=== PATIENT | female | born 1930 | race Hispanic/Latino ===

== ENCOUNTER 2017-05-28 18:24 | Inpatient (IN) | payer MEDICARE ==
[2017-05-28 18:25] VITALS: BMI 25.6
--- NOTE | 2017-05-28 19:51 | C.PDOC ---
History Of Present Illness 86 year old female is sent to the ED from her PMD's office Dr. Benavides for evaluation of generalized weakness, low hemoglobin. Patient states she went to see Dr. Benavides today for follow up on her prior blood work and was sent here for further evaluation. Patient states she takes Iron supplements on the regular basis, had a US of her lower extremities done to rule put DVT, which came back normal. Patient is also c/o SOB on exertion. Patient denies CP, nausea, vomit, diarrhea, numbness, headache, blurry vision. Chief Complaint (Nursing): Shortness Of Breath History Per: Patient History/Exam Limitations: no limitations Onset/Duration Of Symptoms: Days Current Symptoms Are (Timing): Still Present Reports Recently: Treated By A Physician Recent travel outside of the [place]: No Additional History Per: Patient Past Medical History Reviewed: Historical Data, Nursing Documentation, Vital Signs Vital Signs: Last Vital Signs Temp 98.5 F 05/29/17 00:00 Pulse 60 05/29/17 00:00 Resp 20 05/29/17 00:00 BP 210/62 H 05/29/17 00:00 Pulse Ox 95 05/29/17 00:00 - Medical History PMH: Anemia, CAD, HTN, Hypercholesterolemia Other PMH: PVD Surgical History: Coronary Stent - [facility] Procedures ANGIOPLASTY OF OTHER NON-CORONARY VESSEL(S) (09/27/13) CONTRAST AORTOGRAM (09/27/13) CONTRAST ARTERIOGRAM-LEG (09/27/13) CONTRAST RENAL ARTERIOGR (05/28/06) INSEJ [id number] PERIPHERAL NON-CORONARY VES STENT(S) (09/27/13) INSEJ OF DRUG-ELUTING STENT(S) OF OTH PERIPHERAL VESSEL(S) (09/27/13) INSERTION OF [id number] PERIPHERAL VESSEL STENT(S) (10/23/05) INSERTION OF ONE VASCULAR STENT (10/23/05) INSERTION OF TWO VASCULAR STENTS (09/27/13) PROCEDURE ON SINGLE VESSEL (10/23/05) PROCEDURE ON TWO VESSELS (09/27/13) Family History: States: No Known Family Hx - Social History Hx Alcohol Use: No Hx Substance Use: No - Immunization History Hx Tetanus Toxoid Vaccination: No Hx Influenza Vaccination: No Hx Pneumococcal Vaccination: No Review Of Systems Constitutional: Positive for: Weakness. Negative for: Fever, Chills Cardiovascular: Negative for: Chest Pain, Palpitations Respiratory: Negative for: Cough, Shortness of Breath Gastrointestinal: Positive for: Constipation. Negative for: Nausea, Vomiting, Abdominal Pain, Diarrhea Genitourinary: Negative for: Dysuria, Hematuria, Vaginal Bleeding Skin: Negative for: Rash Neurological: Positive for: Weakness, Dizziness. Negative for: Numbness, Headache Physical Exam - Physical Exam Appears: Non-toxic, No Acute Distress Skin: Warm, Dry, Pale Head: Atraumatic, Normacephalic Eye(s): bilateral: Normal Inspection, Conjunctiva Pale Nose: No Discharge, No Deformity Oral Mucosa: Moist Neck: Normal ROM, Supple Chest: Symmetrical Cardiovascular: Rhythm Regular, No Murmur Respiratory: Normal Breath Sounds, No Rales, No Rhonchi, No Wheezing Gastrointestinal/Abdominal: Soft, Tenderness (Vague epigastric ), No Guarding, No Rebound Extremity: Normal ROM, Pedal Edema (B/L midl calf), No Calf Tenderness, Capillary Refill (< 2 seconds), No Swelling Neurological/Psych: Oriented x3, Normal Speech, Normal Cognition Gait: Steady ED Course And Treatment - Laboratory Results Result Diagrams: 05/28/17 19:48 05/28/17 19:48 O2 Sat by Pulse Oximetry: 98 (On RA) Pulse Ox Interpretation: Normal Medical Decision Making Medical Decision Making: Impression: GI bleed vs mild CHF Plan: * Labs * CXR * Pepcid 20 mg IVP * UA Dr. Benavides's lab work shows * Bun 31 * Creat 1.79 * GFR 29 * Tprot 6.1 * S iron 26 low * UIBC 26 low * Sat'n 6 low * pro-BNP 1934 * AFP 8.5 high * Vanous doppler of the LE - neg for DVT * Disposition - Disposition Disposition: HOSPITALIZED Disposition Time: 05:13 Condition: FAIR - Clinical Impression Clinical Impression: GI bleed - Scribe Statement The provider has reviewed the documentation as recorded by the Scribe Horacio Alexander All medical record entries made by the Scribe were at my direction and personally dictated by me. I have reviewed the chart and agree that the record accurately reflects my personal performance of the history, physical exam, medical decision making, and the department course for this patient. I have also personally directed, reviewed, and agree with the discharge instructions and disposition.
[2017-05-28 19:56] LABS: BASO # 0.1 K/uL (0.0-0.2); BASO % 1.1 % (0.0-2.0); EOS # 0.4 K/uL (0.0-0.7); LYMPH # 1.5 K/uL (1.0-4.3); LYMPH % 18.5 % (20.0-40.0); MEAN CORPUSCULAR HEMOGLOBIN 29.2 pg (27.0-31.0); MEAN CORPUSCULAR HGB CONC 32.9 g/dL (33.0-37.0); MONO # 1.2 K/uL (0.0-0.8); MONO % 15.4 % (0.0-10.0); NEUT # 4.8 K/uL (1.8-7.0); RBC 2.53 Mil/uL (3.80-5.20); RED CELL DISTRIBUTION WIDTH 14.2 % (11.5-14.5)
[2017-05-28] MEDS ORDERED: Labetalol 25mg/5ml Syringe ONE ×2 (20:00→20:03)
[2017-05-28 20:01] LABS: HEMOGLOBIN 7.4 g/dL (11.0-16.0)
[2017-05-28] MEDS ORDERED: Labetalol 25mg/5ml Syringe IVP STA (20:03)
[2017-05-28 20:05] LABS: INR 1.1; PROTHROMBIN TIME 12.1 SECONDS (9.7-12.2)
[2017-05-28 20:09] LABS: ALB/GLOB RATIO 1.6 (1.0-2.1); ALBUMIN 3.8 g/dL (3.5-5.0); CALCIUM 9.2 mg/dl (8.6-10.4)
[2017-05-28 21:30] LABS: SQUAMOUS EPITHIAL < 1 /hpf (0-5); URINE BACTERIA OCC (<OCC); URINE BILIRUBIN NEGATIVE (NEGATIVE); URINE BLOOD NEGATIVE (NEGATIVE); URINE CLARITY Clear (Clear); URINE COLOR Colorless (YELLOW); URINE GLUCOSE (UA) NORMAL (Normal); URINE LEUKOCYTE ESTERASE TRACE Leu/uL (Negative); URINE NITRATE NEGATIVE (NEGATIVE); URINE PROTEIN 1+ mg/dL (NEGATIVE); URINE UROBILINOGEN NORMAL mg/dL (0.2-1.0)
--- NOTE | 2017-05-29 08:46 | RAD ---
PROCEDURE: CHEST RADIOGRAPH, 1 VIEW HISTORY: GI Bleeding COMPARISON: 09/23/2013 FINDINGS: LUNGS: Clear. PLEURA: No pneumothorax or pleural fluid seen. CARDIOVASCULAR: Normal. OSSEOUS STRUCTURES: No significant abnormalities. VISUALIZED UPPER ABDOMEN: Normal. OTHER FINDINGS: None. IMPRESSION: No active disease.
[2017-05-29] MEDS: Potassium Chloride 10 mEq ER Tab PO SCH (10:44)
--- NOTE | 2017-05-29 12:14 | CP.PCM.HP ---
History of Present Illness - History of Present Illness History of Present Illness: 86 year old female is sent to the ED from her PMD's office Dr. Benavides for evaluation of generalized weakness, low hemoglobin. Patient states she went to see Dr. Benavides today for follow up on her prior blood work and was sent here for further evaluation. Patient states she takes Iron supplements on the regular basis, had a US of her lower extremities done to rule put DVT, which came back normal. Patient is also c/o SOB on exertion. Patient denies CP, nausea, vomit, diarrhea, numbness, headache, blurry vision. - Medical History PMH: Anemia, CAD, HTN, Hypercholesterolemia Other PMH: PVD Surgical History: Coronary Stent Present on Admission - Present on Admission Any Indicators Present on Admission: No History of DVT/PE: No History of Uncontrolled Diabetes: No Urinary Catheter: No Decubitus Ulcer Present: No History Surgical Site Infection Following: None Review of Systems - Constitutional Constitutional: Anorexia - EENT Eyes: absent: As Per HPI, Blind Spots, Blurred Vision, Change in Vision, Decreased Night Vision, Diplopia, Discharge, Dry Eye, Exophthalmos, Floaters, Irritation, Itchy Eyes, Loss of Peripheral Vision, Pain, Photophobia, Requires Corrective Lenses, Sees Flashes, Spots in Vision, Tunnel Vision, Other Visual Disturbances, Loss of Vision, Other Ears: absent: As Per HPI, Decreased Hearing, Ear Discharge, Ear Pain, Tinnitus, Abnormal Hearing, Disequilibrium, Dizziness, Other Nose/Mouth/Throat: absent: As Per HPI, Epistaxis, Nasal Congestion, Nasal Discharge, Nasal Obstruction, Nasal Trauma, Nose Pain, Post Nasal Drip, Sinus Pain, Sinus Pressure, Bleeding Gums, Change in Voice, Dental Pain, Dry Mouth, Dysphagia, Halitosis, Hoarsness, Lip Swelling, Mouth Lesions, Mouth Pain, Odynophagia, Sore Throat, Throat Swelling, Tongue Swelling, Facial Pain, Neck Pain, Neck Mass, Other - Cardiovascular Cardiovascular: As Per HPI - Respiratory Respiratory: absent: As Per HPI, Cough, Dyspnea, Hemoptysis, Dyspnea on Exertion , Wheezing, Snoring, Stridor, Pain on Inspiration, Chest Congestion, Excessive Mucous Production, Change in Mucous Color, Pain with Coughing, Other - Gastrointestinal Gastrointestinal: As Per HPI - Reproductive: Female Reproductive:Female: absent: As Per HPI, Amenorrhea, Amenorrhea/ Control, Currently Menstual, Cycle <21 Days, Cycle >35 Days, Cycle Variable, Menses 1-7 Days, Menses >/= 8 Days, Menses Variable, Cycle > 4 Weeks Between, No Menses for 6 Months, Heavy Menses, Light Menses, Normal Menses, Spotting Between Cycles , S/P Hysterectomy, Menopausal, Post Menopausal, Premenarche, Abnormal Vaginal Bleeding, Dysmenorrhea, Dyspareunia, Genital Lesions, Genital Pruritis, Pelvic Pain, Prolapse Symptoms, Sexual Dysfunction, Vaginal Discharge, Vaginal Dryness , Vaginal Odor, Vaginal Pruritis, Other - Menstruation Menstruation: absent: As Per HPI, Amenorrhea, Amenorrhea/ Control, Currently Menstual, Cycle <21 Days, Cycle >35 Days, Cycle Variable, Menses 1-7 Days, Menses >/= 8 Days, Menses Variable, Cycle > 4 Weeks Between, No Menses for 6 Months, Heavy Menses, Light Menses, Normal Menses, Spotting Between Cycles , S/P Hysterectomy, Menopausal, Post Menopausal, Premenarche, Abnormal Vaginal Bleeding, Dysmenorrhea, Other - Musculoskeletal Musculoskeletal: absent: As Per HPI, Abnormal Gait, Arthralgias, Atrophy, Back Pain, Deformity, Joint Swelling, Limited Range of Motion, Loss of Height, Muscle Cramps, Muscle Weakness, Myalgias, Neck Pain, Numbness, Radiating Pain into Limb, Stiffness, Tingling, Other - Integumentary Integumentary: absent: As Per HPI, Acne, Alopecia, Bleeding Lesions, Change in Hair, Change in Nails, Change in Pigmentation, Changing Lesions, Dry Skin, Erythema, Furuncle, Hirsutism, Lesions, New Lesions, Non-Healing Lesions, Photosensitivity, Pruritus, Rash, Skin Pain, Skin Ulcer, Sores, Striae, Swelling , Unusual Bruising, Wounds, Jaundice, Other - Neurological Neurological: absent: As Per HPI, Abnormal Gait, Abnormal Hearing, Abnormal Movements, Abnormal Speech, Behavioral Changes, Burning Sensations, Confusion, Convulsions, Disequilibrium, Dizziness, Numbness, Focal Weakness, Frequent Falls , Headaches, Lack of Coordination, Loss of Vision, Memory Loss, Paresthesias, Radicular Pain, Restless Legs, Sensory Deficit, Syncope, Tingling, Tremor, Vertigo, Weakness, Other Visual Disturbances, Other - Psychiatric Psychiatric: absent: As Per HPI, Abnormal Sleep Pattern, Anhedonia, Anxiety, Auditory Hallucinations, Behavioral Changes, Change in Appetite, Change in Libido, Confusion, Depression, Difficulty Concentrating, Hallucinations, Homicidal Ideation, Hopelessness, Irritability, Memory Loss, Mood Swings, Panic Attacks, Paranoia, Suicidal Ideation, Visual Hallucinations, Tactile Hallucinations, Other - Endocrine Endocrine: absent: As Per HPI, Change in Body Appearance, Change in Libido, Cold Intolorance, Deepening of Voice, Excessive Sweating, Fatigue, Flushing, Heat Intolorance, Increase in Ring/Shoe/Hat Size, Palpitations, Polydipsia, Polyphagia, Polyuria, Other - Hematologic/Lymphatic Hematologic: absent: As Per HPI, Easy Bleeding, Easy Bruising, Lymphadenopathy, Other Past Patient History - Past Medical History & Family History Past Medical History?: Yes - Past Social History Smoking Status: Former Smoker - CARDIAC Hx Hypercholesterolemia: Yes Hx Hypertension: Yes - HEMATOLOGICAL/ONCOLOGICAL Hx Anemia: Yes - MUSCULOSKELETAL/RHEUMATOLOGICAL Hx Falls: No - GASTROINTESTINAL Hx Gastrointestinal Disorders: Yes Hx Gastroesophageal Reflux: Yes - GENITOURINARY/GYNECOLOGICAL Hx Genitourinary Disorders: Yes Hx Urinary Tract Infection: Yes - PSYCHIATRIC Hx Substance Use: No - SURGICAL HISTORY Hx Coronary Stent: Yes - ANESTHESIA Hx Anesthesia: Yes Meds Allergies/Adverse Reactions: Allergies Allergy/AdvReac Type Severity Reaction Status Date / Time strawberry Allergy Verified 05/28/17 18:48 Physical Exam - Constitutional Appears: Non-toxic, Chronically Ill - Head Exam Head Exam: NORMOCEPHALIC - Eye Exam Eye Exam: PERRL. absent: Scleral icterus - ENT Exam ENT Exam: Mucous Membranes Dry - Cardiovascular Exam Cardiovascular Exam: REGULAR RHYTHM, +S1, +S2 - GI/Abdominal Exam GI & Abdominal Exam: Diminished Bowel Sounds, Normal Bowel Sounds, Soft. absent : Tenderness - Rectal Exam Rectal Exam: Deferred - Exam Exam: NORMAL INSPECTION - Extremities Exam Extremities exam: Negative for: calf tenderness, pedal edema, pedal pulses present - Back Exam Back exam: absent: CVA tenderness (L), CVA tenderness (R) - Neurological Exam Neurological exam: Alert, CN II-XII Intact, Oriented x3, Reflexes Normal - Psychiatric Exam Psychiatric exam: Normal Mood - Skin Skin Exam: Dry Results - Vital Signs Recent Vital Signs: Last Vital Signs Temp 99.3 F 05/29/17 08:00 Pulse 64 05/29/17 08:00 Resp 20 05/29/17 08:00 BP 192/51 H 05/29/17 10:53 Pulse Ox 95 05/29/17 08:00 - Labs Result Diagrams: 05/28/17 19:48 05/28/17 19:48 Labs: Laboratory Results - last 24 hr 05/28/17 05/28/17 05/28/17 19:48 19:48 19:48 WBC 8.0 RBC 2.53 L Hgb 7.4 L D Hct 22.5 L MCV 89.0 D MCH 29.2 MCHC 32.9 L RDW 14.2 Plt Count 259 MPV 8.0 Neut % (Auto) 60.0 Lymph % (Auto) 18.5 L [place] % (Auto) 15.4 H Eos % (Auto) 5.0 H Baso % (Auto) 1.1 Neut # (Auto) 4.8 Lymph # (Auto) 1.5 [place] # (Auto) 1.2 H Eos # (Auto) 0.4 Baso # (Auto) 0.1 PT 12.1 INR 1.1 APTT 30 Sodium 138 Potassium 3.5 L Chloride 99 Carbon Dioxide 27 Anion Gap 15 BUN 29 H Creatinine 1.9 H Est GFR ( Amer) 30 Est GFR (Non-Af Amer) 25 Random Glucose 115 H Calcium 9.2 Total Bilirubin 0.3 AST 22 ALT 20 Alkaline Phosphatase 50 Total Protein 6.2 L Albumin 3.8 Globulin 2.4 Albumin/Globulin Ratio 1.6 Urine Color Urine Clarity Urine pH Ur Specific [place] Urine Protein Urine Glucose (UA) Urine Ketones Urine Blood Urine Nitrate Urine Bilirubin Urine Urobilinogen Ur Leukocyte Esterase Urine WBC (Auto) Urine RBC (Auto) Ur Squamous Epith Cells Ur Transition Epith Cell Urine Bacteria Blood Type Antibody Screen 05/28/17 05/28/17 05/29/17 19:48 21:18 11:08 WBC RBC Hgb Hct MCV MCH MCHC RDW Plt Count MPV Neut % (Auto) Lymph % (Auto) [place] % (Auto) Eos % (Auto) Baso % (Auto) Neut # (Auto) Lymph # (Auto) [place] # (Auto) Eos # (Auto) Baso # (Auto) PT INR APTT Sodium Potassium Chloride Carbon Dioxide Anion Gap BUN Creatinine Est GFR ( Amer) Est GFR (Non-Af Amer) Random Glucose Calcium Total Bilirubin AST ALT Alkaline Phosphatase Total Protein Albumin Globulin Albumin/Globulin Ratio Urine Color Colorless Urine Clarity Clear Urine pH 7.0 Ur Specific [place] 1.003 Urine Protein 1+ H Urine Glucose (UA) Normal Urine Ketones Negative Urine Blood Negative Urine Nitrate Negative Urine Bilirubin Negative Urine Urobilinogen Normal Ur Leukocyte Esterase Trace Urine WBC (Auto) 2 Urine RBC (Auto) < 1 Ur Squamous Epith Cells < 1 Ur Transition Epith Cell < 1 Urine Bacteria Occ H Blood Type A POSITIVE A POSITIVE Antibody Screen Negative Negative Assessment & Plan (1) Severe anemia Status: Acute - Assessment and Plan (Free Text) Assessment: severe anemia, dehydration , r/o occult maliganancy r/o GI blood loss Hx CHF HTN COPD refuses colonoscopy cont rehydration, transfuse PRBC's
--- NOTE | 2017-05-29 17:25 | CP.PCM.HP ---
History of Present Illness - History of Present Illness History of Present Illness: 86 yo woman sent to the ER by PMD when she was found to have severe anemia. The patient denies any BRBPR, melena, palpitations, QUISPE.Denies weight loss, fevers or night sweats. Was c/o feeling weak and unable to do the things she normally does at home for the past few weeks. Says she has a good appetite, has noticed awelling of her feet recently. Sya she has had GI work up in the past which was normal. She gives a history of cardiac stents and lower extremity ? venous stents as well. Past Patient History - Past Medical History & Family History Past Medical History?: Yes - Past Social History Smoking Status: Former Smoker - CARDIAC Hx Hypercholesterolemia: Yes Hx Hypertension: Yes - HEMATOLOGICAL/ONCOLOGICAL Hx Anemia: Yes - MUSCULOSKELETAL/RHEUMATOLOGICAL Hx Falls: No - GASTROINTESTINAL Hx Gastrointestinal Disorders: Yes Hx Gastroesophageal Reflux: Yes - GENITOURINARY/GYNECOLOGICAL Hx Genitourinary Disorders: Yes Hx Urinary Tract Infection: Yes - PSYCHIATRIC Hx Substance Use: No - SURGICAL HISTORY Hx Coronary Stent: Yes - ANESTHESIA Hx Anesthesia: Yes Meds Allergies/Adverse Reactions: Allergies Allergy/AdvReac Type Severity Reaction Status Date / Time strawberry Allergy Verified 05/28/17 18:48 Results - Vital Signs Recent Vital Signs: Last Vital Signs Temp 98.8 F 05/29/17 17:03 Pulse 54 L 05/29/17 17:03 Resp 20 05/29/17 17:03 BP 142/46 L 05/29/17 17:03 Pulse Ox 96 05/29/17 17:03 - Labs Result Diagrams: 05/28/17 19:48 05/28/17 19:48 Labs: Laboratory Results - last 24 hr 05/28/17 05/28/17 05/28/17 19:48 19:48 19:48 WBC 8.0 RBC 2.53 L Hgb 7.4 L D Hct 22.5 L MCV 89.0 D MCH 29.2 MCHC 32.9 L RDW 14.2 Plt Count 259 MPV 8.0 Neut % (Auto) 60.0 Lymph % (Auto) 18.5 L [place] % (Auto) 15.4 H Eos % (Auto) 5.0 H Baso % (Auto) 1.1 Neut # (Auto) 4.8 Lymph # (Auto) 1.5 [place] # (Auto) 1.2 H Eos # (Auto) 0.4 Baso # (Auto) 0.1 PT 12.1 INR 1.1 APTT 30 Sodium 138 Potassium 3.5 L Chloride 99 Carbon Dioxide 27 Anion Gap 15 BUN 29 H Creatinine 1.9 H Est GFR ( Amer) 30 Est GFR (Non-Af Amer) 25 Random Glucose 115 H Calcium 9.2 Total Bilirubin 0.3 AST 22 ALT 20 Alkaline Phosphatase 50 Total Protein 6.2 L Albumin 3.8 Globulin 2.4 Albumin/Globulin Ratio 1.6 Urine Color Urine Clarity Urine pH Ur Specific [place] Urine Protein Urine Glucose (UA) Urine Ketones Urine Blood Urine Nitrate Urine Bilirubin Urine Urobilinogen Ur Leukocyte Esterase Urine WBC (Auto) Urine RBC (Auto) Ur Squamous Epith Cells Ur Transition Epith Cell Urine Bacteria Influenza Typ A,B (EIA) Blood Type Antibody Screen 05/28/17 05/28/17 05/29/17 19:48 21:18 11:08 WBC RBC Hgb Hct MCV MCH MCHC RDW Plt Count MPV Neut % (Auto) Lymph % (Auto) [place] % (Auto) Eos % (Auto) Baso % (Auto) Neut # (Auto) Lymph # (Auto) [place] # (Auto) Eos # (Auto) Baso # (Auto) PT INR APTT Sodium Potassium Chloride Carbon Dioxide Anion Gap BUN Creatinine Est GFR ( Amer) Est GFR (Non-Af Amer) Random Glucose Calcium Total Bilirubin AST ALT Alkaline Phosphatase Total Protein Albumin Globulin Albumin/Globulin Ratio Urine Color Colorless Urine Clarity Clear Urine pH 7.0 Ur Specific [place] 1.003 Urine Protein 1+ H Urine Glucose (UA) Normal Urine Ketones Negative Urine Blood Negative Urine Nitrate Negative Urine Bilirubin Negative Urine Urobilinogen Normal Ur Leukocyte Esterase Trace Urine WBC (Auto) 2 Urine RBC (Auto) < 1 Ur Squamous Epith Cells < 1 Ur Transition Epith Cell < 1 Urine Bacteria Occ H Influenza Typ A,B (EIA) Blood Type A POSITIVE A POSITIVE Antibody Screen Negative Negative 05/29/17 12:14 WBC RBC Hgb Hct MCV MCH MCHC RDW Plt Count MPV Neut % (Auto) Lymph % (Auto) [place] % (Auto) Eos % (Auto) Baso % (Auto) Neut # (Auto) Lymph # (Auto) [place] # (Auto) Eos # (Auto) Baso # (Auto) PT INR APTT Sodium Potassium Chloride Carbon Dioxide Anion Gap BUN Creatinine Est GFR ( Amer) Est GFR (Non-Af Amer) Random Glucose Calcium Total Bilirubin AST ALT Alkaline Phosphatase Total Protein Albumin Globulin Albumin/Globulin Ratio Urine Color Urine Clarity Urine pH Ur Specific [place] Urine Protein Urine Glucose (UA) Urine Ketones Urine Blood Urine Nitrate Urine Bilirubin Urine Urobilinogen Ur Leukocyte Esterase Urine WBC (Auto) Urine RBC (Auto) Ur Squamous Epith Cells Ur Transition Epith Cell Urine Bacteria Influenza Typ A,B (EIA) Negative for flu a/b Blood Type Antibody Screen Assessment & Plan (1) Severe anemia Assessment and Plan: 86 yo woman with severe normocytic anemia, no acute bleeding reported by the patient. Agree with PRBC transfusion. Work up ordered. Discussed with patient the possibility of low grade MDS versus Iron deficiency, will call patient with results at home, if patient discharged home Status: Acute
--- NOTE | 2017-05-29 19:05 | CP.PCM.CON ---
History of Present Illness - History of Present Illness History of Present Illness: pt is seen and examined, full consult is dictated #[id number] Past Patient History - Past Medical History & Family History Past Medical History?: Yes - Past Social History Smoking Status: Former Smoker - CARDIAC Hx Hypercholesterolemia: Yes Hx Hypertension: Yes - HEMATOLOGICAL/ONCOLOGICAL Hx Anemia: Yes - MUSCULOSKELETAL/RHEUMATOLOGICAL Hx Falls: No - GASTROINTESTINAL Hx Gastrointestinal Disorders: Yes Hx Gastroesophageal Reflux: Yes - GENITOURINARY/GYNECOLOGICAL Hx Genitourinary Disorders: Yes Hx Urinary Tract Infection: Yes - PSYCHIATRIC Hx Substance Use: No - SURGICAL HISTORY Hx Coronary Stent: Yes - ANESTHESIA Hx Anesthesia: Yes Meds Allergies/Adverse Reactions: Allergies Allergy/AdvReac Type Severity Reaction Status Date / Time strawberry Allergy Verified 05/28/17 18:48 - Medications Medications: Current Medications Aspirin (Ecotrin) 81 mg PO DAILY [facility] Last Admin: 05/29/17 10:46 Dose: 81 mg Clonidine HCl (Catapres) 0.2 mg PO BID [facility] Last Admin: 05/29/17 17:32 Dose: 0.2 mg Famotidine (Pepcid) 20 mg PO DAILY [facility] Last Admin: 05/29/17 10:41 Dose: 20 mg Ferrous Sulfate (Feosol) 325 mg PO DAILY [facility] Last Admin: 05/29/17 10:46 Dose: 325 mg Furosemide (Lasix) 40 mg PO DAILY [facility] Last Admin: 05/29/17 10:53 Dose: 40 mg Hydralazine HCl (Apresoline) 50 mg PO BID [facility] Last Admin: 05/29/17 17:32 Dose: 50 mg Labetalol HCl (Trandate) 100 mg PO BID [facility] Last Admin: 05/29/17 17:32 Dose: 100 mg Losartan Potassium (Cozaar) 100 mg PO DAILY [facility] Last Admin: 05/29/17 10:46 Dose: 100 mg Pneumococcal Polyvalent Vaccine (Pneumovax 23 Vaccine) 0.5 ml IM .ONCE ONE Stop: 05/31/17 10:01 Potassium Chloride (Klor-Con 10) 10 meq PO DAILY [facility] Last Admin: 05/29/17 10:44 Dose: 10 meq Rosuvastatin Calcium (Crestor) 5 mg PO [facility] Vitamin E (Vitamin E 400 Units Cap) 400 intlu PO DAILY [facility] Last Admin: 05/29/17 10:42 Dose: 400 intlu Results - Vital Signs Recent Vital Signs: Last Vital Signs Temp 98.2 F 05/29/17 18:21 Pulse 60 05/29/17 18:21 Resp 18 05/29/17 18:21 BP 132/50 L 05/29/17 18:21 Pulse Ox 96 05/29/17 17:03 - Labs Result Diagrams: 05/28/17 19:48 05/28/17 19:48 Labs: Laboratory Results - last 24 hr 05/28/17 05/28/17 05/28/17 19:48 19:48 19:48 WBC 8.0 RBC 2.53 L Hgb 7.4 L D Hct 22.5 L MCV 89.0 D MCH 29.2 MCHC 32.9 L RDW 14.2 Plt Count 259 MPV 8.0 Neut % (Auto) 60.0 Lymph % (Auto) 18.5 L [place] % (Auto) 15.4 H Eos % (Auto) 5.0 H Baso % (Auto) 1.1 Neut # (Auto) 4.8 Lymph # (Auto) 1.5 [place] # (Auto) 1.2 H Eos # (Auto) 0.4 Baso # (Auto) 0.1 PT 12.1 INR 1.1 APTT 30 Sodium 138 Potassium 3.5 L Chloride 99 Carbon Dioxide 27 Anion Gap 15 BUN 29 H Creatinine 1.9 H Est GFR ( Amer) 30 Est GFR (Non-Af Amer) 25 Random Glucose 115 H Calcium 9.2 Total Bilirubin 0.3 AST 22 ALT 20 Alkaline Phosphatase 50 Total Protein 6.2 L Albumin 3.8 Globulin 2.4 Albumin/Globulin Ratio 1.6 Urine Color Urine Clarity Urine pH Ur Specific [place] Urine Protein Urine Glucose (UA) Urine Ketones Urine Blood Urine Nitrate Urine Bilirubin Urine Urobilinogen Ur Leukocyte Esterase Urine WBC (Auto) Urine RBC (Auto) Ur Squamous Epith Cells Ur Transition Epith Cell Urine Bacteria Influenza Typ A,B (EIA) Blood Type Antibody Screen 05/28/17 05/28/17 05/29/17 19:48 21:18 11:08 WBC RBC Hgb Hct MCV MCH MCHC RDW Plt Count MPV Neut % (Auto) Lymph % (Auto) [place] % (Auto) Eos % (Auto) Baso % (Auto) Neut # (Auto) Lymph # (Auto) [place] # (Auto) Eos # (Auto) Baso # (Auto) PT INR APTT Sodium Potassium Chloride Carbon Dioxide Anion Gap BUN Creatinine Est GFR ( Amer) Est GFR (Non-Af Amer) Random Glucose Calcium Total Bilirubin AST ALT Alkaline Phosphatase Total Protein Albumin Globulin Albumin/Globulin Ratio Urine Color Colorless Urine Clarity Clear Urine pH 7.0 Ur Specific [place] 1.003 Urine Protein 1+ H Urine Glucose (UA) Normal Urine Ketones Negative Urine Blood Negative Urine Nitrate Negative Urine Bilirubin Negative Urine Urobilinogen Normal Ur Leukocyte Esterase Trace Urine WBC (Auto) 2 Urine RBC (Auto) < 1 Ur Squamous Epith Cells < 1 Ur Transition Epith Cell < 1 Urine Bacteria Occ H Influenza Typ A,B (EIA) Blood Type A POSITIVE A POSITIVE Antibody Screen Negative Negative 05/29/17 12:14 WBC RBC Hgb Hct MCV MCH MCHC RDW Plt Count MPV Neut % (Auto) Lymph % (Auto) [place] % (Auto) Eos % (Auto) Baso % (Auto) Neut # (Auto) Lymph # (Auto) [place] # (Auto) Eos # (Auto) Baso # (Auto) PT INR APTT Sodium Potassium Chloride Carbon Dioxide Anion Gap BUN Creatinine Est GFR ( Amer) Est GFR (Non-Af Amer) Random Glucose Calcium Total Bilirubin AST ALT Alkaline Phosphatase Total Protein Albumin Globulin Albumin/Globulin Ratio Urine Color Urine Clarity Urine pH Ur Specific [place] Urine Protein Urine Glucose (UA) Urine Ketones Urine Blood Urine Nitrate Urine Bilirubin Urine Urobilinogen Ur Leukocyte Esterase Urine WBC (Auto) Urine RBC (Auto) Ur Squamous Epith Cells Ur Transition Epith Cell Urine Bacteria Influenza Typ A,B (EIA) Negative for flu a/b Blood Type Antibody Screen
[2017-05-30 00:45] VITALS: RESP 20
[2017-05-30 08:39] LABS: BASO # 0.1 K/uL (0.0-0.2); BASO % 0.8 % (0.0-2.0); EOS # 0.4 K/uL (0.0-0.7); EOS % 5.5 % (0.0-4.0); HEMOGLOBIN 8.4 g/dL (11.0-16.0); LYMPH # 1.3 K/uL (1.0-4.3); LYMPH % 18.1 % (20.0-40.0); MEAN CELL VOLUME 88.4 fL (81.0-99.0); MEAN CORPUSCULAR HEMOGLOBIN 29.7 pg (27.0-31.0); MEAN CORPUSCULAR HGB CONC 33.6 g/dL (33.0-37.0); MEAN PLATELET VOLUME 7.8 fL (7.2-11.7); MONO # 1.1 K/uL (0.0-0.8); MONO % 15.2 % (0.0-10.0); NEUT # 4.3 K/uL (1.8-7.0); NEUT % 60.4 % (50.0-75.0); RBC 2.83 Mil/uL (3.80-5.20); RED CELL DISTRIBUTION WIDTH 14.6 % (11.5-14.5); WHITE BLOOD COUNT 7.1 K/uL (4.8-10.8)
[2017-05-30 08:57] LABS: ALB/GLOB RATIO 1.6 (1.0-2.1); ALBUMIN 3.6 g/dL (3.5-5.0); CALCIUM 9.1 mg/dl (8.6-10.4)
[2017-05-30] MEDS ORDERED: Influenza Vaccine 60 mcg/0.5 mL SYR (4YR UP) IM ONE (10:00)
[2017-05-30] MEDS: Potassium Chloride 10 mEq ER Tab PO SCH (10:16)
[2017-05-30] MEDS ORDERED: Epoetin Alfa 10,000 unit/ml Dialysis SC ONE (18:03)
--- NOTE | 2017-05-30 18:04 | CP.PCM.PN ---
Subjective - Date & Time of Evaluation Date of Evaluation: 05/30/17 Time of Evaluation: 18:04 - Subjective Subjective: pt is seen and examined, follow up consult is dictated #[id number] Objective - Vital Signs/Intake and Output Vital Signs (last 24 hours): Temp Pulse Resp BP Pulse Ox 98.3 F 50 L 20 169/53 H 99 05/30/17 16:00 05/30/17 16:00 05/30/17 16:00 05/30/17 16:00 05/30/17 16:00 Intake and Output: 05/30/17 05/30/17 06:59 18:59 Intake Total 490 Balance 490 - Medications Medications: Current Medications Aspirin (Ecotrin) 81 mg PO DAILY [facility] Last Admin: 05/30/17 10:16 Dose: 81 mg Clonidine HCl (Catapres) 0.2 mg PO BID [facility] Last Admin: 05/30/17 17:31 Dose: 0.2 mg Epoetin David (Procrit) 10,000 unit SC ONCE ONE Stop: 05/30/17 18:04 Famotidine (Pepcid) 20 mg PO DAILY [facility] Last Admin: 05/30/17 10:16 Dose: 20 mg Ferrous Sulfate (Feosol) 325 mg PO DAILY [facility] Last Admin: 05/30/17 10:16 Dose: 325 mg Furosemide (Lasix) 40 mg PO DAILY [facility] Last Admin: 05/30/17 10:15 Dose: 40 mg Hydralazine HCl (Apresoline) 50 mg PO BID [facility] Last Admin: 05/30/17 17:31 Dose: 50 mg Labetalol HCl (Trandate) 100 mg PO BID [facility] Last Admin: 05/30/17 17:31 Dose: 100 mg Losartan Potassium (Cozaar) 100 mg PO DAILY [facility] Last Admin: 05/30/17 10:16 Dose: 100 mg Pneumococcal Polyvalent Vaccine (Pneumovax 23 Vaccine) 0.5 ml IM .ONCE ONE Stop: 05/31/17 10:01 Potassium Chloride (Klor-Con 10) 10 meq PO DAILY [facility] Last Admin: 05/30/17 10:16 Dose: 10 meq Rosuvastatin Calcium (Crestor) 5 mg PO HS [facility] Last Admin: 05/29/17 21:09 Dose: 5 mg Vitamin E (Vitamin E 400 Units Cap) 400 intlu PO DAILY [facility] Last Admin: 05/30/17 10:16 Dose: 400 intlu - Labs Labs: 05/30/17 08:26 05/30/17 08:26 PT 12.1 SECONDS (9.7-12.2) 05/28/17 19:48 INR 1.1 05/28/17 19:48 APTT 30 SECONDS (21-34) 05/28/17 19:48
[2017-05-30 19:40] LABS: IRON 26 ug/dL (37-170)
[2017-05-30 19:50] LABS: % IRON SATURATION 9 (20-55); TOTAL IRON BINDING CAPACITY 305 ug/dL (250-450)
[2017-05-30 20:17] LABS: FERRITIN 9.9 ng/mL
[2017-05-30 20:47] LABS: FOLATE 15.7 ng/mL
[2017-05-30] MEDS ORDERED: EPOETIN ALFA 10,000 UNIT/ML ML SC ONE (22:42)
[2017-05-30] MEDS ORDERED: Ferric Sodium Gluconat Complex 62.5 mg/5 ml Vial IVPB SCH (22:45)
[2017-05-31] MEDS ORDERED: Pneumococcal 23-Valent Vaccine IM ONE (10:00)
[2017-05-31] MEDS: Potassium Chloride 10 mEq ER Tab PO SCH (10:42)
[2017-05-31] MEDS: Ferric Sodium Gluconat Complex 62.5 mg/5 ml Vial IVPB SCH (10:42)
--- NOTE | 2017-05-31 15:13 | CP.PCM.PN ---
Subjective - Date & Time of Evaluation Date of Evaluation: 05/31/17 Time of Evaluation: 15:12 - Subjective Subjective: pt is seen and examined, follow up consult is dictated #[id number] Objective - Vital Signs/Intake and Output Vital Signs (last 24 hours): Temp Pulse Resp BP Pulse Ox 98.4 F 50 L 20 177/61 H 99 05/31/17 08:35 05/31/17 08:35 05/31/17 08:35 05/31/17 10:43 05/31/17 08:35 Intake and Output: 05/31/17 05/31/17 06:59 18:59 Intake Total 500 990 Balance 500 990 - Medications Medications: Current Medications Aspirin (Ecotrin) 81 mg PO DAILY [facility] Last Admin: 05/31/17 10:42 Dose: 81 mg Clonidine HCl (Catapres) 0.2 mg PO BID [facility] Last Admin: 05/31/17 10:42 Dose: 0.2 mg Famotidine (Pepcid) 20 mg PO DAILY [facility] Last Admin: 05/31/17 10:42 Dose: 20 mg Ferric Sodium Gluconate Complex (Ferrlecit) 125 mg IVPB DAILY [facility] Stop: 06/08/17 10:01 Last Admin: 05/31/17 10:42 Dose: 125 mg Furosemide (Lasix) 40 mg PO DAILY [facility] Last Admin: 05/31/17 10:43 Dose: 40 mg Hydralazine HCl (Apresoline) 50 mg PO BID [facility] Last Admin: 05/31/17 10:42 Dose: 50 mg Labetalol HCl (Trandate) 100 mg PO BID [facility] Last Admin: 05/31/17 10:42 Dose: 100 mg Losartan Potassium (Cozaar) 100 mg PO DAILY [facility] Last Admin: 05/31/17 10:42 Dose: 100 mg Potassium Chloride (Klor-Con 10) 10 meq PO DAILY [facility] Last Admin: 05/31/17 10:42 Dose: 10 meq Rosuvastatin Calcium (Crestor) 5 mg PO HS [facility] Last Admin: 05/30/17 22:43 Dose: 5 mg Vitamin E (Vitamin E 400 Units Cap) 400 intlu PO DAILY [facility] Last Admin: 05/31/17 10:43 Dose: 400 intlu - Labs Labs: 05/30/17 08:26 05/30/17 08:26 PT 12.1 SECONDS (9.7-12.2) 05/28/17 19:48 INR 1.1 05/28/17 19:48 APTT 30 SECONDS (21-34) 05/28/17 19:48
--- NOTE | 2017-05-31 17:15 | CP.PCM.PN ---
Subjective - Date & Time of Evaluation Date of Evaluation: 05/31/17 Time of Evaluation: 08:00 - Subjective Subjective: admitted with severe anemia requiring blood transfusion as well as exac CHF / sdiastolic / acute less sob now no chest pain weak NAD Objective - Vital Signs/Intake and Output Vital Signs (last 24 hours): Temp Pulse Resp BP Pulse Ox 98.4 F 50 L 20 177/61 H 99 05/31/17 08:35 05/31/17 08:35 05/31/17 08:35 05/31/17 10:43 05/31/17 08:35 Intake and Output: 05/31/17 05/31/17 06:59 18:59 Intake Total 500 990 Balance 500 990 - Medications Medications: Current Medications Aspirin (Ecotrin) 81 mg PO DAILY [facility] Last Admin: 05/31/17 10:42 Dose: 81 mg Clonidine HCl (Catapres) 0.2 mg PO BID [facility] Last Admin: 05/31/17 10:42 Dose: 0.2 mg Famotidine (Pepcid) 20 mg PO DAILY [facility] Last Admin: 05/31/17 10:42 Dose: 20 mg Ferric Sodium Gluconate Complex (Ferrlecit) 125 mg IVPB DAILY [facility] Stop: 06/08/17 10:01 Last Admin: 05/31/17 10:42 Dose: 125 mg Furosemide (Lasix) 40 mg PO DAILY [facility] Last Admin: 05/31/17 10:43 Dose: 40 mg Hydralazine HCl (Apresoline) 50 mg PO BID [facility] Last Admin: 05/31/17 10:42 Dose: 50 mg Labetalol HCl (Trandate) 100 mg PO BID [facility] Last Admin: 05/31/17 10:42 Dose: 100 mg Losartan Potassium (Cozaar) 100 mg PO DAILY [facility] Last Admin: 05/31/17 10:42 Dose: 100 mg Potassium Chloride (Klor-Con 10) 10 meq PO DAILY [facility] Last Admin: 05/31/17 10:42 Dose: 10 meq Rosuvastatin Calcium (Crestor) 5 mg PO HS [facility] Last Admin: 05/30/17 22:43 Dose: 5 mg Vitamin E (Vitamin E 400 Units Cap) 400 intlu PO DAILY [facility] Last Admin: 05/31/17 10:43 Dose: 400 intlu - Labs Labs: 05/30/17 08:26 05/30/17 08:26 PT 12.1 SECONDS (9.7-12.2) 05/28/17 19:48 INR 1.1 05/28/17 19:48 APTT 30 SECONDS (21-34) 05/28/17 19:48 - Constitutional Appears: Non-toxic, Chronically Ill - Head Exam Head Exam: NORMOCEPHALIC - Eye Exam Eye Exam: PERRL. absent: Scleral icterus - ENT Exam ENT Exam: Mucous Membranes Dry - Neck Exam Neck Exam: absent: Lymphadenopathy - Respiratory Exam Respiratory Exam: Decreased Breath Sounds, Clear to Ausculation Bilateral - Cardiovascular Exam Cardiovascular Exam: REGULAR RHYTHM, +S1, +S2 - GI/Abdominal Exam GI & Abdominal Exam: Distended, Soft. absent: Tenderness - Rectal Exam Rectal Exam: Deferred - Exam Exam: NORMAL INSPECTION - Extremities Exam Extremities Exam: Pedal Edema. absent: Calf Tenderness, Tenderness - Back Exam Back Exam: absent: CVA tenderness (L), CVA tenderness (R), paraspinal tenderness - Neurological Exam Neurological Exam: Alert, Awake, CN II-XII Intact, Normal Gait Neuro motor strength exam: Left Upper Extremity: 5, Right Upper Extremity: 5, Left Lower Extremity: 5, Right Lower Extremity: 5 - Psychiatric Exam Psychiatric exam: Normal Mood - Skin Skin Exam: Dry Assessment and Plan (1) Severe anemia Status: Acute (2) CHF exacerbation Status: Acute (3) CHF exacerbation Status: Acute (4) Diastolic CHF Status: Acute (5) Diastolic CHF Status: Acute (6) Diastolic CHF, acute Status: Acute (7) Diastolic CHF, acute Status: Acute (8) Diastolic CHF, acute on chronic Status: Acute (9) Diastolic CHF, acute on chronic Status: Acute - Assessment and Plan (Free Text) Assessment: severe deconditioning iron in progress refusing colonoscopy/ egd
--- NOTE | 2017-06-01 01:29 | PN ---
DATE: 05/31/2017 FOLLOWUP RENAL CONSULTATION LOCATION: The patient is located in room 368, bed B. REQUESTED BY: Ralph Ya MD REASON FOR FOLLOWUP: Chronic kidney disease, anemia. SUBJECTIVE: Mrs. Ulrich is an 86-year-old elderly female with a past medical history significant for longstanding hypertension, hyperlipidemia, coronary artery disease, peripheral vascular disease, questionable renal artery stenosis, status post coronary stent, peripheral vascular stents and also renal artery stent as per the patient with chronic kidney disease, was admitted with chief complaints of uncontrolled hypertension, low H and H, and also elevated BUN and creatinine. The patient denies any headache. The patient was complaining of occasional shortness of breath. Denies any chest pain, nausea, vomiting, diarrhea, any numbness. No blurred vision. No headache. OBJECTIVE: VITAL SIGNS: As follows, blood pressure 177/61, pulse 50, respirations 20, temperature 98.1, and saturation 99%. Height 5 feet 1 inch, weight is 134 pounds. GENERAL: Mrs. Ulrich is an 86-year-old elderly female, moderately built, moderately nourished, not in acute distress. HEENT: Pupils are normal, reactive to light and accommodation. Conjunctivae pink. Sclerae anicteric. Tongue is moist. Trachea is midline. LUNGS: Symmetric on both sides. Bilateral breath sounds present. Clear to auscultation. CVS: [place] at the fifth intercostal space, midclavicular line. S1 and S2 audible. No murmur or gallop. ABDOMEN: Normal in appearance. Soft, tympanitic. No guarding. No hepatosplenomegaly. COMMUNITY SERVICES COORDINATOR: The patient is alert, awake, oriented x3. Nonfocal neuro examination. Cranial nerves II through XII grossly intact. Sensory and motor system is within normal limits. EXTREMITIES: No cyanosis, no clubbing. The patient has 1+ edema in both lower extremities, right leg more than the left. CURRENT MEDICATIONS: Include as follows, hydralazine 50 mg p.o. b.i.d., clonidine 0.2 mg p.o. b.i.d., losartan 100 mg p.o. daily, Crestor 5 mg at bedtime, aspirin 81 mg daily, Ferrlecit 125 mg daily, Klor-Con 10 mEq p.o. daily, Lasix 40 mg p.o. daily, Pepcid 20 mg p.o. daily, labetalol 100 mg p.o. b.i.d., vitamin E 400 international units p.o. daily. LABORATORY DATA: No new labs are available for today. As of 05/30/2017, BUN and creatinine are 24 over 1.8 and GFR of 27. H and H are 8.4 over 25, iron saturation is 9%, and ferritin is 9.9 and 11. IMPRESSION: In summary, Mrs. Ulrich is an 86-year-old elderly female with a history of hypertension, coronary artery disease, hyperlipidemia, peripheral vascular disease, questionable renal artery stenosis, status post stents in the legs, status post coronary stent and also questionable renal artery stent with low H and H, low . 1. Chronic kidney disease stage IV, most likely secondary to hypertensive nephrosclerosis, cannot rule out renovascular disease. 2. Anemia secondary to chronic kidney disease and also iron-deficiency anemia, rule out gastrointestinal loss. 3. Uncontrolled hypertension. 4. Coronary artery disease, asymptomatic at this time. PLAN: Continue Ferrlecit 125 mg IV piggyback daily and also we will increase hydralazine to 50 mg p.o. q.8 hours, and repeat CBC, CMP in a.m. We will follow with you. Thank you for allowing me to participate in your patient's care. Niecy Piña MD
[2017-06-01] MEDS: Potassium Chloride 10 mEq ER Tab PO SCH (11:05)
[2017-06-01] MEDS: Ferric Sodium Gluconat Complex 62.5 mg/5 ml Vial IVPB SCH (11:53)
[2017-06-01 12:05] LABS: BASO # 0.1 K/uL (0.0-0.2); BASO % 0.8 % (0.0-2.0); EOS # 0.3 K/uL (0.0-0.7); EOS % 4.4 % (0.0-4.0); HEMOGLOBIN 8.6 g/dL (11.0-16.0); LYMPH # 0.9 K/uL (1.0-4.3); LYMPH % 12.3 % (20.0-40.0); MEAN CELL VOLUME 89.2 fL (81.0-99.0); MEAN CORPUSCULAR HEMOGLOBIN 29.8 pg (27.0-31.0); MEAN CORPUSCULAR HGB CONC 33.4 g/dL (33.0-37.0); MEAN PLATELET VOLUME 7.7 fL (7.2-11.7); MONO # 1.1 K/uL (0.0-0.8); MONO % 14.8 % (0.0-10.0); NEUT # 5.1 K/uL (1.8-7.0); NEUT % 67.7 % (50.0-75.0); NRBC % 0.1 % (0.0-2.0); RBC 2.89 Mil/uL (3.80-5.20); RED CELL DISTRIBUTION WIDTH 14.8 % (11.5-14.5); WHITE BLOOD COUNT 7.5 K/uL (4.8-10.8)
[2017-06-01 12:06] LABS: CALCIUM 8.8 mg/dl (8.6-10.4)
--- NOTE | 2017-06-01 13:37 | CP.PCM.PN ---
Subjective - Date & Time of Evaluation Date of Evaluation: 06/01/17 Time of Evaluation: 13:37 - Subjective Subjective: pt is seen and examined, follow up consult is dictated #[id number] Objective - Vital Signs/Intake and Output Vital Signs (last 24 hours): Temp Pulse Resp BP Pulse Ox 98.6 F 56 L 20 177/56 H 97 06/01/17 08:38 06/01/17 08:38 06/01/17 08:38 06/01/17 11:05 06/01/17 08:38 Intake and Output: 06/01/17 06/01/17 06:59 18:59 Intake Total 400 Balance 400 - Medications Medications: Current Medications Aspirin (Ecotrin) 81 mg PO DAILY [facility] Last Admin: 06/01/17 11:05 Dose: 81 mg Clonidine HCl (Catapres) 0.2 mg PO BID [facility] Last Admin: 06/01/17 11:05 Dose: 0.2 mg Famotidine (Pepcid) 20 mg PO DAILY [facility] Last Admin: 06/01/17 11:05 Dose: 20 mg Ferric Sodium Gluconate Complex (Ferrlecit) 125 mg IVPB DAILY [facility] Stop: 06/08/17 10:01 Last Admin: 06/01/17 11:53 Dose: 125 mg Furosemide (Lasix) 40 mg PO DAILY [facility] Last Admin: 06/01/17 11:05 Dose: 40 mg Hydralazine HCl (Apresoline) 50 mg PO Q8H [facility] Last Admin: 06/01/17 05:40 Dose: Not Given Labetalol HCl (Trandate) 100 mg PO Q12H [facility] Losartan Potassium (Cozaar) 100 mg PO DAILY [facility] Last Admin: 06/01/17 11:05 Dose: 100 mg Potassium Chloride (Klor-Con 10) 10 meq PO DAILY [facility] Last Admin: 06/01/17 11:05 Dose: 10 meq Rosuvastatin Calcium (Crestor) 5 mg PO HS [facility] Last Admin: 05/31/17 21:57 Dose: 5 mg Vitamin E (Vitamin E 400 Units Cap) 400 intlu PO DAILY [facility] Last Admin: 06/01/17 11:05 Dose: 400 intlu - Labs Labs: 06/01/17 11:39 06/01/17 11:39 PT 12.1 SECONDS (9.7-12.2) 02/15/18 19:48 INR 1.1 05/28/17 19:48 APTT 30 SECONDS (21-34) 05/28/17 19:48
--- NOTE | 2017-06-01 15:15 | CP.PCM.PN ---
Subjective - Date & Time of Evaluation Date of Evaluation: 06/01/17 Time of Evaluation: 08:00 - Subjective Subjective: seen on rounds BP meds adjusted Objective - Vital Signs/Intake and Output Vital Signs (last 24 hours): Temp Pulse Resp BP Pulse Ox 98.6 F 45 L 20 172/53 H 97 06/01/17 08:38 06/01/17 14:15 06/01/17 08:38 06/01/17 14:15 06/01/17 08:38 Intake and Output: 06/01/17 06/01/17 06:59 18:59 Intake Total 400 Balance 400 - Medications Medications: Current Medications Aspirin (Ecotrin) 81 mg PO DAILY [facility] Last Admin: 06/01/17 11:05 Dose: 81 mg Clonidine HCl (Catapres) 0.2 mg PO BID [facility] Last Admin: 06/01/17 11:05 Dose: 0.2 mg Famotidine (Pepcid) 20 mg PO DAILY [facility] Last Admin: 06/01/17 11:05 Dose: 20 mg Ferric Sodium Gluconate Complex (Ferrlecit) 125 mg IVPB DAILY [facility] Stop: 06/08/17 10:01 Last Admin: 06/01/17 11:53 Dose: 125 mg Furosemide (Lasix) 40 mg PO DAILY [facility] Last Admin: 06/01/17 11:05 Dose: 40 mg Hydralazine HCl (Apresoline) 50 mg PO Q8H [facility] Last Admin: 06/01/17 14:15 Dose: 50 mg Labetalol HCl (Trandate) 100 mg PO Q12H [facility] Losartan Potassium (Cozaar) 100 mg PO DAILY [facility] Last Admin: 06/01/17 11:05 Dose: 100 mg Minoxidil (Minoxidil) 2.5 mg PO BID [facility] Potassium Chloride (Klor-Con 10) 10 meq PO DAILY [facility] Last Admin: 06/01/17 11:05 Dose: 10 meq Rosuvastatin Calcium (Crestor) 5 mg PO HS [facility] Last Admin: 05/31/17 21:57 Dose: 5 mg Vitamin E (Vitamin E 400 Units Cap) 400 intlu PO DAILY [facility] Last Admin: 06/01/17 11:05 Dose: 400 intlu - Labs Labs: 06/01/17 11:39 06/01/17 11:39 PT 12.1 SECONDS (9.7-12.2) 05/28/17 19:48 INR 1.1 05/28/17 19:48 APTT 30 SECONDS (21-34) 05/28/17 19:48 - Constitutional Appears: Non-toxic, Chronically Ill - Head Exam Head Exam: NORMOCEPHALIC - Eye Exam Eye Exam: PERRL - ENT Exam ENT Exam: Mucous Membranes Dry - Neck Exam Neck Exam: absent: Lymphadenopathy - Respiratory Exam Respiratory Exam: Decreased Breath Sounds - Cardiovascular Exam Cardiovascular Exam: REGULAR RHYTHM - GI/Abdominal Exam GI & Abdominal Exam: Distended, Soft - Rectal Exam Rectal Exam: Deferred - Exam Exam: NORMAL INSPECTION - Extremities Exam Extremities Exam: absent: Pedal Edema - Back Exam Back Exam: absent: CVA tenderness (L), CVA tenderness (R) - Neurological Exam Neurological Exam: Alert, Awake, Oriented x3 - Psychiatric Exam Psychiatric exam: Depressed - Skin Skin Exam: Dry, Intact Assessment and Plan (1) Severe anemia Status: Acute (2) CHF exacerbation Status: Acute (3) CHF exacerbation Status: Acute (4) Diastolic CHF Status: Acute (5) Diastolic CHF Status: Acute (6) Diastolic CHF, acute Status: Acute (7) Diastolic CHF, acute Status: Acute (8) Diastolic CHF, acute on chronic Status: Acute (9) Diastolic CHF, acute on chronic Status: Acute
--- NOTE | 2017-06-01 19:17 | CP.PCM.PN ---
Subjective - Date & Time of Evaluation Date of Evaluation: 05/31/17 Time of Evaluation: 18:30 - Subjective Subjective: s/p transfusion feels better less edema Heme note well appreciated Objective - Vital Signs/Intake and Output Vital Signs (last 24 hours): Temp Pulse Resp BP Pulse Ox 98.2 F 53 L 20 163/52 H 98 06/01/17 16:00 06/01/17 16:00 06/01/17 16:00 06/01/17 16:00 06/01/17 16:00 Intake and Output: 06/01/17 06/02/17 18:59 06:59 Intake Total 580 Balance 580 - Medications Medications: Current Medications Aspirin (Ecotrin) 81 mg PO DAILY [facility] Last Admin: 06/01/17 11:05 Dose: 81 mg Clonidine HCl (Catapres) 0.2 mg PO BID [facility] Last Admin: 06/01/17 17:58 Dose: 0.2 mg Famotidine (Pepcid) 20 mg PO DAILY [facility] Last Admin: 06/01/17 11:05 Dose: 20 mg Ferric Sodium Gluconate Complex (Ferrlecit) 125 mg IVPB DAILY [facility] Stop: 06/08/17 10:01 Last Admin: 06/01/17 11:53 Dose: 125 mg Furosemide (Lasix) 40 mg PO DAILY [facility] Last Admin: 06/01/17 11:05 Dose: 40 mg Hydralazine HCl (Apresoline) 50 mg PO Q8H [facility] Last Admin: 06/01/17 14:15 Dose: 50 mg Labetalol HCl (Trandate) 100 mg PO Q12H [facility] Losartan Potassium (Cozaar) 100 mg PO DAILY [facility] Last Admin: 06/01/17 11:05 Dose: 100 mg Potassium Chloride (Klor-Con 10) 10 meq PO DAILY [facility] Last Admin: 06/01/17 11:05 Dose: 10 meq Rosuvastatin Calcium (Crestor) 5 mg PO HS [facility] Last Admin: 05/31/17 21:57 Dose: 5 mg Vitamin E (Vitamin E 400 Units Cap) 400 intlu PO DAILY [facility] Last Admin: 06/01/17 11:05 Dose: 400 intlu - Labs Labs: 06/01/17 11:39 06/01/17 11:39 PT 12.1 SECONDS (9.7-12.2) 05/28/17 19:48 INR 1.1 05/28/17 19:48 APTT 30 SECONDS (21-34) 05/28/17 19:48 - Constitutional Appears: Non-toxic - Head Exam Head Exam: NORMAL INSPECTION - Eye Exam Eye Exam: absent: Scleral icterus - ENT Exam ENT Exam: Mucous Membranes Moist - Neck Exam Neck Exam: Full ROM - Respiratory Exam Respiratory Exam: Decreased Breath Sounds - Cardiovascular Exam Cardiovascular Exam: REGULAR RHYTHM - Extremities Exam Extremities Exam: absent: Calf Tenderness Additional comments: less edema Assessment and Plan - Assessment and Plan (Free Text) Assessment: Severe anemia CHF - diastolic HTN Renal insufficiency CAD PVD
--- NOTE | 2017-06-01 19:41 | CP.PCM.PN ---
Subjective - Date & Time of Evaluation Date of Evaluation: 05/31/17 Time of Evaluation: 18:30 - Subjective Subjective: stable NAD received transfusion Objective - Vital Signs/Intake and Output Vital Signs (last 24 hours): Temp Pulse Resp BP Pulse Ox 98.2 F 53 L 20 163/52 H 98 06/01/17 16:00 06/01/17 16:00 06/01/17 16:00 06/01/17 16:00 06/01/17 16:00 Intake and Output: 06/01/17 06/02/17 18:59 06:59 Intake Total 580 Balance 580 - Medications Medications: Current Medications Aspirin (Ecotrin) 81 mg PO DAILY [facility] Last Admin: 06/01/17 11:05 Dose: 81 mg Clonidine HCl (Catapres) 0.2 mg PO BID [facility] Last Admin: 06/01/17 17:58 Dose: 0.2 mg Famotidine (Pepcid) 20 mg PO DAILY [facility] Last Admin: 06/01/17 11:05 Dose: 20 mg Ferric Sodium Gluconate Complex (Ferrlecit) 125 mg IVPB DAILY [facility] Stop: 06/08/17 10:01 Last Admin: 06/01/17 11:53 Dose: 125 mg Furosemide (Lasix) 40 mg PO DAILY [facility] Last Admin: 06/01/17 11:05 Dose: 40 mg Hydralazine HCl (Apresoline) 50 mg PO Q8H [facility] Last Admin: 06/01/17 14:15 Dose: 50 mg Labetalol HCl (Trandate) 100 mg PO Q12H [facility] Losartan Potassium (Cozaar) 100 mg PO DAILY [facility] Last Admin: 06/01/17 11:05 Dose: 100 mg Potassium Chloride (Klor-Con 10) 10 meq PO DAILY [facility] Last Admin: 06/01/17 11:05 Dose: 10 meq Rosuvastatin Calcium (Crestor) 5 mg PO HS [facility] Last Admin: 05/31/17 21:57 Dose: 5 mg Vitamin E (Vitamin E 400 Units Cap) 400 intlu PO DAILY [facility] Last Admin: 06/01/17 11:05 Dose: 400 intlu - Labs Labs: 06/01/17 11:39 06/01/17 11:39 PT 12.1 SECONDS (9.7-12.2) 05/28/17 19:48 INR 1.1 02/15/18 19:48 APTT 30 SECONDS (21-34) 05/28/17 19:48 - Constitutional Appears: No Acute Distress - Head Exam Head Exam: NORMAL INSPECTION - Eye Exam Eye Exam: absent: Scleral icterus Assessment and Plan - Assessment and Plan (Free Text) Assessment: Anemia - can't r/o early MDS CHF HTN Renal insufficieny Plan: Cont work up Transfusion prn Control BP
--- NOTE | 2017-06-01 22:36 | CP.PCM.CON ---
History of Present Illness - History of Present Illness History of Present Illness: Reason for consult: leg edema severe anemia HPI: 86 year old female is sent to the ER (well known to me from the office) for evaluation of leg edema, generalized weakness and low hemoglobin. Patient presented today in the office for follow up on her prior blood work and was sent here for further evaluation. Patient states she takes Iron supplements on the regular basis, had a US of her lower extremities done to rule put DVT, which came back normal. Patient is also c/o SOB on exertion. Patient denies CP, nausea, vomit, diarrhea, numbness, headache, blurry vision. Review of Systems - Cardiovascular Cardiovascular: Dyspnea on Exertion, Leg Edema - Respiratory Respiratory: Dyspnea on Exertion - Gastrointestinal Gastrointestinal: absent: Abdominal Pain Past Patient History - Past Medical History & Family History Past Medical History?: Yes - Past Social History Smoking Status: Former Smoker - CARDIAC Hx Hypercholesterolemia: Yes Hx Hypertension: Yes - HEMATOLOGICAL/ONCOLOGICAL Hx Anemia: Yes - MUSCULOSKELETAL/RHEUMATOLOGICAL Hx Falls: No - GASTROINTESTINAL Hx Gastrointestinal Disorders: Yes Hx Gastroesophageal Reflux: Yes - GENITOURINARY/GYNECOLOGICAL Hx Genitourinary Disorders: Yes Hx Urinary Tract Infection: Yes - PSYCHIATRIC Hx Substance Use: No - SURGICAL HISTORY Hx Coronary Stent: Yes - ANESTHESIA Hx Anesthesia: Yes Meds Allergies/Adverse Reactions: Allergies Allergy/AdvReac Type Severity Reaction Status Date / Time strawberry Allergy Verified 05/28/17 18:48 - Medications Medications: Current Medications Aspirin (Ecotrin) 81 mg PO DAILY [facility] Last Admin: 06/01/17 11:05 Dose: 81 mg Clonidine HCl (Catapres) 0.2 mg PO BID [facility] Last Admin: 06/01/17 17:58 Dose: 0.2 mg Famotidine (Pepcid) 20 mg PO DAILY [facility] Last Admin: 06/01/17 11:05 Dose: 20 mg Ferric Sodium Gluconate Complex (Ferrlecit) 125 mg IVPB DAILY [facility] Stop: 06/08/17 10:01 Last Admin: 06/01/17 11:53 Dose: 125 mg Furosemide (Lasix) 40 mg PO DAILY [facility] Last Admin: 06/01/17 11:05 Dose: 40 mg Hydralazine HCl (Apresoline) 50 mg PO Q8H [facility] Last Admin: 06/01/17 21:56 Dose: 50 mg Labetalol HCl (Trandate) 100 mg PO Q12H [facility] Last Admin: 06/01/17 21:56 Dose: 100 mg Losartan Potassium (Cozaar) 100 mg PO DAILY [facility] Last Admin: 06/01/17 11:05 Dose: 100 mg Potassium Chloride (Klor-Con 10) 10 meq PO DAILY [facility] Last Admin: 06/01/17 11:05 Dose: 10 meq Rosuvastatin Calcium (Crestor) 5 mg PO HS [facility] Last Admin: 06/01/17 21:56 Dose: 5 mg Vitamin E (Vitamin E 400 Units Cap) 400 intlu PO DAILY [facility] Last Admin: 06/01/17 11:05 Dose: 400 intlu Results - Vital Signs Recent Vital Signs: Last Vital Signs Temp 98.2 F 06/01/17 16:00 Pulse 53 L 06/01/17 16:00 Resp 20 06/01/17 16:00 BP 163/52 H 06/01/17 16:00 Pulse Ox 98 06/01/17 16:00 - Labs Result Diagrams: 06/01/17 11:39 06/01/17 11:39 Labs: Laboratory Results - last 24 hr 06/01/17 06/01/17 11:39 11:39 WBC 7.5 RBC 2.89 L Hgb 8.6 L Hct 25.8 L MCV 89.2 MCH 29.8 MCHC 33.4 RDW 14.8 H Plt Count 232 MPV 7.7 Neut % (Auto) 67.7 Lymph % (Auto) 12.3 L [place] % (Auto) 14.8 H Eos % (Auto) 4.4 H Baso % (Auto) 0.8 Neut # (Auto) 5.1 Lymph # (Auto) 0.9 L [place] # (Auto) 1.1 H Eos # (Auto) 0.3 Baso # (Auto) 0.1 Sodium 135 Potassium 3.6 Chloride 100 Carbon Dioxide 27 Anion Gap 12 BUN 28 H Creatinine 1.7 H Est GFR ( Amer) 34 Est GFR (Non-Af Amer) 28 Random Glucose 88 Calcium 8.8 Assessment & Plan - Assessment and Plan (Free Text) Assessment: CHF - acute diastolic Anemia -acute on chronic HTN CAD PVD Renal insufficiency Plan: Transfusion Lasix, hydralazine, beta rylie - Date & Time Date: 05/29/17 Time: 07:30
[2017-06-02 00:46] LABS: ALBUMIN (PEP) 3.4 g/dL (3.8-4.8); ALPHA-1-GLOBULIN (PEP) 0.4 g/dL (0.2-0.3)
[2017-06-02 07:27] LABS: CALCIUM 8.6 mg/dl (8.6-10.4)
[2017-06-02 07:28] LABS: BASO # 0.1 K/uL (0.0-0.2); BASO % 0.7 % (0.0-2.0); EOS # 0.4 K/uL (0.0-0.7); EOS % 4.8 % (0.0-4.0); HEMOGLOBIN 7.8 g/dL (11.0-16.0); LYMPH # 0.9 K/uL (1.0-4.3); LYMPH % 11.6 % (20.0-40.0); MEAN CELL VOLUME 88.8 fL (81.0-99.0); MEAN CORPUSCULAR HEMOGLOBIN 29.5 pg (27.0-31.0); MEAN CORPUSCULAR HGB CONC 33.2 g/dL (33.0-37.0); MONO # 1.3 K/uL (0.0-0.8); MONO % 16.7 % (0.0-10.0); NEUT # 5.3 K/uL (1.8-7.0); NEUT % 66.2 % (50.0-75.0); RBC 2.65 Mil/uL (3.80-5.20); RED CELL DISTRIBUTION WIDTH 14.4 % (11.5-14.5)
--- NOTE | 2017-06-02 09:53 | PN ---
FOLLOWUP RENAL CONSULTATION DATE: 06/01/2017 LOCATION: The patient is located in room 368, bed B. REQUESTED BY: Ralph Ya MD REASON FOR FOLLOWUP: Chronic kidney disease, anemia, uncontrolled hypertension. SUBJECTIVE: Mrs. Hilario is an 86-year-old elderly female with past medical history significant for hypertension, coronary artery disease, peripheral vascular disease, status post two coronary stents, peripheral stents and also renal artery stents, chronic kidney disease, CHF, who was admitted with uncontrolled hypertension, low H and H and the patient was also found to have low saturation and started on IV iron and Procrit. The patient is not in acute distress and feeling better. No chest pain. No palpitation. No fever. No cough. No abdominal pain. No nausea, vomiting, or diarrhea. PHYSICAL EXAMINATION: GENERAL: Mrs. Hilario is an 86-year-old elderly female moderately-built, moderately-nourished, and not in acute distress. VITAL SIGNS: As follows: Blood pressure this morning 177/56, pulse 45 to 56, respirations 20, temperature 98.2, and saturation 98%. Height 5 feet 1 inch and weight is 134. HEENT: Pupils are normal and reactive to light and accommodation. Conjunctivae pink. Sclerae anicteric. Tongue is moist and trachea is midline. LUNGS: Symmetric on both sides. Bilateral breath sounds present. Clear on auscultation. CARDIOVASCULAR: [place] at the fifth intercostal space, midclavicular line. S1 and S2 audible. No murmur or gallop. ABDOMEN: Normal in appearance, soft, and tympanic. No guarding. No rigidity. No hepatosplenomegaly. CENTRAL NERVOUS SYSTEM: The patient is alert, awake, and oriented x3. Nonfocal neuro examination. Cranial nerves II through XII grossly intact. Sensory and motor systems is within normal limits. EXTREMITIES: No cyanosis, no clubbing, and no edema. CURRENT MEDICATIONS: Include as follows: Hydralazine 50 mg p.o. q.8h., clonidine 0.2 mg p.o. b.i.d., losartan 100 mg p.o. daily, Crestor 5 mg p.o. at bedtime, aspirin 81 mg daily, ferric gluconate 125 mg IV daily, Klor-Con 10 mEq p.o. daily, Lasix 40 mg p.o. daily, Pepcid 20 mg p.o. daily, labetalol 100 mg p.o. q.12h., and vitamin E 400 Internation Units p.o. daily. LABORATORY DATA: Include as follows, as of 06/01/2017; WBC 7.5, hemoglobin 8.6, hematocrit 25.8, and platelets 232,000. Sodium 135, potassium 3.6, chloride 100, CO2 of 27, BUN 28, creatinine 1.7, glucose 88, and calcium is 8.8. ASSESSMENT AND PLAN: In summary, Mrs. Hilario is an 86-year-old elderly female with hypertension, peripheral vascular disease, renal artery stenosis, coronary artery disease, status post coronary stents, peripheral stents, and renal artery stents with low hemoglobin and hematocrit and low glomerular filtration rate. 1. Chronic kidney disease, stage IV, most likely secondary to hypertensive nephrosclerosis, cannot rule out renal vascular disease. 2. Uncontrolled hypertension. Hydralazine increased on the last night. Continue hydralazine 50 mg three times a day. We will titrate as needed to q.6h. Continue clonidine, continue labetalol, continue losartan, and also Lasix 40 mg daily. 3. Anemia secondary to renal failure and chronic kidney disease. Continue Ferrlecit and we will add Epogen 10,000 units subcutaneously x1 dose if blood pressure is controlled tomorrow. 4. Coronary artery disease, asymptomatic at this time. We will hold minoxidil at this time. We will follow with you. Thank you for allowing me to participate in your patient's care. Niecy Piña MD
--- NOTE | 2017-06-02 09:55 | CON ---
DATE: The patient is located in room 368, bed B. REQUESTED BY: Dr. Ralph Ya. REASON FOR FOLLOWUP AND CONSULTATION: Increased BNP and need for further evaluation. HISTORY OF PRESENT ILLNESS: Ms. Ulrich is an 86-year-old very pleasant elderly female with past medical history significant for hypertension more than 10 years, coronary artery disease status post stents and peripheral vascular disease status post stents and renal artery stenosis, stent placement long time ago who was followed by who was sent from the PMD office with low H and H and for further evaluation. The patient denies any chest pain or palpitations. Denies any fever or cough. Denies any headache. Denies any dizziness. Denies any nausea or vomiting. Denies any hematuria. Denies hematemesis or hemoptysis or melena. PAST MEDICAL HISTORY: Significant for hypertension, coronary artery disease, peripheral vascular disease, and small kidney as per the patient on one side, renal artery stenosis and stent placement long time ago. PAST SURGICAL HISTORY: Bilateral cataract surgery. ALLERGIES: NO KNOWN DRUG ALLERGIES. ALLERGY TO STRAWBERRY. SOCIAL HISTORY: The patient was an ex-smoker, quit smoking in 1987 after smoking for 40 years one pack per day from age 16 to 57. Denies any alcohol abuse. Denies any drug abuse. PERSONAL HISTORY: She is a . She has no children. She had 2 brothers and 4 sisters, all are and both parents are long time ago. She lives in a senior citizen building. CURRENT MEDICATIONS: Include as follows hydralazine 50 mg p.o. b.i.d., clonidine 0.2 mg p.o. b.i.d., losartan 100 mg p.o. daily, Crestor 5 mg p.o. at bedtime, aspirin 81 mg daily, Feosol 325 mg p.o. daily, Klor-Con 10 mEq p.o. daily, Lasix 40 mg p.o. daily, Pepcid 20 mg p.o. daily, pneumococcal vaccine x1, labetalol 100 mg p.o. b.i.d., and vitamin E 400 units p.o. daily. REVIEW OF SYSTEMS: Significant for anemia and all other review of systems are reviewed and are negative. PHYSICAL EXAMINATION: VITAL SIGNS: Blood pressure 122/50, pulse 60, respirations 18, temperature 98.2, saturations 96%. Height 5 feet 1 inch and weight is 134 pounds. GENERAL: Ms. Ulrich is an 86-year-old elderly female, moderately built, moderately nourished, not in acute distress. HEENT: Pupils normal and reactive to light and accommodation. Conjunctivae pink. Sclerae anicteric. Tongue is moist. Trachea is midline. LUNGS: Symmetric on both sides. Bilateral breath sounds present. Clear on auscultation. CVS: [place] at the fifth intercostal space, midclavicular line. S1 and S2 audible. No murmur or gallop. ABDOMEN: Normal in appearance, soft, tympanic. No guarding. No rigidity. No hepatosplenomegaly. [employer]CE: The patient is alert, awake, and oriented x3. Nonfocal neuro examination. Cranial nerves II through XII grossly intact. Sensory and motor systems within normal limits. EXTREMITIES: No cyanosis, no clubbing, no edema. LABORATORY DATA: Include as follows as of 05/28/2017, WBC 8, hemoglobin 7.4, hematocrit is 22.5, and platelets are 259. PT is 12.1 and PTT is 30. Sodium 138, potassium 3.5, chloride 99, CO2 27, BUN 29, creatinine 1.9, GFR is 25, glucose is 115, and calcium is 9.2. Total bili 0.3, AST 22, ALT 20, and alkaline phosphatase 50. Total protein is 6.2 and albumin is 3.8. Urinalysis; colorless clear, pH 7, specific gravity 1.003, protein 1+, glucose normal, ketones negative, blood negative, nitrites negative, bilirubin negative, urobilinogen normal, leukocyte esterase trace, wbc 2, rbc less than 1, epithelial cells less than 1, and bacteria occasional. Influenza A and B antibody is negative. Chest x-ray as of 05/28/2017, no active disease. ASSESSMENT: In summary, Ms. Ulrich is an 86-year-old elderly female with a history of hypertension, coronary artery disease, and peripheral vascular disease with a renal stent who was admitted with anemia. 1. Nonoliguric renal failure, most likely chronic kidney disease, secondary to hypertensive nephrosclerosis cannot rule out renal vascular disease. 2. Anemia, most likely anemia of chronic kidney disease, cannot rule out iron deficiency anemia, rule out gastrointestinal loss. 3. Hypertension. 4. Coronary artery disease status post stent, asymptomatic. PLAN: Check iron, TIBC, and ferritin levels and stool for occult blood and B12 and folic acid levels and consider Epogen if iron studies are within normal limits and follow up with Hematology/Oncology, . We will follow with you. Thank you for allowing me to participate in your patient's care. Niecy Piña MD
--- NOTE | 2017-06-02 09:59 | CON ---
DATE: 05/30/2017 FOLLOWUP RENAL CONSULTATION LOCATION: The patient is located in room 368, bed B. REQUESTED BY: Ralph Ya MD SUBJECTIVE: Mrs. Ulrich is an 86-year-old elderly female with past medical history significant for longstanding hypertension, coronary artery disease, hyperlipidemia, anemia, peripheral vascular disease status post stents, status post coronary stents and also status post renal artery stenting who was sent from the PMD office with low H and H and also found to have elevated blood pressure on admission 210/62 and low H and H. The patient is now feeling slightly better and not in acute distress. Denies any headache or dizziness. Denies any chest pain or palpitation. Denies any fever or cough. No abdominal pain. No nausea, vomiting or diarrhea. PHYSICAL EXAMINATION: GENERAL: Mrs. Ulrich is an 86-year-old elderly female moderately built, moderately nourished, not in acute distress. VITAL SIGNS: As follows: Blood pressure 169/53, pulse 50, respirations 20, temperature 98.3 and saturation 99%. Height 5 feet 1 inch and weight is 134 pounds. HEENT: Pupils are normal and reactive to light and accommodation. Conjunctivae pink. Sclerae anicteric. Tongue is moist and trachea is midline. LUNGS: Symmetric on both sides. Bilateral breath sounds present. Clear on auscultation. CVS: [place] at the fifth intercostal space, midclavicular line. S1 and S2 audible. No murmur. No gallop. ABDOMEN: Normal in appearance, soft and tympanitic. No guarding. No rigidity. No hepatosplenomegaly. HEAD BUTLER: The patient is alert, awake and oriented x3. Nonfocal neuro examination. Cranial nerves II through XII grossly intact. Sensory and motor systems is within normal limits. EXTREMITIES: No cyanosis, no clubbing, no edema. CURRENT MEDICATIONS: Include as follows: Hydralazine 50 mg p.o. b.i.d., Clonidine 0.2 mg p.o. b.i.d., Losartan 100 mg p.o. daily, Crestor 5 mg p.o. at bedtime, aspirin 81 mg p.o. daily, ferrous sulfate 325 mg p.o. daily, Klor-Con 10 mEq p.o. daily, Lasix 40 mg p.o. daily, Pepcid 20 mg p.o. daily, pneumococcal vaccine 0.5 mL once, Labetalol 100 mg p.o. b.i.d. and vitamin E 400 international units daily. LABORATORY DATA: Include as follows: As of 05/30/2017, WBC 7.1, hemoglobin 8.1, hematocrit is 25, MCV 88.4 and platelets 234. Sodium 138, potassium 3.7, chloride 100, CO2 of 29, BUN is 24, creatinine is 1.8 and GFR is 27, glucose is 119, calcium is 9.1. Ferritin level is 11 and total bili 0.5. AST 21, ALT 20, alkaline phosphatase is 44. LDH is 448, total protein 5.9, albumin is 3.8. B12 is 394, folic acid is 15.7, iron is 26, TIBC 305 and saturation is . ASSESSMENT: In summary, Mrs. Ulrich is an 86-year-old elderly female with past medical history significant for hypertension, hyperlipidemia, peripheral vascular disease, coronary artery disease, renovascular disease status post stenting, who was admitted with severe anemia and with increased BUN and creatinine and low FeS now. 1. Chronic kidney disease, stage IV most likely secondary to hypertension, nephrosclerosis and cannot rule out renovascular disease. 2. Anemia, secondary to renal failure and severe iron deficiency anemia. 3. Hypertension. 4. Peripheral vascular disease. 5. Coronary artery disease, asymptomatic. PLAN: We will give Epogen 10,000 units x1 and also we will start on IV iron, Ferrlecit 125 mg IV piggyback daily x8 doses, first dose today. We will discontinue p.o. Feosol. We will follow with you. Continue antihypertensive medications and low-sodium diet. Thank you for allowing me to participate in your patient's care. Niecy Piña MD
[2017-06-02] MEDS ORDERED: Potassium Chloride 20 mEq ER Tab PO ONE (10:30)
[2017-06-02] MEDS: Potassium Chloride 10 mEq ER Tab PO SCH (10:34)
[2017-06-02] MEDS: Ferric Sodium Gluconat Complex 62.5 mg/5 ml Vial IVPB SCH (10:35)
--- NOTE | 2017-06-02 11:05 | CP.PCM.PN ---
Subjective - Date & Time of Evaluation Date of Evaluation: 06/02/17 Time of Evaluation: 07:00 - Subjective Subjective: improving await dr carolina clearance Objective - Vital Signs/Intake and Output Vital Signs (last 24 hours): Temp Pulse Resp BP Pulse Ox 98.4 F 76 20 161/51 H 98 06/02/17 08:17 06/02/17 08:17 06/02/17 08:17 06/02/17 10:35 06/02/17 08:17 Intake and Output: 06/02/17 06/02/17 06:59 18:59 Intake Total 240 Balance 240 - Medications Medications: Current Medications Aspirin (Ecotrin) 81 mg PO DAILY [facility] Last Admin: 06/02/17 10:37 Dose: 81 mg Clonidine HCl (Catapres) 0.2 mg PO BID [facility] Last Admin: 06/02/17 10:34 Dose: 0.2 mg Famotidine (Pepcid) 20 mg PO DAILY [facility] Last Admin: 06/02/17 10:34 Dose: 20 mg Ferric Sodium Gluconate Complex (Ferrlecit) 125 mg IVPB DAILY [facility] Stop: 06/08/17 10:01 Last Admin: 06/02/17 10:35 Dose: 125 mg Furosemide (Lasix) 40 mg PO DAILY [facility] Last Admin: 06/02/17 10:35 Dose: 40 mg Hydralazine HCl (Apresoline) 50 mg PO Q8H [facility] Last Admin: 06/02/17 04:24 Dose: 50 mg Labetalol HCl (Trandate) 100 mg PO Q12H [facility] Last Admin: 06/02/17 10:37 Dose: 100 mg Losartan Potassium (Cozaar) 100 mg PO DAILY [facility] Last Admin: 06/02/17 10:34 Dose: 100 mg Potassium Chloride (Klor-Con 10) 10 meq PO DAILY [facility] Last Admin: 06/02/17 10:34 Dose: 10 meq Rosuvastatin Calcium (Crestor) 5 mg PO HS [facility] Last Admin: 06/01/17 21:56 Dose: 5 mg Vitamin E (Vitamin E 400 Units Cap) 400 intlu PO DAILY [facility] Last Admin: 06/02/17 10:41 Dose: 400 intlu - Labs Labs: 06/02/17 07:06 06/02/17 07:06 PT 12.1 SECONDS (9.7-12.2) 05/28/17 19:48 INR 1.1 05/28/17 19:48 APTT 30 SECONDS (21-34) 05/28/17 19:48 - Constitutional Appears: Non-toxic - Head Exam Head Exam: NORMOCEPHALIC - Eye Exam Eye Exam: absent: Scleral icterus - ENT Exam ENT Exam: Mucous Membranes Dry - Neck Exam Neck Exam: absent: Lymphadenopathy - Respiratory Exam Respiratory Exam: Decreased Breath Sounds - Cardiovascular Exam Cardiovascular Exam: REGULAR RHYTHM Assessment and Plan (1) Severe anemia Status: Acute (2) CHF exacerbation Status: Acute (3) CHF exacerbation Status: Acute (4) Diastolic CHF Status: Acute (5) Diastolic CHF Status: Acute (6) Diastolic CHF, acute Status: Acute (7) Diastolic CHF, acute Status: Acute (8) Diastolic CHF, acute on chronic Status: Acute (9) Diastolic CHF, acute on chronic Status: Acute
--- NOTE | 2017-06-02 12:16 | CP.PCM.PN ---
Subjective - Date & Time of Evaluation Date of Evaluation: 06/02/17 Time of Evaluation: 12:16 - Subjective Subjective: pt is seen and examined, follow up consult is dictated #[id number] Objective - Vital Signs/Intake and Output Vital Signs (last 24 hours): Temp Pulse Resp BP Pulse Ox 98.4 F 76 20 161/51 H 98 06/02/17 08:17 06/02/17 08:17 06/02/17 08:17 06/02/17 10:35 06/02/17 08:17 Intake and Output: 06/02/17 06/02/17 06:59 18:59 Intake Total 240 Balance 240 - Medications Medications: Current Medications Aspirin (Ecotrin) 81 mg PO DAILY [facility] Last Admin: 06/02/17 10:37 Dose: 81 mg Clonidine HCl (Catapres) 0.2 mg PO BID [facility] Last Admin: 06/02/17 10:34 Dose: 0.2 mg Famotidine (Pepcid) 20 mg PO DAILY [facility] Last Admin: 06/02/17 10:34 Dose: 20 mg Ferric Sodium Gluconate Complex (Ferrlecit) 125 mg IVPB DAILY [facility] Stop: 06/08/17 10:01 Last Admin: 06/02/17 10:35 Dose: 125 mg Furosemide (Lasix) 40 mg PO DAILY [facility] Last Admin: 06/02/17 10:35 Dose: 40 mg Hydralazine HCl (Apresoline) 50 mg PO Q8H [facility] Last Admin: 06/02/17 04:24 Dose: 50 mg Labetalol HCl (Trandate) 100 mg PO Q12H [facility] Last Admin: 06/02/17 10:37 Dose: 100 mg Losartan Potassium (Cozaar) 100 mg PO DAILY [facility] Last Admin: 06/02/17 10:34 Dose: 100 mg Potassium Chloride (Klor-Con 10) 10 meq PO DAILY [facility] Last Admin: 06/02/17 10:34 Dose: 10 meq Rosuvastatin Calcium (Crestor) 5 mg PO HS [facility] Last Admin: 06/01/17 21:56 Dose: 5 mg Vitamin E (Vitamin E 400 Units Cap) 400 intlu PO DAILY [facility] Last Admin: 06/02/17 10:41 Dose: 400 intlu - Labs Labs: 06/02/17 07:06 06/02/17 07:06 PT 12.1 SECONDS (9.7-12.2) 05/28/17 19:48 INR 1.1 05/28/17 19:48 APTT 30 SECONDS (21-34) 05/28/17 19:48
--- NOTE | 2017-06-02 16:13 | CP.PCM.CON ---
History of Present Illness - History of Present Illness History of Present Illness: This is an 86 year old woman admitted for anemia. Patient had a colonoscopy several years ago, but the results are not available. She has a history of anemia for several years and was instructed to take oral iron supplements. She denies having nausea, vomiting, abdominal pain, diarrhea or rectal bleeding. The bowel movements are usually dark secondary to oral iron. She has difficulty swallowing large tablets but not food. She reports having occasional heartburn. She has constipation and takes stool softeners several times a week. Patient was referred to the ER by Dr. Benavides for weakness and anemia. On admission, HGB was 7.4, MCV 89. The iron indices showed iron 26, TIBC 305, ferritin 9.9, B12 418, folate 15.7. Stool for occult blood was ordered but has not yet been done. Review of Systems - Constitutional Constitutional: Weakness. absent: Chills, Fever - Cardiovascular Cardiovascular: Dyspnea on Exertion, Leg Edema. absent: Chest Pain, Palpitations - Respiratory Respiratory: Dyspnea on Exertion. absent: Cough - Gastrointestinal Gastrointestinal: Constipation, Dysphagia, Heartburn, Melena. absent: Abdominal Pain, Diarrhea, Hematochezia, Nausea, Vomiting - Genitourinary Genitourinary: absent: Dysuria, Hematuria Past Patient History - Past Medical History & Family History Past Medical History?: Yes - Past Social History Smoking Status: Former Smoker - CARDIAC Hx Hypercholesterolemia: Yes Hx Hypertension: Yes - HEMATOLOGICAL/ONCOLOGICAL Hx Anemia: Yes - MUSCULOSKELETAL/RHEUMATOLOGICAL Hx Falls: No - GASTROINTESTINAL Hx Gastrointestinal Disorders: Yes Hx Gastroesophageal Reflux: Yes - GENITOURINARY/GYNECOLOGICAL Hx Genitourinary Disorders: Yes Hx Urinary Tract Infection: Yes - PSYCHIATRIC Hx Substance Use: No - SURGICAL HISTORY Hx Coronary Stent: Yes - ANESTHESIA Hx Anesthesia: Yes Meds Allergies/Adverse Reactions: Allergies Allergy/AdvReac Type Severity Reaction Status Date / Time strawberry Allergy Verified 05/28/17 18:48 - Medications Medications: Current Medications Aspirin (Ecotrin) 81 mg PO DAILY [facility] Last Admin: 06/02/17 10:37 Dose: 81 mg Clonidine HCl (Catapres) 0.2 mg PO BID [facility] Last Admin: 06/02/17 10:34 Dose: 0.2 mg Famotidine (Pepcid) 20 mg PO DAILY [facility] Last Admin: 06/02/17 10:34 Dose: 20 mg Ferric Sodium Gluconate Complex (Ferrlecit) 125 mg IVPB DAILY [facility] Stop: 06/08/17 10:01 Last Admin: 06/02/17 10:35 Dose: 125 mg Furosemide (Lasix) 40 mg PO DAILY [facility] Last Admin: 06/02/17 10:35 Dose: 40 mg Hydralazine HCl (Apresoline) 50 mg PO Q8H [facility] Last Admin: 06/02/17 13:29 Dose: 50 mg Labetalol HCl (Trandate) 100 mg PO Q12H [facility] Last Admin: 06/02/17 10:37 Dose: 100 mg Losartan Potassium (Cozaar) 100 mg PO DAILY [facility] Last Admin: 06/02/17 10:34 Dose: 100 mg Potassium Chloride (Klor-Con 10) 10 meq PO DAILY [facility] Last Admin: 06/02/17 10:34 Dose: 10 meq Rosuvastatin Calcium (Crestor) 5 mg PO HS [facility] Last Admin: 06/01/17 21:56 Dose: 5 mg Vitamin E (Vitamin E 400 Units Cap) 400 intlu PO DAILY [facility] Last Admin: 06/02/17 10:41 Dose: 400 intlu Physical Exam - Constitutional Appears: No Acute Distress - Head Exam Head Exam: ATRAUMATIC, NORMOCEPHALIC - Eye Exam Eye Exam: EOMI, PERRL - Neck Exam Neck exam: Negative for: Lymphadenopathy, Thyromegaly - Respiratory Exam Respiratory Exam: NORMAL BREATHING PATTERN. absent: Rales, Rhonchi, Wheezes - Cardiovascular Exam Cardiovascular Exam: REGULAR RHYTHM, +S1, +S2. absent: Gallop, Rubs, Systolic Murmur - GI/Abdominal Exam GI & Abdominal Exam: Normal Bowel Sounds, Soft. absent: Mass, Organomegaly, Tenderness - Rectal Exam Rectal Exam: Deferred - Extremities Exam Extremities exam: Positive for: pedal edema. Negative for: calf tenderness Additional comments: RLE 3+ non pitting edema Results - Vital Signs Recent Vital Signs: Last Vital Signs Temp 98.4 F 06/02/17 08:17 Pulse 79 06/02/17 13:23 Resp 20 06/02/17 13:23 BP 129/56 L 06/02/17 13:23 Pulse Ox 98 06/02/17 08:17 - Labs Result Diagrams: 06/02/17 07:06 06/02/17 07:06 Labs: Laboratory Results - last 24 hr 05/30/17 06/02/17 06/02/17 08:26 07:06 07:06 WBC 8.0 RBC 2.65 L Hgb 7.8 L Hct 23.5 L MCV 88.8 MCH 29.5 MCHC 33.2 RDW 14.4 Plt Count 221 MPV 8.0 Neut % (Auto) 66.2 Lymph % (Auto) 11.6 L Ada % (Auto) 16.7 H Eos % (Auto) 4.8 H Baso % (Auto) 0.7 Neut # (Auto) 5.3 Lymph # (Auto) 0.9 L Ada # (Auto) 1.3 H Eos # (Auto) 0.4 Baso # (Auto) 0.1 Sodium 136 Potassium 3.4 L Chloride 99 Carbon Dioxide 29 Anion Gap 11 BUN 28 H Creatinine 1.7 H Est GFR ( Amer) 34 Est GFR (Non-Af Amer) 28 Random Glucose 89 Calcium 8.6 Albumin (PEP) 3.4 L Hawap-7-Vyejsispc 0.4 H Lquzf-8-Ffrttonmz 0.8 Qymy-2-Pvojetqy 0.4 Azju-6-Fratvnjo 0.2 Gamma Globulins 0.4 L Abnorm Protein Band 1 TEST NOT PERFORMED Abnorm Protein Band 2 TEST NOT PERFORMED Abnorm Protein Band 3 TEST NOT PERFORMED JULIET & SPEP Interp See note Assessment & Plan (1) Iron deficiency anemia Assessment and Plan: Patient has iron deficiency anemia while on a non-vegetarian diet. Will check celiac serology and stool occult blood. Today, she is refusing invasive testing including colonoscopy. If she changes her mind, colonoscopy can be scheduled as an outpatient. Status: Acute
--- NOTE | 2017-06-02 19:57 | CP.PCM.PN ---
Subjective - Date & Time of Evaluation Date of Evaluation: 06/02/17 Time of Evaluation: 08:30 - Subjective Subjective: Pt feels better SOB much improved leg edema much less Objective - Vital Signs/Intake and Output Vital Signs (last 24 hours): Temp Pulse Resp BP Pulse Ox 98.4 F 52 L 20 146/55 L 98 06/02/17 16:00 06/02/17 16:00 06/02/17 16:00 06/02/17 16:00 06/02/17 16:00 Intake and Output: 06/02/17 06/03/17 18:59 06:59 Intake Total 500 Balance 500 - Medications Medications: Current Medications Aspirin (Ecotrin) 81 mg PO DAILY [facility] Last Admin: 06/02/17 10:37 Dose: 81 mg Clonidine HCl (Catapres) 0.2 mg PO BID [facility] Last Admin: 06/02/17 17:47 Dose: 0.2 mg Famotidine (Pepcid) 20 mg PO DAILY [facility] Last Admin: 06/02/17 10:34 Dose: 20 mg Ferric Sodium Gluconate Complex (Ferrlecit) 125 mg IVPB DAILY [facility] Stop: 06/08/17 10:01 Last Admin: 06/02/17 10:35 Dose: 125 mg Furosemide (Lasix) 40 mg PO DAILY [facility] Last Admin: 06/02/17 10:35 Dose: 40 mg Hydralazine HCl (Apresoline) 50 mg PO Q8H [facility] Last Admin: 06/02/17 13:29 Dose: 50 mg Labetalol HCl (Trandate) 100 mg PO Q12H [facility] Last Admin: 06/02/17 10:37 Dose: 100 mg Losartan Potassium (Cozaar) 100 mg PO DAILY [facility] Last Admin: 06/02/17 10:34 Dose: 100 mg Potassium Chloride (Klor-Con 10) 10 meq PO DAILY [facility] Last Admin: 06/02/17 10:34 Dose: 10 meq Rosuvastatin Calcium (Crestor) 5 mg PO HS [facility] Last Admin: 06/01/17 21:56 Dose: 5 mg Vitamin E (Vitamin E 400 Units Cap) 400 intlu PO DAILY [facility] Last Admin: 06/02/17 10:41 Dose: 400 intlu - Labs Labs: 06/02/17 07:06 06/02/17 07:06 PT 12.1 SECONDS (9.7-12.2) 05/28/17 19:48 INR 1.1 05/28/17 19:48 APTT 30 SECONDS (21-34) 05/28/17 19:48 - Constitutional Appears: Non-toxic - Eye Exam Eye Exam: absent: Scleral icterus - Neck Exam Neck Exam: Full ROM - Respiratory Exam Respiratory Exam: Decreased Breath Sounds, NORMAL BREATHING PATTERN. absent: Rales - Cardiovascular Exam Cardiovascular Exam: REGULAR RHYTHM - GI/Abdominal Exam GI & Abdominal Exam: Soft. absent: Tenderness - Extremities Exam Extremities Exam: Pedal Edema. absent: Calf Tenderness - Neurological Exam Neurological Exam: Alert, Oriented x3 Assessment and Plan - Assessment and Plan (Free Text) Assessment: CHF Anemia CAD HTN Renal insufficiency Plan: Ok to be dc from cardiac standpoint Monitor CBC as outpatient.
[2017-06-02] MEDS ORDERED: EPOETIN ALFA 10,000 UNIT/ML ML SC ONE (22:34)
--- NOTE | 2017-06-03 01:11 | PN ---
DATE: 06/02/2017. FOLLOWUP RENAL CONSULTATION LOCATION: Room 368, bed B. REQUESTED BY: Dr. Ralph Ya. REASON FOR FOLLOWUP: Chronic kidney disease for further evaluation. SUBJECTIVE: Mrs. Ulrich is a 86 years old elderly female with a past medical history significant for longstanding hypertension, coronary artery disease, peripheral vascular disease, renal artery stenosis, status post coronary stents, peripheral vascular stents and renal artery stents, chronic kidney disease was admitted with low H and H and uncontrolled hypertension. The patient was also found to have iron-deficiency anemia and started on IV iron and blood pressure medication is being titrated, hydralazine increased to 50 mg q. 8 hours. The patient is feeling better, not in acute distress. Denies any headache, dizziness. Denies any chest pain or palpitation. Denies any fever or cough. No abdominal pain. No nausea, vomiting, diarrhea. PHYSICAL EXAMINATION: VITAL SIGNS: As follows, blood pressure 129/56, pulse 79, respiration 20, temperature 98.4, saturation 98%. Height 5 feet 1 inch, weight is 134 pounds. GENERAL: Mrs. Ulrich is an 86 years old elderly female, moderately built, moderately nourished, not in distress. HEENT: Pupils normal, reactive to light and accommodation. Conjunctiva pink. Sclerae are anicteric. Tongue is moist. Trachea is midline. LUNGS: Symmetric on both sides. Bilateral breath sounds present. Clear on auscultation. CVS: [place] at the fifth intercostal space, midclavicular line. S1 and S2 audible. No murmur, no gallop. ABDOMEN: Normal in appearance, soft, tympanic. No guarding, no rigidity. No hepatosplenomegaly. OVERHEAD WORKER: The patient is alert, awake and oriented x3. Nonfocal neuro examination. Cranial nerves II through XII grossly intact. Sensory and motor system is within normal limits. EXTREMITIES: No cyanosis, no clubbing, no edema. CURRENT MEDICATIONS: Include as follows, hydralazine 50 mg p.o. q. 8 hours, clonidine 0.2 mg p.o., b.i.d., losartan 100 mg p.o. daily, aspirin 81 mg daily, Ferrlecit 125 mg daily, Klor-Con 10 mEq p.o. daily, Lasix 40 mg p.o. daily, Pepcid 20 mg p.o. daily, labetalol 100 mg p.o. q. 12 hours, and vitamin E 400 international units p.o. daily. LABORATORY DATA: Include as follows as of 06/02/2017; WBC 8, hemoglobin 7.8, hematocrit is 23.5 and platelets are 221. Sodium 136, potassium 3.4, chloride 99, CO2 29, BUN 28, creatinine 1.7, glucose is 89, calcium is 8.6. Serum protein electrophoresis selective protein last pattern suggest of nephrotic syndrome. ASSESSMENT: In summary, Mrs. Ulrich is an 86 years old elderly female with a history of hypertension, coronary artery disease, peripheral vascular disease, renal artery stenosis, status post coronary stents, peripheral vascular stents and renal artery stent placement with low hemoglobin and hematocrit and increased BUN, creatinine. 1. Chronic kidney disease stage IV, most likely secondary to hypertensive nephrosclerosis, cannot rule out renovascular disease. 2. Uncontrolled hypertension, cannot rule out renovascular disease. Continue her current medications, hydralazine increased to 50 mg p.o. q. 8 hours and blood pressure is much better. Continue clonidine 0.2 mg p.o. b.i.d., losartan 100 mg p.o. daily and labetalol 100 mg p.o. b.i.d. and also continue low-sodium diet and check stool for occult blood also again and we will add Epogen 10,000 units x1 dose today. Continue Ferrlecit. We will follow with you. No need for minoxidil at this time. Thank you for allowing me to participate in your patient's care. Niecy Piña MD
[2017-06-03] MEDS: Potassium Chloride 10 mEq ER Tab PO SCH (10:55)
[2017-06-03] MEDS: Ferric Sodium Gluconat Complex 62.5 mg/5 ml Vial IVPB SCH (11:00)
[2017-06-03 11:27] LABS: BASO # 0.1 K/uL (0.0-0.2); BASO % 0.8 % (0.0-2.0); EOS # 0.3 K/uL (0.0-0.7); EOS % 3.8 % (0.0-4.0); HEMOGLOBIN 8.2 g/dL (11.0-16.0); LYMPH # 0.8 K/uL (1.0-4.3); LYMPH % 11.2 % (20.0-40.0); MEAN CELL VOLUME 89.2 fL (81.0-99.0); MEAN CORPUSCULAR HGB CONC 33.6 g/dL (33.0-37.0); MEAN PLATELET VOLUME 8.3 fL (7.2-11.7); MONO # 1.1 K/uL (0.0-0.8); MONO % 15.1 % (0.0-10.0); NEUT # 5.2 K/uL (1.8-7.0); NEUT % 69.1 % (50.0-75.0); NRBC % 0.1 % (0.0-2.0); RBC 2.75 Mil/uL (3.80-5.20); RED CELL DISTRIBUTION WIDTH 14.6 % (11.5-14.5); WHITE BLOOD COUNT 7.6 K/uL (4.8-10.8)
--- NOTE | 2017-06-03 12:21 | CP.PCM.DIS ---
Provider - Provider Date of Admission: 05/28/17 21:28 Attending physician: Ralph Ya MD Primary care physician: KRISTEN Consults: UMA MELENDEZ Time Spent in preparation of Discharge (in minutes): 25 Diagnosis - Discharge Diagnosis (1) Severe anemia Status: Acute (2) CHF exacerbation Status: Acute (3) CHF exacerbation Status: Acute (4) Diastolic CHF Status: Acute (5) Diastolic CHF Status: Acute (6) Diastolic CHF, acute Status: Acute (7) Diastolic CHF, acute Status: Acute (8) Diastolic CHF, acute on chronic Status: Acute (9) Diastolic CHF, acute on chronic Status: Acute Hospital Course - Lab Results Lab Results: Most Recent Lab Values WBC 7.6 K/uL (4.8-10.8) 06/03/17 11:12 RBC 2.75 Mil/uL (3.80-5.20) L 06/03/17 11:12 Hgb 8.2 g/dL (11.0-16.0) L 06/03/17 11:12 Hct 24.5 % (34.0-47.0) L 06/03/17 11:12 MCV 89.2 fL (81.0-99.0) 06/03/17 11:12 MCH 30.0 pg (27.0-31.0) 06/03/17 11:12 MCHC 33.6 g/dL (33.0-37.0) 06/03/17 11:12 RDW 14.6 % (11.5-14.5) H 06/03/17 11:12 Plt Count 235 K/uL (130-400) 06/03/17 11:12 MPV 8.3 fL (7.2-11.7) 06/03/17 11:12 Neut % (Auto) 69.1 % (50.0-75.0) 06/03/17 11:12 Lymph % (Auto) 11.2 % (20.0-40.0) L 06/03/17 11:12 Brown % (Auto) 15.1 % (0.0-10.0) H 06/03/17 11:12 Eos % (Auto) 3.8 % (0.0-4.0) 06/03/17 11:12 Baso % (Auto) 0.8 % (0.0-2.0) 06/03/17 11:12 Neut # (Auto) 5.2 K/uL (1.8-7.0) 06/03/17 11:12 Lymph # (Auto) 0.8 K/uL (1.0-4.3) L 06/03/17 11:12 Brown # (Auto) 1.1 K/uL (0.0-0.8) H 06/03/17 11:12 Eos # (Auto) 0.3 K/uL (0.0-0.7) 06/03/17 11:12 Baso # (Auto) 0.1 K/uL (0.0-0.2) 06/03/17 11:12 Retic Count 2.0 % (0.5-1.5) H 05/30/17 08:26 PT 12.1 SECONDS (9.7-12.2) 05/28/17 19:48 INR 1.1 05/28/17 19:48 APTT 30 SECONDS (21-34) 05/28/17 19:48 Sodium 136 mmol/L (132-148) 06/02/17 07:06 Potassium 3.4 mmol/L (3.6-5.2) L 06/02/17 07:06 Chloride 99 mmol/L (98-107) 06/02/17 07:06 Carbon Dioxide 29 mmol/L (22-30) 06/02/17 07:06 Anion Gap 11 (10-20) 06/02/17 07:06 BUN 28 mg/dL (7-17) H 06/02/17 07:06 Creatinine 1.7 mg/dL (0.7-1.2) H 06/02/17 07:06 Est GFR ( Amer) 34 06/02/17 07:06 Est GFR (Non-Af Amer) 28 06/02/17 07:06 Random Glucose 89 mg/dL (65-105) 06/02/17 07:06 Calcium 8.6 mg/dl (8.6-10.4) 06/02/17 07:06 Iron 26 ug/dL (37-170) L 05/30/17 19:27 TIBC 305 ug/dL (250-450) 05/30/17 19:27 % Saturation 9 (20-55) L 05/30/17 19:27 Ferritin 9.9 ng/mL 05/30/17 19:27 Total Bilirubin 0.5 mg/dL (0.2-1.3) 05/30/17 08:26 AST 21 U/L (14-36) 05/30/17 08:26 ALT 20 U/L (9-52) 05/30/17 08:26 Alkaline Phosphatase 44 U/L (38-126) 05/30/17 08:26 Lactate Dehydrogenase 448 U/L (313-618) 05/30/17 08:26 Total Protein 5.9 g/dL (6.3-8.3) L 05/30/17 08:26 Total Protein (PEP) 5.6 g/dL (6.1-8.1) L 05/30/17 08:26 Albumin 3.6 g/dL (3.5-5.0) 05/30/17 08:26 Albumin (PEP) 3.4 g/dL (3.8-4.8) L 05/30/17 08:26 Globulin 2.3 gm/dL (2.2-3.9) 05/30/17 08:26 Albumin/Globulin Ratio 1.6 (1.0-2.1) 05/30/17 08:26 Dfvgv-7-Zrpniutrv 0.4 g/dL (0.2-0.3) H 05/30/17 08:26 Hknrq-4-Cavftertv 0.8 g/dL (0.5-0.9) 05/30/17 08:26 Tbtf-9-Eqdunijj 0.4 g/dL (0.4-0.6) 05/30/17 08:26 Rjjk-7-Thmtvjdg 0.2 g/dL (0.2-0.5) 05/30/17 08:26 Gamma Globulins 0.4 g/dL (0.8-1.7) L 05/30/17 08:26 Abnorm Protein Band 1 TEST NOT PERFORMED 05/30/17 08:26 Abnorm Protein Band 2 TEST NOT PERFORMED 05/30/17 08:26 Abnorm Protein Band 3 TEST NOT PERFORMED 05/30/17 08:26 Vitamin B12 418 pg/mL (239-931) 05/30/17 19:27 Folate 15.7 ng/mL 05/30/17 19:27 Urine Color Colorless (YELLOW) 05/28/17 21:18 Urine Clarity Clear (Clear) 05/28/17 21:18 Urine pH 7.0 (5.0-8.0) 05/28/17 21:18 Ur Specific Bison 1.003 (1.003-1.030) 05/28/17 21:18 Urine Protein 1+ mg/dL (NEGATIVE) H 05/28/17 21:18 Urine Glucose (UA) Normal mg/dL (Normal) 05/28/17 21:18 Urine Ketones Negative mg/dL (NEGATIVE) 05/28/17 21:18 Urine Blood Negative (NEGATIVE) 05/28/17 21:18 Urine Nitrate Negative (NEGATIVE) 05/28/17 21:18 Urine Bilirubin Negative (NEGATIVE) 05/28/17 21:18 Urine Urobilinogen Normal mg/dL (0.2-1.0) 05/28/17 21:18 Ur Leukocyte Esterase Trace Obed/uL (Negative) 05/28/17 21:18 Urine WBC (Auto) 2 /hpf (0-5) 05/28/17 21:18 Urine RBC (Auto) < 1 /hpf (0-3) 05/28/17 21:18 Ur Squamous Epith Cells < 1 /hpf (0-5) 05/28/17 21:18 Ur Transition Epith Cell < 1 /hpf (0-3) 05/28/17 21:18 Urine Bacteria Occ (<OCC) H 05/28/17 21:18 JULIET & SPEP Interp See note 05/30/17 08:26 Influenza Typ A,B (EIA) Negative for flu a/b (NEGATIVE) 05/29/17 12:14 Blood Type A POSITIVE 05/29/17 11:08 Antibody Screen Negative 05/29/17 11:08 - Hospital Course Hospital Course: ADMITTED WITH EXAC OF CHF- CHRONIC SYSTOLIC/ DIASTOLIC WELL SEVERE ANEMIA AND SUSPECTED GI BLEED RECEIVED LASIX BLOOD TRANSFUSIONS IRON AND IV FLUIDS FOR DEHYDRATION WITH ALLY REFUSED EGD/ COLONOSCOPY CHF NOW CONTROLLED MEDS ADJUSTED BY CARDIOLOGY Discharge Exam - Head Exam Head Exam: NORMAL INSPECTION - Eye Exam Eye Exam: PERRL - ENT Exam ENT Exam: Normal Oropharynx - Neck Exam Neck exam: Normal Inspection - Respiratory Exam Respiratory Exam: Prolonged Expiratory Phase, Rhonchi - Cardiovascular Exam Cardiovascular Exam: REGULAR RHYTHM, +S1, +S2 - GI/Abdominal Exam GI & Abdominal Exam: Diminished Bowel Sounds, Soft. absent: Tenderness - Rectal Exam Rectal Exam: Deferred - Exam Exam: NORMAL INSPECTION - Back Exam Back exam: absent: CVA tenderness (L), CVA tenderness (R) - Neurological Exam Neurological exam: Alert, CN II-XII Intact, Oriented x3, Reflexes Normal - Psychiatric Exam Psychiatric exam: Normal Mood - Skin Skin Exam: Dry Discharge Plan - Follow Up Plan Condition: FAIR Disposition: HOME/ ROUTINE
--- NOTE | 2017-06-03 15:49 | CP.PCM.PN ---
Subjective - Date & Time of Evaluation Date of Evaluation: 06/03/17 Time of Evaluation: 15:49 - Subjective Subjective: Alert, orientedx3, ambulatory, NAD. Objective - Vital Signs/Intake and Output Vital Signs (last 24 hours): Temp Pulse Resp BP Pulse Ox 97.6 F 51 L 20 200/49 H 96 06/03/17 09:01 06/03/17 14:10 06/03/17 09:01 06/03/17 14:10 06/03/17 13:15 Intake and Output: 06/03/17 06/03/17 06:59 18:59 Intake Total 760 Balance 760 - Medications Medications: Current Medications Aspirin (Ecotrin) 81 mg PO DAILY [facility] Last Admin: 06/03/17 10:55 Dose: 81 mg Clonidine HCl (Catapres) 0.2 mg PO BID [facility] Last Admin: 06/03/17 10:55 Dose: 0.2 mg Famotidine (Pepcid) 20 mg PO DAILY [facility] Last Admin: 06/03/17 10:55 Dose: 20 mg Ferric Sodium Gluconate Complex (Ferrlecit) 125 mg IVPB DAILY [facility] Stop: 06/08/17 10:01 Last Admin: 06/03/17 11:00 Dose: 125 mg Furosemide (Lasix) 40 mg PO DAILY [facility] Last Admin: 06/03/17 10:55 Dose: 40 mg Hydralazine HCl (Apresoline) 50 mg PO Q8H [facility] Last Admin: 06/03/17 14:15 Dose: 50 mg Labetalol HCl (Trandate) 100 mg PO Q12H [facility] Last Admin: 06/03/17 10:55 Dose: Not Given Losartan Potassium (Cozaar) 100 mg PO DAILY [facility] Last Admin: 06/03/17 10:55 Dose: 100 mg Potassium Chloride (Klor-Con 10) 10 meq PO DAILY [facility] Last Admin: 06/03/17 10:55 Dose: 10 meq Rosuvastatin Calcium (Crestor) 5 mg PO HS [facility] Last Admin: 06/02/17 21:30 Dose: 5 mg Vitamin E (Vitamin E 400 Units Cap) 400 intlu PO DAILY [facility] Last Admin: 06/03/17 10:55 Dose: 400 intlu - Labs Labs: 06/03/17 11:12 06/02/17 07:06 PT 12.1 SECONDS (9.7-12.2) 05/28/17 19:48 INR 1.1 05/28/17 19:48 APTT 30 SECONDS (21-34) 05/28/17 19:48 Assessment and Plan - Assessment and Plan (Free Text) Assessment: Patient is seen and examined. Awake, alert, ambulatory. Denies sob or chest pains. BP is controlled. D/W DR Ya and DR Benavides, plan to discharge home today. Advised to follow up in the office in 1 week. Advised to follow up with DR Jones for anemia.
[2017-06-03 16:14] VITALS: BP 164/55; PULSE 50; TEMP 97.9; O2SAT 97
== END 2017-06-03 17:34 | disposition home or self-care (01) | DRG 291 ==
LOC: C.ER 18:24 → C.3T 21:28
PROVIDERS: ADMIT Internal Medicine; ATTEND Internal Medicine
DX: I13.0 Hypertensive heart and chronic kidney disease with heart failure and stage 1 through stage 4 chronic kidney disease, or unspecified chronic kidney disease (principal); I50.33 Acute on chronic diastolic (congestive) heart failure; E86.0 Dehydration; N18.4 Chronic kidney disease, stage 4 (severe); I70.1 Atherosclerosis of renal artery; K92.2 Gastrointestinal hemorrhage, unspecified; D63.1 Anemia in chronic kidney disease; J44.9 Chronic obstructive pulmonary disease, unspecified; I25.10 Atherosclerotic heart disease of native coronary artery without angina pectoris; E78.5 Hyperlipidemia, unspecified; D50.9 Iron deficiency anemia, unspecified; K59.00 Constipation, unspecified; R13.10 Dysphagia, unspecified; Z87.891 Personal history of nicotine dependence; Z95.5 Presence of coronary angioplasty implant and graft

== ENCOUNTER 2017-09-30 13:34 | Inpatient (IN) | payer MEDICARE ==
[2017-09-30 13:38] VITALS: BMI 23.0
--- NOTE | 2017-09-30 14:39 | C.PDOC ---
History Of Present Illness 87yo female, sent to ER by Dr. Thibodeaux for evaluation of severe anemia. Patient states for the past couple days, she has been feeling generalized weakness. Denies any dizziness, lightheadedness, or chest pain. She does report black stool but states she is on iron supplements, denies any bright red blood. She was evaluated by Dr. Thibodeaux today who did bloodwork and patient was noted to have a hemoglobin level of 5 today. She has no other complaints. Time Seen by Provider: 09/30/17 14:15 Chief Complaint (Nursing): Abnormal Labs History Per: Patient History/Exam Limitations: no limitations Onset/Duration Of Symptoms: Days Current Symptoms Are (Timing): Still Present Additional History Per: Patient Past Medical History Reviewed: Historical Data, Nursing Documentation, Vital Signs Vital Signs: Last Vital Signs Temp 98.8 F 09/30/17 13:38 Pulse 62 09/30/17 13:38 Resp 20 09/30/17 13:38 BP 117/49 L 09/30/17 13:38 Pulse Ox 98 09/30/17 14:48 - Medical History PMH: Anemia, CAD, HTN, Hypercholesterolemia Surgical History: Coronary Stent - [facility] Procedures ANGIOPLASTY OF OTHER NON-CORONARY VESSEL(S) (09/27/13) CONTRAST AORTOGRAM (09/27/13) CONTRAST ARTERIOGRAM-LEG (09/27/13) CONTRAST RENAL ARTERIOGR (05/28/06) INSEJ [id number] PERIPHERAL NON-CORONARY VES STENT(S) (09/27/13) INSEJ OF DRUG-ELUTING STENT(S) OF OTH PERIPHERAL VESSEL(S) (09/27/13) INSERTION OF [id number] PERIPHERAL VESSEL STENT(S) (10/23/05) INSERTION OF ONE VASCULAR STENT (10/23/05) INSERTION OF TWO VASCULAR STENTS (09/27/13) PROCEDURE ON SINGLE VESSEL (10/23/05) PROCEDURE ON TWO VESSELS (09/27/13) Family History: States: No Known Family Hx - Social History Hx Alcohol Use: No Hx Substance Use: No - Immunization History Hx Tetanus Toxoid Vaccination: No Hx Influenza Vaccination: No Hx Pneumococcal Vaccination: No Review Of Systems Except As Marked, All Systems Reviewed And Found Negative. Constitutional: Positive for: Weakness. Negative for: Fever, Chills Cardiovascular: Negative for: Chest Pain Respiratory: Negative for: Shortness of Breath Gastrointestinal: Negative for: Abdominal Pain, Hematochezia Neurological: Negative for: Dizziness Physical Exam - Physical Exam Appears: Non-toxic, No Acute Distress Skin: Warm, Dry Head: Atraumatic, Normacephalic Eye(s): bilateral: PERRL, EOMI, Conjunctiva Pale Nose: Normal Oral Mucosa: Moist Neck: Normal ROM, Supple Chest: Symmetrical Cardiovascular: Rhythm Regular Respiratory: Normal Breath Sounds Gastrointestinal/Abdominal: Normal Exam, Soft, No Tenderness Back: Normal Inspection Extremity: Normal ROM, No Pedal Edema Neurological/Psych: Oriented x3 ED Course And Treatment - Laboratory Results Result Diagrams: 09/30/17 14:46 09/30/17 14:46 Lab Interpretation: Abnormal (WBC 12.3, Hgb 5.3, Hct 16.2, BUN 89, Cr 2.0) O2 Sat by Pulse Oximetry: 98 (RA) Pulse Ox Interpretation: Normal Reevaluation Time: 15:31 Reassessment Condition: Unchanged - Physician Consult Information Time Consulting Physician Contacted: 15:31 Physician Contacted: Alejandro Benavides Outcome Of Conversation: Patient to be admitted for evaluation of renal function and treatment of severe anemia. Medical Decision Making Medical Decision Making: Plan: -- Labs -- EKG Disposition - Disposition Disposition: HOSPITALIZED Disposition Time: 15:33 Condition: STABLE - POA Present On Arrival: None - Clinical Impression Clinical Impression: Severe anemia, Renal failure - Scribe Statement The provider has reviewed the documentation as recorded by the Scribe (Mindy Camacho) Provider Attestation: All medical record entries made by the Scribe were at my direction and personally dictated by me. I have reviewed the chart and agree that the record accurately reflects my personal performance of the history, physical exam, medical decision making, and the department course for this patient. I have also personally directed, reviewed, and agree with the discharge instructions and disposition.
[2017-09-30 14:50] LABS: BASO % 0.2 % (0.0-2.0); EOS % 0.1 % (0.0-4.0); LYMPH # 1.3 K/uL (1.0-4.3); LYMPH % 10.3 % (20.0-40.0); MEAN CORPUSCULAR HGB CONC 32.5 g/dL (33.0-37.0); MEAN PLATELET VOLUME 8.4 fL (7.2-11.7); MONO # 0.6 K/uL (0.0-0.8); MONO % 4.4 % (0.0-10.0); NEUT # 10.7 K/uL (1.8-7.0); NRBC % 0.1 % (0.0-2.0); RBC 1.76 Mil/uL (3.80-5.20); RED CELL DISTRIBUTION WIDTH 14.8 % (11.5-14.5)
[2017-09-30 14:53] LABS: HEMOGLOBIN 5.3 g/dL (11.0-16.0)
[2017-09-30 14:54] LABS: MEAN CELL VOLUME 92.3 fL (81.0-99.0); WHITE BLOOD COUNT 12.5 K/uL (4.8-10.8)
[2017-09-30 15:06] LABS: ALB/GLOB RATIO 1.7 (1.0-2.1); ALBUMIN 3.4 g/dL (3.5-5.0); CALCIUM 8.7 mg/dl (8.6-10.4)
[2017-09-30 20:41] LABS: IRON 100 ug/dL (37-170)
[2017-09-30 20:50] LABS: % IRON SATURATION 41 (20-55); TOTAL IRON BINDING CAPACITY 243 ug/dL (250-450)
[2017-09-30 21:47] LABS: FOLATE 11.3 ng/mL
[2017-10-01] MEDS: Potassium Chloride 10 mEq ER Tab PO SCH (10:30)
[2017-10-01 11:22] LABS: HEMOGLOBIN 7.4 g/dL (11.0-16.0); MEAN CELL VOLUME 89.1 fL (81.0-99.0); MEAN CORPUSCULAR HEMOGLOBIN 30.3 pg (27.0-31.0); MEAN PLATELET VOLUME 8.5 fL (7.2-11.7); RBC 2.45 Mil/uL (3.80-5.20); RED CELL DISTRIBUTION WIDTH 14.9 % (11.5-14.5); WHITE BLOOD COUNT 12.6 K/uL (4.8-10.8)
--- NOTE | 2017-10-01 14:08 | CP.PCM.CON ---
History of Present Illness - History of Present Illness History of Present Illness: This is an 87 year old woman with anemia. Patient is known to me from a previous admission 05/28/2017. At that time, HGB was 7.4, MCV 89. The iron indices showed iron 26, TIBC 305, ferritin 9.9, B12 418, folate 15.7. Stool for occult blood was ordered but not done. She refused colonoscopy on that admission. She has a history of anemia for several years and was instructed to take oral iron supplements. She was nauseated and vomited once after she was admtiited yesterday, but was not vomiting at home. She denies having abdominal pain, diarrhea or rectal bleeding. The bowel movements are usually dark secondary to oral iron. She has difficulty swallowing large tablets but not food. She reports having occasional heartburn. She has constipation and takes stool softeners several times a week. On this admission, the HGB was 5.3, MVC 92.3, BUN 89, CR 2.0, eGFR 24, iron 100 , TIBC 243, ferritin 135, B12 269, folate 11.3. Stool was positive for occult blood. Patient had a colonoscopy several years ago, but the results are not available. Review of Systems - Review of Systems All systems: reviewed and no additional remarkable complaints except - Constitutional Constitutional: Weakness. absent: Chills, Fever - Cardiovascular Cardiovascular: absent: Chest Pain, Dyspnea - Respiratory Respiratory: absent: Dyspnea, Dyspnea on Exertion - Gastrointestinal Gastrointestinal: Constipation, Heartburn, Nausea, Vomiting. absent: Abdominal Pain, Dysphagia, Hematochezia - Neurological Neurological: Dizziness Past Patient History - Past Medical History & Family History Past Medical History?: Yes - Past Social History Smoking Status: Former Smoker - CARDIAC Hx Cardiac Disorders: Yes Hx Hypercholesterolemia: Yes Hx Hypertension: Yes Hx Peripheral Edema: Yes - PULMONARY Hx Respiratory Disorders: No - NEUROLOGICAL Hx Neurological Disorder: No - HEENT Hx HEENT Problems: Yes Hx Cataracts: Yes - RENAL Hx Chronic Kidney Disease: Yes Other/Comment: renal stent - ENDOCRINE/METABOLIC Hx Endocrine Disorders: No - HEMATOLOGICAL/ONCOLOGICAL Hx Blood Disorders: Yes Hx Anemia: Yes Hx Blood Transfusions: Yes Hx Blood Transfusion Reaction: No Other/Comment: history of DVT in leg, unknown whether left or right; takes iron - INTEGUMENTARY Hx Dermatological Problems: No - MUSCULOSKELETAL/RHEUMATOLOGICAL Hx Musculoskeletal Disorders: No Hx Falls: No - GASTROINTESTINAL Hx Gastrointestinal Disorders: Yes Hx Constipation: Yes Hx Gastroesophageal Reflux: Yes - GENITOURINARY/GYNECOLOGICAL Hx Genitourinary Disorders: Yes Hx Urinary Tract Infection: Yes - PSYCHIATRIC Hx Psychophysiologic Disorder: No Hx Substance Use: No - SURGICAL HISTORY Hx Surgeries: Yes Hx Cataract Extraction: Yes Hx Coronary Stent: Yes Other/Comment: bilateral kidney stents - ANESTHESIA Hx Anesthesia: Yes Hx Anesthesia Reactions: No Meds Allergies/Adverse Reactions: Allergies Allergy/AdvReac Type Severity Reaction Status Date / Time strawberry Allergy Verified 05/28/17 18:48 - Medications Medications: Current Medications Clonidine HCl (Catapres) 0.2 mg PO BID [facility] Last Admin: 10/01/17 10:30 Dose: Not Given Famotidine (Pepcid) 20 mg PO DAILY [facility] Last Admin: 10/01/17 10:30 Dose: 20 mg Furosemide (Lasix) 40 mg PO DAILY [facility] Last Admin: 10/01/17 10:30 Dose: Not Given Home Med (Vit C/E/Zn/Coppr/Lutein/Zeaxan [Preservision Areds 2 Softgel]) 1 each PO DAILY [facility] Hydralazine HCl (Apresoline) 50 mg PO BID [facility] Last Admin: 10/01/17 10:30 Dose: 50 mg Labetalol HCl (Trandate) 100 mg PO BID [facility] Last Admin: 10/01/17 10:31 Dose: Not Given Losartan Potassium (Cozaar) 100 mg PO DAILY [facility] Last Admin: 10/01/17 10:30 Dose: 100 mg Potassium Chloride (Klor-Con 10) 10 meq PO DAILY [facility] Last Admin: 10/01/17 10:30 Dose: 10 meq Rosuvastatin Calcium (Crestor) 10 mg PO HS [facility] Last Admin: 09/30/17 22:09 Dose: 10 mg Vitamin E (Vitamin E 400 Units Cap) 400 intlu PO DAILY [facility] Last Admin: 10/01/17 10:30 Dose: 400 intlu Physical Exam - Head Exam Head Exam: ATRAUMATIC, NORMOCEPHALIC - Neck Exam Neck exam: Negative for: Lymphadenopathy, Thyromegaly - Respiratory Exam Respiratory Exam: NORMAL BREATHING PATTERN. absent: Rales, Rhonchi, Wheezes - Cardiovascular Exam Cardiovascular Exam: REGULAR RHYTHM, +S1, +S2. absent: Gallop, Rubs, Systolic Murmur - GI/Abdominal Exam GI & Abdominal Exam: Normal Bowel Sounds, Soft. absent: Mass, Organomegaly, Tenderness - Rectal Exam Rectal Exam: Deferred - Extremities Exam Extremities exam: Negative for: calf tenderness, pedal edema Results - Vital Signs Recent Vital Signs: Last Vital Signs Temp 98.6 F 10/01/17 08:31 Pulse 68 10/01/17 08:31 Resp 20 10/01/17 08:31 BP 167/54 H 10/01/17 10:30 Pulse Ox 97 10/01/17 08:31 - Labs Result Diagrams: 10/01/17 11:13 09/30/17 14:46 Labs: Laboratory Results - last 24 hr 09/30/17 09/30/17 09/30/17 14:46 14:46 14:46 WBC 12.5 H D RBC 1.76 L Hgb 5.3 L* D Hct 16.2 L MCV 92.3 D MCH 30.0 MCHC 32.5 L RDW 14.8 H Plt Count 177 MPV 8.4 Neut % (Auto) 85.0 H Lymph % (Auto) 10.3 L [place] % (Auto) 4.4 Eos % (Auto) 0.1 Baso % (Auto) 0.2 Neut # (Auto) 10.7 H Lymph # (Auto) 1.3 [place] # (Auto) 0.6 Eos # (Auto) 0.0 Baso # (Auto) 0.0 Sodium 145 Potassium 4.7 Chloride 110 H Carbon Dioxide 24 Anion Gap 16 BUN 89 H Creatinine 2.0 H Est GFR ( Amer) 29 Est GFR (Non-Af Amer) 24 Random Glucose 141 H Calcium 8.7 Iron TIBC % Saturation Ferritin Total Bilirubin 0.3 AST 20 ALT 31 Alkaline Phosphatase 33 L D Total Protein 5.3 L Albumin 3.4 L Globulin 1.9 L Albumin/Globulin Ratio 1.7 Vitamin B12 Folate Stool Occult Blood Blood Type A POSITIVE Antibody Screen Negative 09/30/17 09/30/17 09/30/17 15:32 20:03 20:03 WBC RBC Hgb Hct MCV MCH MCHC RDW Plt Count MPV Neut % (Auto) Lymph % (Auto) [place] % (Auto) Eos % (Auto) Baso % (Auto) Neut # (Auto) Lymph # (Auto) [place] # (Auto) Eos # (Auto) Baso # (Auto) Sodium Potassium Chloride Carbon Dioxide Anion Gap BUN Creatinine Est GFR ( Amer) Est GFR (Non-Af Amer) Random Glucose Calcium Iron 100 TIBC 243 L % Saturation 41 Ferritin 135.0 Total Bilirubin AST ALT Alkaline Phosphatase Total Protein Albumin Globulin Albumin/Globulin Ratio Vitamin B12 269 Folate 11.3 Stool Occult Blood Positive H Blood Type Antibody Screen 10/01/17 11:13 WBC 12.6 H RBC 2.45 L Hgb 7.4 L D Hct 21.8 L MCV 89.1 D MCH 30.3 MCHC 34.0 RDW 14.9 H Plt Count 149 MPV 8.5 Neut % (Auto) Lymph % (Auto) [place] % (Auto) Eos % (Auto) Baso % (Auto) Neut # (Auto) Lymph # (Auto) [place] # (Auto) Eos # (Auto) Baso # (Auto) Sodium Potassium Chloride Carbon Dioxide Anion Gap BUN Creatinine Est GFR ( Amer) Est GFR (Non-Af Amer) Random Glucose Calcium Iron TIBC % Saturation Ferritin Total Bilirubin AST ALT Alkaline Phosphatase Total Protein Albumin Globulin Albumin/Globulin Ratio Vitamin B12 Folate Stool Occult Blood Blood Type Antibody Screen Assessment & Plan (1) Iron deficiency anemia Assessment and Plan: Patient was diagnosed with iron deficiency anemia in May, but, after supplementation, the iron studies are within normal limits. The B12 is borderline. With the positive result for occult blood in the stool, she should have colonoscopy and EGD, if she agrees. This can be scheduled as an outpatient. Status: Acute
--- NOTE | 2017-10-01 15:38 | CARD ---
APPROVED REPORT EKG Measurement Heart [id number] <Conclusion> Normal sinus rhythm Nonspecific ST abnormality Abnormal ECG
[2017-10-02 05:19] LABS: MCH 30.3 pg (27.0-33.0)
--- NOTE | 2017-10-02 07:50 | CP.PCM.PN ---
Subjective - Date & Time of Evaluation Date of Evaluation: 10/02/17 Time of Evaluation: 07:47 - Subjective Subjective: Patient denies having abdominal pain, nausea, vomiting. Her appetite is poor. She has not had a bowel movement so far today. Objective - Vital Signs/Intake and Output Vital Signs (last 24 hours): Temp Pulse Resp BP Pulse Ox 98.2 F 45 L 20 159/52 H 100 10/02/17 04:54 10/02/17 04:54 10/02/17 04:54 10/02/17 04:54 10/02/17 04:54 Intake and Output: 10/02/17 10/02/17 06:59 18:59 Intake Total 300 Balance 300 - Medications Medications: Current Medications Clonidine HCl (Catapres) 0.2 mg PO BID [facility] Last Admin: 10/01/17 17:50 Dose: 0.2 mg Famotidine (Pepcid) 20 mg PO DAILY [facility] Last Admin: 10/01/17 10:30 Dose: 20 mg Furosemide (Lasix) 40 mg PO DAILY [facility] Last Admin: 10/01/17 10:30 Dose: Not Given Home Med (Vit C/E/Zn/Coppr/Lutein/Zeaxan [Preservision Areds 2 Softgel]) 1 each PO DAILY [facility] Hydralazine HCl (Apresoline) 50 mg PO BID [facility] Last Admin: 10/01/17 17:49 Dose: 50 mg Labetalol HCl (Trandate) 100 mg PO BID [facility] Last Admin: 10/01/17 17:50 Dose: 100 mg Losartan Potassium (Cozaar) 100 mg PO DAILY [facility] Last Admin: 10/01/17 10:30 Dose: 100 mg Potassium Chloride (Klor-Con 10) 10 meq PO DAILY [facility] Last Admin: 10/01/17 10:30 Dose: 10 meq Rosuvastatin Calcium (Crestor) 10 mg PO HS [facility] Last Admin: 10/01/17 21:43 Dose: 10 mg Vitamin E (Vitamin E 400 Units Cap) 400 intlu PO DAILY [facility] Last Admin: 10/01/17 10:30 Dose: 400 intlu - Labs Labs: 10/01/17 11:13 09/30/17 14:46 - Constitutional Appears: No Acute Distress - Head Exam Head Exam: ATRAUMATIC, NORMOCEPHALIC - Eye Exam Eye Exam: EOMI, PERRL - Neck Exam Neck Exam: absent: Lymphadenopathy, Thyromegaly - Respiratory Exam Respiratory Exam: NORMAL BREATHING PATTERN. absent: Rales, Rhonchi, Wheezes - Cardiovascular Exam Cardiovascular Exam: REGULAR RHYTHM, +S1, +S2. absent: Gallop, Rubs, Murmur - GI/Abdominal Exam GI & Abdominal Exam: Soft, Normal Bowel Sounds. absent: Tenderness, Mass, Organomegaly - Rectal Exam Rectal Exam: Deferred - Extremities Exam Extremities Exam: absent: Calf Tenderness, Pedal Edema Assessment and Plan (1) Iron deficiency anemia Assessment & Plan: Blood work from today is still pending. In view of the positive result for occult blood in the stool and the history of anemia, patient should have EGD and colonoscopy, which can be done Thursday, if patient remains hospitalized, or as an outpatient. If patient is discharged, please have her follow up in the office. Status: Acute
[2017-10-02 08:16] LABS: MEAN CELL VOLUME 90.7 fL (81.0-99.0); MEAN CORPUSCULAR HEMOGLOBIN 31.2 pg (27.0-31.0); MEAN CORPUSCULAR HGB CONC 34.4 g/dL (33.0-37.0); MEAN PLATELET VOLUME 8.2 fL (7.2-11.7); RBC 2.25 Mil/uL (3.80-5.20); RED CELL DISTRIBUTION WIDTH 15.3 % (11.5-14.5)
--- NOTE | 2017-10-02 08:28 | CP.PCM.HP ---
History of Present Illness - History of Present Illness History of Present Illness: CC generalized weakness severe anemia HPI 87yo female, sent to ER by Dr. Thibodeaux for evaluation of severe anemia. Patient states for the past couple days, she has been feeling generalized weakness. Denies any dizziness, lightheadedness, or chest pain. She does report black stool but states she is on iron supplements, denies any bright red blood. She was evaluated by Dr. Thibodeaux today who did bloodwork and patient was noted to have a hemoglobin level of 5 today. She has no other complaints. Present on Admission - Present on Admission Any Indicators Present on Admission: No Review of Systems - Constitutional Constitutional: Fatigue, Weakness - EENT Eyes: absent: As Per HPI, Blind Spots, Blurred Vision, Change in Vision, Decreased Night Vision, Diplopia, Discharge, Dry Eye, Exophthalmos, Floaters, Irritation, Itchy Eyes, Loss of Peripheral Vision, Pain, Photophobia, Requires Corrective Lenses, Sees Flashes, Spots in Vision, Tunnel Vision, Other Visual Disturbances, Loss of Vision, Other Ears: absent: As Per HPI, Decreased Hearing, Ear Discharge, Ear Pain, Tinnitus, Abnormal Hearing, Disequilibrium, Dizziness, Other Nose/Mouth/Throat: absent: As Per HPI, Epistaxis, Nasal Congestion, Nasal Discharge, Nasal Obstruction, Nasal Trauma, Nose Pain, Post Nasal Drip, Sinus Pain, Sinus Pressure, Bleeding Gums, Change in Voice, Dental Pain, Dry Mouth, Dysphagia, Halitosis, Hoarsness, Lip Swelling, Mouth Lesions, Mouth Pain, Odynophagia, Sore Throat, Throat Swelling, Tongue Swelling, Facial Pain, Neck Pain, Neck Mass, Other - Respiratory Respiratory: Dyspnea on Exertion - Gastrointestinal Gastrointestinal: absent: Abdominal Pain, Change in Bowel Habits, Constipation, Cramping, Diarrhea - Musculoskeletal Musculoskeletal: absent: Abnormal Gait Past Patient History - Past Medical History & Family History Past Medical History?: Yes - Past Social History Smoking Status: Former Smoker - CARDIAC Hx Cardiac Disorders: Yes Hx Hypercholesterolemia: Yes Hx Hypertension: Yes Hx Peripheral Edema: Yes - PULMONARY Hx Respiratory Disorders: No - NEUROLOGICAL Hx Neurological Disorder: No - HEENT Hx HEENT Problems: Yes Hx Cataracts: Yes - RENAL Hx Chronic Kidney Disease: Yes Other/Comment: renal stent - ENDOCRINE/METABOLIC Hx Endocrine Disorders: No - HEMATOLOGICAL/ONCOLOGICAL Hx Blood Disorders: Yes Hx Anemia: Yes Hx Blood Transfusions: Yes Hx Blood Transfusion Reaction: No Other/Comment: history of DVT in leg, unknown whether left or right; takes iron - INTEGUMENTARY Hx Dermatological Problems: No - MUSCULOSKELETAL/RHEUMATOLOGICAL Hx Musculoskeletal Disorders: No Hx Falls: No - GASTROINTESTINAL Hx Gastrointestinal Disorders: Yes Hx Constipation: Yes Hx Gastroesophageal Reflux: Yes - GENITOURINARY/GYNECOLOGICAL Hx Genitourinary Disorders: Yes Hx Urinary Tract Infection: Yes - PSYCHIATRIC Hx Psychophysiologic Disorder: No Hx Substance Use: No - SURGICAL HISTORY Hx Surgeries: Yes Hx Cataract Extraction: Yes Hx Coronary Stent: Yes Other/Comment: bilateral kidney stents - ANESTHESIA Hx Anesthesia: Yes Hx Anesthesia Reactions: No Meds Allergies/Adverse Reactions: Allergies Allergy/AdvReac Type Severity Reaction Status Date / Time strawberry Allergy Verified 05/28/17 18:48 Physical Exam - Constitutional Appears: No Acute Distress - Head Exam Head Exam: NORMAL INSPECTION - Eye Exam Eye Exam: absent: Scleral icterus - ENT Exam ENT Exam: Mucous Membranes Dry - Neck Exam Neck exam: Positive for: Full Rom. Negative for: Lymphadenopathy - Respiratory Exam Respiratory Exam: absent: Decreased Breath Sounds - GI/Abdominal Exam GI & Abdominal Exam: Soft. absent: Tenderness - Extremities Exam Extremities exam: Positive for: joint swelling, pedal edema. Negative for: calf tenderness Results - Vital Signs Recent Vital Signs: Last Vital Signs Temp 98.2 F 10/02/17 04:54 Pulse 45 L 10/02/17 04:54 Resp 20 10/02/17 04:54 BP 159/52 H 10/02/17 04:54 Pulse Ox 100 10/02/17 04:54 - Labs Result Diagrams: 10/03/17 07:56 10/03/17 07:56 Labs: Laboratory Results - last 24 hr 09/30/17 10/01/17 10/02/17 20:03 11:13 08:04 WBC 12.6 H 8.0 RBC 2.45 L 2.25 L Hgb 7.4 L D 7.0 L Hct 21.8 L 20.4 L MCV 89.1 D 90.7 MCH 30.3 31.2 H MCHC 34.0 34.4 RDW 14.9 H 15.3 H Plt Count 149 151 MPV 8.5 8.2 Hemoglobinopathy Red Blood Count 1.51 L Hemoglobinopathy Hct 14.2 L Hemoglobinopathy Hgb 4.6 L Hemoglobinopathy MCV 94.0 Hemoglobinopathy MCH 30.3 Hemoglobinopathy RDW 16.4 H Assessment & Plan - Assessment and Plan (Free Text) Assessment: Severe anemia GI bleed(+guaiac) DVT by Venous ultrasound (done a few days ago outside) HTN CAD CKD Stage 3 Plan: DC anticoagulation Repeat Venous doppler ultrasound of the LE Heme consult w/ Dr Thibodeaux GI consult w/ Dr Baker Renal consult with Dr Franklin - Date & Time Date: 10/01/17 Time: 08:00
--- NOTE | 2017-10-02 08:42 | CP.PCM.PN ---
Subjective - Date & Time of Evaluation Date of Evaluation: 10/02/17 Time of Evaluation: 08:40 - Subjective Subjective: s/p multiple transfusion Labs pending pt was bradycardic all night while sleeping between 35-40bpm hemodynamically stable On Labetalol Pt denied dizziness this morning HR 48bpm Objective - Vital Signs/Intake and Output Vital Signs (last 24 hours): Temp Pulse Resp BP Pulse Ox 98.2 F 45 L 20 159/52 H 100 10/02/17 04:54 10/02/17 04:54 10/02/17 04:54 10/02/17 04:54 10/02/17 04:54 Intake and Output: 10/02/17 10/02/17 06:59 18:59 Intake Total 300 Balance 300 - Medications Medications: Current Medications Clonidine HCl (Catapres) 0.2 mg PO BID [facility] Last Admin: 10/01/17 17:50 Dose: 0.2 mg Clonidine HCl (Catapres) 0.3 mg PO BID [facility] Famotidine (Pepcid) 20 mg PO DAILY [facility] Last Admin: 10/01/17 10:30 Dose: 20 mg Furosemide (Lasix) 40 mg PO DAILY [facility] Last Admin: 10/01/17 10:30 Dose: Not Given Home Med (Vit C/E/Zn/Coppr/Lutein/Zeaxan [Preservision Areds 2 Softgel]) 1 each PO DAILY [facility] Hydralazine HCl (Apresoline) 50 mg PO Q8 [facility] Losartan Potassium (Cozaar) 100 mg PO DAILY [facility] Last Admin: 10/01/17 10:30 Dose: 100 mg Potassium Chloride (Klor-Con 10) 10 meq PO DAILY [facility] Last Admin: 10/01/17 10:30 Dose: 10 meq Rosuvastatin Calcium (Crestor) 10 mg PO HS [facility] Last Admin: 10/01/17 21:43 Dose: 10 mg Vitamin E (Vitamin E 400 Units Cap) 400 intlu PO DAILY [facility] Last Admin: 10/01/17 10:30 Dose: 400 intlu - Labs Labs: 10/02/17 08:04 09/30/17 14:46 - Constitutional Appears: Non-toxic - Head Exam Head Exam: NORMAL INSPECTION - Eye Exam Eye Exam: absent: Scleral icterus - ENT Exam ENT Exam: Mucous Membranes Moist - Neck Exam Neck Exam: Full ROM. absent: Lymphadenopathy - Respiratory Exam Respiratory Exam: Decreased Breath Sounds - Cardiovascular Exam Cardiovascular Exam: Bradycardia, REGULAR RHYTHM - GI/Abdominal Exam GI & Abdominal Exam: Soft. absent: Tenderness - Extremities Exam Extremities Exam: absent: Pedal Edema - Neurological Exam Neurological Exam: Normal Gait Assessment and Plan - Assessment and Plan (Free Text) Assessment: Anemia GI Bleed CKD stage 3 HTN Plan: DC Labetalol Increase Catapres 0.3mg po BID Increase Hydralazine 50mg po TID Needs Upper and lower endoscopy Renal consult Heme follow up
[2017-10-02] MEDS: Potassium Chloride 10 mEq ER Tab PO SCH (09:15)
[2017-10-02 13:27] LABS: URINE BILIRUBIN NEGATIVE (NEGATIVE); URINE BLOOD NEGATIVE (NEGATIVE); URINE CLARITY Clear (Clear); URINE COLOR Straw (YELLOW); URINE GLUCOSE (UA) NORMAL (Normal); URINE LEUKOCYTE ESTERASE NEG Leu/uL (Negative); URINE PROTEIN NEGATIVE (NEGATIVE); URINE UROBILINOGEN NORMAL mg/dL (0.2-1.0)
[2017-10-02 13:44] LABS: CREATININE, RANDOM URINE 50.7 mg/dL
--- NOTE | 2017-10-02 16:18 | VASCLAB ---
PROCEDURE: Lower Extremity Venous Duplex Exam. HISTORY: Lower extremity swelling PRIORS: None. TECHNIQUE: Bilateral common femoral, femoral, popliteal and posterior tibial, peroneal and great saphenous veins were evaluated. Flow was assessed with color Doppler, compressibility, assessment of phasic flow and augmentation response. Report prepared by DELMIS Damon FINDINGS: RIGHT: 1. Common Femoral Vein: 1.1. Compressibility - Fully compressible: Thrombus - None : Flow - Phasic: Augmentation -Normal: Reflux - None. 2. Femoral Vein: 2.1. Compressibility - Fully compressible: Thrombus - None : Flow - Phasic: Augmentation -Normal: Reflux - None. 3. Popliteal Vein: 3.1. Compressibility - Fully compressible: Thrombus - None : Flow - Phasic: Augmentation -Normal: Reflux - None. 4. Posterior Tibial Vein: 4.1. Compressibility - Fully compressible: Thrombus - None: Flow - Phasic: Augmentation -Normal: Reflux - None. 5. Peroneal Vein: 5.1. Compressibility - Fully compressible: Thrombus - None: Flow - Phasic: Augmentation -Normal: Reflux - None. 6. Great Saphenous Vein: 6.1. Compressibility - Fully compressible: Thrombus - None: Flow - Phasic: Augmentation - Normal: Reflux - None. LEFT: 1. Common Femoral Vein: 1.1. Compressibility - Fully compressible: Thrombus - None: Flow - Phasic: Augmentation -Normal: Reflux - None. 2. Femoral Vein: 2.1. Compressibility - Fully compressible: Thrombus - None: Flow - Phasic: Augmentation -Normal: Reflux - None. 3. Popliteal Vein: 3.1. Compressibility - Fully compressible: Thrombus - None : Flow - Phasic: Augmentation -Normal: Reflux - None. 4. Posterior Tibial Vein: 4.1. Compressibility - Fully compressible: Thrombus - None: Flow - Phasic: Augmentation -Normal: Reflux - None. 5. Peroneal Vein: 5.1. Compressibility - Fully compressible: Thrombus - None: Flow - Phasic: Augmentation -Normal: Reflux - None. 6. Great Saphenous Vein: 6.1. Compressibility - Fully compressible: Thrombus - None: Flow - Phasic: Augmentation - Normal: Reflux - None. OTHER FINDINGS: Right: None significant. Left: None significant. IMPRESSION: Right: No evidence of deep or superficial vein thrombosis of the right lower extremity. Normal valve function noted of the right side. Left: No evidence of deep or superficial vein thrombosis of the left lower extremity. Normal valve function noted of the left side.
--- NOTE | 2017-10-02 17:13 | CP.PCM.CON ---
History of Present Illness - History of Present Illness History of Present Illness: 87 yo woman known to me from previous admission, with iron deficiency anemia, with fairly stable Hgb, maintained on monthly Procrit and more recently iron infusion. REcently started c/o fatigue, labs showing an acute decrease in Hgb. She has been having dark stool, which she thinks is secondary to Iron pills. 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 Past Patient History - Past Medical History & Family History Past Medical History?: Yes - Past Social History Smoking Status: Former Smoker - CARDIAC Hx Cardiac Disorders: Yes Hx Hypercholesterolemia: Yes Hx Hypertension: Yes Hx Peripheral Edema: Yes - PULMONARY Hx Respiratory Disorders: No - NEUROLOGICAL Hx Neurological Disorder: No - HEENT Hx HEENT Problems: Yes Hx Cataracts: Yes - RENAL Hx Chronic Kidney Disease: Yes Other/Comment: renal stent - ENDOCRINE/METABOLIC Hx Endocrine Disorders: No - HEMATOLOGICAL/ONCOLOGICAL Hx Blood Disorders: Yes Hx Anemia: Yes Hx Blood Transfusions: Yes Hx Blood Transfusion Reaction: No Other/Comment: history of DVT in leg, unknown whether left or right; takes iron - INTEGUMENTARY Hx Dermatological Problems: No - MUSCULOSKELETAL/RHEUMATOLOGICAL Hx Musculoskeletal Disorders: No Hx Falls: No - GASTROINTESTINAL Hx Gastrointestinal Disorders: Yes Hx Constipation: Yes Hx Gastroesophageal Reflux: Yes - GENITOURINARY/GYNECOLOGICAL Hx Genitourinary Disorders: Yes Hx Urinary Tract Infection: Yes - PSYCHIATRIC Hx Psychophysiologic Disorder: No Hx Substance Use: No - SURGICAL HISTORY Hx Surgeries: Yes Hx Cataract Extraction: Yes Hx Coronary Stent: Yes Other/Comment: bilateral kidney stents - ANESTHESIA Hx Anesthesia: Yes Hx Anesthesia Reactions: No Meds Allergies/Adverse Reactions: Allergies Allergy/AdvReac Type Severity Reaction Status Date / Time strawberry Allergy Verified 05/28/17 18:48 - Medications Medications: Current Medications Clonidine HCl (Catapres) 0.3 mg PO BID [facility] Last Admin: 10/02/17 09:16 Dose: 0.3 mg Famotidine (Pepcid) 20 mg PO DAILY [facility] Last Admin: 10/02/17 09:15 Dose: 20 mg Furosemide (Lasix) 40 mg PO DAILY [facility] Last Admin: 10/02/17 09:16 Dose: 40 mg Home Med (Vit C/E/Zn/Coppr/Lutein/Zeaxan [Preservision Areds 2 Softgel]) 1 each PO DAILY [facility] Hydralazine HCl (Apresoline) 50 mg PO Q8 [facility] Last Admin: 10/02/17 14:39 Dose: 50 mg Losartan Potassium (Cozaar) 100 mg PO DAILY [facility] Last Admin: 10/02/17 09:15 Dose: 100 mg Potassium Chloride (Klor-Con 10) 10 meq PO DAILY [facility] Last Admin: 10/02/17 09:15 Dose: 10 meq Rosuvastatin Calcium (Crestor) 10 mg PO HS [facility] Last Admin: 10/01/17 21:43 Dose: 10 mg Vitamin E (Vitamin E 400 Units Cap) 400 intlu PO DAILY [facility] Last Admin: 10/02/17 09:15 Dose: 400 intlu Results - Vital Signs Recent Vital Signs: Last Vital Signs Temp 98.1 F 10/02/17 16:00 Pulse 42 L 10/02/17 16:00 Resp 18 10/02/17 16:00 BP 168/45 H 10/02/17 16:00 Pulse Ox 99 10/02/17 16:00 - Labs Result Diagrams: 10/02/17 08:04 09/30/17 14:46 Labs: Laboratory Results - last 24 hr 09/30/17 09/30/17 10/02/17 14:46 20:03 08:04 WBC 8.0 RBC 2.25 L Hgb 7.0 L Hct 20.4 L MCV 90.7 MCH 31.2 H MCHC 34.4 RDW 15.3 H Plt Count 151 MPV 8.2 Hemoglobinopathy Red Blood Count 1.51 L Hemoglobinopathy Hct 14.2 L Hemoglobinopathy Hgb 4.6 L Hemoglobinopathy MCV 94.0 Hemoglobinopathy MCH 30.3 Hemoglobinopathy RDW 16.4 H Urine Color Urine Clarity Urine pH Ur Specific [place] Urine Protein Urine Glucose (UA) Urine Ketones Urine Blood Urine Nitrate Urine Bilirubin Urine Urobilinogen Ur Leukocyte Esterase Urine WBC (Auto) Urine RBC (Auto) Ur Random Creatinine Ur Random Sodium Blood Type A POSITIVE Antibody Screen Negative 10/02/17 10/02/17 13:14 13:18 WBC RBC Hgb Hct MCV MCH MCHC RDW Plt Count MPV Hemoglobinopathy Red Blood Count Hemoglobinopathy Hct Hemoglobinopathy Hgb Hemoglobinopathy MCV Hemoglobinopathy MCH Hemoglobinopathy RDW Urine Color Straw Urine Clarity Clear Urine pH 5.0 Ur Specific [place] 1.009 Urine Protein Negative Urine Glucose (UA) Normal Urine Ketones Negative Urine Blood Negative Urine Nitrate Negative Urine Bilirubin Negative Urine Urobilinogen Normal Ur Leukocyte Esterase Neg Urine WBC (Auto) 2 Urine RBC (Auto) < 1 Ur Random Creatinine 50.7 Ur Random Sodium 46 Blood Type Antibody Screen Assessment & Plan (1) Severe anemia Assessment and Plan: 87 yo woman, with history of iron deficiency anemia, s/p iron replacement, acute decrease in Hgb, dark stool, but the patient was on iron pills. Agree with GI evaluation. Will check Dopplers, determine need for AC versus IVC filter Status: Acute
--- NOTE | 2017-10-02 19:10 | CP.PCM.CON ---
History of Present Illness - History of Present Illness History of Present Illness: pt is seen and examined, full consult is dictated #[id number] Past Patient History - Past Medical History & Family History Past Medical History?: Yes - Past Social History Smoking Status: Former Smoker - CARDIAC Hx Cardiac Disorders: Yes Hx Hypercholesterolemia: Yes Hx Hypertension: Yes Hx Peripheral Edema: Yes - PULMONARY Hx Respiratory Disorders: No - NEUROLOGICAL Hx Neurological Disorder: No - HEENT Hx HEENT Problems: Yes Hx Cataracts: Yes - RENAL Hx Chronic Kidney Disease: Yes Other/Comment: renal stent - ENDOCRINE/METABOLIC Hx Endocrine Disorders: No - HEMATOLOGICAL/ONCOLOGICAL Hx Blood Disorders: Yes Hx Anemia: Yes Hx Blood Transfusions: Yes Hx Blood Transfusion Reaction: No Other/Comment: history of DVT in leg, unknown whether left or right; takes iron - INTEGUMENTARY Hx Dermatological Problems: No - MUSCULOSKELETAL/RHEUMATOLOGICAL Hx Musculoskeletal Disorders: No Hx Falls: No - GASTROINTESTINAL Hx Gastrointestinal Disorders: Yes Hx Constipation: Yes Hx Gastroesophageal Reflux: Yes - GENITOURINARY/GYNECOLOGICAL Hx Genitourinary Disorders: Yes Hx Urinary Tract Infection: Yes - PSYCHIATRIC Hx Psychophysiologic Disorder: No Hx Substance Use: No - SURGICAL HISTORY Hx Surgeries: Yes Hx Cataract Extraction: Yes Hx Coronary Stent: Yes Other/Comment: bilateral kidney stents - ANESTHESIA Hx Anesthesia: Yes Hx Anesthesia Reactions: No Meds Allergies/Adverse Reactions: Allergies Allergy/AdvReac Type Severity Reaction Status Date / Time strawberry Allergy Verified 05/28/17 18:48 - Medications Medications: Current Medications Clonidine HCl (Catapres) 0.3 mg PO BID [facility] Last Admin: 10/02/17 17:07 Dose: 0.3 mg Famotidine (Pepcid) 20 mg PO DAILY [facility] Last Admin: 10/02/17 09:15 Dose: 20 mg Furosemide (Lasix) 40 mg PO DAILY [facility] Last Admin: 10/02/17 09:16 Dose: 40 mg Home Med (Vit C/E/Zn/Coppr/Lutein/Zeaxan [Preservision Areds 2 Softgel]) 1 each PO DAILY [facility] Hydralazine HCl (Apresoline) 50 mg PO Q8 [facility] Last Admin: 10/02/17 14:39 Dose: 50 mg Losartan Potassium (Cozaar) 100 mg PO DAILY [facility] Last Admin: 10/02/17 09:15 Dose: 100 mg Potassium Chloride (Klor-Con 10) 10 meq PO DAILY [facility] Last Admin: 10/02/17 09:15 Dose: 10 meq Rosuvastatin Calcium (Crestor) 10 mg PO HS [facility] Last Admin: 10/01/17 21:43 Dose: 10 mg Vitamin E (Vitamin E 400 Units Cap) 400 intlu PO DAILY [facility] Last Admin: 10/02/17 09:15 Dose: 400 intlu Results - Vital Signs Recent Vital Signs: Last Vital Signs Temp 97.4 F L 10/02/17 18:27 Pulse 37 L 10/02/17 18:27 Resp 18 10/02/17 18:27 BP 129/42 L 10/02/17 18:27 Pulse Ox 99 10/02/17 16:00 - Labs Result Diagrams: 10/02/17 08:04 09/30/17 14:46 Labs: Laboratory Results - last 24 hr 09/30/17 09/30/17 10/02/17 14:46 20:03 08:04 WBC 8.0 RBC 2.25 L Hgb 7.0 L Hct 20.4 L MCV 90.7 MCH 31.2 H MCHC 34.4 RDW 15.3 H Plt Count 151 MPV 8.2 Hemoglobinopathy Red Blood Count 1.51 L Hemoglobinopathy Hct 14.2 L Hemoglobinopathy Hgb 4.6 L Hemoglobinopathy MCV 94.0 Hemoglobinopathy MCH 30.3 Hemoglobinopathy RDW 16.4 H Urine Color Urine Clarity Urine pH Ur Specific [place] Urine Protein Urine Glucose (UA) Urine Ketones Urine Blood Urine Nitrate Urine Bilirubin Urine Urobilinogen Ur Leukocyte Esterase Urine WBC (Auto) Urine RBC (Auto) Ur Random Creatinine Ur Random Sodium Blood Type A POSITIVE Antibody Screen Negative 10/02/17 10/02/17 13:14 13:18 WBC RBC Hgb Hct MCV MCH MCHC RDW Plt Count MPV Hemoglobinopathy Red Blood Count Hemoglobinopathy Hct Hemoglobinopathy Hgb Hemoglobinopathy MCV Hemoglobinopathy MCH Hemoglobinopathy RDW Urine Color Straw Urine Clarity Clear Urine pH 5.0 Ur Specific [place] 1.009 Urine Protein Negative Urine Glucose (UA) Normal Urine Ketones Negative Urine Blood Negative Urine Nitrate Negative Urine Bilirubin Negative Urine Urobilinogen Normal Ur Leukocyte Esterase Neg Urine WBC (Auto) 2 Urine RBC (Auto) < 1 Ur Random Creatinine 50.7 Ur Random Sodium 46 Blood Type Antibody Screen
--- NOTE | 2017-10-02 23:26 | CP.PCM.CON ---
History of Present Illness - History of Present Illness History of Present Illness: EP consult Re: bradycardia Ms. Ulrich was admitted with generalized weakness fatigue and severe anemia related to eliquis use Post admission was noted to have bradycardia and labetolol was discontinued; bradycardia has seemingly persisted; episodes of severe hypertension >200mmHg were documented EP evaluation for the need for a pacemaker implant No history of dizziness, syncope diaphoresis Past medical history: Systemic hypertension Hyperlipidemia Coronary artery disease No history of smoking alcohol or drug abuse Exam: Afebrile Pulse 50 regular Normal venous pressures Clear lungs Normal heart sounds Abdomen soft Ext: no edema DP +=+ EKG: sinus bradycardia Tele: sinus bradycardia Echo: Pending Labs: reviewed Past Patient History - Past Medical History & Family History Past Medical History?: Yes - Past Social History Smoking Status: Former Smoker - CARDIAC Hx Cardiac Disorders: Yes Hx Hypercholesterolemia: Yes Hx Hypertension: Yes Hx Peripheral Edema: Yes - PULMONARY Hx Respiratory Disorders: No - NEUROLOGICAL Hx Neurological Disorder: No - HEENT Hx HEENT Problems: Yes Hx Cataracts: Yes - RENAL Hx Chronic Kidney Disease: Yes Other/Comment: renal stent - ENDOCRINE/METABOLIC Hx Endocrine Disorders: No - HEMATOLOGICAL/ONCOLOGICAL Hx Blood Disorders: Yes Hx Anemia: Yes Hx Blood Transfusions: Yes Hx Blood Transfusion Reaction: No Other/Comment: history of DVT in leg, unknown whether left or right; takes iron - INTEGUMENTARY Hx Dermatological Problems: No - MUSCULOSKELETAL/RHEUMATOLOGICAL Hx Musculoskeletal Disorders: No Hx Falls: No - GASTROINTESTINAL Hx Gastrointestinal Disorders: Yes Hx Constipation: Yes Hx Gastroesophageal Reflux: Yes - GENITOURINARY/GYNECOLOGICAL Hx Genitourinary Disorders: Yes Hx Urinary Tract Infection: Yes - PSYCHIATRIC Hx Psychophysiologic Disorder: No Hx Substance Use: No - SURGICAL HISTORY Hx Surgeries: Yes Hx Cataract Extraction: Yes Hx Coronary Stent: Yes Other/Comment: bilateral kidney stents - ANESTHESIA Hx Anesthesia: Yes Hx Anesthesia Reactions: No Meds Allergies/Adverse Reactions: Allergies Allergy/AdvReac Type Severity Reaction Status Date / Time strawberry Allergy Verified 05/28/17 18:48 - Medications Medications: Current Medications Clonidine HCl (Catapres) 0.3 mg PO BID [facility] Last Admin: 10/02/17 17:07 Dose: 0.3 mg Famotidine (Pepcid) 20 mg PO DAILY [facility] Last Admin: 10/02/17 09:15 Dose: 20 mg Furosemide (Lasix) 40 mg PO DAILY [facility] Last Admin: 10/02/17 09:16 Dose: 40 mg Home Med (Vit C/E/Zn/Coppr/Lutein/Zeaxan [Preservision Areds 2 Softgel]) 1 each PO DAILY [facility] Hydralazine HCl (Apresoline) 50 mg PO Q8 [facility] Last Admin: 10/02/17 14:39 Dose: 50 mg Losartan Potassium (Cozaar) 100 mg PO DAILY [facility] Last Admin: 10/02/17 09:15 Dose: 100 mg Potassium Chloride (Klor-Con 10) 10 meq PO DAILY [facility] Last Admin: 10/02/17 09:15 Dose: 10 meq Rosuvastatin Calcium (Crestor) 10 mg PO HS [facility] Last Admin: 10/02/17 21:50 Dose: 10 mg Vitamin E (Vitamin E 400 Units Cap) 400 intlu PO DAILY [facility] Last Admin: 10/02/17 09:15 Dose: 400 intlu Results - Vital Signs Recent Vital Signs: Last Vital Signs Temp 97.4 F L 10/02/17 18:27 Pulse 39 L 10/02/17 21:54 Resp 20 10/02/17 21:54 BP 144/50 L 10/02/17 21:54 Pulse Ox 99 10/02/17 21:54 - Labs Result Diagrams: 10/03/17 07:56 10/03/17 07:56 Labs: Laboratory Results - last 24 hr 09/30/17 09/30/17 10/02/17 14:46 20:03 08:04 WBC 8.0 RBC 2.25 L Hgb 7.0 L Hct 20.4 L MCV 90.7 MCH 31.2 H MCHC 34.4 RDW 15.3 H Plt Count 151 MPV 8.2 Hemoglobinopathy Red Blood Count 1.51 L Hemoglobinopathy Hct 14.2 L Hemoglobinopathy Hgb 4.6 L Hemoglobinopathy MCV 94.0 Hemoglobinopathy MCH 30.3 Hemoglobinopathy RDW 16.4 H Urine Color Urine Clarity Urine pH Ur Specific [place] Urine Protein Urine Glucose (UA) Urine Ketones Urine Blood Urine Nitrate Urine Bilirubin Urine Urobilinogen Ur Leukocyte Esterase Urine WBC (Auto) Urine RBC (Auto) Ur Random Creatinine Ur Random Sodium Blood Type A POSITIVE Antibody Screen Negative 10/02/17 10/02/17 13:14 13:18 WBC RBC Hgb Hct MCV MCH MCHC RDW Plt Count MPV Hemoglobinopathy Red Blood Count Hemoglobinopathy Hct Hemoglobinopathy Hgb Hemoglobinopathy MCV Hemoglobinopathy MCH Hemoglobinopathy RDW Urine Color Straw Urine Clarity Clear Urine pH 5.0 Ur Specific [place] 1.009 Urine Protein Negative Urine Glucose (UA) Normal Urine Ketones Negative Urine Blood Negative Urine Nitrate Negative Urine Bilirubin Negative Urine Urobilinogen Normal Ur Leukocyte Esterase Neg Urine WBC (Auto) 2 Urine RBC (Auto) < 1 Ur Random Creatinine 50.7 Ur Random Sodium 46 Blood Type Antibody Screen Assessment & Plan - Assessment and Plan (Free Text) Assessment: Ms. Ulrich presented with generalized weakness and fatigue and anemia and bradycardia Her symptoms are likely related to anemia per se and tangentially to the bradycardia Bradycardia reflects degenerative sick sinus syndrome age related with or without ischemic heart disease In absence of definitive correlative symptoms the need for a pacemaker is contingent on the need for continued AV lakeisha stressors (beta blockers clonidine ) due to brittle hypertension/coronary disease or cardiomyopathy Plan: Echocardiogram Taper catapress to off Add amlodipine Monitor systemic pressures DW patient and family regarding advance directives versus device implant if necessitated by difficult to control systemic hypertension
--- NOTE | 2017-10-03 03:03 | CON ---
DATE: 10/02/2017 LOCATION: The patient is located in room 652, bed B. REQUESTING PHYSICIAN: Dr. Alejandro Benavides. REASON FOR FOLLOWUP: Acute renal failure, chronic kidney disease for further evaluation, severe anemia. HISTORY OF PRESENT ILLNESS: Mrs. Ulrich is an 87-year-old very pleasant elderly female with a past medical history significant for longstanding hypertension, CHF, coronary artery disease, anemia, chronic kidney disease, CAD, status post stent and bilateral lower extremity stent and also renal artery stent placement, who was admitted about 4 months ago for severe anemia, status post transfusion. Subsequently, the patient is being followed by filament cutter, Dr. Thibodeaux. The patient went to the filament cutter's office with the chief complaints of feeling weak and tired and found to have severe anemia, and the patient was referred to the emergency room for further management and transfusion. The patient was given 3 units of packed RBC so far as per the patient. The patient is feeling much better today, and no chest pain, no palpitation, no fever, no cough, no abdominal pain, no nausea, vomiting, or diarrhea. The patient does complain of a black stool that she was not sure whether she was bleeding or whether because of iron tablets, which she was taking as per the patient. Denies any urinary symptoms. Denies any swelling of the legs. PAST MEDICAL HISTORY: Significant for longstanding hypertension and coronary artery disease, hyperlipidemia, CKD, anemia, coronary artery disease. PAST SURGICAL HISTORY: Status post stent placements in both lower extremities and also in heart and also the renal artery stent placement. ALLERGIES: NO KNOWN DRUG ALLERGIES. ALLERGIC TO STRAWBERRIES. SOCIAL HISTORY: The patient was an ex-smoker, quit about 30 years ago. The patient smoked for 40 years from age 16 to age 57. She used to smoke one pack per day and quit about 30 years ago. The patient was denying alcohol or drug abuse. PERSONAL HISTORY: She is a and no children. FAMILY HISTORY: Not significant. REVIEW OF SYSTEMS: Significant for feeling weak and tired and also significant for anemia. All other review of systems reviewed and are negative. PHYSICAL EXAMINATION: VITAL SIGNS: Blood pressure 144/50, pulse about 54, respirations 18, temperature 97.4, saturation 99%, height 5 feet 2 inches and weight is 126 pounds, and heart rate is as low as 42 sometimes. GENERAL: Mrs. Ulrich is an 87-year-old elderly, very pleasant female, moderately built, moderately nourished, not in distress. HEENT: Pupils are normal and reactive to light and accommodation. Conjunctivae pink. Sclerae anicteric. Tongue is moist. Trachea is midline. LUNGS: Symmetric on both sides. Bilateral breath sounds present. Clear to auscultation. CVS: [place] at the fifth intercostal space, midclavicular line. S1, S2 audible. No murmur or gallop. ABDOMEN: Normal in appearance, soft, tympanic. No guarding. No rigidity. No hepatosplenomegaly. WAITER/WAITRESS CAPTAIN: The patient is alert, awake, oriented x3. Nonfocal neuro examination. Cranial nerves II through XII grossly intact. Sensory and motor system is within normal limits. EXTREMITIES: No cyanosis, no clubbing, no edema. CURRENT MEDICATIONS: Include as follows: Hydralazine 50 mg p.o. q.8 hours, clonidine 0.3 mg p.o. b.i.d., losartan 100 mg p.o. daily, Crestor 10 mg at bedtime, and Klor-Con 10 mEq p.o. daily, Lasix 40 mg p.o. daily, Pepcid 20 mg daily, vitamin E 400 units p.o. daily. LABORATORY DATA: Include as follows: On admission as of 09/30/2017, WBC 12.5, hemoglobin 5.3, hematocrit 16.2, platelets 177. Sodium 145, potassium 4.7, chloride 110, CO2 of 24, BUN 89, creatinine 2, glucose 141, calcium 8.7. Total bili 0.3, AST 20, ALT 31, alkaline phosphatase 33, total protein 5.3, albumin is 3.4, B12 is 269, folic acid 11.3. Iron is 100, TIBC 243, Fe is 41, ferritin 135. Stool for occult blood is positive, and as of 10/02/2017, urine color is yellow and clear, pH is 5, specific gravity 1.009. Protein negative, glucose negative, ketones negative, blood negative, nitrites negative, bilirubin negative, urobilinogen negative, leukocyte esterase negative. Wbc 2 and rbc less than 1, and urine creatinine is 50.7, urine sodium is 46. Hemoglobin electrophoresis is pending. As of 10/02/2017, WBC 8, hemoglobin 7, hematocrit is 20.4, platelets 151. Duplex scan of the lower extremities, as of 09/30/2017, no evidence of deep or superficial thrombosis of the left lower extremity. ASSESSMENT: In summary, Mrs. Ulrich is an 87-year-old elderly female with hypertension, hyperlipidemia, coronary artery disease, congestive heart failure, bradycardia, chronic kidney disease, status post stent in both lower extremities, in the heart, and also renal stent placement with increased BUN and creatinine, low hemoglobin and hematocrit. 1. Acute renal failure on chronic kidney disease with a baseline creatinine about 1.6 to 1.7. Increased azotemia is most likely secondary to slow gastrointestinal bleed. 2. Anemia secondary to gastrointestinal bleed and renal failure, and cannot rule out iron-deficiency anemia. 3. Hypertension. 4. Coronary artery disease. 5. Bradycardia. PLAN: I will consider to decrease the dose of clonidine and consider to add Procardia or calcium channel rylie. Continue followup with filament cutter, continue transfusion, and continue AYAAN as per the filament cutter. We will follow with you. Thank you for allowing me to participate in your patient's care. Niecy Piña MD
[2017-10-03 08:05] LABS: MEAN CELL VOLUME 91.3 fL (81.0-99.0); MEAN CORPUSCULAR HEMOGLOBIN 31.3 pg (27.0-31.0); MEAN CORPUSCULAR HGB CONC 34.3 g/dL (33.0-37.0); MEAN PLATELET VOLUME 8.3 fL (7.2-11.7); RBC 2.9 Mil/uL (3.80-5.20); RED CELL DISTRIBUTION WIDTH 14.6 % (11.5-14.5); WHITE BLOOD COUNT 7.7 K/uL (4.8-10.8)
[2017-10-03 08:16] LABS: HEMOGLOBIN 9.1 g/dL (11.0-16.0)
[2017-10-03 08:24] LABS: CALCIUM 8.5 mg/dl (8.6-10.4)
[2017-10-03] MEDS: Potassium Chloride 10 mEq ER Tab PO SCH (09:34)
--- NOTE | 2017-10-03 11:26 | CP.PCM.PN ---
Subjective - Date & Time of Evaluation Date of Evaluation: 10/03/17 Time of Evaluation: 11:23 - Subjective Subjective: COVERING FOR DR MELENDEZ No pain or bleeding She is currently refusing to take prep for colonoscopy and is waiting for pacemaker to be done as well. Objective - Vital Signs/Intake and Output Vital Signs (last 24 hours): Temp Pulse Resp BP Pulse Ox 98.3 F 51 L 18 155/51 H 99 10/03/17 07:10 10/03/17 08:47 10/03/17 07:10 10/03/17 09:34 10/03/17 07:10 Intake and Output: 10/03/17 10/03/17 06:59 18:59 Intake Total 400 Output Total 600 Balance -200 - Medications Medications: Current Medications Clonidine HCl (Catapres) 0.3 mg PO BID [facility] Last Admin: 10/03/17 09:35 Dose: 0.3 mg Famotidine (Pepcid) 20 mg PO DAILY [facility] Last Admin: 10/03/17 09:34 Dose: 20 mg Furosemide (Lasix) 40 mg PO DAILY [facility] Last Admin: 10/03/17 09:34 Dose: 40 mg Home Med (Vit C/E/Zn/Coppr/Lutein/Zeaxan [Preservision Areds 2 Softgel]) 1 each PO DAILY [facility] Hydralazine HCl (Apresoline) 50 mg PO Q8 [facility] Last Admin: 10/03/17 05:08 Dose: 50 mg Losartan Potassium (Cozaar) 100 mg PO DAILY [facility] Last Admin: 10/03/17 09:35 Dose: 100 mg Potassium Chloride (Klor-Con 10) 10 meq PO DAILY [facility] Last Admin: 10/03/17 09:34 Dose: 10 meq Rosuvastatin Calcium (Crestor) 10 mg PO HS [facility] Last Admin: 10/02/17 21:50 Dose: 10 mg Vitamin E (Vitamin E 400 Units Cap) 400 intlu PO DAILY [facility] Last Admin: 10/03/17 09:35 Dose: 400 intlu - Labs Labs: 10/03/17 07:56 10/03/17 07:56 - Constitutional Appears: No Acute Distress - Head Exam Head Exam: ATRAUMATIC, NORMOCEPHALIC - Eye Exam Eye Exam: EOMI, PERRL - Respiratory Exam Respiratory Exam: NORMAL BREATHING PATTERN - Cardiovascular Exam Cardiovascular Exam: REGULAR RHYTHM, +S1 - GI/Abdominal Exam GI & Abdominal Exam: Soft, Normal Bowel Sounds. absent: Distended, Tenderness, Mass - Extremities Exam Extremities Exam: Normal Inspection Assessment and Plan (1) Occult blood positive stool Assessment & Plan: Source for blood loss not defined. Needs EGD and colonoscopy following cardiac intervention if she is agreeable. On PPI Status: Acute (2) Severe anemia Assessment & Plan: as above Status: Acute
[2017-10-03 12:00] LABS: HEMOGLOBIN A 97.2 Percent (>96.0); HEMOGLOBIN A2 1.8 Percent (1.8-3.5)
--- NOTE | 2017-10-03 14:28 | CP.PCM.PN ---
Subjective - Date & Time of Evaluation Date of Evaluation: 10/03/17 Time of Evaluation: 14:28 - Subjective Subjective: pt is seen and examined, follow up consult is dictated #[id number] Objective - Vital Signs/Intake and Output Vital Signs (last 24 hours): Temp Pulse Resp BP Pulse Ox 98.3 F 51 L 18 155/51 H 99 10/03/17 07:10 10/03/17 08:47 10/03/17 07:10 10/03/17 09:34 10/03/17 07:10 Intake and Output: 10/03/17 10/03/17 06:59 18:59 Intake Total 400 Output Total 600 Balance -200 - Medications Medications: Current Medications Clonidine HCl (Catapres) 0.3 mg PO BID [facility] Last Admin: 10/03/17 09:35 Dose: 0.3 mg Famotidine (Pepcid) 20 mg PO DAILY [facility] Last Admin: 10/03/17 09:34 Dose: 20 mg Furosemide (Lasix) 40 mg PO DAILY [facility] Last Admin: 10/03/17 09:34 Dose: 40 mg Home Med (Vit C/E/Zn/Coppr/Lutein/Zeaxan [Preservision Areds 2 Softgel]) 1 each PO DAILY [facility] Hydralazine HCl (Apresoline) 50 mg PO Q8 [facility] Last Admin: 10/03/17 13:18 Dose: 50 mg Losartan Potassium (Cozaar) 100 mg PO DAILY [facility] Last Admin: 10/03/17 09:35 Dose: 100 mg Potassium Chloride (Klor-Con 10) 10 meq PO DAILY [facility] Last Admin: 10/03/17 09:34 Dose: 10 meq Rosuvastatin Calcium (Crestor) 10 mg PO HS [facility] Last Admin: 10/02/17 21:50 Dose: 10 mg Vitamin E (Vitamin E 400 Units Cap) 400 intlu PO DAILY [facility] Last Admin: 10/03/17 09:35 Dose: 400 intlu - Labs Labs: 10/03/17 07:56 10/03/17 07:56
--- NOTE | 2017-10-03 18:46 | CP.PCM.PN ---
Subjective - Date & Time of Evaluation Date of Evaluation: 10/03/17 Time of Evaluation: 10:15 - Subjective Subjective: remains bradycardic rate 40-45 albeit BP is stable No dizziness or syncope Repeat Venous doppler study - no thrombus in femoral vein Objective - Vital Signs/Intake and Output Vital Signs (last 24 hours): Temp Pulse Resp BP Pulse Ox 98.6 F 50 L 18 149/48 L 97 10/03/17 15:20 10/03/17 15:20 10/03/17 15:20 10/03/17 15:20 10/03/17 15:20 Intake and Output: 10/03/17 10/03/17 06:59 18:59 Intake Total 400 Output Total 600 Balance -200 - Medications Medications: Current Medications Clonidine HCl (Catapres) 0.3 mg PO BID [facility] Last Admin: 10/03/17 09:35 Dose: 0.3 mg Famotidine (Pepcid) 20 mg PO DAILY [facility] Last Admin: 10/03/17 09:34 Dose: 20 mg Furosemide (Lasix) 40 mg PO DAILY [facility] Last Admin: 10/03/17 09:34 Dose: 40 mg Home Med (Vit C/E/Zn/Coppr/Lutein/Zeaxan [Preservision Areds 2 Softgel]) 1 each PO DAILY [facility] Hydralazine HCl (Apresoline) 50 mg PO Q8 [facility] Last Admin: 10/03/17 13:18 Dose: 50 mg Losartan Potassium (Cozaar) 100 mg PO DAILY [facility] Last Admin: 10/03/17 09:35 Dose: 100 mg Potassium Chloride (Klor-Con 10) 10 meq PO DAILY [facility] Last Admin: 10/03/17 09:34 Dose: 10 meq Rosuvastatin Calcium (Crestor) 10 mg PO HS [facility] Last Admin: 10/02/17 21:50 Dose: 10 mg Vitamin E (Vitamin E 400 Units Cap) 400 intlu PO DAILY [facility] Last Admin: 10/03/17 09:35 Dose: 400 intlu - Labs Labs: 10/03/17 07:56 10/03/17 07:56 - Constitutional Appears: Non-toxic - Head Exam Head Exam: NORMAL INSPECTION - Eye Exam Eye Exam: absent: Scleral icterus - ENT Exam ENT Exam: Mucous Membranes Moist - Neck Exam Neck Exam: Full ROM - Respiratory Exam Respiratory Exam: Decreased Breath Sounds - Cardiovascular Exam Cardiovascular Exam: Bradycardia, REGULAR RHYTHM. absent: Murmur - GI/Abdominal Exam GI & Abdominal Exam: Soft, Normal Bowel Sounds. absent: Tenderness, Organomegaly - Extremities Exam Extremities Exam: absent: Calf Tenderness, Pedal Edema - Neurological Exam Neurological Exam: Alert, Oriented x3 Assessment and Plan - Assessment and Plan (Free Text) Assessment: Anemia Persistent bradycardia HTN GI bleed Plan: PPM is contemplated Upper and lower endoscopy is contemplated Control BP
--- NOTE | 2017-10-03 19:57 | PN ---
DATE: 10/03/2017 FOLLOWUP RENAL CONSULTATION LOCATION: Room 652, Bed B REQUESTED BY: Alejandro Benavides MD. REASON FOR FOLLOWUP: Acute renal failure, chronic kidney disease and severe anemia. HISTORY OF PRESENT ILLNESS: Mrs. Ulrich is an 87-year-old very pleasant elderly female with a past medical history significant for longstanding history hypertension, coronary artery disease, hyperlipidemia, anemia, CKD who was admitted a few months ago for severe anemia, CHF, and status post transfusion. The patient was followed by Dr. Thibodeaux for the anemia. The patient is on Procrit and also IV iron therapy. The patient was admitted with a chief complaint of severe weakness and lightheadedness and found to have severe anemia by Dr. Thibodeaux, and the patient was referred to the emergency room and anemia was confirmed with hemoglobin of 5.3, admitted for management. The patient received 3 units of packed RBC on admission. The patient is now feeling slightly better, not in acute distress. Denies any chest pain, palpitation. Denies any fever, cough. No abdominal pain. No nausea, vomiting, diarrhea. PHYSICAL EXAMINATION: VITAL SIGNS: This morning as follows: Blood pressure 155/51, pulse 51, respiration 18, temperature 98.3. Height 5 feet 2 inches, weight is`126 pounds. GENERAL: Mrs. Ulrich is an 87-year-old elderly female, moderately built, moderately nourished, not in distress. HEENT: Pupils normally reactive to light and accommodation. Conjunctivae pink. Sclerae anicteric. Tongue is moist. Trachea is midline. LUNGS: Symmetric on both sides, bilateral breath sounds present. Clear to auscultation. CVS: [place] on the fifth intercostal space, midclavicular line. S1 and S2 audible. No murmur. No gallop. ABDOMEN: Normal in appearance, soft, and tympanic. No guarding. No rigidity. No hepatosplenomegaly. [employer]: The patient is alert, awake, oriented x3. Nonfocal neuro examination. Sensory and motor system within normal limits. EXTREMITIES: No cyanosis, no clubbing, no edema. CURRENT MEDICATIONS: Include as follows: Hydralazine 50 mg p.o. every 8 hours, clonidine 0.3 mg p.o. b.i.d., losartan 100 mg p.o. daily, Crestor 10 mg p.o. at bedtime, Klor-Con 10 mEq p.o. daily, Lasix 40 mg p.o. daily, Pepcid 20 mg daily, vitamin E 400 units p.o. daily. LABORATORY DATA: Include as follows, as of 10/03/2017; WBC 7.2, hemoglobin 9.1, hematocrit is 26.5, platelet 178. Sodium 142, potassium 3.8, chloride 107, CO2 is 28, BUN 47, creatinine 1.4, glucose 96, calcium 8.5. Urinalysis as of 10/02/2017 is negative. The urine creatinine is 50.7, urine sodium is , urine chloride is 58. Stool for occult blood was positive on 10/02/2017. ASSESSMENT AND PLAN: In summary, Mrs. Ulrich is an 87-year-old elderly very pleasant female with hypertension, hyperlipidemia, coronary artery disease, status post stent in both legs and also renal artery stent placement due to chronic kidney disease and stool for occult blood is positive and also low hemoglobin and hematocrit and status post transfusion. 1. Acute renal failure on chronic kidney disease stage 3, most likely secondary to the intravascular volume secondary to gastrointestinal bleed and severe anemia. 2. Anemia secondary to low gastrointestinal bleed. 3. Hypertension. 4. Coronary artery disease, now hemoglobin and hematocrit are stable. Continue to monitor hemoglobin and hematocrit and also renal, improved, almost back to her baseline. Continue to follow up with GI for possibly EGD and colonoscopy. Also, follow up with Dr. Madison for possible evaluation for the pacemaker placement. We will follow with you. Thank you for allowing me to participate in your patient's care. Niecy Pñia MD
--- NOTE | 2017-10-04 08:51 | RAD ---
HISTORY: COMPARISON: 05/28/2017. TECHNIQUE: Chest PA and lateral FINDINGS: LINES AND TUBES: None. LUNG AND PLEURA: The lungs are well inflated and clear. No pleural effusion or pneumothorax. HEART AND MEDIASTINUM: The heart is not enlarged. Atherosclerotic aortic arch calcifications are present. The hilar and mediastinal contours are within normal limits. SKELETAL STRUCTURES: The bony structures are within normal limits for the patient's age. VISUALIZED UPPER ABDOMEN: Normal. OTHER FINDINGS: None. IMPRESSION: No active pulmonary disease.
--- NOTE | 2017-10-04 10:49 | CP.PCM.PN ---
Subjective - Date & Time of Evaluation Date of Evaluation: 10/04/17 Time of Evaluation: 10:46 - Subjective Subjective: COVERING DR MELENDEZ No pain or bleeding. Still awaiting decision on PPM from Cardio. No GI work up imminent. Patient refusing prep as well. Objective - Vital Signs/Intake and Output Vital Signs (last 24 hours): Temp Pulse Resp BP Pulse Ox 98.5 F 68 18 168/56 H 98 10/04/17 07:15 10/04/17 09:45 10/04/17 07:15 10/04/17 09:45 10/04/17 07:15 Intake and Output: 10/04/17 10/04/17 06:59 18:59 Intake Total 360 Output Total 800 Balance -440 - Medications Medications: Current Medications Clonidine HCl (Catapres) 0.2 mg PO BID [facility] Stop: 10/05/17 10:01 Clonidine HCl (Catapres) 0.1 mg PO BID [facility] Stop: 10/06/17 10:01 Famotidine (Pepcid) 20 mg PO DAILY [facility] Last Admin: 10/03/17 09:34 Dose: 20 mg Furosemide (Lasix) 40 mg PO DAILY [facility] Last Admin: 10/03/17 09:34 Dose: 40 mg Home Med (Vit C/E/Zn/Coppr/Lutein/Zeaxan [Preservision Areds 2 Softgel]) 1 each PO DAILY [facility] Hydralazine HCl (Apresoline) 50 mg PO Q8 [facility] Last Admin: 10/04/17 05:39 Dose: 50 mg Losartan Potassium (Cozaar) 100 mg PO DAILY [facility] Last Admin: 10/03/17 09:35 Dose: 100 mg Potassium Chloride (Klor-Con 10) 10 meq PO DAILY [facility] Last Admin: 10/03/17 09:34 Dose: 10 meq Rosuvastatin Calcium (Crestor) 10 mg PO HS [facility] Last Admin: 10/03/17 21:50 Dose: 10 mg Vitamin E (Vitamin E 400 Units Cap) 400 intlu PO DAILY [facility] Last Admin: 10/03/17 09:35 Dose: 400 intlu - Labs Labs: 10/03/17 07:56 10/03/17 07:56 - Constitutional Appears: No Acute Distress - Head Exam Head Exam: ATRAUMATIC, NORMOCEPHALIC - Respiratory Exam Respiratory Exam: NORMAL BREATHING PATTERN - Cardiovascular Exam Cardiovascular Exam: Bradycardia, REGULAR RHYTHM - GI/Abdominal Exam GI & Abdominal Exam: Soft, Normal Bowel Sounds. absent: Tenderness Assessment and Plan (1) Occult blood positive stool Assessment & Plan: For EGD/Colonoscopy when cleared by Cardio/post-PPM and patient agreeable. Observe for overt bleeding for now H/H stable Status: Acute (2) Severe anemia Assessment & Plan: as above Status: Acute (3) Bradycardia Assessment & Plan: ?PPM per Dr Benavides. Awaiting cardiac clearance. Status: Acute
[2017-10-04] MEDS ORDERED: Dextrose 5%/0.45% NS 500 ML IV SCH (11:00)
[2017-10-04] MEDS: Potassium Chloride 10 mEq ER Tab PO SCH (11:11)
[2017-10-04 12:06] LABS: INR 1.1; PROTHROMBIN TIME 11.6 SECONDS (9.7-12.2)
[2017-10-04] MEDS ORDERED: Bacitracin 50,000 UNIT in Sodium Chloride 0.9% Irrig 1,000 ML IR SCH (12:15)
[2017-10-04] MEDS ORDERED: Thrombin Topical 5,000 Int Units Spray Kit ONE (12:17)
[2017-10-04] MEDS ORDERED: Lidocaine Hydrochloride 20 ML INJ ONE (12:17)
[2017-10-04] MEDS ORDERED: HEPARIN-NS 5,000 UNITS/500 ML 0 UNIT/0 ML BAG IV ONE (12:25)
--- NOTE | 2017-10-04 14:50 | CP.PCM.PN ---
Subjective - Date & Time of Evaluation Date of Evaluation: 10/04/17 Time of Evaluation: 14:49 - Subjective Subjective: Discussed rescinding DNI orders with pt during periop period and pt understands and agrees. Objective - Vital Signs/Intake and Output Vital Signs (last 24 hours): Temp Pulse Resp BP Pulse Ox 98.5 F 68 18 162/71 H 98 10/04/17 07:15 10/04/17 09:45 10/04/17 07:15 10/04/17 11:10 10/04/17 07:15 Intake and Output: 10/04/17 10/04/17 06:59 18:59 Intake Total 360 20 Output Total 800 Balance -440 20 - Medications Medications: Current Medications Clonidine HCl (Catapres) 0.2 mg PO BID [facility] Stop: 10/05/17 10:01 Last Admin: 10/04/17 11:11 Dose: 0.2 mg Clonidine HCl (Catapres) 0.1 mg PO BID [facility] Stop: 10/06/17 10:01 Famotidine (Pepcid) 20 mg PO DAILY [facility] Last Admin: 10/04/17 11:10 Dose: 20 mg Furosemide (Lasix) 40 mg PO DAILY [facility] Last Admin: 10/04/17 11:10 Dose: 40 mg Home Med (Vit C/E/Zn/Coppr/Lutein/Zeaxan [Preservision Areds 2 Softgel]) 1 each PO DAILY [facility] Hydralazine HCl (Apresoline) 50 mg PO Q8 [facility] Last Admin: 10/04/17 14:11 Dose: 50 mg Dextrose/Sodium Chloride (Dextrose 5%/0.45% Ns 1000 Ml) 500 mls @ 100 mls/hr IV .Q5H [facility] Stop: 10/04/17 15:59 Last Admin: 10/04/17 11:09 Dose: 100 mls/hr Losartan Potassium (Cozaar) 100 mg PO DAILY [facility] Last Admin: 10/04/17 11:11 Dose: 100 mg Potassium Chloride (Klor-Con 10) 10 meq PO DAILY [facility] Last Admin: 10/04/17 11:11 Dose: Not Given Rosuvastatin Calcium (Crestor) 10 mg PO HS [facility] Last Admin: 10/03/17 21:50 Dose: 10 mg Vitamin E (Vitamin E 400 Units Cap) 400 intlu PO DAILY [facility] Last Admin: 10/04/17 11:12 Dose: Not Given - Labs Labs: 10/03/17 07:56 10/03/17 07:56 PT 11.6 SECONDS (9.7-12.2) 10/04/17 11:47 INR 1.1 10/04/17 11:47 APTT 31 SECONDS (21-34) 10/04/17 11:47
[2017-10-04] MEDS ORDERED: Midazolam 2 MG/2 ML VIAL ONE (15:08)
[2017-10-04] MEDS ORDERED: ceFAZolin IV 1 gm in Dextrose 1 GM/50 ML BAG IVPB ONE (15:08)
--- NOTE | 2017-10-04 15:58 | CP.PCM.PN ---
Subjective - Date & Time of Evaluation Date of Evaluation: 10/04/17 Time of Evaluation: 11:45 - Subjective Subjective: Offered no complaints Exam Afebrile Normal venous pressures Clear lungs No S3/rub No edema Tele: sinus bradycardia upto 30-40 beats per minute Objective - Vital Signs/Intake and Output Vital Signs (last 24 hours): Temp Pulse Resp BP Pulse Ox 98.5 F 68 18 162/71 H 98 10/04/17 07:15 10/04/17 09:45 10/04/17 07:15 10/04/17 11:10 10/04/17 07:15 Intake and Output: 10/04/17 10/04/17 06:59 18:59 Intake Total 360 70 Output Total 800 Balance -440 70 - Medications Medications: Current Medications Clonidine HCl (Catapres) 0.2 mg PO BID [facility] Stop: 10/05/17 10:01 Last Admin: 10/04/17 11:11 Dose: 0.2 mg Clonidine HCl (Catapres) 0.1 mg PO BID [facility] Stop: 10/06/17 10:01 Famotidine (Pepcid) 20 mg PO DAILY [facility] Last Admin: 10/04/17 11:10 Dose: 20 mg Furosemide (Lasix) 40 mg PO DAILY [facility] Last Admin: 10/04/17 11:10 Dose: 40 mg Home Med (Vit C/E/Zn/Coppr/Lutein/Zeaxan [Preservision Areds 2 Softgel]) 1 each PO DAILY [facility] Hydralazine HCl (Apresoline) 50 mg PO Q8 [facility] Last Admin: 10/04/17 14:11 Dose: 50 mg Dextrose/Sodium Chloride (Dextrose 5%/0.45% Ns 1000 Ml) 500 mls @ 100 mls/hr IV .Q5H [facility] Stop: 10/04/17 15:59 Last Admin: 10/04/17 11:09 Dose: 100 mls/hr Losartan Potassium (Cozaar) 100 mg PO DAILY [facility] Last Admin: 10/04/17 11:11 Dose: 100 mg Potassium Chloride (Klor-Con 10) 10 meq PO DAILY [facility] Last Admin: 10/04/17 11:11 Dose: Not Given Rosuvastatin Calcium (Crestor) 10 mg PO HS [facility] Last Admin: 10/03/17 21:50 Dose: 10 mg Vitamin E (Vitamin E 400 Units Cap) 400 intlu PO DAILY [facility] Last Admin: 10/04/17 11:12 Dose: Not Given - Labs Labs: 10/03/17 07:56 10/03/17 07:56 PT 11.6 SECONDS (9.7-12.2) 10/04/17 11:47 INR 1.1 10/04/17 11:47 APTT 31 SECONDS (21-34) 10/04/17 11:47 Assessment and Plan - Assessment and Plan (Free Text) Assessment: Case was reviewed with Dr. Benavides; he strongly feels her antihypertensive regimen warrants beta blockers and catapress due to prior difficulty in controlling pressures and severe edema from dihydropyridine calcium channel blockers Reiterated with patient procedure risks and options and procedures; she verbalized understanding and agrees to proceed with surgery Plan: NPO Possible pacemaker today
--- NOTE | 2017-10-04 16:02 | PCM.OP ---
Operative Report - Operative Report Date of Surgery/Procedure: 10/04/17 Time of Surgery/Procedure: 15:59 Surgeon: joseline MONSIVAIS Anesthesia/Sedation: MAC Pre-Operative Diagnosis: Sick sinus syndrome Post-Operative Diagnosis: Sick sinus syndrome Indication for Surgery: Sick sinus syndrome with severe sinus bradycardia and a continued need for beta blockers and clonidine for antihypertensive control Operative Findings: Sick sinus syndrome Procedure/Operation Description: The patient was brought to the OR after informed consent; oxygen saturation rhythm blood pressure were continuously monitored; Defibrillator pads were placed.Iv antibiotics were administred. The left pectoral region was cleansed and prepped in the usual fashion; next the left subclavian vein was accessed twice under fluorsocopy and two six greek sheaths were placed. Next a 3 cm incision was made 3 cm inferior to the left clavicle over the pectoral muscle; next a pocket was created and hemostasis was ensured. A 52 cm pacing lead was then introduced and situated on the right ventricular apex and screwed in; pace sense parameters were acceptable and stable; the sheath was peeled. A 45 cm pacing lead was then introduced and situated on the right atrial appendage and screwed in; pace sense parameters were acceptable and stable; the sheath was peeled. Next the leads were sutured to the pectoral muscle; the pocket was cleansed and flushed with antibiotics. The new pacemaker generator was then introduced in the field connected to the pacing leads and placed in the pocket; pace sense parameters were unchanged and acceptable; next the pocket was closed in layers. The pocket was closed in layers with 2 O vicryl and skin danyel; telfa and dresing was applied; a sling was placed and the patient sent back to his room in a stable condition with orders for antibiotics x 3 doses. and a chest X-ray and a sling Estimated Blood Loss: 5 cc Complications: None Discharge & Condition: Stable. Chest X-ray. Ancef 1 gm IV x 3 doses every 8 hours
--- NOTE | 2017-10-04 16:55 | RAD ---
HISTORY: S/P INSERTION PACEMAKER LEFT CHEST COMPARISON: Plain radiograph performed earlier the same day. FINDINGS: LUNGS: The lungs are well inflated and clear. PLEURA: Small left effusion, no pneumothorax apparent. CARDIOVASCULAR: There is mild cardiomegaly. There is interval placement of a left-sided dual lead transvenous permanent pacing device with leads terminating in the right atrium and right ventricle. OSSEOUS STRUCTURES: No significant abnormalities. VISUALIZED UPPER ABDOMEN: Normal. OTHER FINDINGS: None. IMPRESSION: Interval placement of dual lead left-sided permanent pacing device with leads terminating in the right atrium and right ventricle. Small left pleural effusion.
--- NOTE | 2017-10-04 18:45 | CP.PCM.PN ---
Subjective - Date & Time of Evaluation Date of Evaluation: 10/04/17 Time of Evaluation: 09:45 - Subjective Subjective: remains bradycardic HR 50-60 BP 202-210 off beta-blockers and Catapres Pt need high dose of beta rylie(Labetalol and Catapres) which both cause negative chronotropic effect Case discussed with Dr Carpenter Objective - Vital Signs/Intake and Output Vital Signs (last 24 hours): Temp Pulse Resp BP Pulse Ox 98.4 F 71 20 171/54 H 98 10/04/17 17:38 10/04/17 18:00 10/04/17 17:38 10/04/17 17:15 10/04/17 17:38 Intake and Output: 10/04/17 10/04/17 06:59 18:59 Intake Total 360 420 Output Total 800 350 Balance -440 70 - Medications Medications: Current Medications Clonidine HCl (Catapres) 0.2 mg PO BID [facility] Stop: 10/05/17 10:01 Last Admin: 10/04/17 11:11 Dose: 0.2 mg Clonidine HCl (Catapres) 0.1 mg PO BID [facility] Stop: 10/06/17 10:01 Famotidine (Pepcid) 20 mg PO DAILY [facility] Last Admin: 10/04/17 11:10 Dose: 20 mg Furosemide (Lasix) 40 mg PO DAILY [facility] Last Admin: 10/04/17 11:10 Dose: 40 mg Home Med (Vit C/E/Zn/Coppr/Lutein/Zeaxan [Preservision Areds 2 Softgel]) 1 each PO DAILY [facility] Hydralazine HCl (Apresoline) 50 mg PO Q8 [facility] Last Admin: 10/04/17 14:11 Dose: 50 mg Losartan Potassium (Cozaar) 100 mg PO DAILY [facility] Last Admin: 10/04/17 11:11 Dose: 100 mg Potassium Chloride (Klor-Con 10) 10 meq PO DAILY [facility] Last Admin: 10/04/17 11:11 Dose: Not Given Rosuvastatin Calcium (Crestor) 10 mg PO HS [facility] Last Admin: 10/03/17 21:50 Dose: 10 mg Vitamin E (Vitamin E 400 Units Cap) 400 intlu PO DAILY [facility] Last Admin: 10/04/17 11:12 Dose: Not Given - Labs Labs: 10/03/17 07:56 10/03/17 07:56 PT 11.6 SECONDS (9.7-12.2) 10/04/17 11:47 INR 1.1 10/04/17 11:47 APTT 31 SECONDS (21-34) 10/04/17 11:47 - Constitutional Appears: Non-toxic - Head Exam Head Exam: NORMAL INSPECTION - Eye Exam Eye Exam: absent: Scleral icterus - ENT Exam ENT Exam: Mucous Membranes Moist - Neck Exam Neck Exam: Full ROM, Lymphadenopathy - Respiratory Exam Respiratory Exam: Decreased Breath Sounds, NORMAL BREATHING PATTERN - Cardiovascular Exam Cardiovascular Exam: REGULAR RHYTHM - GI/Abdominal Exam GI & Abdominal Exam: Soft. absent: Tenderness - Extremities Exam Extremities Exam: Full ROM. absent: Pedal Edema - Neurological Exam Neurological Exam: Alert. absent: Oriented x3 Assessment and Plan - Assessment and Plan (Free Text) Assessment: Severe anemia Sick sinus syndrome For PPM implant-case discussed with Dr Carpenter Severe hypertension CKD stage 2 GI bleeding Plan: Ok for upper and lower endoscopy in the morning post PPM implant barring complication Transfusion as needed.
[2017-10-05] MEDS: Potassium Chloride 10 mEq ER Tab PO SCH (09:48)
--- NOTE | 2017-10-05 10:44 | RAD ---
PROCEDURE: Intraoperative Fluoroscopy. HISTORY: THIRD DEGREE HEARTBLOCK FINDINGS: Fluoroscopic assistance was provided for pacemaker insertion. Please refer to the operative report from NARCISO Gandhi, , MD [facility].
[2017-10-05 12:16] LABS: METHYLMALONIC ACID,SERUM 547 nmol/L (87-318)
--- NOTE | 2017-10-05 12:55 | CP.PCM.PN ---
Subjective - Date & Time of Evaluation Date of Evaluation: 10/05/17 Time of Evaluation: 12:54 - Subjective Subjective: pt is seen and examined, follow up consult is dictated #[id number] check labs in am Objective - Vital Signs/Intake and Output Vital Signs (last 24 hours): Temp Pulse Resp BP Pulse Ox 98.1 F 69 18 149/64 95 10/05/17 07:00 10/05/17 09:47 10/05/17 07:00 10/05/17 09:48 10/05/17 07:00 - Medications Medications: Current Medications Clonidine HCl (Catapres) 0.1 mg PO BID [facility] Stop: 10/06/17 10:01 Last Admin: 10/05/17 09:48 Dose: 0.1 mg Famotidine (Pepcid) 20 mg PO DAILY [facility] Last Admin: 10/05/17 09:48 Dose: 20 mg Furosemide (Lasix) 40 mg PO DAILY [facility] Last Admin: 10/05/17 09:48 Dose: 40 mg Home Med (Vit C/E/Zn/Coppr/Lutein/Zeaxan [Preservision Areds 2 Softgel]) 1 each PO DAILY [facility] Hydralazine HCl (Apresoline) 50 mg PO Q8 [facility] Last Admin: 10/05/17 05:17 Dose: 50 mg Losartan Potassium (Cozaar) 100 mg PO DAILY [facility] Last Admin: 10/05/17 09:48 Dose: 100 mg Potassium Chloride (Klor-Con 10) 10 meq PO DAILY [facility] Last Admin: 10/05/17 09:48 Dose: 10 meq Rosuvastatin Calcium (Crestor) 10 mg PO HS [facility] Last Admin: 10/04/17 21:27 Dose: 10 mg Vitamin E (Vitamin E 400 Units Cap) 400 intlu PO DAILY [facility] Last Admin: 10/05/17 09:48 Dose: 400 intlu - Labs Labs: 10/03/17 07:56 10/03/17 07:56 PT 11.6 SECONDS (9.7-12.2) 10/04/17 11:47 INR 1.1 10/04/17 11:47 APTT 31 SECONDS (21-34) 10/04/17 11:47
--- NOTE | 2017-10-06 06:29 | PN ---
DATE: 10/05/2017 FOLLOWUP RENAL CONSULTATION LOCATION: Room 652, Bed B. REQUESTED BY: Alejandro Benavides MD. REASON FOR FOLLOWUP: Acute renal failure, chronic kidney disease. HISTORY OF PRESENT ILLNESS: Mrs. Ulrich is an 87-year-old very pleasant female with a history of hypertension, coronary artery disease, hyperlipidemia, anemia, chronic kidney disease, CHF, who was admitted with a chief complaint of feeling dizzy, lightheadedness and generalized weakness and found to have a severe anemia, hemoglobin 5.3, found by magisterial district judge and advised to go to the hospital for further treatment transfusion. The patient underwent multiple transfusions. The patient denies any complaints at this time. Denies any chest pain, palpitation. Denies any fever, cough. No abdominal pain. No nausea, vomiting, diarrhea. The patient was also found to be bradycardic on admission and underwent a pacemaker placement yesterday for sick sinus syndrome. The patient is not in acute distress today. The patient is out of bed to chair and resting comfortably. PHYSICAL EXAMINATION: VITAL SIGNS: This morning: Blood pressure 123/55, pulse 70, respirations of 20, temperature 98.1. Height 5 feet 2 inches, weight is`126 pounds. GENERAL: Mrs. Ulrich is an 87-year-old elderly female, moderately built, moderately nourished, not in acute distress. HEENT: Pupils normally reactive to light and accommodation. Conjunctivae pink. Sclerae anicteric. Tongue is moist. Trachea is midline. LUNGS: Symmetric on both sides, bilateral breath sounds present. Clear to auscultation. CVS: Mauldin on the fifth intercostal space, midclavicular line. S1 and S2 audible. No murmur. No gallop. ABDOMEN: Normal in appearance, soft and tympanic. No guarding. No rigidity. No hepatosplenomegaly. NEURO INTENSIVIST PHYSICIAN: The patient is alert, awake, oriented x3. Nonfocal neuro examination. Cranial nerves II through XII intact. Sensory and motor system within normal limits. EXTREMITIES: No cyanosis, no clubbing, no edema. CURRENT MEDICATIONS: Include as follows: Hydralazine 50 mg p.o. every 8 hours, clonidine 0.1 mg p.o. b.i.d., losartan 100 mg p.o. daily, Crestor 10 mg at bedtime, Klor-Con 10 mEq p.o. daily, Lasix 40 mg p.o. daily, Pepcid 20 mg p.o. daily, and vitamin E 400 international units p.o. daily. LABORATORY DATA: No new labs are available for today. As of 10/03/2017: H and H 9.4/26.5. BUN 47, creatinine 1.4, glucose 96, calcium 8.6, sodium 142, potassium 3.8, chloride . ASSESSMENT AND PLAN: In summary, Mrs. Ulrich is an 87-year-old elderly female with a history of hypertension, hyperlipidemia, coronary artery disease, status post stent, and peripheral vascular disease, status post coronary artery stent placement, was admitted with severe anemia and stool for occult blood was positive and status post transfusion , sick sinus syndrome, status post pacemaker placement on 10/02/2017. 1. Acute renal failure on chronic kidney disease, most likely secondary to intravascular depletion secondary to gastrointestinal bleed and severe anemia. Renal function is improving. 2. Anemia secondary to low gastrointestinal bleed. Hemoglobin and hematocrit are stable. 3. Hypertension. Blood pressure is stable. Continue her current medications, hydralazine, clonidine, and losartan. 4. Sick sinus syndrome, status post pacemaker placement. 5. Repeat complete blood count and basic metabolic panel in the a.m. We will follow with you. Thank you for allowing me to participate in your patient's care. Niecy Piña MD
[2017-10-06 06:32] LABS: BASO % 0.5 % (0.0-2.0); EOS # 0.4 K/uL (0.0-0.7); EOS % 5.3 % (0.0-4.0); HEMOGLOBIN 10.2 g/dL (11.0-16.0); LYMPH # 1.1 K/uL (1.0-4.3); LYMPH % 13.4 % (20.0-40.0); MEAN CELL VOLUME 92.2 fL (81.0-99.0); MEAN CORPUSCULAR HEMOGLOBIN 31.6 pg (27.0-31.0); MEAN CORPUSCULAR HGB CONC 34.3 g/dL (33.0-37.0); MEAN PLATELET VOLUME 7.3 fL (7.2-11.7); MONO # 1.4 K/uL (0.0-0.8); MONO % 17.3 % (0.0-10.0); NEUT # 5.2 K/uL (1.8-7.0); NEUT % 63.5 % (50.0-75.0); RBC 3.24 Mil/uL (3.80-5.20); RED CELL DISTRIBUTION WIDTH 14.4 % (11.5-14.5); WHITE BLOOD COUNT 8.2 K/uL (4.8-10.8)
--- NOTE | 2017-10-06 06:53 | CP.PCM.PN ---
Subjective - Date & Time of Evaluation Date of Evaluation: 10/05/17 Time of Evaluation: 08:00 - Subjective Subjective: s/p PPM implant no complication mild tenderness at PPM pocket Objective - Vital Signs/Intake and Output Vital Signs (last 24 hours): Temp Pulse Resp BP Pulse Ox 98.3 F 70 20 165/61 H 97 10/05/17 23:10 10/06/17 05:44 10/05/17 23:10 10/06/17 05:44 10/05/17 23:10 Intake and Output: 10/05/17 10/06/17 18:59 06:59 Intake Total 400 100 Balance 400 100 - Medications Medications: Current Medications Clonidine HCl (Catapres) 0.1 mg PO BID COUNTS INCLUDE 234 BEDS AT THE [facility] Stop: 10/06/17 10:01 Last Admin: 10/05/17 17:30 Dose: 0.1 mg Famotidine (Pepcid) 20 mg PO DAILY COUNTS INCLUDE 234 BEDS AT THE [facility] Last Admin: 10/05/17 09:48 Dose: 20 mg Furosemide (Lasix) 40 mg PO DAILY COUNTS INCLUDE 234 BEDS AT THE [facility] Last Admin: 10/05/17 09:48 Dose: 40 mg Home Med (Vit C/E/Zn/Coppr/Lutein/Zeaxan [Preservision Areds 2 Softgel]) 1 each PO DAILY COUNTS INCLUDE 234 BEDS AT THE [facility] Hydralazine HCl (Apresoline) 50 mg PO Q8 COUNTS INCLUDE 234 BEDS AT THE [facility] Last Admin: 10/06/17 05:42 Dose: 50 mg Losartan Potassium (Cozaar) 100 mg PO DAILY COUNTS INCLUDE 234 BEDS AT THE [facility] Last Admin: 10/05/17 09:48 Dose: 100 mg Potassium Chloride (Klor-Con 10) 10 meq PO DAILY COUNTS INCLUDE 234 BEDS AT THE [facility] Last Admin: 10/05/17 09:48 Dose: 10 meq Rosuvastatin Calcium (Crestor) 10 mg PO HS COUNTS INCLUDE 234 BEDS AT THE [facility] Last Admin: 10/05/17 21:48 Dose: 10 mg Vitamin E (Vitamin E 400 Units Cap) 400 intlu PO DAILY COUNTS INCLUDE 234 BEDS AT THE [facility] Last Admin: 10/05/17 09:48 Dose: 400 intlu - Labs Labs: 10/03/17 07:56 10/03/17 07:56 PT 11.6 SECONDS (9.7-12.2) 10/04/17 11:47 INR 1.1 10/04/17 11:47 APTT 31 SECONDS (21-34) 10/04/17 11:47 - Constitutional Appears: Non-toxic - Head Exam Head Exam: NORMAL INSPECTION - Eye Exam Eye Exam: absent: Scleral icterus - ENT Exam ENT Exam: Mucous Membranes Moist - Neck Exam Neck Exam: Full ROM. absent: Lymphadenopathy - Respiratory Exam Respiratory Exam: Decreased Breath Sounds, Clear to Ausculation Bilateral - Cardiovascular Exam Cardiovascular Exam: REGULAR RHYTHM - GI/Abdominal Exam GI & Abdominal Exam: Soft. absent: Tenderness - Extremities Exam Extremities Exam: absent: Calf Tenderness, Pedal Edema Assessment and Plan - Assessment and Plan (Free Text) Assessment: Sick sinus syndrome Severe iron deficiency anemia HTN CKD stage 3 GI bleed? Plan: GI/Heme follow up Resume meds
[2017-10-06 07:50] LABS: ALB/GLOB RATIO 1.4 (1.0-2.1); CALCIUM 8.2 mg/dl (8.6-10.4)
[2017-10-06] MEDS: Potassium Chloride 10 mEq ER Tab PO SCH (09:50)
--- NOTE | 2017-10-06 11:13 | CP.PCM.PN ---
Subjective - Date & Time of Evaluation Date of Evaluation: 10/06/17 Time of Evaluation: 11:10 - Subjective Subjective: Patient denies having nausea, vomiting, abdominal pain. She has not had a bowel movement since last week. Objective - Vital Signs/Intake and Output Vital Signs (last 24 hours): Temp Pulse Resp BP Pulse Ox 98.9 F 70 20 186/64 H 96 10/06/17 07:15 10/06/17 07:15 10/06/17 07:15 10/06/17 09:51 10/06/17 07:15 Intake and Output: 10/06/17 10/06/17 06:59 18:59 Intake Total 100 Balance 100 - Medications Medications: Current Medications Cyanocobalamin (Vitamin B12 1000 Mcg/Ml Inj) 1,000 mcg IM QD5 [facility] Famotidine (Pepcid) 20 mg PO DAILY [facility] Last Admin: 10/06/17 09:50 Dose: 20 mg Furosemide (Lasix) 40 mg PO DAILY [facility] Last Admin: 10/06/17 09:51 Dose: 40 mg Home Med (Vit C/E/Zn/Coppr/Lutein/Zeaxan [Preservision Areds 2 Softgel]) 1 each PO DAILY [facility] Hydralazine HCl (Apresoline) 50 mg PO Q8 [facility] Last Admin: 10/06/17 05:42 Dose: 50 mg Labetalol HCl (Trandate) 100 mg PO BID [facility] Last Admin: 10/06/17 09:50 Dose: 100 mg Losartan Potassium (Cozaar) 100 mg PO DAILY [facility] Last Admin: 10/06/17 09:50 Dose: 100 mg Potassium Chloride (Klor-Con 10) 10 meq PO DAILY [facility] Last Admin: 10/06/17 09:50 Dose: 10 meq Rosuvastatin Calcium (Crestor) 10 mg PO HS [facility] Last Admin: 10/05/17 21:48 Dose: 10 mg Vitamin E (Vitamin E 400 Units Cap) 400 intlu PO DAILY [facility] Last Admin: 10/06/17 09:57 Dose: 400 intlu - Labs Labs: 10/06/17 06:19 10/06/17 06:20 PT 11.6 SECONDS (9.7-12.2) 10/04/17 11:47 INR 1.1 10/04/17 11:47 APTT 31 SECONDS (21-34) 10/04/17 11:47 - Constitutional Appears: No Acute Distress - Head Exam Head Exam: ATRAUMATIC, NORMOCEPHALIC - Eye Exam Eye Exam: EOMI, PERRL - Neck Exam Neck Exam: absent: Lymphadenopathy, Thyromegaly - Respiratory Exam Respiratory Exam: NORMAL BREATHING PATTERN. absent: Rales, Rhonchi, Wheezes - Cardiovascular Exam Cardiovascular Exam: REGULAR RHYTHM, +S1, +S2. absent: Gallop, Rubs, Murmur - GI/Abdominal Exam GI & Abdominal Exam: Soft, Normal Bowel Sounds. absent: Tenderness, Mass, Organomegaly - Rectal Exam Rectal Exam: absent: Deferred - Extremities Exam Extremities Exam: absent: Calf Tenderness, Pedal Edema Assessment and Plan (1) Iron deficiency anemia Assessment & Plan: B12 level was borderline at 269, and Methylmalonic acid level was elevated at 547. GI procedures, EGD and colonoscopy, can be done on or as an outpatient. Will start vitamin B12 supplementation. Status: Acute
--- NOTE | 2017-10-06 13:44 | CP.PCM.PN ---
Subjective - Date & Time of Evaluation Date of Evaluation: 10/06/17 Time of Evaluation: 13:42 - Subjective Subjective: seen and exmained labs noted improved leg swelling no n/v/d/dizziness/cp/sob/f/c/dysuria/hematuria Objective - Vital Signs/Intake and Output Vital Signs (last 24 hours): Temp Pulse Resp BP Pulse Ox 98.9 F 70 20 186/64 H 96 10/06/17 07:15 10/06/17 09:00 10/06/17 07:15 10/06/17 09:51 10/06/17 07:15 Intake and Output: 10/06/17 10/06/17 06:59 18:59 Intake Total 100 Balance 100 - Medications Medications: Current Medications Cyanocobalamin (Vitamin B12 1000 Mcg/Ml Inj) 1,000 mcg IM QD5 [facility] Stop: 10/10/17 11:16 Last Admin: 10/06/17 12:44 Dose: 1,000 mcg Famotidine (Pepcid) 20 mg PO DAILY [facility] Last Admin: 10/06/17 09:50 Dose: 20 mg Furosemide (Lasix) 40 mg PO DAILY [facility] Last Admin: 10/06/17 09:51 Dose: 40 mg Home Med (Vit C/E/Zn/Coppr/Lutein/Zeaxan [Preservision Areds 2 Softgel]) 1 each PO DAILY [facility] Hydralazine HCl (Apresoline) 50 mg PO Q8 [facility] Last Admin: 10/06/17 05:42 Dose: 50 mg Labetalol HCl (Trandate) 100 mg PO BID [facility] Last Admin: 10/06/17 09:50 Dose: 100 mg Losartan Potassium (Cozaar) 100 mg PO DAILY [facility] Last Admin: 10/06/17 09:50 Dose: 100 mg Potassium Chloride (Klor-Con 10) 10 meq PO DAILY [facility] Last Admin: 10/06/17 09:50 Dose: 10 meq Rosuvastatin Calcium (Crestor) 10 mg PO HS [facility] Last Admin: 10/05/17 21:48 Dose: 10 mg Vitamin E (Vitamin E 400 Units Cap) 400 intlu PO DAILY [facility] Last Admin: 10/06/17 09:57 Dose: 400 intlu - Labs Labs: 10/06/17 06:19 10/06/17 06:20 PT 11.6 SECONDS (9.7-12.2) 10/04/17 11:47 INR 1.1 10/04/17 11:47 APTT 31 SECONDS (21-34) 10/04/17 11:47 - Constitutional Appears: No Acute Distress, Chronically Ill - Head Exam Head Exam: NORMAL INSPECTION, NORMOCEPHALIC - Eye Exam Eye Exam: Normal appearance Pupil Exam: NORMAL ACCOMODATION - ENT Exam ENT Exam: Mucous Membranes Moist, Normal Exam - Neck Exam Neck Exam: Full ROM, Normal Inspection - Respiratory Exam Respiratory Exam: Clear to Ausculation Bilateral, NORMAL BREATHING PATTERN - Cardiovascular Exam Cardiovascular Exam: REGULAR RHYTHM - GI/Abdominal Exam GI & Abdominal Exam: Distended, Soft, Normal Bowel Sounds - Extremities Exam Extremities Exam: Normal Inspection, Pedal Edema - Neurological Exam Neurological Exam: Alert, Awake - Psychiatric Exam Psychiatric exam: Normal Affect, Normal Mood - Skin Skin Exam: Dry, Intact Assessment and Plan (1) Renal failure Status: Acute (2) Severe anemia Status: Acute (3) CHF exacerbation Status: Acute (4) GI bleed Status: Acute (5) Iron deficiency anemia Status: Acute - Assessment and Plan (Free Text) Assessment: # efrem likely hemodynamic # severe anemia, r/o GI bleed. s/p blood transfusion # ckd 4 # SSS s/p ppm # htn plan: stable renal function on lasix on cozaar, okay for now, would dc if renal function worsens one dose of mahnaz today
[2017-10-06] MEDS ORDERED: EPOETIN ALFA 10,000 UNIT/ML ML SC ONE (16:00)
[2017-10-07] MEDS: MINERAL SUPPLEMENT PO SCH (09:52)
[2017-10-07] MEDS: [UNRECOGNIZED DRUG - OTHER] PO SCH (09:52)
[2017-10-07] MEDS: Potassium Chloride 10 mEq ER Tab PO SCH (09:53)
--- NOTE | 2017-10-07 14:59 | CP.PCM.PN ---
Subjective - Date & Time of Evaluation Date of Evaluation: 10/07/17 Time of Evaluation: 14:56 - Subjective Subjective: feels better for EGD in AM renal function has stabilized K being repleted no n, v, f, chills, dysuria less edematous Objective - Vital Signs/Intake and Output Vital Signs (last 24 hours): Temp Pulse Resp BP Pulse Ox 98.6 F 73 20 123/61 95 10/07/17 07:00 10/07/17 13:51 10/07/17 07:00 10/07/17 13:51 10/07/17 07:00 Intake and Output: 10/07/17 10/07/17 06:59 18:59 Intake Total 400 Output Total 400 Balance -400 400 - Medications Medications: Current Medications Cyanocobalamin (Vitamin B12 1000 Mcg/Ml Inj) 1,000 mcg IM QD5 [facility] Stop: 10/10/17 11:16 Last Admin: 10/06/17 12:44 Dose: 1,000 mcg Famotidine (Pepcid) 20 mg PO DAILY [facility] Last Admin: 10/07/17 09:53 Dose: 20 mg Furosemide (Lasix) 40 mg PO DAILY [facility] Last Admin: 10/07/17 09:53 Dose: 40 mg Home Med (Patient's Own Medication) 1 tab PO DAILY [facility] Last Admin: 10/07/17 09:52 Dose: 1 tab Hydralazine HCl (Apresoline) 50 mg PO Q8 [facility] Last Admin: 10/07/17 13:51 Dose: 50 mg Labetalol HCl (Trandate) 100 mg PO BID [facility] Last Admin: 10/07/17 09:54 Dose: 100 mg Losartan Potassium (Cozaar) 100 mg PO DAILY [facility] Last Admin: 10/07/17 09:53 Dose: 100 mg Potassium Chloride (Klor-Con 10) 10 meq PO DAILY [facility] Last Admin: 10/07/17 09:53 Dose: 10 meq Rosuvastatin Calcium (Crestor) 10 mg PO HS [facility] Last Admin: 10/06/17 22:10 Dose: 10 mg Vitamin E (Vitamin E 400 Units Cap) 400 intlu PO DAILY [facility] Last Admin: 10/07/17 09:54 Dose: 400 intlu - Labs Labs: 10/06/17 06:19 10/06/17 06:20 PT 11.6 SECONDS (9.7-12.2) 10/04/17 11:47 INR 1.1 10/04/17 11:47 APTT 31 SECONDS (21-34) 10/04/17 11:47 - Constitutional Appears: No Acute Distress, Chronically Ill - Head Exam Head Exam: ATRAUMATIC, NORMAL INSPECTION - Eye Exam Eye Exam: EOMI, Normal appearance - Neck Exam Neck Exam: Normal Inspection. absent: Tenderness - Respiratory Exam Respiratory Exam: Clear to Ausculation Bilateral, NORMAL BREATHING PATTERN - Cardiovascular Exam Cardiovascular Exam: REGULAR RHYTHM, +S1 - GI/Abdominal Exam GI & Abdominal Exam: Soft. absent: Tenderness - Extremities Exam Extremities Exam: Normal Inspection. absent: Tenderness - Neurological Exam Neurological Exam: Alert, CN II-XII Intact - Skin Skin Exam: Dry, Warm Assessment and Plan (1) Severe anemia Status: Acute (2) Chronic kidney disease, stage III (moderate) Status: Acute - Assessment and Plan (Free Text) Plan: await EGD follow up yolanda
[2017-10-07] MEDS ORDERED: Peg-Electrolyte Oral Soln 4L (Golytely) PO ONE (19:00)
[2017-10-08] MEDS: [UNRECOGNIZED DRUG - OTHER] PO SCH (09:32)
[2017-10-08] MEDS: MINERAL SUPPLEMENT PO SCH (09:32)
[2017-10-08] MEDS: Potassium Chloride 10 mEq ER Tab PO SCH (09:32)
--- NOTE | 2017-10-08 10:46 | CP.PCM.PN ---
Subjective - Date & Time of Evaluation Date of Evaluation: 10/08/17 Time of Evaluation: 10:44 - Subjective Subjective: doing prep for GI workup no new chemistries HTN elevated no other complaint Objective - Vital Signs/Intake and Output Vital Signs (last 24 hours): Temp Pulse Resp BP Pulse Ox 98.5 F 70 20 172/66 H 97 10/08/17 07:30 10/08/17 08:00 10/08/17 07:30 10/08/17 09:31 10/08/17 07:30 Intake and Output: 10/08/17 10/08/17 06:59 18:59 Output Total 250 Balance -250 - Medications Medications: Current Medications Cyanocobalamin (Vitamin B12 1000 Mcg/Ml Inj) 1,000 mcg IM QD5 [facility] Stop: 10/10/17 11:16 Last Admin: 10/06/17 12:44 Dose: 1,000 mcg Famotidine (Pepcid) 20 mg PO DAILY [facility] Last Admin: 10/08/17 09:32 Dose: 20 mg Furosemide (Lasix) 40 mg PO DAILY [facility] Last Admin: 10/08/17 09:31 Dose: 40 mg Home Med (Patient's Own Medication) 1 tab PO DAILY [facility] Last Admin: 10/08/17 09:32 Dose: 1 tab Hydralazine HCl (Apresoline) 50 mg PO Q8 [facility] Last Admin: 10/08/17 05:45 Dose: 50 mg Labetalol HCl (Trandate) 100 mg PO BID [facility] Last Admin: 10/08/17 09:32 Dose: 100 mg Losartan Potassium (Cozaar) 100 mg PO DAILY [facility] Last Admin: 10/08/17 09:32 Dose: 100 mg Metoclopramide HCl (Reglan) 10 mg IVP DAILY@ONCE PRN PRN Reason: Other Last Admin: 10/07/17 17:30 Dose: 10 mg Potassium Chloride (Klor-Con 10) 10 meq PO DAILY [facility] Last Admin: 10/08/17 09:32 Dose: 10 meq Rosuvastatin Calcium (Crestor) 10 mg PO HS [facility] Last Admin: 10/07/17 21:07 Dose: 10 mg Vitamin E (Vitamin E 400 Units Cap) 400 intlu PO DAILY [facility] Last Admin: 10/08/17 09:32 Dose: 400 intlu - Labs Labs: 10/06/17 06:19 10/06/17 06:20 PT 11.6 SECONDS (9.7-12.2) 10/04/17 11:47 INR 1.1 10/04/17 11:47 APTT 31 SECONDS (21-34) 10/04/17 11:47 - Constitutional Appears: No Acute Distress, Chronically Ill - Head Exam Head Exam: ATRAUMATIC, NORMAL INSPECTION - Eye Exam Eye Exam: EOMI, Normal appearance - Neck Exam Neck Exam: Normal Inspection. absent: Tenderness - Respiratory Exam Respiratory Exam: Clear to Ausculation Bilateral, NORMAL BREATHING PATTERN - Cardiovascular Exam Cardiovascular Exam: REGULAR RHYTHM, +S1 - GI/Abdominal Exam GI & Abdominal Exam: Soft. absent: Tenderness - Extremities Exam Extremities Exam: Normal Inspection. absent: Tenderness - Neurological Exam Neurological Exam: Alert, CN II-XII Intact - Skin Skin Exam: Dry, Warm Assessment and Plan (1) Severe anemia Status: Acute (2) Chronic kidney disease, stage III (moderate) Status: Acute - Assessment and Plan (Free Text) Plan: Adjust BP meds GI workup follow up yolanda
[2017-10-08 11:29] LABS: BASO # 0.1 K/uL (0.0-0.2); BASO % 0.8 % (0.0-2.0); EOS # 0.3 K/uL (0.0-0.7); EOS % 4.7 % (0.0-4.0); LYMPH # 0.7 K/uL (1.0-4.3); MEAN CELL VOLUME 93.4 fL (81.0-99.0); MEAN CORPUSCULAR HEMOGLOBIN 31.1 pg (27.0-31.0); MEAN CORPUSCULAR HGB CONC 33.3 g/dL (33.0-37.0); MEAN PLATELET VOLUME 7.6 fL (7.2-11.7); MONO # 0.8 K/uL (0.0-0.8); MONO % 11.8 % (0.0-10.0); NEUT # 4.7 K/uL (1.8-7.0); NEUT % 71.7 % (50.0-75.0); NRBC % 0.1 % (0.0-2.0); RBC 3.55 Mil/uL (3.80-5.20); RED CELL DISTRIBUTION WIDTH 15.5 % (11.5-14.5); WHITE BLOOD COUNT 6.5 K/uL (4.8-10.8)
[2017-10-08 11:42] LABS: CALCIUM 8.3 mg/dl (8.6-10.4)
[2017-10-08] MEDS ORDERED: Bisacodyl 5mg EC Tab PO ONE (12:07)
[2017-10-08] MEDS ORDERED: Lactated Ringer's 1,000 ML IV ONE (13:19)
[2017-10-08] MEDS ORDERED: Propofol 10 mg/ml Inj (20 ML) ONE (13:26)
[2017-10-08 15:29] VITALS: RESP 20
[2017-10-08] MEDS: Pantoprazole 40 mg EC Tab PO SCH (16:04)
[2017-10-09 07:04] LABS: ALB/GLOB RATIO 1.5 (1.0-2.1); ALBUMIN 2.9 g/dL (3.5-5.0); CALCIUM 8.1 mg/dl (8.6-10.4)
[2017-10-09] MEDS: MINERAL SUPPLEMENT PO SCH (10:28)
[2017-10-09] MEDS: [UNRECOGNIZED DRUG - OTHER] PO SCH (10:28)
[2017-10-09] MEDS: Potassium Chloride 10 mEq ER Tab PO SCH (10:29)
[2017-10-09] MEDS: Pantoprazole 40 mg EC Tab PO SCH (10:29)
--- NOTE | 2017-10-09 12:47 | CP.PCM.CON ---
History of Present Illness - History of Present Illness History of Present Illness: Surgery 87 F w PMH of anemia, CAD, HTN, HLD , PVD came with weakness. Her hgb was found to be 5.3. He was transfused. Denies fever, nausea, vomiting, focal weakness, vision changes. Pt underwent EGD and colonoscopy . Found to have hemorrhoids. No acute bleeding. Pt also underwent pacemaker placement for sick sinus rythm. US shows b/l moderate stenosis on prox ICA. Surgery is consulted to evaluate for carotid stenosis . PMH: Anemia, CAD, HTN, Hypercholesterolemia Other PMH: PVD Surgical History: Coronary Stent Review of Systems - Review of Systems Review of Systems: See HPI Past Patient History - Past Medical History & Family History Past Medical History?: Yes - Past Social History Smoking Status: Former Smoker - CARDIAC Hx Cardiac Disorders: Yes Hx Hypercholesterolemia: Yes Hx Hypertension: Yes Hx Peripheral Edema: Yes - PULMONARY Hx Respiratory Disorders: No - NEUROLOGICAL Hx Neurological Disorder: No - HEENT Hx HEENT Problems: Yes Hx Cataracts: Yes - RENAL Hx Chronic Kidney Disease: Yes Other/Comment: renal stent - ENDOCRINE/METABOLIC Hx Endocrine Disorders: No - HEMATOLOGICAL/ONCOLOGICAL Hx Blood Disorders: Yes Hx Anemia: Yes Hx Blood Transfusions: Yes Hx Blood Transfusion Reaction: No Other/Comment: history of DVT in leg, unknown whether left or right; takes iron - INTEGUMENTARY Hx Dermatological Problems: No - MUSCULOSKELETAL/RHEUMATOLOGICAL Hx Musculoskeletal Disorders: No Hx Falls: No - GASTROINTESTINAL Hx Gastrointestinal Disorders: Yes Hx Constipation: Yes Hx Gastroesophageal Reflux: Yes - GENITOURINARY/GYNECOLOGICAL Hx Genitourinary Disorders: Yes Hx Urinary Tract Infection: Yes - PSYCHIATRIC Hx Psychophysiologic Disorder: No Hx Substance Use: No - SURGICAL HISTORY Hx Surgeries: Yes Hx Cataract Extraction: Yes Hx Coronary Stent: Yes Other/Comment: bilateral kidney stents - ANESTHESIA Hx Anesthesia: Yes Hx Anesthesia Reactions: No Meds Allergies/Adverse Reactions: Allergies Allergy/AdvReac Type Severity Reaction Status Date / Time strawberry Allergy Verified 05/28/17 18:48 - Medications Medications: Current Medications Cyanocobalamin (Vitamin B12 1000 Mcg/Ml Inj) 1,000 mcg IM QD5 [facility] Stop: 10/10/17 11:16 Last Admin: 10/06/17 12:44 Dose: 1,000 mcg Furosemide (Lasix) 40 mg PO DAILY [facility] Last Admin: 10/09/17 10:29 Dose: 40 mg Home Med (Patient's Own Medication) 1 tab PO DAILY [facility] Last Admin: 10/09/17 10:28 Dose: 1 tab Hydralazine HCl (Apresoline) 50 mg PO Q8 [facility] Last Admin: 10/09/17 06:41 Dose: 50 mg Labetalol HCl (Trandate) 200 mg PO BID [facility] Last Admin: 10/09/17 10:29 Dose: 200 mg Losartan Potassium (Cozaar) 100 mg PO DAILY [facility] Last Admin: 10/09/17 10:29 Dose: 100 mg Metoclopramide HCl (Reglan) 10 mg IVP DAILY@ONCE PRN PRN Reason: Other Last Admin: 10/07/17 17:30 Dose: 10 mg Pantoprazole Sodium (Protonix Ec Tab) 40 mg PO DAILY [facility] Last Admin: 10/09/17 10:29 Dose: 40 mg Potassium Chloride (Klor-Con 10) 10 meq PO DAILY [facility] Last Admin: 10/09/17 10:29 Dose: 10 meq Rosuvastatin Calcium (Crestor) 10 mg PO HS [facility] Last Admin: 10/08/17 22:01 Dose: 10 mg Vitamin E (Vitamin E 400 Units Cap) 400 intlu PO DAILY [facility] Last Admin: 10/09/17 10:29 Dose: 400 intlu Physical Exam - Constitutional Appears: No Acute Distress - Head Exam Head Exam: ATRAUMATIC, NORMAL INSPECTION, NORMOCEPHALIC - Eye Exam Eye Exam: EOMI, Normal appearance, PERRL Pupil Exam: NORMAL ACCOMODATION, PERRL - ENT Exam ENT Exam: Mucous Membranes Moist, Normal Exam - Neck Exam Neck exam: Positive for: Normal Inspection - Respiratory Exam Respiratory Exam: NORMAL BREATHING PATTERN - Cardiovascular Exam Cardiovascular Exam: REGULAR RHYTHM, +S1, +S2 - GI/Abdominal Exam GI & Abdominal Exam: Soft - Extremities Exam Extremities exam: Positive for: full ROM, normal inspection - Back Exam Back exam: NORMAL INSPECTION - Neurological Exam Neurological exam: Alert, CN II-XII Intact, Normal Gait, Oriented x3, Reflexes Normal - Psychiatric Exam Psychiatric exam: Normal Affect, Normal Mood - Skin Skin Exam: Dry, Intact, Pallor, Warm Results - Vital Signs Recent Vital Signs: Last Vital Signs Temp 98.6 F 10/09/17 07:00 Pulse 70 10/09/17 07:21 Resp 20 10/09/17 07:00 BP 170/78 H 10/09/17 10:29 Pulse Ox 96 10/09/17 07:00 - Labs Result Diagrams: 10/08/17 11:21 10/09/17 06:34 Labs: Laboratory Results - last 24 hr 10/09/17 06:34 Sodium 146 Potassium 3.4 L Chloride 106 Carbon Dioxide 29 Anion Gap 13 BUN 31 H Creatinine 1.3 H Est GFR ( Amer) 47 Est GFR (Non-Af Amer) 39 Random Glucose 84 Calcium 8.1 L Magnesium 2.3 Total Bilirubin 0.8 AST 21 ALT 29 Alkaline Phosphatase 44 Total Protein 4.8 L Albumin 2.9 L Globulin 1.9 L Albumin/Globulin Ratio 1.5 Assessment & Plan - Assessment and Plan (Free Text) Assessment: b/l carotid stanosis Pt is asymptomatic US R ICA 145 peak systolic velocity L ICA 166 peak systolic velocity -Mild stenosis, asymptomatic. No surgical interventin needed at this time. Risk outweighs benefits. -yearly Monitor w US DW Dr. Rodríguez
--- NOTE | 2017-10-09 13:42 | CP.PCM.PN ---
Subjective - Date & Time of Evaluation Date of Evaluation: 10/09/17 Time of Evaluation: 13:42 - Subjective Subjective: PT CLEARED FOR D/C HOME TODAY PER DR. EATON AND DR. CHANCE. PAINTING DEPARTMENT SUPERVISOR DISCUSSED ALL D/C INSTRUCTIONS WITH THE PT. SEE BELOW FOR SPECIFIC INSTRUCTIONS. HOME CARE SERVICES ARRANGED. NO FURTHER ORDERS. -FOLLOW UP WITH DR. EATON IN HIS OFFICE IN 1 WEEK---CALL THE OFFICE ON THURSDAY TO MAKE YOUR APPOINTMENT. -FOLLOW UP WITH DR. CHANCE (VASCULAR SURGEON) IN HIS OFFICE WITHIN 1-2 MONTHS- --CALL THE OFFICE TO MAKE AN APPOINTMENT. -FOLLOW UP WITH DR. STUBBS (KIDNEY DOCTOR) IN THE OFFICE WITHIN 2-3 WEEKS- --CALL THE OFFICE TO MAKE AN APPOINTMENT. -FOLLOW UP WITH DR. MELENDEZ (STOMACH DOCTOR) IN THE OFFICE IN 2 WEEKS (BY )---CALL THE OFFICE ON THURSDAY TO MAKE YOUR APPOINTMENT. -CONTINUE HOME MEDICATIONS USUAL. -PER DR. MELENDEZ, YOU MAY RESTART YOUR ELI[facility]US TOMORROW (10/10/17). -[facility] WILL CONTACT YOU TO PROVIDE HOME CARE SERVICES AND HOME PHYSICAL THERAPY. -IF YOU HAVE ANY FURTHER QUESTIONS OR CONCERNS, FEEL FREE TO CONTACT DR. EAOTN. Objective - Vital Signs/Intake and Output Vital Signs (last 24 hours): Temp Pulse Resp BP Pulse Ox 98.6 F 70 20 170/78 H 96 10/09/17 07:00 10/09/17 07:21 10/09/17 07:00 10/09/17 10:29 10/09/17 07:00 Intake and Output: 10/09/17 10/09/17 06:59 18:59 Intake Total 720 Balance 720 - Medications Medications: Current Medications Cyanocobalamin (Vitamin B12 1000 Mcg/Ml Inj) 1,000 mcg IM QD5 [facility] Stop: 10/10/17 11:16 Last Admin: 10/06/17 12:44 Dose: 1,000 mcg Furosemide (Lasix) 40 mg PO DAILY [facility] Last Admin: 10/09/17 10:29 Dose: 40 mg Home Med (Patient's Own Medication) 1 tab PO DAILY [facility] Last Admin: 10/09/17 10:28 Dose: 1 tab Hydralazine HCl (Apresoline) 50 mg PO Q8 [facility] Last Admin: 10/09/17 13:40 Dose: 50 mg Labetalol HCl (Trandate) 200 mg PO BID [facility] Last Admin: 10/09/17 10:29 Dose: 200 mg Losartan Potassium (Cozaar) 100 mg PO DAILY [facility] Last Admin: 10/09/17 10:29 Dose: 100 mg Metoclopramide HCl (Reglan) 10 mg IVP DAILY@ONCE PRN PRN Reason: Other Last Admin: 10/07/17 17:30 Dose: 10 mg Pantoprazole Sodium (Protonix Ec Tab) 40 mg PO DAILY [facility] Last Admin: 10/09/17 10:29 Dose: 40 mg Potassium Chloride (Klor-Con 10) 10 meq PO DAILY [facility] Last Admin: 10/09/17 10:29 Dose: 10 meq Rosuvastatin Calcium (Crestor) 10 mg PO HS [facility] Last Admin: 10/08/17 22:01 Dose: 10 mg Vitamin E (Vitamin E 400 Units Cap) 400 intlu PO DAILY [facility] Last Admin: 10/09/17 10:29 Dose: 400 intlu - Labs Labs: 10/08/17 11:21 10/09/17 06:34 PT 11.6 SECONDS (9.7-12.2) 10/04/17 11:47 INR 1.1 10/04/17 11:47 APTT 31 SECONDS (21-34) 10/04/17 11:47
--- NOTE | 2017-10-09 14:06 | VASCLAB ---
PROCEDURE: HISTORY: Carotid artery stenosis COMPARISON: Last exam 09/08/2013. TECHNIQUE: Grayscale and duplex Doppler evaluation of the cervical carotid and vertebral arteries were performed. The common carotid, carotid bifurcations and cervical Internal Carotid Artery (ICA) and proximal External Carotid Artery (ECA) were evaluated. The vertebral arteries were evaluated for gross patency and flow direction. Report prepared by DELMIS Damon FINDINGS: RIGHT CAROTID ARTERIES: 1. Common Carotid Artery: Calcific plaque formation of the right common carotid artery. Maximum Peak Systolic velocity: 76 cm/sec: End-diastolic velocity 14 cm/sec. 2. Carotid Bifurcation: Calcific plaque formation. Maximum Peak Systolic velocity: 56 cm/sec: End-diastolic velocity 10 cm/sec. 3. Internal Carotid Artery: Plaque description: Calcific 3.1. Proximal Segment: Peak systolic velocity 151 cm/sec: End-diastolic velocity 37 cm/sec - % stenosis 50-60% 3.2. Middle Segment: Peak systolic velocity 83 cm/sec: End-diastolic velocity 20 cm/sec - % stenosis 0-15% 3.3. Distal Segment: Peak systolic velocity 79 cm/sec: End-diastolic velocity 17 cm/sec - % stenosis 0-15% 4. External Carotid Artery: Calcific focal plaque formation. Peak systolic velocity 123 cm/sec 5. ICA/CCA Ratio: 2.0 LEFT CAROTID ARTERIES: 1. Common Carotid Artery: Calcific plaque formation of the left common carotid artery. Maximum Peak Systolic velocity: 104 cm/sec: End-diastolic velocity 17 cm/sec. 2. Carotid Bifurcation: Calcific plaque formation. Maximum Peak Systolic velocity: 82 cm/sec: End-diastolic velocity 14 cm/sec. 3. Internal Carotid Artery: Plaque description: Calcific 3.1. Proximal Segment: Peak systolic velocity 166 cm/sec: End-diastolic velocity 32 cm/sec - % stenosis 50-60% 3.2. Middle Segment: Peak systolic velocity 68 cm/sec: End-diastolic velocity 14 cm/sec - % stenosis 0-15% 3.3. Distal Segment: Peak systolic velocity 115 cm/sec: End-diastolic velocity 25 cm/sec - % stenosis 0-15% 4. External Carotid Artery: Calcific focal plaque formation. Peak systolic velocity 117 cm/sec 5. ICA/CCA Ratio: 2.0 VERTEBRAL ARTERIES: 1. Right Vertebral Artery: The right vertebral artery flow direction is antegrade. 2. Left Vertebral Artery: The left vertebral artery flow direction is antegrade. OTHER FINDINGS: 1. None IMPRESSION: RIGHT: Duplex scan suggests 50-60% stenosis of the right proximal internal carotid artery. LEFT: Duplex scan suggests 50-60% stenosis of the left proximal internal carotid artery. Findings were reported by the vascular specialists, to Mak Zhu at 9:54 a.m.
[2017-10-09 17:00] VITALS: BP 164/57; PULSE 70; TEMP 98.7; O2SAT 98
--- NOTE | 2017-10-09 21:58 | CP.PCM.PN ---
Subjective - Date & Time of Evaluation Date of Evaluation: 10/06/17 Time of Evaluation: 07:45 - Subjective Subjective: no further bleeding no chest pain Telemetry- 100 paced beats Objective - Vital Signs/Intake and Output Vital Signs (last 24 hours): Temp Pulse Resp BP Pulse Ox 98.7 F 70 20 164/57 H 98 10/09/17 16:59 10/09/17 16:59 10/09/17 16:59 10/09/17 16:59 10/09/17 16:59 Intake and Output: 10/09/17 10/10/17 18:59 06:59 Intake Total 680 Balance 680 - Labs Labs: 10/08/17 11:21 10/09/17 06:34 PT 11.6 SECONDS (9.7-12.2) 10/04/17 11:47 INR 1.1 10/04/17 11:47 APTT 31 SECONDS (21-34) 10/04/17 11:47 - Constitutional Appears: Non-toxic - Head Exam Head Exam: NORMAL INSPECTION - Eye Exam Eye Exam: absent: Scleral icterus - ENT Exam ENT Exam: Mucous Membranes Moist - Neck Exam Neck Exam: Full ROM - Respiratory Exam Respiratory Exam: Decreased Breath Sounds - Cardiovascular Exam Cardiovascular Exam: REGULAR RHYTHM - GI/Abdominal Exam GI & Abdominal Exam: Soft - Extremities Exam Extremities Exam: absent: Pedal Edema - Neurological Exam Neurological Exam: Alert, Awake Assessment and Plan - Assessment and Plan (Free Text) Assessment: Anemia Sick sinus syndrome HTN Carotid artery disease Plan: Cont present meds GI work up
--- NOTE | 2017-10-09 22:05 | CP.PCM.PN ---
Subjective - Date & Time of Evaluation Date of Evaluation: 10/07/17 Time of Evaluation: 08:10 - Subjective Subjective: prep for endoscopy in progress tele-functioning PPM no gross GI bleeding Objective - Vital Signs/Intake and Output Vital Signs (last 24 hours): Temp Pulse Resp BP Pulse Ox 98.7 F 70 20 164/57 H 98 10/09/17 16:59 10/09/17 16:59 10/09/17 16:59 10/09/17 16:59 10/09/17 16:59 Intake and Output: 10/09/17 10/10/17 18:59 06:59 Intake Total 680 Balance 680 - Labs Labs: 10/08/17 11:21 10/09/17 06:34 PT 11.6 SECONDS (9.7-12.2) 10/04/17 11:47 INR 1.1 10/04/17 11:47 APTT 31 SECONDS (21-34) 10/04/17 11:47 - Constitutional Appears: Non-toxic - Head Exam Head Exam: NORMAL INSPECTION - Eye Exam Eye Exam: absent: Scleral icterus - ENT Exam ENT Exam: Mucous Membranes Moist - Neck Exam Neck Exam: Full ROM - Respiratory Exam Respiratory Exam: Clear to Ausculation Bilateral - Cardiovascular Exam Cardiovascular Exam: REGULAR RHYTHM - GI/Abdominal Exam GI & Abdominal Exam: Soft - Extremities Exam Extremities Exam: absent: Pedal Edema - Neurological Exam Neurological Exam: Alert, Oriented x3 Assessment and Plan - Assessment and Plan (Free Text) Assessment: Severe anemia Sick sinus syndrome HTN Plan: Cont present GI work 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
--- NOTE | 2017-10-09 22:21 | CP.PCM.PN ---
Subjective - Date & Time of Evaluation Date of Evaluation: 10/08/17 Time of Evaluation: 08:15 - Subjective Subjective: no dizziness BP 153/65 tele- 100%paced beats case discussed with Dr Cohen Objective - Vital Signs/Intake and Output Vital Signs (last 24 hours): Temp Pulse Resp BP Pulse Ox 98.7 F 70 20 164/57 H 98 10/09/17 16:59 10/09/17 16:59 10/09/17 16:59 10/09/17 16:59 10/09/17 16:59 Intake and Output: 10/09/17 10/10/17 18:59 06:59 Intake Total 680 Balance 680 - Labs Labs: 10/08/17 11:21 10/09/17 06:34 PT 11.6 SECONDS (9.7-12.2) 10/04/17 11:47 INR 1.1 10/04/17 11:47 APTT 31 SECONDS (21-34) 10/04/17 11:47 - Constitutional Appears: No Acute Distress - Head Exam Head Exam: ATRAUMATIC - Eye Exam Eye Exam: absent: Scleral icterus - ENT Exam ENT Exam: Mucous Membranes Moist - Neck Exam Neck Exam: Full ROM - Respiratory Exam Respiratory Exam: Clear to Ausculation Bilateral - Cardiovascular Exam Cardiovascular Exam: REGULAR RHYTHM - GI/Abdominal Exam GI & Abdominal Exam: Soft - Extremities Exam Extremities Exam: absent: Pedal Edema - Neurological Exam Neurological Exam: Alert, Oriented x3 Assessment and Plan - Assessment and Plan (Free Text) Assessment: Anemia Sick sinus syndrome HTN Plan: Cont anemia work-up Control BP
--- NOTE | 2017-10-09 22:29 | CP.PCM.PN ---
Subjective - Date & Time of Evaluation Date of Evaluation: 10/09/17 Time of Evaluation: 08:00 - Subjective Subjective: doing ok VSS no bleeding Vasc to see pt re: abnormal carotid us Objective - Vital Signs/Intake and Output Vital Signs (last 24 hours): Temp Pulse Resp BP Pulse Ox 98.7 F 70 20 164/57 H 98 10/09/17 16:59 10/09/17 16:59 10/09/17 16:59 10/09/17 16:59 10/09/17 16:59 Intake and Output: 10/09/17 10/10/17 18:59 06:59 Intake Total 680 Balance 680 - Labs Labs: 10/08/17 11:21 10/09/17 06:34 PT 11.6 SECONDS (9.7-12.2) 10/04/17 11:47 INR 1.1 10/04/17 11:47 APTT 31 SECONDS (21-34) 10/04/17 11:47 - Constitutional Appears: Non-toxic - Head Exam Head Exam: NORMAL INSPECTION - Eye Exam Eye Exam: absent: Scleral icterus - ENT Exam ENT Exam: Mucous Membranes Moist - Neck Exam Neck Exam: Full ROM - Respiratory Exam Respiratory Exam: Clear to Ausculation Bilateral - Cardiovascular Exam Cardiovascular Exam: absent: REGULAR RHYTHM - GI/Abdominal Exam GI & Abdominal Exam: Soft, Tenderness - Extremities Exam Extremities Exam: absent: Calf Tenderness, Pedal Edema - Neurological Exam Neurological Exam: Alert, Oriented x3 Assessment and Plan - Assessment and Plan (Free Text) Assessment: Anemia Sick sinus syndrome HTN CKD stage 3 Plan: Ok for DC if ok with Heme/ GI/ Vasc
== END 2017-10-09 18:05 | disposition home or self-care (01) | DRG 812 ==
LOC: C.ER 13:34 → C.9E 15:31 → C.6T 16:01
PROVIDERS: ADMIT Internal Medicine; ATTEND Internal Medicine
PROC: 0JH606Z Insertion of Pacemaker, Dual Chamber into Chest Subcutaneous Tissue and Fascia, Open Approach (ICD-10-PCS; 2017-10-02)
PROC: 02H63JZ Insertion of Pacemaker Lead into Right Atrium, Percutaneous Approach (ICD-10-PCS; 2017-10-02)
PROC: 02HK3JZ Insertion of Pacemaker Lead into Right Ventricle, Percutaneous Approach (ICD-10-PCS; 2017-10-02)
PROC: 0DBL8ZX Excision of Transverse Colon, Via Natural or Artificial Opening Endoscopic, Diagnostic (ICD-10-PCS; 2017-10-08)
PROC: 0DB68ZX Excision of Stomach, Via Natural or Artificial Opening Endoscopic, Diagnostic (ICD-10-PCS; principal; 2017-10-08 13:32)
PROC: 0DBN8ZX Excision of Sigmoid Colon, Via Natural or Artificial Opening Endoscopic, Diagnostic (ICD-10-PCS; 2017-10-08 13:32)
DX: D50.0 Iron deficiency anemia secondary to blood loss (chronic) (principal); I13.0 Hypertensive heart and chronic kidney disease with heart failure and stage 1 through stage 4 chronic kidney disease, or unspecified chronic kidney disease; K92.2 Gastrointestinal hemorrhage, unspecified; N17.9 Acute kidney failure, unspecified; N18.4 Chronic kidney disease, stage 4 (severe); E78.5 Hyperlipidemia, unspecified; I49.5 Sick sinus syndrome; I25.10 Atherosclerotic heart disease of native coronary artery without angina pectoris; I50.9 Heart failure, unspecified; D63.1 Anemia in chronic kidney disease; I65.29 Occlusion and stenosis of unspecified carotid artery; K59.00 Constipation, unspecified; K64.9 Unspecified hemorrhoids; R13.10 Dysphagia, unspecified; Z86.718 Personal history of other venous thrombosis and embolism; Z87.891 Personal history of nicotine dependence; Z95.5 Presence of coronary angioplasty implant and graft; K21.0 Gastro-esophageal reflux disease with esophagitis; K21.9 Gastro-esophageal reflux disease without esophagitis; I65.23 Occlusion and stenosis of bilateral carotid arteries; K64.8 Other hemorrhoids; K62.1 Rectal polyp; D12.3 Benign neoplasm of transverse colon; K29.50 Unspecified chronic gastritis without bleeding; K44.9 Diaphragmatic hernia without obstruction or gangrene; K22.9 Disease of esophagus, unspecified

== ENCOUNTER 2018-06-07 10:34 | Outpatient (CLI) | payer MEDICARE | END 2018-06-07 10:35 | disposition home or self-care (01) | LOC: C.INFCTR 10:35 | DX: D64.9 Anemia, unspecified (principal) ==

== ENCOUNTER 2018-08-04 09:56 | Inpatient (IN) | payer MEDICARE ==
[2018-08-04 09:56] VITALS: BMI 25.6
[2018-08-04] MEDS ORDERED: Piperacillin/Tazobact 3.375 GM in Sodium Chloride 100 ML IVPB STA (12:05)
[2018-08-04 12:16] LABS: BASO # 0.1 K/uL (0.0-0.2); BASO % 0.6 % (0.0-2.0); EOS # 0.2 K/uL (0.0-0.7); EOS % 1.9 % (0.0-4.0); HEMOGLOBIN 9.8 g/dL (11.0-16.0); LYMPH # 0.7 K/uL (1.0-4.3); LYMPH % 7.8 % (20.0-40.0); MEAN CORPUSCULAR HEMOGLOBIN 31.3 pg (27.0-31.0); MEAN CORPUSCULAR HGB CONC 33.1 g/dL (33.0-37.0); MEAN PLATELET VOLUME 7.7 fL (7.2-11.7); MONO # 1.1 K/uL (0.0-0.8); MONO % 12.1 % (0.0-10.0); NEUT # 6.9 K/uL (1.8-7.0); NEUT % 77.6 % (50.0-75.0); PLATELET COUNT 270 K/uL (130-400); RBC 3.12 Mil/uL (3.80-5.20); RED CELL DISTRIBUTION WIDTH 15.3 % (11.5-14.5)
[2018-08-04 12:24] LABS: MEAN CELL VOLUME 94.4 fL (81.0-99.0); WHITE BLOOD COUNT 8.9 K/uL (4.8-10.8)
[2018-08-04] MEDS ORDERED: Piperacillin/Tazobact 3.375 gm 100 ML IVPB ONE (12:24)
[2018-08-04 12:29] LABS: ALB/GLOB RATIO 1.5 (1.0-2.1); ALBUMIN 3.7 g/dL (3.5-5.0); CALCIUM 9.1 mg/dl (8.6-10.4)
[2018-08-04] MEDS ORDERED: Lidocaine 1% Inj (20ml) INFIL ONE (12:37)
--- NOTE | 2018-08-04 12:37 | C.PDOC ---
History Of Present Illness 87 y/o female comes to ed with daughter for worse redness and pain to left lower leg. pt was seen at an urgent care 4 days ago, had neg venous doppler, and started on keflex. daughter sts pain and redness have increased in spite of antibiotic and Tylenol. no fever. Time Seen by Provider: 08/04/18 10:57 Chief Complaint (Nursing): Lower Extremity Problem/Injury History Per: Patient History/Exam Limitations: no limitations Onset/Duration Of Symptoms: Days Current Symptoms Are (Timing): Still Present Severity: Moderate Past Medical History Reviewed: Historical Data, Nursing Documentation, Vital Signs Vital Signs: Last Vital Signs Temp 98.1 F 08/04/18 10:06 Pulse 70 08/04/18 10:06 Resp 18 08/04/18 10:06 BP 110/58 L 08/04/18 10:06 Pulse Ox 97 08/04/18 10:06 - Medical History PMH: Anemia, CAD, HTN, Hypercholesterolemia, Peripheral Edema, Chronic Kidney Disease Surgical History: Coronary Stent, Pacemaker (September 2017) - [facility] Procedures ANGIOPLASTY OF OTHER NON-CORONARY VESSEL(S) (09/27/13) CONTRAST AORTOGRAM (09/27/13) CONTRAST ARTERIOGRAM-LEG (09/27/13) CONTRAST RENAL ARTERIOGR (05/28/06) EXCISION OF SIGMOID COLON, ENDO, DIAGN (09/30/17) EXCISION OF STOMACH, ENDO, DIAGN (09/30/17) EXCISION OF TRANSVERSE COLON, ENDO, DIAGN (09/30/17) INSEJ [id number] PERIPHERAL NON-CORONARY VES STENT(S) (09/27/13) INSEJ OF DRUG-ELUTING STENT(S) OF OTH PERIPHERAL VESSEL(S) (09/27/13) INSERT PACE. DUAL BECKIE IN CHEST SUBCU/FASCIA, OPEN (09/30/17) INSERTION OF [id number] PERIPHERAL VESSEL STENT(S) (10/23/05) INSERTION OF ONE VASCULAR STENT (10/23/05) INSERTION OF PACEMAKER LEAD INTO R VENTRICLE, PERC APPROACH (09/30/17) INSERTION OF PACEMAKER LEAD INTO RIGHT ATRIUM, PERC APPROACH (09/30/17) INSERTION OF TWO VASCULAR STENTS (09/27/13) PROCEDURE ON SINGLE VESSEL (10/23/05) PROCEDURE ON TWO VESSELS (09/27/13) Family History: States: No Known Family Hx - Social History Hx Alcohol Use: No Hx Substance Use: No - Immunization History Hx Tetanus Toxoid Vaccination: No Hx Influenza Vaccination: No Hx Pneumococcal Vaccination: No Review Of Systems Constitutional: Negative for: Fever, Chills Cardiovascular: Negative for: Chest Pain Respiratory: Negative for: Shortness of Breath Musculoskeletal: Positive for: Leg Pain (left leg pain) Neurological: Negative for: Weakness, Numbness Physical Exam - Physical Exam Appears: Non-toxic, Other (elderly,uncomfortable) Skin: Warm, Dry, Other ( warmth to touch from proximal mesa to heel in left leg, well circumscribed area of erythematous indurated area with blister in medial aspect of left middle leg with fluctuant abscess) Head: Atraumatic, Normacephalic Eye(s): bilateral: Normal Inspection Neck: Supple Chest: Symmetrical Cardiovascular: Rhythm Regular Respiratory: No Rales, No Rhonchi, No Wheezing Gastrointestinal/Abdominal: Soft, No Tenderness, No Guarding, No Rebound Extremity: Normal ROM, Swelling (marked swelling in LLE) Neurological/Psych: Oriented x3, Normal Speech, Normal Cognition ED Course And Treatment - Laboratory Results Result Diagrams: 08/04/18 12:10 08/04/18 12:10 Lab Results: Total Bilirubin 0.7 mg/dL (0.2-1.3) 08/04/18 12:10 AST 36 U/L (14-36) D 08/04/18 12:10 ALT 22 U/L (9-52) 08/04/18 12:10 Alkaline Phosphatase 64 U/L (38-126) 08/04/18 12:10 Total Protein 6.1 g/dL (6.3-8.3) L 08/04/18 12:10 Albumin 3.7 g/dL (3.5-5.0) 08/04/18 12:10 Globulin 2.4 gm/dL (2.2-3.9) 08/04/18 12:10 Albumin/Globulin Ratio 1.5 (1.0-2.1) 08/04/18 12:10 Lipase 131 U/L (23-300) 08/04/18 12:10 ECG: Interpreted By Me, Viewed By Me ECG Rhythm: Sinus Rhythm Interpretation Of ECG: AV dual paced rhythm in a pattern of bigeminy Rate From EC O2 Sat by Pulse Oximetry: 97 (RA) Pulse Ox Interpretation: Normal - Other Rad X-Ray-Tibia/Fibula X-Ray: Viewed By Me, Read By Radiologist Interpretation: IMPRESSION: Unremarkable radiographs of the left tibia and fibula. - Incision & Drainage Of Abscess Anesthesia: Lidocaine 1% Prep Used: Betadine Procedure: Incised W/Scalpel Blade#: (11), Drained Pus Medical Decision Making Medical Decision Makin pt with cellulitis, failed outpatient treatment of 4 days of keflex with worsening redness an swelling and pain,. with abscess. pt had doppler of left leg at urgent care, neg for dvt, results in chart. Dr Benavides on vacation. [facility] is Dr Ya; discussed with him, he will consult. (recommend 2.25 g zosyn q8) and for admission to Dr Isaac Toribio. 1400 Dr Isaac Toribio declines admission pt to be admitted to Dr Stewart. Disposition - Disposition Disposition: HOSPITALIZED - [place] / LITIGATION LEGAL SECRETARY / Resident Statement MD/DO has reviewed & agrees with the documentation as recorded. - Scribe Statement The provider has reviewed the documentation as recorded by the Abilioibbandar Cruz Provider Attestation All medical record entries made by the Scribe were at my direction and personally dictated by me. I have reviewed the chart and agree that the record accurately reflects my personal performance of the history, physical exam, medical decision making, and the department course for this patient. I have also personally directed, reviewed, and agree with the discharge instructions and disposition.
[2018-08-04 12:51] LABS: EOSINOPHIL 3 % (0-4); LYMPHOCYTE 8 % (20-40); TOTAL CELLS COUNTED 100
[2018-08-04 12:52] LABS: ANISOCYTOSIS SLIGHT; BURR CELLS SLIGHT; HYPOCHROMIC SLIGHT; MONOCYTE 11 % (0-10); NEUTROPHIL 78 % (50-75); PLATELET ESTIMATE NORMAL (NORMAL); POIKILOCYTOSIS SLIGHT
--- NOTE | 2018-08-04 14:07 | RAD ---
Date of service: 08/04/2018 PROCEDURE: Radiographs of the left tibia and fibula. HISTORY: cellulitis. eval for osteo COMPARISON: None available. TECHNIQUE: Frontal and lateral views obtained. 2 views obtained. FINDINGS: BONES: No fracture or destructive lesion. JOINT SPACES: Unremarkable. OTHER FINDINGS: None. IMPRESSION: Unremarkable radiographs of the left tibia and fibula.
[2018-08-04] MEDS ORDERED: Lidocaine Hydrochloride 5 ML INJ ONE (14:29)
--- NOTE | 2018-08-04 14:42 | CP.PCM.HP ---
<Therese Temple - Last Filed: 08/04/18 17:00> History of Present Illness - History of Present Illness History of Present Illness: PGY-1 Therese Temple D.O. H&P for Dr. Stewart's service: Patient is an 87 yo female with a history of PVD/CAD, HTN, CKD, DVT, and sick sinus who presents with left lower extremity redness, swelling, and pain. Patient states that both of her legs are usually swollen. She says that she has eczema, and she scratched her left leg. She noticed last week that her left leg was becoming red. her niece took her to urgent care on Thursday. There they did a lower extremity Doppler that ruled out DVT. She was prescribed Keflex, which the patient took. Despite this, the leg continued to swell, redness expanded, and she developed an abscess. Patient states that she typically walks on her own or with a cane, but her leg has made walking difficult/painful. Patient denies fevers and chills. She denies any other lesions/redness elsewhere. She says she has never had an abscess before. She states that she is compliant with her medications and follows up with all of her doctors. PMH: CKD, anemia s/p multiple transfusions, DVT, CAD, PVD, HTN, eczema, sick sin us s/p pacemaker, b/l carotid stenosis PSH: cardiac, LE, and renal stents, pacemaker 2018 Meds: Procrit, Eliquis 5 mg PO daily, Clonidine 0.2 mg PO BID, Ferrous sulfate 325 mg PO daily, Lasix 40 mg PO daily, Hydralazine 50 mg PO BID, Labetalol 200 mg PO BID, Pantoprazole 40 mg PO daily, Vit E 400 IU PO daily, KCl 10 mEq PO daily, Preservision PO daily All: NKDA FH: mother- CVA, brother- CVA, sister- stage 4 breast CA SH: lives alone in senior residence, retired gaming worker, , former smok er (quit 30 years ago), denies alcohol PMD: Makayla Hem/onc: Palathingal ID: Masonia Renal: Jonnalagadda EP: Ameen Present on Admission - Present on Admission Any Indicators Present on Admission: Yes History of DVT/PE: Yes History of Uncontrolled Diabetes: No Urinary Catheter: No Decubitus Ulcer Present: No History Surgical Site Infection Following: None Review of Systems - Constitutional Constitutional: absent: Chills, Fever, Frequent Falls - EENT Eyes: absent: Change in Vision Ears: absent: Tinnitus Nose/Mouth/Throat: absent: Nasal Congestion - Cardiovascular Cardiovascular: Leg Edema. absent: Chest Pain, Diaphoresis, Palpitations - Respiratory Respiratory: absent: Cough, Dyspnea - Gastrointestinal Gastrointestinal: absent: Abdominal Pain, Constipation, Diarrhea, Nausea, Vomiting - Genitourinary Genitourinary: absent: Dysuria, Hematuria - Musculoskeletal Musculoskeletal: Limited Range of Motion (2/2 pain on LLE). absent: Numbness, Tingling - Integumentary Integumentary: As Per HPI, Erythema, New Lesions, Pruritus, Rash, Swelling - Neurological Neurological: absent: Focal Weakness, Headaches, Sensory Deficit, Tremor, Vertigo - Psychiatric Psychiatric: absent: Anxiety, Depression - Endocrine Endocrine: absent: Fatigue, Palpitations, Polydipsia, Polyuria - Hematologic/Lymphatic Hematologic: absent: Easy Bleeding, Easy Bruising, Lymphadenopathy Past Patient History - Infectious Disease Hx of Infectious Diseases: None - Tetanus Immunizations Tetanus Immunization: Unknown - Past Medical History & Family History Past Medical History?: Yes Past Family History: Reviewed and not pertinent - Past Social History Smoking Status: Former Smoker Chewing Tobacco Use: No Cigar Use: No Alcohol: None Drugs: Denies Home Situation {Lives}: Alone - CARDIAC Hx Hypercholesterolemia: Yes Hx Hypertension: Yes Hx Pacemaker: Yes (September 2017) Hx Peripheral Edema: Yes - PULMONARY Hx Respiratory Disorders: No - NEUROLOGICAL Hx Neurological Disorder: No - HEENT Hx HEENT Problems: Yes Hx Cataracts: Yes - RENAL Hx Chronic Kidney Disease: Yes - ENDOCRINE/METABOLIC Hx Endocrine Disorders: No - HEMATOLOGICAL/ONCOLOGICAL Hx Anemia: Yes - INTEGUMENTARY Hx Dermatological Problems: No - MUSCULOSKELETAL/RHEUMATOLOGICAL Hx Falls: No - GASTROINTESTINAL Hx Gastrointestinal Disorders: Yes Hx Gastroesophageal Reflux: Yes - GENITOURINARY/GYNECOLOGICAL Hx Genitourinary Disorders: Yes Hx Urinary Tract Infection: Yes - PSYCHIATRIC Hx Substance Use: No - SURGICAL HISTORY Hx Coronary Stent: Yes - ANESTHESIA Hx Anesthesia: Yes Hx Anesthesia Reactions: No Hx Malignant Hyperthermia: No Meds Allergies/Adverse Reactions: Allergies Allergy/AdvReac Type Severity Reaction Status Date / Time strawberry Allergy Verified 08/04/18 10:05 Physical Exam - Constitutional Appears: Non-toxic, No Acute Distress - Head Exam Head Exam: ATRAUMATIC, NORMAL INSPECTION - Eye Exam Eye Exam: EOMI, Normal appearance - ENT Exam ENT Exam: Mucous Membranes Moist - Respiratory Exam Respiratory Exam: Clear to Auscultation Bilateral, NORMAL BREATHING PATTERN - Cardiovascular Exam Cardiovascular Exam: RRR, +S1, +S2 Additional comments: pacemaker L chest - GI/Abdominal Exam GI & Abdominal Exam: Normal Bowel Sounds, Soft. absent: Distended, Tenderness - Extremities Exam Additional comments: LLE with diffuse erythema from ankle to knee, diffuse edema, approx 4x4 cm draining abscess on L medial mesa RLE 1+ pitting edema, scabs lesions on ankle - Neurological Exam Neurological exam: Alert, CN II-XII Intact, Oriented x3 - Psychiatric Exam Psychiatric exam: Normal Affect, Normal Mood - Skin Skin Exam: Dry, Normal Color, Warm Results - Vital Signs Recent Vital Signs: Last Vital Signs Temp 98.4 F 08/04/18 14:30 Pulse 74 08/04/18 14:30 Resp 18 08/04/18 14:30 BP 157/60 H 08/04/18 14:30 Pulse Ox 97 08/04/18 14:30 - Labs Result Diagrams: 08/04/18 12:10 08/04/18 12:10 Labs: Laboratory Results - last 24 hr 08/04/18 08/04/18 12:10 12:10 WBC 8.9 D RBC 3.12 L Hgb 9.8 L Hct 29.5 L MCV 94.4 D MCH 31.3 H MCHC 33.1 RDW 15.3 H Plt Count 270 MPV 7.7 Neut % (Auto) 77.6 H Lymph % (Auto) 7.8 L Banner % (Auto) 12.1 H Eos % (Auto) 1.9 Baso % (Auto) 0.6 Neut # (Auto) 6.9 Lymph # (Auto) 0.7 L Banner # (Auto) 1.1 H Eos # (Auto) 0.2 Baso # (Auto) 0.1 Neutrophils % (Manual) 78 H Lymphocytes % (Manual) 8 L Monocytes % (Manual) 11 H Eosinophils % (Manual) 3 Platelet Estimate Normal Hypochromasia (manual) Slight Poikilocytosis (manual Slight Anisocytosis (manual) Slight Patrick Cells Slight Sodium 137 Potassium 3.7 Chloride 102 Carbon Dioxide 27 Anion Gap 12 BUN 39 H Creatinine 2.2 H Est GFR ( Amer) 26 Est GFR (Non-Af Amer) 21 Random Glucose 104 Calcium 9.1 Total Bilirubin 0.7 AST 36 D ALT 22 Alkaline Phosphatase 64 Total Protein 6.1 L Albumin 3.7 Globulin 2.4 Albumin/Globulin Ratio 1.5 Lipase 131 Assessment & Plan - Assessment and Plan (Free Text) Assessment: Patient is an 87 yo female with a history of PVD/CAD, HTN, CKD, DVT, and sick sinus who presents with left lower extremity redness, swelling, and pain. She is being treated with IV antibiotics. Plan: Left lower extremity abscess and cellulitis, acute - Afebrile, no leukocytosis - LE Doppler: no DVT - Tib/fib XR: no evidence of osteomyelitis - Blood and wound Cx pending - Abscess drained in ED - Tylenol 650 mg PO Q6H PRN - Zosyn 2.25 g IV Q8H- started 08/04 - ID consulted (Felton) Lower extremity swelling, chronic - RLE compression stocking - Lasix 40 mg PO daily - KCl 10 mEq PO daily Hypertension, chronic - Vitals Q6H - Hydralazine 50 mg PO BID - Clonidine 0.2 mg PO BID - Labetalol 200 mg PO BID - Lasix 40 mg PO daily Anemia, chronic - Baseline Hgb 8s-9s - Monitor CBC - Ferrous sulfate 325 mg PO daily Chronic kidney disease, chronic - Renally dose medications - Monitor BUN/Cr (/ on admission) - Continue outpatient follow-up Coronary artery and peripheral vascular disease s/p stents, chronic - heart healthy diet - Continue outpatient follow-up Sick sinus syndrome s/p pacemaker, chronic - Eliquis 5 mg PO daily - Labetalol 200 mg PO BID - Continue outpatient follow-up Ppx: VTE: SCDs contraindicated, Eliquis GI: Protonix 40 mg PO daily Diet: Heart healthy Multivitamin, Vit E 400 IU PO daily Dispo: Evaluate patient's status on IV antibiotics. Follow-up cultures. Case was discussed with attending, Dr. Stewart. <Reid Stewart - Last Filed: 08/05/18 15:50> Results - Vital Signs Recent Vital Signs: Last Vital Signs Temp 98.6 F 08/05/18 08:01 Pulse 71 08/05/18 08:01 Resp 20 08/05/18 08:01 BP 150/66 08/05/18 09:49 Pulse Ox 96 08/05/18 08:01 - Labs Result Diagrams: 08/05/18 06:30 08/05/18 06:30 Labs: Laboratory Results - last 24 hr 08/04/18 08/05/18 08/05/18 17:20 06:30 06:30 WBC 7.9 RBC 3.00 L Hgb 9.4 L Hct 28.2 L MCV 94.1 MCH 31.2 H MCHC 33.1 RDW 15.6 H Plt Count 275 MPV 7.4 Neut % (Auto) 69.2 Lymph % (Auto) 11.0 L Banner % (Auto) 14.9 H Eos % (Auto) 4.1 H Baso % (Auto) 0.8 Neut # (Auto) 5.5 Lymph # (Auto) 0.9 L Banner # (Auto) 1.2 H Eos # (Auto) 0.3 Baso # (Auto) 0.1 Sodium 137 Potassium 3.4 L Chloride 104 Carbon Dioxide 25 Anion Gap 11 BUN 33 H Creatinine 1.9 H Est GFR ( Amer) 30 Est GFR (Non-Af Amer) 25 Random Glucose 103 Calcium 8.7 Phosphorus 3.2 Magnesium 2.2 Total Bilirubin 0.6 AST 31 ALT 24 Alkaline Phosphatase 55 Total Protein 5.5 L Albumin 3.2 L Globulin 2.4 Albumin/Globulin Ratio 1.4 Urine Color Yellow Urine Clarity Clear Urine pH 5.0 Ur Specific Briggs 1.011 Urine Protein Negative Urine Glucose (UA) Normal Urine Ketones Negative Urine Blood Negative Urine Nitrate Negative Urine Bilirubin Negative Urine Urobilinogen Normal Ur Leukocyte Esterase Neg Urine WBC (Auto) 2 Urine RBC (Auto) 1 Ur Squamous Epith Cells 1 Urine Bacteria Rare Attending/Attestation - Attestation I have personally seen and examined this patient.: Yes I have fully participated in the care of the patient.: Yes I have reviewed all pertinent clinical information: Yes Notes (Text): Covering DR Benavides. Er physician spoke to DR ya and Dr Toribio who was covering DR Benavides requesting to admit under our service. we will transfer back to DR Benavides's service once he is back. Dr Ya was consulted for failed out patient treatment of severe left leg cellulites and abscess. 1.Left lower extremity abscess and cellulites-failed out pt treatment 2.Hypertension 3. Anemia 4. Chronic kidney disease, chronic 5.Coronary artery and peripheral vascular disease s/p stents 6.Sick sinus syndrome s/p pacemaker Patient was seen and examined in the ER .spoke to patient's daughter at bedside we will treat with IV Zosyn renal dose,follow cultures
--- NOTE | 2018-08-04 16:03 | CP.PCM.CON ---
History of Present Illness - History of Present Illness History of Present Illness: 87 y/o female comes to ed with daughter for redness pain and swelling left leg with associated pain and tenderness Denies pets or injuries Was seen by urgent care but failked out pt rx with keflex Denies fever or chills Had I and D of left leg in ER with modest relief ID consuklted for this - Medical History PMH: Anemia, CAD, HTN, Hypercholesterolemia, Peripheral Edema, Chronic Kidney Di sease Surgical History: Coronary Stent, Pacemaker (September 2017) - [facility] Procedures ANGIOPLASTY OF OTHER NON-CORONARY VESSEL(S) (09/27/13) CONTRAST AORTOGRAM (09/27/13) CONTRAST ARTERIOGRAM-LEG (09/27/13) CONTRAST RENAL ARTERIOGR (05/28/06) EXCISION OF SIGMOID COLON, ENDO, DIAGN (09/30/17) EXCISION OF STOMACH, ENDO, DIAGN (09/30/17) EXCISION OF TRANSVERSE COLON, ENDO, DIAGN (09/30/17) INSEJ [id number] PERIPHERAL NON-CORONARY VES STENT(S) (09/27/13) INSEJ OF DRUG-ELUTING STENT(S) OF OTH PERIPHERAL VESSEL(S) (09/27/13) INSERT PACE. DUAL BECKIE IN CHEST SUBCU/FASCIA, OPEN (09/30/17) INSERTION OF [id number] PERIPHERAL VESSEL STENT(S) (10/23/05) INSERTION OF ONE VASCULAR STENT (10/23/05) INSERTION OF PACEMAKER LEAD INTO R VENTRICLE, PERC APPROACH (09/30/17) INSERTION OF PACEMAKER LEAD INTO RIGHT ATRIUM, PERC APPROACH (09/30/17) INSERTION OF TWO VASCULAR STENTS (09/27/13) PROCEDURE ON SINGLE VESSEL (10/23/05) PROCEDURE ON TWO VESSELS (09/27/13) Review of Systems - Review of Systems All systems: reviewed and no additional remarkable complaints except - Constitutional Constitutional: As Per HPI - EENT Eyes: absent: As Per HPI, Blind Spots, Blurred Vision, Change in Vision, Decreas ed Night Vision, Diplopia, Discharge, Dry Eye, Exophthalmos, Floaters, Irritation, Itchy Eyes, Loss of Peripheral Vision, Pain, Photophobia, Requires Corrective Lenses, Sees Flashes, Spots in Vision, Tunnel Vision, Other Visual Disturbances, Loss of Vision, Other Ears: absent: As Per HPI, Decreased Hearing, Ear Discharge, Ear Pain, Tinnitus, Abnormal Hearing, Disequilibrium, Dizziness, Other Nose/Mouth/Throat: absent: As Per HPI, Epistaxis, Nasal Congestion, Nasal Discharge, Nasal Obstruction, Nasal Trauma, Nose Pain, Post Nasal Drip, Sinus Pain, Sinus Pressure, Bleeding Gums, Change in Voice, Dental Pain, Dry Mouth, Dysphagia, Halitosis, Hoarsness, Lip Swelling, Mouth Lesions, Mouth Pain, Odynophagia, Sore Throat, Throat Swelling, Tongue Swelling, Facial Pain, Neck Pain, Neck Mass, Other - Breasts Breasts: absent: As Per HPI, Change in Shape, Mass, Pain, Nipple Discharge, Nipple Inversion, Skin Changes, Swelling, Other - Cardiovascular Cardiovascular: absent: As Per HPI, Acrocyanosis, Chest Pain, Chest Pain at Rest, Chest Pain with Activity, Claudication, Diaphoresis, Dyspnea, Dyspnea on Exertion, Edema, Irregular Heart Rhythm, Pain Radiating to Arm/Neck/Jaw, Leg Edema, Leg Ulcers, Lightheadedness, Orthopnea, Palpitations, Paroxysmal Nocturnal Dyspnea, Pedal Edema, Radiating Pain, Rapid Heart Rate, Slow Heart Rate, Syncope, Other - Respiratory Respiratory: absent: As Per HPI, Cough, Dyspnea, Hemoptysis, Dyspnea on Exertion, Wheezing, Snoring, Stridor, Pain on Inspiration, Chest Congestion, Excessive Mucous Production, Change in Mucous Color, Pain with Coughing, Other - Gastrointestinal Gastrointestinal: absent: As Per HPI, Abdominal Pain, Belching, Bloating, Change in Bowel Habits, Change in Stool Character, Coffee Ground Emesis, Constipation, Cramping, Diarrhea, Dyspepsia, Dysphagia, Early Satiety, Excessive Flatus, Fecal Incontinence, Heartburn, Hematemesis, Hematochezia, Loose Stools, Melena, Nausea, Odynophagia, Temesmus, Vomiting, Other - Genitourinary Genitourinary: absent: As Per HPI, Change in Urinary Stream, Difficulty Urinating, Dysuria, Flank Pain, Hematuria, Pyuria, Nocturia, Urinary Incontinence, Urinary Frequency, Urinary Hesitance, Urinary Urgency, Voiding Freq/Small Amts, Freq UTI, Hx Renal/Bladder Calculi, Hx /Renal Surgery, Bladder Distension, Other - Reproductive: Female Reproductive:Female: absent: As Per HPI, Amenorrhea, Amenorrhea/ Control, Currently Menstual, Cycle <21 Days, Cycle >35 Days, Cycle Variable, Menses 1-7 Days, Menses >/= 8 Days, Menses Variable, Cycle > 4 Weeks Between, No Menses for 6 Months, Heavy Menses, Light Menses, Normal Menses, Spotting Between Cycles, S/P Hysterectomy, Menopausal, Post Menopausal, Premenarche, Abnormal Vaginal Bleeding, Dysmenorrhea, Dyspareunia, Genital Lesions, Genital Pruritis, Pelvic Pain, Prolapse Symptoms, Sexual Dysfunction, Vaginal Discharge, Vaginal Dryness, Vaginal Odor, Vaginal Pruritis, Other - Menstruation Menstruation: absent: As Per HPI, Amenorrhea, Amenorrhea/ Control, Currently Menstual, Cycle <21 Days, Cycle >35 Days, Cycle Variable, Menses 1-7 Days, Menses >/= 8 Days, Menses Variable, Cycle > 4 Weeks Between, No Menses for 6 Months, Heavy Menses, Light Menses, Normal Menses, Spotting Between Cycles, S/P Hysterectomy, Menopausal, Post Menopausal, Premenarche, Abnormal Vaginal Bleeding, Dysmenorrhea, Other - Musculoskeletal Musculoskeletal: As Per HPI - Integumentary Integumentary: As Per HPI, Skin Pain, Wounds - Neurological Neurological: absent: As Per HPI, Abnormal Gait, Abnormal Hearing, Abnormal Move ments, Abnormal Speech, Behavioral Changes, Burning Sensations, Confusion, Convulsions, Disequilibrium, Dizziness, Numbness, Focal Weakness, Frequent Falls, Headaches, Lack of Coordination, Loss of Vision, Memory Loss, Paresthesias, Radicular Pain, Restless Legs, Sensory Deficit, Syncope, Tingling, Tremor, Vertigo, Weakness, Other Visual Disturbances, Other - Psychiatric Psychiatric: absent: As Per HPI, Abnormal Sleep Pattern, Anhedonia, Anxiety, Auditory Hallucinations, Behavioral Changes, Change in Appetite, Change in Libido, Confusion, Depression, Difficulty Concentrating, Hallucinations, Homicidal Ideation, Hopelessness, Irritability, Memory Loss, Mood Swings, Panic Attacks, Paranoia, Suicidal Ideation, Visual Hallucinations, Tactile Hallucinations, Other - Endocrine Endocrine: absent: As Per HPI, Change in Body Appearance, Change in Libido, Cold Intolorance, Deepening of Voice, Excessive Sweating, Fatigue, Flushing, Heat Intolorance, Increase in Ring/Shoe/Hat Size, Palpitations, Polydipsia, Polyphagia, Polyuria, Other - Hematologic/Lymphatic Hematologic: absent: As Per HPI, Easy Bleeding, Easy Bruising, Lymphadenopathy, Other Past Patient History - Infectious Disease Hx of Infectious Diseases: None - Past Medical History & Family History Past Medical History?: Yes - Past Social History Smoking Status: Never Smoked - CARDIAC Hx Hypercholesterolemia: Yes Hx Hypertension: Yes Hx Pacemaker: Yes (September 2017) Hx Peripheral Edema: Yes - PULMONARY Hx Respiratory Disorders: No - NEUROLOGICAL Hx Neurological Disorder: No - HEENT Hx HEENT Problems: Yes Hx Cataracts: Yes - RENAL Hx Chronic Kidney Disease: Yes - ENDOCRINE/METABOLIC Hx Endocrine Disorders: No - HEMATOLOGICAL/ONCOLOGICAL Hx Anemia: Yes - INTEGUMENTARY Hx Dermatological Problems: No - MUSCULOSKELETAL/RHEUMATOLOGICAL Hx Falls: No - GASTROINTESTINAL Hx Gastrointestinal Disorders: Yes Hx Gastroesophageal Reflux: Yes - GENITOURINARY/GYNECOLOGICAL Hx Genitourinary Disorders: Yes Hx Urinary Tract Infection: Yes - PSYCHIATRIC Hx Substance Use: No - SURGICAL HISTORY Hx Coronary Stent: Yes - ANESTHESIA Hx Anesthesia: Yes Hx Anesthesia Reactions: No Hx Malignant Hyperthermia: No Meds Allergies/Adverse Reactions: Allergies Allergy/AdvReac Type Severity Reaction Status Date / Time strawberry Allergy Verified 08/04/18 10:05 - Medications Medications: Current Medications Acetaminophen (Tylenol 325mg Tab) 650 mg PO Q6 PRN PRN Reason: Pain, moderate (4-7) Apixaban (Eliquis) 5 mg PO DAILY [facility] Clonidine HCl (Catapres) 0.2 mg PO BID [facility] Ferrous Sulfate (Feosol) 325 mg PO DAILY [facility] Furosemide (Lasix) 40 mg PO DAILY [facility] Home Med (Vit C/E/Zn/Coppr/Lutein/Zeaxan [Preservision Areds 2 Softgel]) 1 each PO DAILY [facility] Hydralazine HCl (Apresoline) 50 mg PO BID [facility] Piperacillin Sod/Tazobactam Sod (Zosyn 2.25 Gm Iv Premix) 2.25 gm in 50 mls @ 100 mls/hr IVPB Q8H [facility]; Protocol Labetalol HCl (Trandate) 200 mg PO BID [facility] Pantoprazole Sodium (Protonix Ec Tab) 40 mg PO DAILY [facility] Potassium Chloride (Klor-Con 10) 10 meq PO DAILY [facility] Vitamin E (Vitamin E 400 Units Cap) 400 intlu PO DAILY [facility] Physical Exam - Constitutional Appears: Non-toxic, No Acute Distress, Chronically Ill - Head Exam Head Exam: ATRAUMATIC, NORMAL INSPECTION, NORMOCEPHALIC - Eye Exam Eye Exam: EOMI, Normal appearance, PERRL Pupil Exam: NORMAL ACCOMODATION, PERRL - ENT Exam ENT Exam: Mucous Membranes Moist, Normal Exam - Neck Exam Neck exam: Positive for: Normal Inspection - Respiratory Exam Respiratory Exam: Decreased Breath Sounds, Clear to Auscultation Bilateral, NORMAL BREATHING PATTERN - Cardiovascular Exam Cardiovascular Exam: REGULAR RHYTHM, +S1, +S2 - GI/Abdominal Exam GI & Abdominal Exam: Normal Bowel Sounds, Soft. absent: Tenderness - Rectal Exam Rectal Exam: Deferred - Exam Exam: NORMAL INSPECTION - Extremities Exam Extremities exam: Positive for: calf tenderness, full ROM, normal inspection, tenderness, pedal pulses present. Negative for: joint swelling Additional comments: swelling left lateral calf with redness and some adriano pus - Back Exam Back exam: NORMAL INSPECTION - Neurological Exam Neurological exam: Alert, CN II-XII Intact, Normal Gait, Oriented x3, Reflexes Normal - Psychiatric Exam Psychiatric exam: Normal Affect, Normal Mood - Skin Skin Exam: Dry, Intact, Normal Color, Warm Results - Vital Signs Recent Vital Signs: Last Vital Signs Temp 98.4 F 08/04/18 14:30 Pulse 74 08/04/18 14:30 Resp 18 08/04/18 14:30 BP 157/60 H 08/04/18 14:30 Pulse Ox 97 08/04/18 15:36 - Labs Result Diagrams: 08/04/18 12:10 08/04/18 12:10 Labs: Laboratory Results - last 24 hr 08/04/18 08/04/18 12:10 12:10 WBC 8.9 D RBC 3.12 L Hgb 9.8 L Hct 29.5 L MCV 94.4 D MCH 31.3 H MCHC 33.1 RDW 15.3 H Plt Count 270 MPV 7.7 Neut % (Auto) 77.6 H Lymph % (Auto) 7.8 L Preble % (Auto) 12.1 H Eos % (Auto) 1.9 Baso % (Auto) 0.6 Neut # (Auto) 6.9 Lymph # (Auto) 0.7 L Preble # (Auto) 1.1 H Eos # (Auto) 0.2 Baso # (Auto) 0.1 Neutrophils % (Manual) 78 H Lymphocytes % (Manual) 8 L Monocytes % (Manual) 11 H Eosinophils % (Manual) 3 Platelet Estimate Normal Hypochromasia (manual) Slight Poikilocytosis (manual Slight Anisocytosis (manual) Slight Walter Cells Slight Sodium 137 Potassium 3.7 Chloride 102 Carbon Dioxide 27 Anion Gap 12 BUN 39 H Creatinine 2.2 H Est GFR ( Amer) 26 Est GFR (Non-Af Amer) 21 Random Glucose 104 Calcium 9.1 Total Bilirubin 0.7 AST 36 D ALT 22 Alkaline Phosphatase 64 Total Protein 6.1 L Albumin 3.7 Globulin 2.4 Albumin/Globulin Ratio 1.5 Lipase 131 Assessment & Plan (1) Cellulitis of left lower leg Status: Acute (2) Abscess of left leg excluding foot Status: Acute (3) CKD stage 3 due to type 2 diabetes mellitus Status: Acute - Assessment and Plan (Free Text) Assessment: cellulitis/ abscess left leg failed out pt rx IV zosyn started await cultures
[2018-08-04 16:57] VITALS: RESP 20
[2018-08-04 17:30] LABS: SQUAMOUS EPITHIAL 1 /hpf (0-5); URINE BACTERIA RARE (<OCC); URINE BILIRUBIN NEGATIVE (NEGATIVE); URINE BLOOD NEGATIVE (NEGATIVE); URINE CLARITY Clear (Clear); URINE COLOR Yellow (YELLOW); URINE GLUCOSE (UA) NORMAL (Normal); URINE LEUKOCYTE ESTERASE NEG Leu/uL (Negative); URINE PROTEIN NEGATIVE (NEGATIVE); URINE UROBILINOGEN NORMAL mg/dL (0.2-1.0)
[2018-08-04] MEDS: Piperacill/Tazo 2.25gm in Dex 2.25 GM/50 ML BAG IVPB SCH (20:57)
[2018-08-05] MEDS: Piperacill/Tazo 2.25gm in Dex 2.25 GM/50 ML BAG IVPB SCH ×3 (04:47→21:27)
[2018-08-05 06:38] LABS: BASO # 0.1 K/uL (0.0-0.2); BASO % 0.8 % (0.0-2.0); EOS # 0.3 K/uL (0.0-0.7); EOS % 4.1 % (0.0-4.0); HEMOGLOBIN 9.4 g/dL (11.0-16.0); LYMPH # 0.9 K/uL (1.0-4.3); MEAN CELL VOLUME 94.1 fL (81.0-99.0); MEAN CORPUSCULAR HEMOGLOBIN 31.2 pg (27.0-31.0); MEAN CORPUSCULAR HGB CONC 33.1 g/dL (33.0-37.0); MEAN PLATELET VOLUME 7.4 fL (7.2-11.7); MONO # 1.2 K/uL (0.0-0.8); MONO % 14.9 % (0.0-10.0); NEUT # 5.5 K/uL (1.8-7.0); NEUT % 69.2 % (50.0-75.0); RED CELL DISTRIBUTION WIDTH 15.6 % (11.5-14.5); WHITE BLOOD COUNT 7.9 K/uL (4.8-10.8)
[2018-08-05 06:51] LABS: ALB/GLOB RATIO 1.4 (1.0-2.1); ALBUMIN 3.2 g/dL (3.5-5.0); CALCIUM 8.7 mg/dl (8.6-10.4)
--- NOTE | 2018-08-05 07:44 | CP.PCM.PN ---
<Therese Temple - Last Filed: 08/05/18 17:17> Subjective - Date & Time of Evaluation Date of Evaluation: 08/05/18 Time of Evaluation: 07:43 - Subjective Subjective: PGY-1 Therese Temple D.O. Medicine progress note for Dr. Stewart's service: Patient was seen and examined this morning. Patient states taht she is feeling well. The pain in her leg is significantly less and the redness and swelling are decreasing. She has not yet tried to stand/walk. She denies fevers/chills. Objective - Vital Signs/Intake and Output Vital Signs (last 24 hours): Temp Pulse Resp BP Pulse Ox 98.9 F 70 20 157/62 H 94 L 08/05/18 00:00 08/05/18 00:00 08/05/18 00:00 08/05/18 00:00 08/05/18 00:00 Intake and Output: 08/05/18 08/05/18 06:59 18:59 Intake Total 400 Balance 400 - Medications Medications: Current Medications Acetaminophen (Tylenol 325mg Tab) 650 mg PO Q6 PRN PRN Reason: Pain, moderate (4-7) Apixaban (Eliquis) 5 mg PO DAILY [facility] Clonidine HCl (Catapres) 0.2 mg PO BID [facility] Last Admin: 08/04/18 17:14 Dose: 0.2 mg Ferrous Sulfate (Feosol) 325 mg PO DAILY [facility] Furosemide (Lasix) 40 mg PO DAILY [facility] Hydralazine HCl (Apresoline) 50 mg PO BID [facility] Last Admin: 08/04/18 17:14 Dose: 50 mg Piperacillin Sod/Tazobactam Sod (Zosyn 2.25 Gm Iv Premix) 2.25 gm in 50 mls @ 100 mls/hr IVPB Q8H [facility]; Protocol Last Admin: 08/05/18 04:47 Dose: 100 mls/hr Labetalol HCl (Trandate) 200 mg PO BID [facility] Last Admin: 08/04/18 17:22 Dose: 200 mg Multivitamins (Hexavitamin) 1 tab PO DAILY [facility] Pantoprazole Sodium (Protonix Ec Tab) 40 mg PO DAILY [facility] Potassium Chloride (Klor-Con 10) 10 meq PO DAILY [facility] Vitamin E (Vitamin E 400 Units Cap) 400 intlu PO DAILY [facility] - Labs Labs: 08/05/18 06:30 08/05/18 06:30 - Constitutional Appears: Non-toxic, No Acute Distress - Head Exam Head Exam: ATRAUMATIC, NORMAL INSPECTION - Eye Exam Eye Exam: EOMI, Normal appearance - ENT Exam ENT Exam: Mucous Membranes Moist - Respiratory Exam Respiratory Exam: Clear to Ausculation Bilateral, NORMAL BREATHING PATTERN - Cardiovascular Exam Cardiovascular Exam: RRR, +S1, +S2 - GI/Abdominal Exam GI & Abdominal Exam: Soft. absent: Tenderness - Extremities Exam Additional comments: LLE- erythema decreased from yesterday, optifoam over wound - Neurological Exam Neurological Exam: Alert, Awake, CN II-XII Intact, Oriented x3 - Psychiatric Exam Psychiatric exam: Normal Affect, Normal Mood - Skin Skin Exam: Dry, Normal Color, Warm Assessment and Plan - Assessment and Plan (Free Text) Assessment: Patient is an 87 yo female with a history of PVD/CAD, HTN, CKD, DVT, and sick sinus who presents with left lower extremity redness, swelling, and pain. She is being treated with IV antibiotics. Plan: Left lower extremity abscess and cellulitis, acute, improving - Afebrile, no leukocytosis - LE Doppler: no DVT - Tib/fib XR: no evidence of osteomyelitis - Blood and wound Cx no growth >24 hrs - Abscess drained in ED - Tylenol 650 mg PO Q6H PRN - Zosyn 2.25 g IV Q8H- started 08/04 - ID consulted ([place]) - Wound care consulted Lower extremity swelling, chronic - RLE compression stocking - Lasix 40 mg PO daily - KCl 10 mEq PO daily Hypertension, chronic - Vitals Q6H - Hydralazine 50 mg PO BID - Clonidine 0.2 mg PO BID - Labetalol 200 mg PO BID - Lasix 40 mg PO daily Anemia, chronic - Baseline Hgb 8s-9s - Monitor CBC - Ferrous sulfate 325 mg PO daily Chronic kidney disease, chronic - Renally dose medications - Monitor BUN/Cr (39/2.2 on admission) - Continue outpatient follow-up Coronary artery and peripheral vascular disease s/p stents, chronic - Heart healthy diet - Continue outpatient follow-up Sick sinus syndrome s/p pacemaker, chronic - Eliquis 5 mg PO daily - Labetalol 200 mg PO BID - Continue outpatient follow-up Ppx: VTE: SCDs contraindicated, Eliquis GI: Protonix 40 mg PO daily Diet: Heart healthy Multivitamin, Vit E 400 IU PO daily Dispo: Evaluate patient's status on IV antibiotics. Follow-up cultures. Transfer to Dr. Benavides's service when he returns. Case discussed with attending, Dr. Stewart. <Reid Stewart - Last Filed: 08/06/18 17:25> Objective - Vital Signs/Intake and Output Vital Signs (last 24 hours): Temp Pulse Resp BP Pulse Ox 99 F 76 20 119/54 L 94 L 08/06/18 16:00 08/06/18 16:00 08/06/18 16:00 08/06/18 16:00 08/06/18 16:00 Intake and Output: 08/06/18 08/06/18 06:59 18:59 Intake Total 350 Balance 350 - Medications Medications: Current Medications Acetaminophen (Tylenol 325mg Tab) 650 mg PO Q6 PRN PRN Reason: Pain, moderate (4-7) Apixaban (Eliquis) 5 mg PO DAILY [facility] Last Admin: 08/06/18 09:19 Dose: 5 mg Clonidine HCl (Catapres) 0.2 mg PO BID [facility] Last Admin: 08/06/18 17:12 Dose: 0.2 mg Ferrous Sulfate (Feosol) 325 mg PO DAILY [facility] Last Admin: 08/06/18 09:20 Dose: 325 mg Furosemide (Lasix) 40 mg PO DAILY [facility] Last Admin: 08/06/18 09:21 Dose: 40 mg Hydralazine HCl (Apresoline) 50 mg PO BID [facility] Last Admin: 08/06/18 17:12 Dose: 50 mg Piperacillin Sod/Tazobactam Sod (Zosyn 2.25 Gm Iv Premix) 2.25 gm in 50 mls @ 100 mls/hr IVPB Q8H [facility]; Protocol Last Admin: 08/06/18 14:40 Dose: 100 mls/hr Labetalol HCl (Trandate) 200 mg PO BID [facility] Last Admin: 08/06/18 17:12 Dose: 200 mg Multivitamins (Hexavitamin) 1 tab PO DAILY [facility] Last Admin: 08/06/18 09:19 Dose: 1 tab Pantoprazole Sodium (Protonix Ec Tab) 40 mg PO DAILY [facility] Last Admin: 08/06/18 09:19 Dose: 40 mg Potassium Chloride (Klor-Con 10) 10 meq PO DAILY [facility] Last Admin: 08/06/18 09:20 Dose: 10 meq Vitamin E (Vitamin E 400 Units Cap) 400 intlu PO DAILY [facility] Last Admin: 08/06/18 09:25 Dose: 400 intlu - Labs Labs: 08/06/18 07:25 08/06/18 07:20 Attending/Attestation - Attestation I have personally seen and examined this patient.: Yes I have fully participated in the care of the patient.: Yes I have reviewed all pertinent clinical information, including history, physical exam and plan: Yes Notes (Text): Her left cellulitis improving.Has severe cellulitis with abscess,s/p I and D,failed out patient treatment needs more than two days of IV antibiotics .follow cultures,wound care and continue antibiotics plan discussed with the resident
[2018-08-05] MEDS: Multiple Vitamins Tab PO SCH (09:49)
[2018-08-05] MEDS: Potassium Chloride 10 mEq ER Tab PO SCH (09:49)
[2018-08-05] MEDS: Pantoprazole 40 mg EC Tab PO SCH (09:49)
--- NOTE | 2018-08-05 17:53 | CP.PCM.PN ---
Subjective - Date & Time of Evaluation Date of Evaluation: 08/05/18 Time of Evaluation: 09:00 - Subjective Subjective: events noted IV rx in progress Objective - Vital Signs/Intake and Output Vital Signs (last 24 hours): Temp Pulse Resp BP Pulse Ox 98.6 F 70 20 151/72 H 96 08/05/18 16:00 08/05/18 16:00 08/05/18 16:00 08/05/18 16:00 08/05/18 16:40 Intake and Output: 08/05/18 08/05/18 06:59 18:59 Intake Total 400 Balance 400 - Medications Medications: Current Medications Acetaminophen (Tylenol 325mg Tab) 650 mg PO Q6 PRN PRN Reason: Pain, moderate (4-7) Apixaban (Eliquis) 5 mg PO DAILY [facility] Last Admin: 08/05/18 09:49 Dose: 5 mg Clonidine HCl (Catapres) 0.2 mg PO BID [facility] Last Admin: 08/05/18 17:20 Dose: 0.2 mg Ferrous Sulfate (Feosol) 325 mg PO DAILY [facility] Last Admin: 08/05/18 09:49 Dose: 325 mg Furosemide (Lasix) 40 mg PO DAILY [facility] Last Admin: 08/05/18 09:49 Dose: 40 mg Hydralazine HCl (Apresoline) 50 mg PO BID [facility] Last Admin: 08/05/18 17:20 Dose: 50 mg Piperacillin Sod/Tazobactam Sod (Zosyn 2.25 Gm Iv Premix) 2.25 gm in 50 mls @ 100 mls/hr IVPB Q8H [facility]; Protocol Last Admin: 08/05/18 12:07 Dose: 100 mls/hr Labetalol HCl (Trandate) 200 mg PO BID [facility] Last Admin: 08/05/18 17:20 Dose: 200 mg Multivitamins (Hexavitamin) 1 tab PO DAILY [facility] Last Admin: 08/05/18 09:49 Dose: 1 tab Pantoprazole Sodium (Protonix Ec Tab) 40 mg PO DAILY [facility] Last Admin: 08/05/18 09:49 Dose: 40 mg Pneumococcal Polyvalent Vaccine (Pneumovax 23 Vaccine) 0.5 ml IM .ONCE ONE Stop: 08/06/18 10:01 Potassium Chloride (Klor-Con 10) 10 meq PO DAILY [facility] Last Admin: 08/05/18 09:49 Dose: 10 meq Vitamin E (Vitamin E 400 Units Cap) 400 intlu PO DAILY [facility] Last Admin: 08/05/18 09:51 Dose: Not Given - Labs Labs: 08/05/18 06:30 08/05/18 06:30 - Constitutional Appears: Non-toxic, Chronically Ill - Head Exam Head Exam: ATRAUMATIC, NORMAL INSPECTION, NORMOCEPHALIC - Eye Exam Eye Exam: EOMI, Normal appearance, PERRL Pupil Exam: NORMAL ACCOMODATION, PERRL - ENT Exam ENT Exam: Mucous Membranes Moist, Normal Exam - Neck Exam Neck Exam: Full ROM, Normal Inspection. absent: Lymphadenopathy - Respiratory Exam Respiratory Exam: Clear to Ausculation Bilateral, NORMAL BREATHING PATTERN - Cardiovascular Exam Cardiovascular Exam: REGULAR RHYTHM, +S1, +S2. absent: Murmur - GI/Abdominal Exam GI & Abdominal Exam: Soft, Normal Bowel Sounds. absent: Tenderness - Rectal Exam Rectal Exam: Deferred - Exam Exam: NORMAL INSPECTION - Extremities Exam Extremities Exam: Full ROM, Normal Capillary Refill, Normal Inspection. absent: Joint Swelling, Pedal Edema - Back Exam Back Exam: NORMAL INSPECTION - Neurological Exam Neurological Exam: Alert, Awake, CN II-XII Intact, Normal Gait, Oriented x3 - Psychiatric Exam Psychiatric exam: Normal Affect, Normal Mood - Skin Skin Exam: Dry, Erythema, Intact Additional comments: cellulitis less Assessment and Plan (1) Cellulitis of left lower leg Status: Acute (2) Abscess of left leg excluding foot Status: Acute (3) CKD stage 3 due to type 2 diabetes mellitus Status: Acute - Assessment and Plan (Free Text) Assessment: cont iv antibiotics and wound care
--- NOTE | 2018-08-05 19:44 | CARD ---
APPROVED REPORT Date of service: 08/04/2018 EKG Measurement Heart [id number] <Conclusion> AV dual-paced rhythm in a pattern of bigeminy Abnormal ECG
[2018-08-06] MEDS: Piperacill/Tazo 2.25gm in Dex 2.25 GM/50 ML BAG IVPB SCH ×3 (05:00→20:08)
--- NOTE | 2018-08-06 07:32 | CP.PCM.PN ---
Objective - Vital Signs/Intake and Output Vital Signs (last 24 hours): Temp Pulse Resp BP Pulse Ox 98.3 F 71 20 124/66 94 L 08/06/18 00:00 08/06/18 00:00 08/06/18 00:00 08/06/18 00:00 08/06/18 00:00 Intake and Output: 08/06/18 08/06/18 06:59 18:59 Intake Total 350 Balance 350 - Medications Medications: Current Medications Acetaminophen (Tylenol 325mg Tab) 650 mg PO Q6 PRN PRN Reason: Pain, moderate (4-7) Apixaban (Eliquis) 5 mg PO DAILY [facility] Last Admin: 08/05/18 09:49 Dose: 5 mg Clonidine HCl (Catapres) 0.2 mg PO BID [facility] Last Admin: 08/05/18 17:20 Dose: 0.2 mg Ferrous Sulfate (Feosol) 325 mg PO DAILY [facility] Last Admin: 08/05/18 09:49 Dose: 325 mg Furosemide (Lasix) 40 mg PO DAILY [facility] Last Admin: 08/05/18 09:49 Dose: 40 mg Hydralazine HCl (Apresoline) 50 mg PO BID [facility] Last Admin: 08/05/18 17:20 Dose: 50 mg Piperacillin Sod/Tazobactam Sod (Zosyn 2.25 Gm Iv Premix) 2.25 gm in 50 mls @ 1 00 mls/hr IVPB Q8H [facility]; Protocol Last Admin: 08/06/18 05:00 Dose: 100 mls/hr Labetalol HCl (Trandate) 200 mg PO BID [facility] Last Admin: 08/05/18 17:20 Dose: 200 mg Multivitamins (Hexavitamin) 1 tab PO DAILY [facility] Last Admin: 08/05/18 09:49 Dose: 1 tab Pantoprazole Sodium (Protonix Ec Tab) 40 mg PO DAILY [facility] Last Admin: 08/05/18 09:49 Dose: 40 mg Pneumococcal Polyvalent Vaccine (Pneumovax 23 Vaccine) 0.5 ml IM .ONCE ONE Stop: 08/06/18 10:01 Potassium Chloride (Klor-Con 10) 10 meq PO DAILY [facility] Last Admin: 08/05/18 09:49 Dose: 10 meq Vitamin E (Vitamin E 400 Units Cap) 400 intlu PO DAILY [facility] Last Admin: 08/05/18 09:51 Dose: Not Given - Labs Labs: 08/05/18 06:30 08/05/18 06:30
[2018-08-06 07:40] LABS: BASO # 0.1 K/uL (0.0-0.2); BASO % 0.7 % (0.0-2.0); EOS # 0.3 K/uL (0.0-0.7); EOS % 2.7 % (0.0-4.0); HEMOGLOBIN 9.9 g/dL (11.0-16.0); LYMPH # 0.6 K/uL (1.0-4.3); LYMPH % 5.6 % (20.0-40.0); MEAN CELL VOLUME 93.8 fL (81.0-99.0); MEAN CORPUSCULAR HEMOGLOBIN 30.9 pg (27.0-31.0); MEAN PLATELET VOLUME 7.5 fL (7.2-11.7); MONO # 1.2 K/uL (0.0-0.8); MONO % 10.5 % (0.0-10.0); NEUT # 9.2 K/uL (1.8-7.0); NEUT % 80.5 % (50.0-75.0); PLATELET COUNT 322 K/uL (130-400); RBC 3.19 Mil/uL (3.80-5.20); RED CELL DISTRIBUTION WIDTH 15.6 % (11.5-14.5); WHITE BLOOD COUNT 11.4 K/uL (4.8-10.8)
[2018-08-06 07:52] LABS: ALB/GLOB RATIO 1.5 (1.0-2.1); ALBUMIN 3.5 g/dL (3.5-5.0); CALCIUM 8.9 mg/dl (8.6-10.4)
--- NOTE | 2018-08-06 08:35 | CP.PCM.PN ---
Subjective - Date & Time of Evaluation Date of Evaluation: 08/06/18 Time of Evaluation: 08:33 - Subjective Subjective: +cellulitis, left leg improving afebrile no drainage Objective - Vital Signs/Intake and Output Vital Signs (last 24 hours): Temp Pulse Resp BP Pulse Ox 98.3 F 71 20 124/66 94 L 08/06/18 00:00 08/06/18 00:00 08/06/18 00:00 08/06/18 00:00 08/06/18 00:00 Intake and Output: 08/06/18 08/06/18 06:59 18:59 Intake Total 350 Balance 350 - Medications Medications: Current Medications Acetaminophen (Tylenol 325mg Tab) 650 mg PO Q6 PRN PRN Reason: Pain, moderate (4-7) Apixaban (Eliquis) 5 mg PO DAILY [facility] Last Admin: 08/05/18 09:49 Dose: 5 mg Clonidine HCl (Catapres) 0.2 mg PO BID [facility] Last Admin: 08/05/18 17:20 Dose: 0.2 mg Ferrous Sulfate (Feosol) 325 mg PO DAILY [facility] Last Admin: 08/05/18 09:49 Dose: 325 mg Furosemide (Lasix) 40 mg PO DAILY [facility] Last Admin: 08/05/18 09:49 Dose: 40 mg Hydralazine HCl (Apresoline) 50 mg PO BID [facility] Last Admin: 08/05/18 17:20 Dose: 50 mg Piperacillin Sod/Tazobactam Sod (Zosyn 2.25 Gm Iv Premix) 2.25 gm in 50 mls @ 100 mls/hr IVPB Q8H [facility]; Protocol Last Admin: 08/06/18 05:00 Dose: 100 mls/hr Labetalol HCl (Trandate) 200 mg PO BID [facility] Last Admin: 08/05/18 17:20 Dose: 200 mg Multivitamins (Hexavitamin) 1 tab PO DAILY [facility] Last Admin: 08/05/18 09:49 Dose: 1 tab Pantoprazole Sodium (Protonix Ec Tab) 40 mg PO DAILY [facility] Last Admin: 08/05/18 09:49 Dose: 40 mg Pneumococcal Polyvalent Vaccine (Pneumovax 23 Vaccine) 0.5 ml IM .ONCE ONE Stop: 08/06/18 10:01 Potassium Chloride (Klor-Con 10) 10 meq PO DAILY [facility] Last Admin: 08/05/18 09:49 Dose: 10 meq Vitamin E (Vitamin E 400 Units Cap) 400 intlu PO DAILY [facility] Last Admin: 08/05/18 09:51 Dose: Not Given - Labs Labs: 08/06/18 07:25 08/06/18 07:20 - Constitutional Appears: Non-toxic - Head Exam Head Exam: NORMAL INSPECTION - Eye Exam Eye Exam: absent: Scleral icterus - ENT Exam ENT Exam: Mucous Membranes Moist - Neck Exam Neck Exam: Full ROM - Respiratory Exam Respiratory Exam: Decreased Breath Sounds - Cardiovascular Exam Cardiovascular Exam: REGULAR RHYTHM - GI/Abdominal Exam GI & Abdominal Exam: Soft - Extremities Exam Extremities Exam: Calf Tenderness. absent: Pedal Edema Assessment and Plan - Assessment and Plan (Free Text) Assessment: Cellulitis, left leg Abscess, left leg s/p I&D CKD stage 3 T2dm HTN Anemia Plan: Cont abtx
[2018-08-06] MEDS: Pantoprazole 40 mg EC Tab PO SCH (09:19)
[2018-08-06] MEDS: Multiple Vitamins Tab PO SCH (09:19)
[2018-08-06] MEDS: Potassium Chloride 10 mEq ER Tab PO SCH (09:20)
[2018-08-06 10:00] LABS: ANISOCYTOSIS SLIGHT; BASOPHIL 1 % (0-2); EOSINOPHIL 2 % (0-4); HYPOCHROMIC SLIGHT; LYMPHOCYTE 9 % (20-40); MONOCYTE 12 % (0-10); NEUTROPHIL 76 % (50-75); PLATELET ESTIMATE NORMAL (NORMAL); POIKILOCYTOSIS SLIGHT; TARGET CELLS SLIGHT; TOTAL CELLS COUNTED 100
[2018-08-06] MEDS ORDERED: Pneumococcal 23-Valent Vaccine IM ONE (10:00)
--- NOTE | 2018-08-06 14:31 | CP.PCM.PN ---
Subjective - Date & Time of Evaluation Date of Evaluation: 08/06/18 Time of Evaluation: 08:00 - Subjective Subjective: seen and examined on rounds no new complaints GOMEZ rx in progress labs reviewed orders signed Objective - Vital Signs/Intake and Output Vital Signs (last 24 hours): Temp Pulse Resp BP Pulse Ox 98.3 F 71 20 169/69 H 94 L 08/06/18 00:00 08/06/18 00:00 08/06/18 00:00 08/06/18 09:21 08/06/18 00:00 Intake and Output: 08/06/18 08/06/18 06:59 18:59 Intake Total 350 Balance 350 - Medications Medications: Current Medications Acetaminophen (Tylenol 325mg Tab) 650 mg PO Q6 PRN PRN Reason: Pain, moderate (4-7) Apixaban (Eliquis) 5 mg PO DAILY [facility] Last Admin: 08/06/18 09:19 Dose: 5 mg Clonidine HCl (Catapres) 0.2 mg PO BID [facility] Last Admin: 08/06/18 09:20 Dose: 0.2 mg Ferrous Sulfate (Feosol) 325 mg PO DAILY [facility] Last Admin: 08/06/18 09:20 Dose: 325 mg Furosemide (Lasix) 40 mg PO DAILY [facility] Last Admin: 08/06/18 09:21 Dose: 40 mg Hydralazine HCl (Apresoline) 50 mg PO BID [facility] Last Admin: 08/06/18 09:20 Dose: 50 mg Piperacillin Sod/Tazobactam Sod (Zosyn 2.25 Gm Iv Premix) 2.25 gm in 50 mls @ 100 mls/hr IVPB Q8H [facility]; Protocol Last Admin: 08/06/18 05:00 Dose: 100 mls/hr Labetalol HCl (Trandate) 200 mg PO BID [facility] Last Admin: 08/06/18 09:25 Dose: 200 mg Multivitamins (Hexavitamin) 1 tab PO DAILY [facility] Last Admin: 08/06/18 09:19 Dose: 1 tab Pantoprazole Sodium (Protonix Ec Tab) 40 mg PO DAILY [facility] Last Admin: 08/06/18 09:19 Dose: 40 mg Potassium Chloride (Klor-Con 10) 10 meq PO DAILY [facility] Last Admin: 08/06/18 09:20 Dose: 10 meq Vitamin E (Vitamin E 400 Units Cap) 400 intlu PO DAILY [facility] Last Admin: 08/06/18 09:25 Dose: 400 intlu - Labs Labs: 08/06/18 07:25 08/06/18 07:20 - Constitutional Appears: Well - Head Exam Head Exam: ATRAUMATIC, NORMAL INSPECTION, NORMOCEPHALIC - Eye Exam Eye Exam: EOMI, Normal appearance, PERRL Pupil Exam: NORMAL ACCOMODATION, PERRL - ENT Exam ENT Exam: Mucous Membranes Moist, Normal Exam - Neck Exam Neck Exam: Full ROM, Normal Inspection. absent: Lymphadenopathy - Respiratory Exam Respiratory Exam: Clear to Ausculation Bilateral, NORMAL BREATHING PATTERN - Cardiovascular Exam Cardiovascular Exam: REGULAR RHYTHM, +S1, +S2. absent: Murmur - GI/Abdominal Exam GI & Abdominal Exam: Soft, Normal Bowel Sounds. absent: Tenderness - Rectal Exam Rectal Exam: Deferred - Exam Exam: NORMAL INSPECTION - Extremities Exam Extremities Exam: Full ROM, Normal Capillary Refill, Normal Inspection. absent: Joint Swelling, Pedal Edema - Back Exam Back Exam: NORMAL INSPECTION - Neurological Exam Neurological Exam: Alert, Awake, CN II-XII Intact, Normal Gait, Oriented x3 - Psychiatric Exam Psychiatric exam: Normal Affect, Normal Mood - Skin Skin Exam: Dry, Intact, Normal Color, Warm - Additional Findings Additional findings: cellulitis less Assessment and Plan (1) Cellulitis of left lower leg Status: Acute (2) Abscess of left leg excluding foot Status: Acute (3) CKD stage 3 due to type 2 diabetes mellitus Status: Acute - Assessment and Plan (Free Text) Assessment: improving s/p I and D abscess left leg cont IV rx
[2018-08-07] MEDS: Piperacill/Tazo 2.25gm in Dex 2.25 GM/50 ML BAG IVPB SCH ×3 (04:14→20:30)
[2018-08-07 07:14] LABS: ALB/GLOB RATIO 1.3 (1.0-2.1); ALBUMIN 3.2 g/dL (3.5-5.0); CALCIUM 8.7 mg/dl (8.6-10.4)
[2018-08-07 08:08] LABS: BASO # 0.1 K/uL (0.0-0.2); BASO % 0.7 % (0.0-2.0); EOS # 0.6 K/uL (0.0-0.7); EOS % 5.5 % (0.0-4.0); HEMOGLOBIN 9.2 g/dL (11.0-16.0); LYMPH # 1.4 K/uL (1.0-4.3); LYMPH % 13.4 % (20.0-40.0); MEAN CELL VOLUME 94.1 fL (81.0-99.0); MEAN CORPUSCULAR HEMOGLOBIN 31.2 pg (27.0-31.0); MEAN CORPUSCULAR HGB CONC 33.2 g/dL (33.0-37.0); MEAN PLATELET VOLUME 7.3 fL (7.2-11.7); MONO # 1.5 K/uL (0.0-0.8); MONO % 14.7 % (0.0-10.0); NEUT # 6.7 K/uL (1.8-7.0); NEUT % 65.7 % (50.0-75.0); RBC 2.94 Mil/uL (3.80-5.20); RED CELL DISTRIBUTION WIDTH 15.5 % (11.5-14.5); WHITE BLOOD COUNT 10.2 K/uL (4.8-10.8)
[2018-08-07] MEDS: Pantoprazole 40 mg EC Tab PO SCH (09:06)
[2018-08-07] MEDS: Potassium Chloride 10 mEq ER Tab PO SCH (09:07)
[2018-08-07] MEDS: Multiple Vitamins Tab PO SCH (09:07)
[2018-08-08 08:08] LABS: ALB/GLOB RATIO 1.3 (1.0-2.1); ALBUMIN 3.3 g/dL (3.5-5.0); CALCIUM 8.8 mg/dl (8.6-10.4)
[2018-08-08 08:14] LABS: BASO # 0.1 K/uL (0.0-0.2); BASO % 1.1 % (0.0-2.0); EOS # 0.6 K/uL (0.0-0.7); EOS % 6.4 % (0.0-4.0); HEMOGLOBIN 9.5 g/dL (11.0-16.0); LYMPH # 1.2 K/uL (1.0-4.3); MEAN CORPUSCULAR HEMOGLOBIN 31.6 pg (27.0-31.0); MEAN CORPUSCULAR HGB CONC 33.6 g/dL (33.0-37.0); MEAN PLATELET VOLUME 7.1 fL (7.2-11.7); MONO # 1.2 K/uL (0.0-0.8); MONO % 12.3 % (0.0-10.0); NEUT # 6.7 K/uL (1.8-7.0); NEUT % 68.2 % (50.0-75.0); NRBC % 0.1 % (0.0-2.0); RED CELL DISTRIBUTION WIDTH 15.3 % (11.5-14.5); WHITE BLOOD COUNT 9.8 K/uL (4.8-10.8)
[2018-08-08] MEDS: Multiple Vitamins Tab PO SCH (09:06)
[2018-08-08] MEDS: Pantoprazole 40 mg EC Tab PO SCH (09:07)
[2018-08-08] MEDS: Potassium Chloride 10 mEq ER Tab PO SCH (09:08)
[2018-08-08] MEDS: Piperacill/Tazo 2.25gm in Dex 2.25 GM/50 ML BAG IVPB SCH ×2 (11:33→20:51)
[2018-08-08] MEDS ORDERED: Piperacillin/Tazobact 3.375 gm 100 ML IVPB SCH (12:30)
--- NOTE | 2018-08-08 15:08 | CP.PCM.PN ---
Subjective - Date & Time of Evaluation Date of Evaluation: 08/08/18 Time of Evaluation: 09:00 - Subjective Subjective: awake and alert no new complaints interim events noted patient examined entries reviewed labs reviewed orders signed Objective - Vital Signs/Intake and Output Vital Signs (last 24 hours): Temp Pulse Resp BP Pulse Ox 98.9 F 72 20 137/61 96 08/08/18 08:32 08/08/18 08:32 08/08/18 08:32 08/08/18 09:06 08/08/18 08:32 Intake and Output: 08/08/18 08/08/18 06:59 18:59 Intake Total 300 300 Balance 300 300 - Medications Medications: Current Medications Acetaminophen (Tylenol 325mg Tab) 650 mg PO Q6 PRN PRN Reason: Pain, moderate (4-7) Apixaban (Eliquis) 5 mg PO DAILY [facility] Last Admin: 08/08/18 09:07 Dose: 5 mg Clonidine HCl (Catapres) 0.2 mg PO BID [facility] Last Admin: 08/08/18 09:06 Dose: 0.2 mg Ferrous Sulfate (Feosol) 325 mg PO DAILY [facility] Last Admin: 08/08/18 09:06 Dose: 325 mg Furosemide (Lasix) 40 mg PO DAILY [facility] Last Admin: 08/08/18 09:06 Dose: 40 mg Hydralazine HCl (Apresoline) 50 mg PO BID [facility] Last Admin: 08/08/18 09:06 Dose: 50 mg Piperacillin Sod/Tazobactam Sod (Zosyn 2.25 Gm Iv Premix) 2.25 gm in 50 mls @ 100 mls/hr IVPB Q8H [facility]; Protocol Last Admin: 08/08/18 11:33 Dose: 100 mls/hr Labetalol HCl (Trandate) 200 mg PO BID [facility] Last Admin: 08/08/18 09:06 Dose: 200 mg Multivitamins (Hexavitamin) 1 tab PO DAILY [facility] Last Admin: 08/08/18 09:06 Dose: 1 tab Pantoprazole Sodium (Protonix Ec Tab) 40 mg PO DAILY [facility] Last Admin: 08/08/18 09:07 Dose: 40 mg Potassium Chloride (Klor-Con 10) 10 meq PO DAILY [facility] Last Admin: 08/08/18 09:08 Dose: 10 meq Vitamin E (Vitamin E 400 Units Cap) 400 intlu PO DAILY [facility] Last Admin: 08/08/18 09:06 Dose: 400 intlu - Labs Labs: 08/08/18 07:35 08/08/18 07:35 - Constitutional Appears: Non-toxic, No Acute Distress, Chronically Ill - Head Exam Head Exam: ATRAUMATIC, NORMAL INSPECTION, NORMOCEPHALIC - Eye Exam Eye Exam: EOMI, Normal appearance, PERRL Pupil Exam: NORMAL ACCOMODATION, PERRL - ENT Exam ENT Exam: Mucous Membranes Moist, Normal Exam - Neck Exam Neck Exam: Full ROM, Normal Inspection. absent: Lymphadenopathy - Respiratory Exam Respiratory Exam: Clear to Ausculation Bilateral, NORMAL BREATHING PATTERN - Cardiovascular Exam Cardiovascular Exam: REGULAR RHYTHM, +S1, +S2. absent: Murmur - GI/Abdominal Exam GI & Abdominal Exam: Soft, Normal Bowel Sounds. absent: Tenderness - Rectal Exam Rectal Exam: Deferred - Exam Exam: NORMAL INSPECTION - Extremities Exam Extremities Exam: Full ROM, Normal Capillary Refill, Normal Inspection. absent: Joint Swelling, Pedal Edema - Back Exam Back Exam: NORMAL INSPECTION - Neurological Exam Neurological Exam: Alert, Awake, CN II-XII Intact, Normal Gait, Oriented x3 Neuro motor strength exam: Left Upper Extremity: 4, Right Upper Extremity: 4, Left Lower Extremity: 4, Right Lower Extremity: 4 - Psychiatric Exam Psychiatric exam: Normal Affect, Normal Mood - Skin Skin Exam: Dry, Intact Additional comments: redness left leg decreased cellulitis less Assessment and Plan (1) Cellulitis of left lower leg Status: Acute (2) Abscess of left leg excluding foot Status: Acute (3) CKD stage 3 due to type 2 diabetes mellitus Status: Acute - Assessment and Plan (Free Text) Assessment: cont IV antibiotics and wound care
[2018-08-09] MEDS: Piperacill/Tazo 2.25gm in Dex 2.25 GM/50 ML BAG IVPB SCH ×3 (03:46→20:25)
[2018-08-09 07:35] LABS: BASO # 0.1 K/uL (0.0-0.2); BASO % 1.2 % (0.0-2.0); EOS # 0.6 K/uL (0.0-0.7); EOS % 7.5 % (0.0-4.0); HEMOGLOBIN 9.6 g/dL (11.0-16.0); LYMPH # 1.1 K/uL (1.0-4.3); LYMPH % 13.9 % (20.0-40.0); MEAN CORPUSCULAR HEMOGLOBIN 31.6 pg (27.0-31.0); MONO # 0.8 K/uL (0.0-0.8); MONO % 10.1 % (0.0-10.0); NEUT # 5.6 K/uL (1.8-7.0); NEUT % 67.3 % (50.0-75.0); RBC 3.04 Mil/uL (3.80-5.20); RED CELL DISTRIBUTION WIDTH 15.6 % (11.5-14.5); WHITE BLOOD COUNT 8.3 K/uL (4.8-10.8)
[2018-08-09 07:50] LABS: ALB/GLOB RATIO 1.4 (1.0-2.1); ALBUMIN 3.5 g/dL (3.5-5.0); CALCIUM 9.1 mg/dl (8.6-10.4)
[2018-08-09] MEDS: Multiple Vitamins Tab PO SCH (09:12)
[2018-08-09] MEDS: Potassium Chloride 10 mEq ER Tab PO SCH (09:12)
[2018-08-09] MEDS: Pantoprazole 40 mg EC Tab PO SCH (09:12)
--- NOTE | 2018-08-09 21:50 | CP.PCM.PN ---
Subjective - Date & Time of Evaluation Date of Evaluation: 08/09/18 Time of Evaluation: 09:00 - Subjective Subjective: slow progress less pain and swelling no fever on day 4 IV antibiotics IV rx to cont as per Dr Benavides Objective - Vital Signs/Intake and Output Vital Signs (last 24 hours): Temp Pulse Resp BP Pulse Ox 98.5 F 76 20 119/62 97 08/09/18 07:00 08/09/18 07:00 08/09/18 07:00 08/09/18 09:12 08/09/18 07:00 Intake and Output: 08/09/18 08/09/18 06:59 18:59 Intake Total 300 Balance 300 - Medications Medications: Current Medications Acetaminophen (Tylenol 325mg Tab) 650 mg PO Q6 PRN PRN Reason: Pain, moderate (4-7) Apixaban (Eliquis) 5 mg PO DAILY [facility] Last Admin: 08/09/18 09:11 Dose: 5 mg Clonidine HCl (Catapres) 0.2 mg PO BID [facility] Last Admin: 08/09/18 09:12 Dose: 0.2 mg Ferrous Sulfate (Feosol) 325 mg PO DAILY [facility] Last Admin: 08/09/18 09:12 Dose: 325 mg Furosemide (Lasix) 40 mg PO DAILY [facility] Last Admin: 08/09/18 09:12 Dose: 40 mg Hydralazine HCl (Apresoline) 50 mg PO BID [facility] Last Admin: 08/09/18 09:11 Dose: 50 mg Piperacillin Sod/Tazobactam Sod (Zosyn 2.25 Gm Iv Premix) 2.25 gm in 50 mls @ 100 mls/hr IVPB Q8H [facility]; Protocol Last Admin: 08/09/18 11:41 Dose: 100 mls/hr Labetalol HCl (Trandate) 200 mg PO BID [facility] Last Admin: 08/09/18 09:11 Dose: 200 mg Multivitamins (Hexavitamin) 1 tab PO DAILY [facility] Last Admin: 08/09/18 09:12 Dose: 1 tab Pantoprazole Sodium (Protonix Ec Tab) 40 mg PO DAILY [facility] Last Admin: 08/09/18 09:12 Dose: 40 mg Potassium Chloride (Klor-Con 10) 10 meq PO DAILY [facility] Last Admin: 08/09/18 09:12 Dose: 10 meq Vitamin E (Vitamin E 400 Units Cap) 400 intlu PO DAILY [facility] Last Admin: 08/09/18 09:12 Dose: 400 intlu - Labs Labs: 08/09/18 07:21 08/09/18 07:21 - Constitutional Appears: Non-toxic, Chronically Ill - Head Exam Head Exam: ATRAUMATIC, NORMAL INSPECTION, NORMOCEPHALIC - Eye Exam Eye Exam: EOMI, Normal appearance, PERRL Pupil Exam: NORMAL ACCOMODATION, PERRL - ENT Exam ENT Exam: Mucous Membranes Moist, Normal Exam - Neck Exam Neck Exam: Full ROM, Normal Inspection. absent: Lymphadenopathy - Respiratory Exam Respiratory Exam: Clear to Ausculation Bilateral, NORMAL BREATHING PATTERN - Cardiovascular Exam Cardiovascular Exam: REGULAR RHYTHM, +S1, +S2. absent: Murmur - GI/Abdominal Exam GI & Abdominal Exam: Soft, Normal Bowel Sounds. absent: Tenderness - Rectal Exam Rectal Exam: Deferred - Extremities Exam Extremities Exam: Full ROM, Normal Capillary Refill, Normal Inspection. absent: Joint Swelling, Pedal Edema - Back Exam Back Exam: NORMAL INSPECTION - Neurological Exam Neurological Exam: Alert, Awake, CN II-XII Intact, Normal Gait, Oriented x3 - Psychiatric Exam Psychiatric exam: Normal Affect, Normal Mood - Skin Skin Exam: Dry, Warm Additional comments: left leg wound with dry necrotic center no pus expressed cultures- Bacillus species Assessment and Plan (1) Cellulitis of left lower leg Status: Acute (2) Abscess of left leg excluding foot Status: Acute (3) CKD stage 3 due to type 2 diabetes mellitus Status: Acute - Assessment and Plan (Free Text) Assessment: cont IV rx and wound care day 4 completed to complete at least 5 days IV rx
--- NOTE | 2018-08-09 22:51 | CP.PCM.PN ---
Subjective - Date & Time of Evaluation Date of Evaluation: 08/07/18 Time of Evaluation: 10:00 - Subjective Subjective: continue to improve less pain, less redness of left leg Objective - Vital Signs/Intake and Output Vital Signs (last 24 hours): Temp Pulse Resp BP Pulse Ox 98.3 F 69 20 150/70 97 08/09/18 16:00 08/09/18 16:00 08/09/18 16:00 08/09/18 16:00 08/09/18 16:00 Intake and Output: 08/09/18 08/10/18 18:59 06:59 Intake Total 350 Balance 350 - Medications Medications: Current Medications Acetaminophen (Tylenol 325mg Tab) 650 mg PO Q6 PRN PRN Reason: Pain, moderate (4-7) Apixaban (Eliquis) 5 mg PO DAILY [facility] Last Admin: 08/09/18 09:11 Dose: 5 mg Clonidine HCl (Catapres) 0.2 mg PO BID [facility] Last Admin: 08/09/18 17:00 Dose: 0.2 mg Ferrous Sulfate (Feosol) 325 mg PO DAILY [facility] Last Admin: 08/09/18 09:12 Dose: 325 mg Furosemide (Lasix) 40 mg PO DAILY [facility] Last Admin: 08/09/18 09:12 Dose: 40 mg Hydralazine HCl (Apresoline) 50 mg PO BID [facility] Last Admin: 08/09/18 17:00 Dose: 50 mg Piperacillin Sod/Tazobactam Sod (Zosyn 2.25 Gm Iv Premix) 2.25 gm in 50 mls @ 100 mls/hr IVPB Q8H [facility]; Protocol Last Admin: 08/09/18 20:25 Dose: 100 mls/hr Labetalol HCl (Trandate) 200 mg PO BID [facility] Last Admin: 08/09/18 17:00 Dose: 200 mg Multivitamins (Hexavitamin) 1 tab PO DAILY [facility] Last Admin: 08/09/18 09:12 Dose: 1 tab Pantoprazole Sodium (Protonix Ec Tab) 40 mg PO DAILY [facility] Last Admin: 08/09/18 09:12 Dose: 40 mg Potassium Chloride (Klor-Con 10) 10 meq PO DAILY [facility] Last Admin: 08/09/18 09:12 Dose: 10 meq Vitamin E (Vitamin E 400 Units Cap) 400 intlu PO DAILY [facility] Last Admin: 08/09/18 09:12 Dose: 400 intlu - Labs Labs: 08/09/18 07:21 08/09/18 07:21 - Constitutional Appears: Non-toxic - Eye Exam Eye Exam: absent: Scleral icterus - ENT Exam ENT Exam: Mucous Membranes Moist - Neck Exam Neck Exam: Full ROM - Respiratory Exam Respiratory Exam: absent: Decreased Breath Sounds - Cardiovascular Exam Cardiovascular Exam: REGULAR RHYTHM - GI/Abdominal Exam GI & Abdominal Exam: Soft - Extremities Exam Additional comments: less redness, less tenderness of left leg - Neurological Exam Neurological Exam: Alert, Oriented x3 Assessment and Plan - Assessment and Plan (Free Text) Assessment: Cellulitis, left leg Abscess, Left leg s/p I&D Plan: Cont antibiotic as per ID Wound care
--- NOTE | 2018-08-09 22:56 | CP.PCM.PN ---
Subjective - Date & Time of Evaluation Date of Evaluation: 08/08/18 Time of Evaluation: 09:00 - Subjective Subjective: slow improvement of cellulitis no fever Day #4 of Abtx therapy Objective - Vital Signs/Intake and Output Vital Signs (last 24 hours): Temp Pulse Resp BP Pulse Ox 98.3 F 69 20 150/70 97 08/09/18 16:00 08/09/18 16:00 08/09/18 16:00 08/09/18 16:00 08/09/18 16:00 Intake and Output: 08/09/18 08/10/18 18:59 06:59 Intake Total 350 Balance 350 - Medications Medications: Current Medications Acetaminophen (Tylenol 325mg Tab) 650 mg PO Q6 PRN PRN Reason: Pain, moderate (4-7) Apixaban (Eliquis) 5 mg PO DAILY [facility] Last Admin: 08/09/18 09:11 Dose: 5 mg Clonidine HCl (Catapres) 0.2 mg PO BID [facility] Last Admin: 08/09/18 17:00 Dose: 0.2 mg Ferrous Sulfate (Feosol) 325 mg PO DAILY [facility] Last Admin: 08/09/18 09:12 Dose: 325 mg Furosemide (Lasix) 40 mg PO DAILY [facility] Last Admin: 08/09/18 09:12 Dose: 40 mg Hydralazine HCl (Apresoline) 50 mg PO BID [facility] Last Admin: 08/09/18 17:00 Dose: 50 mg Piperacillin Sod/Tazobactam Sod (Zosyn 2.25 Gm Iv Premix) 2.25 gm in 50 mls @ 100 mls/hr IVPB Q8H [facility]; Protocol Last Admin: 08/09/18 20:25 Dose: 100 mls/hr Labetalol HCl (Trandate) 200 mg PO BID [facility] Last Admin: 08/09/18 17:00 Dose: 200 mg Multivitamins (Hexavitamin) 1 tab PO DAILY [facility] Last Admin: 08/09/18 09:12 Dose: 1 tab Pantoprazole Sodium (Protonix Ec Tab) 40 mg PO DAILY [facility] Last Admin: 08/09/18 09:12 Dose: 40 mg Potassium Chloride (Klor-Con 10) 10 meq PO DAILY [facility] Last Admin: 08/09/18 09:12 Dose: 10 meq Vitamin E (Vitamin E 400 Units Cap) 400 intlu PO DAILY [facility] Last Admin: 08/09/18 09:12 Dose: 400 intlu - Labs Labs: 08/09/18 07:21 08/09/18 07:21 - Constitutional Appears: Non-toxic - Head Exam Head Exam: NORMAL INSPECTION - Eye Exam Eye Exam: absent: Scleral icterus - Neck Exam Neck Exam: Full ROM - Respiratory Exam Respiratory Exam: NORMAL BREATHING PATTERN - Cardiovascular Exam Cardiovascular Exam: REGULAR RHYTHM - GI/Abdominal Exam GI & Abdominal Exam: Soft - Extremities Exam Extremities Exam: absent: Pedal Edema Additional comments: +redness, less; tenderness, less LLE - Neurological Exam Neurological Exam: Alert, Oriented x3 Assessment and Plan - Assessment and Plan (Free Text) Assessment: Cellulitis, LLE Abscess, LLE HTN Chronic anemia, iron deficiency Plan: Cont abtx as per ID
--- NOTE | 2018-08-09 23:03 | CP.PCM.PN ---
Subjective - Date & Time of Evaluation Date of Evaluation: 08/09/18 Time of Evaluation: 08:30 - Subjective Subjective: slow improvement less tenderness and less swelling of LLE Afebrile on day 4 IV antibiotics ID input well appreciated Objective - Vital Signs/Intake and Output Vital Signs (last 24 hours): Temp Pulse Resp BP Pulse Ox 98.3 F 69 20 150/70 97 08/09/18 16:00 08/09/18 16:00 08/09/18 16:00 08/09/18 16:00 08/09/18 16:00 Intake and Output: 08/09/18 08/10/18 18:59 06:59 Intake Total 350 Balance 350 - Medications Medications: Current Medications Acetaminophen (Tylenol 325mg Tab) 650 mg PO Q6 PRN PRN Reason: Pain, moderate (4-7) Apixaban (Eliquis) 5 mg PO DAILY [facility] Last Admin: 08/09/18 09:11 Dose: 5 mg Clonidine HCl (Catapres) 0.2 mg PO BID [facility] Last Admin: 08/09/18 17:00 Dose: 0.2 mg Ferrous Sulfate (Feosol) 325 mg PO DAILY [facility] Last Admin: 08/09/18 09:12 Dose: 325 mg Furosemide (Lasix) 40 mg PO DAILY [facility] Last Admin: 08/09/18 09:12 Dose: 40 mg Hydralazine HCl (Apresoline) 50 mg PO BID [facility] Last Admin: 08/09/18 17:00 Dose: 50 mg Piperacillin Sod/Tazobactam Sod (Zosyn 2.25 Gm Iv Premix) 2.25 gm in 50 mls @ 100 mls/hr IVPB Q8H [facility]; Protocol Last Admin: 08/09/18 20:25 Dose: 100 mls/hr Labetalol HCl (Trandate) 200 mg PO BID [facility] Last Admin: 08/09/18 17:00 Dose: 200 mg Multivitamins (Hexavitamin) 1 tab PO DAILY [facility] Last Admin: 08/09/18 09:12 Dose: 1 tab Pantoprazole Sodium (Protonix Ec Tab) 40 mg PO DAILY [facility] Last Admin: 08/09/18 09:12 Dose: 40 mg Potassium Chloride (Klor-Con 10) 10 meq PO DAILY [facility] Last Admin: 08/09/18 09:12 Dose: 10 meq Vitamin E (Vitamin E 400 Units Cap) 400 intlu PO DAILY [facility] Last Admin: 08/09/18 09:12 Dose: 400 intlu - Labs Labs: 08/09/18 07:21 08/09/18 07:21 - Constitutional Appears: Non-toxic - Head Exam Head Exam: NORMAL INSPECTION - Eye Exam Eye Exam: Scleral icterus - ENT Exam ENT Exam: Mucous Membranes Moist - Neck Exam Neck Exam: Full ROM - Respiratory Exam Respiratory Exam: Decreased Breath Sounds - Cardiovascular Exam Cardiovascular Exam: REGULAR RHYTHM - GI/Abdominal Exam GI & Abdominal Exam: Soft - Extremities Exam Extremities Exam: Calf Tenderness, Pedal Edema, Tenderness - Neurological Exam Neurological Exam: Alert, Oriented x3 Assessment and Plan - Assessment and Plan (Free Text) Assessment: Cellulitis Abscess CKD stage 3 Chronic anemia Plan: Cont abtx
[2018-08-10] MEDS: Piperacill/Tazo 2.25gm in Dex 2.25 GM/50 ML BAG IVPB SCH ×2 (04:31→12:33)
[2018-08-10 07:28] VITALS: PULSE 71; TEMP 98; O2SAT 97
[2018-08-10 07:53] LABS: BASO # 0.1 K/uL (0.0-0.2); BASO % 1.3 % (0.0-2.0); EOS # 0.6 K/uL (0.0-0.7); EOS % 8.2 % (0.0-4.0); HEMOGLOBIN 9.2 g/dL (11.0-16.0); LYMPH # 1.3 K/uL (1.0-4.3); LYMPH % 17.6 % (20.0-40.0); MEAN CELL VOLUME 93.3 fL (81.0-99.0); MEAN CORPUSCULAR HEMOGLOBIN 31.1 pg (27.0-31.0); MEAN CORPUSCULAR HGB CONC 33.3 g/dL (33.0-37.0); MEAN PLATELET VOLUME 7.2 fL (7.2-11.7); MONO # 0.8 K/uL (0.0-0.8); MONO % 11.2 % (0.0-10.0); NEUT # 4.6 K/uL (1.8-7.0); NEUT % 61.7 % (50.0-75.0); RBC 2.97 Mil/uL (3.80-5.20); RED CELL DISTRIBUTION WIDTH 15.1 % (11.5-14.5); WHITE BLOOD COUNT 7.5 K/uL (4.8-10.8)
[2018-08-10 08:24] LABS: ALB/GLOB RATIO 1.4 (1.0-2.1); ALBUMIN 3.4 g/dL (3.5-5.0); CALCIUM 8.9 mg/dl (8.6-10.4)
[2018-08-10] MEDS ORDERED: Potassium Chloride 20 mEq/15 ml LIQ UD PO ONE (10:00)
--- NOTE | 2018-08-10 10:13 | PCM.HF ---
Heart Failure Core Measure - Heart Failure Ejection Fraction: 40 % or Greater CAMERON Inhibitor Prescribed: No Contraindication/Reason for not providing: renal insufficiency Beta-Ayden Prescribed: None Contraindication/Reason for not providing: EF >40% Angiotensin II Receptor Ayden Prescribed: No Contraindication/Reason for not providing: renal insufficiency AnticoagulationTherapy for Atrial Fibrillation/Atrialflutter: Yes Aldosterone Antagonist Prescribed: No Contraindication/Reason for not providing: renal insufficiency Hydralazine Nitrate Prescribed: Yes Implantable Cardioverter Defibrillator Therapy: Yes Cardiac Resynchronization Therapy Prescribed: No Contraindication/Reason for not providing: has pacemaker - Follow up Will be discharged to: Home Follow Up Date (must be within 7 days from discharge): 08/16/18 Follow Up Time: 10:00
[2018-08-10] MEDS: Potassium Chloride 10 mEq ER Tab PO SCH (10:27)
[2018-08-10] MEDS: Pantoprazole 40 mg EC Tab PO SCH (10:27)
[2018-08-10] MEDS: Multiple Vitamins Tab PO SCH (10:27)
[2018-08-10 10:34] VITALS: BP 150/70
[2018-08-10] MEDS ORDERED: Potassium Chloride 20 mEq ER Tab PO ONE (11:00)
--- NOTE | 2018-08-10 16:52 | CP.PCM.PN ---
Subjective - Date & Time of Evaluation Date of Evaluation: 08/10/18 Time of Evaluation: 11:00 - Subjective Subjective: alert and orientedx3, no acute pain, ambulatory with walker, NAD. Objective - Vital Signs/Intake and Output Vital Signs (last 24 hours): Temp Pulse Resp BP Pulse Ox 98.0 F 71 20 150/70 97 08/10/18 07:26 08/10/18 07:26 08/10/18 07:26 08/10/18 10:28 08/10/18 07:26 Intake and Output: 08/10/18 08/10/18 06:59 18:59 Intake Total 300 Balance 300 - Labs Labs: 08/10/18 07:45 08/10/18 07:45 Assessment and Plan - Assessment and Plan (Free Text) Assessment: 87 Year old female admitted with cellulitis on the left leg, seen and examined. Alert and orientedx3, left leg wound improved well. Discussed with DR Ya and DR Benavides, plan to discharge home on augmentin for 5 days. Home care, home PT and VNS arranged. Advised to follow up with PMD in 1 week.
== END 2018-08-10 14:24 | disposition home or self-care (01) | DRG 603 ==
LOC: C.ER 09:56 → C.3T 14:02 → OBSVTOIN 08-05 11:07
PROVIDERS: ADMIT Internal Medicine; ATTEND Internal Medicine
PROC: 0H9LXZZ Drainage of Left Lower Leg Skin, External Approach (ICD-10-PCS; principal; 2018-08-05)
DX: L03.116 Cellulitis of left lower limb (principal); L02.416 Cutaneous abscess of left lower limb; E11.22 Type 2 diabetes mellitus with diabetic chronic kidney disease; I12.9 Hypertensive chronic kidney disease with stage 1 through stage 4 chronic kidney disease, or unspecified chronic kidney disease; N18.3 Chronic kidney disease, stage 3 (moderate); E11.51 Type 2 diabetes mellitus with diabetic peripheral angiopathy without gangrene; I25.10 Atherosclerotic heart disease of native coronary artery without angina pectoris; D50.9 Iron deficiency anemia, unspecified; L30.9 Dermatitis, unspecified; K21.9 Gastro-esophageal reflux disease without esophagitis; E78.00 Pure hypercholesterolemia, unspecified; Z95.0 Presence of cardiac pacemaker; Z95.5 Presence of coronary angioplasty implant and graft; Z87.891 Personal history of nicotine dependence; Z87.440 Personal history of urinary (tract) infections; Z80.3 Family history of malignant neoplasm of breast; Z82.3 Family history of stroke

== ENCOUNTER 2018-08-20 07:12 | Inpatient (IN) | payer MEDICARE ==
[2018-08-20 07:12] VITALS: BMI 25.6
[2018-08-20 07:56] LABS: BASO # 0.1 K/uL (0.0-0.2); BASO % 1.3 % (0.0-2.0); EOS # 0.3 K/uL (0.0-0.7); EOS % 3.4 % (0.0-4.0); LYMPH % 11.2 % (20.0-40.0); MEAN CELL VOLUME 94.3 fL (81.0-99.0); MEAN CORPUSCULAR HEMOGLOBIN 31.1 pg (27.0-31.0); MEAN CORPUSCULAR HGB CONC 32.9 g/dL (33.0-37.0); MEAN PLATELET VOLUME 7.5 fL (7.2-11.7); MONO # 0.9 K/uL (0.0-0.8); MONO % 10.2 % (0.0-10.0); NEUT # 6.5 K/uL (1.8-7.0); NEUT % 73.9 % (50.0-75.0); WHITE BLOOD COUNT 8.7 K/uL (4.8-10.8)
[2018-08-20 08:02] LABS: HEMOGLOBIN 6.2 g/dL (11.0-16.0)
[2018-08-20 08:04] LABS: INR 1.3; PARTIAL THROMBOPLASTIN TIME 32.9 SECONDS (21-34); PROTHROMBIN TIME 13.8 SECONDS (9.7-12.2)
--- NOTE | 2018-08-20 08:10 | C.PDOC ---
History Of Present Illness 87 y/o female comes in to ED stating she received a call from Dr. Benavides at 5am today stating her hemoglobin was low and to go to the hospital. Patient was recently admitted for cellulites of the left leg, and states she missed a pro crit shot. She also complains of SOB with exertion with waking yesterday and had an episode of heartburn last night that resolved with pamela kylie. Patient denies any fever, chills, nausea, vomiting, or other complaints. Time Seen by Provider: 08/20/18 07:22 Chief Complaint (Nursing): Abnormal Labs History Per: Patient History/Exam Limitations: no limitations Onset/Duration Of Symptoms: Hrs Current Symptoms Are (Timing): Still Present Past Medical History Reviewed: Historical Data, Nursing Documentation, Vital Signs Vital Signs: Last Vital Signs Temp 98.2 F 08/20/18 07:23 Pulse 70 08/20/18 07:23 Resp 16 08/20/18 07:23 BP 162/56 H 08/20/18 07:23 Pulse Ox 99 08/20/18 07:23 Primary Care Provider: Alejandro Benavides - Medical History PMH: Anemia, CAD, HTN, Hypercholesterolemia, Peripheral Edema, Chronic Kidney Disease Surgical History: Coronary Stent, Pacemaker (September 2017) - [facility] Procedures ANGIOPLASTY OF OTHER NON-CORONARY VESSEL(S) (09/27/13) CONTRAST AORTOGRAM (09/27/13) CONTRAST ARTERIOGRAM-LEG (09/27/13) CONTRAST RENAL ARTERIOGR (05/28/06) DRAINAGE OF LEFT LOWER LEG SKIN, EXTERNAL APPROACH (08/05/18) EXCISION OF SIGMOID COLON, ENDO, DIAGN (09/30/17) EXCISION OF STOMACH, ENDO, DIAGN (09/30/17) EXCISION OF TRANSVERSE COLON, ENDO, DIAGN (09/30/17) INSEJ [id number] PERIPHERAL NON-CORONARY VES STENT(S) (09/27/13) INSEJ OF DRUG-ELUTING STENT(S) OF OTH PERIPHERAL VESSEL(S) (09/27/13) INSERT PACE. DUAL BECKIE IN CHEST SUBCU/FASCIA, OPEN (09/30/17) INSERTION OF [id number] PERIPHERAL VESSEL STENT(S) (10/23/05) INSERTION OF ONE VASCULAR STENT (10/23/05) INSERTION OF PACEMAKER LEAD INTO R VENTRICLE, PERC APPROACH (09/30/17) INSERTION OF PACEMAKER LEAD INTO RIGHT ATRIUM, PERC APPROACH (09/30/17) INSERTION OF TWO VASCULAR STENTS (09/27/13) PROCEDURE ON SINGLE VESSEL (10/23/05) PROCEDURE ON TWO VESSELS (09/27/13) Family History: States: No Known Family Hx - Social History Hx Alcohol Use: No Hx Substance Use: No - Immunization History Hx Tetanus Toxoid Vaccination: No Hx Influenza Vaccination: No Hx Pneumococcal Vaccination: No Review Of Systems Constitutional: Negative for: Fever, Chills Cardiovascular: Negative for: Palpitations Respiratory: Positive for: SOB with Excertion. Negative for: Cough, Shortness of Breath Gastrointestinal: Negative for: Nausea, Vomiting Neurological: Negative for: Headache, Dizziness Physical Exam - Physical Exam Appears: Non-toxic, No Acute Distress Skin: Warm, Dry, Pale Head: Atraumatic, Normacephalic Eye(s): bilateral: PERRL Oral Mucosa: Moist Neck: Supple Chest: No Tenderness, Other (pacemaker on left chest wall) Cardiovascular: Rhythm Regular, No Murmur Respiratory: No Rales, No Rhonchi, No Wheezing, Other (clear to auscultation bilaterally) Gastrointestinal/Abdominal: Bowel Sounds, Soft, No Tenderness Extremity: Other (mild swelling and erythema noted to left lower ext, wound covered with dressing. no acute drainage. ) Extremity: Bilateral: Normal Color And Temperature Neurological/Psych: Oriented x3, Normal Speech ED Course And Treatment - Laboratory Results Result Diagrams: 08/20/18 07:51 08/20/18 07:51 Lab Results: PT 13.8 SECONDS (9.7-12.2) H 08/20/18 07:51 INR 1.3 08/20/18 07:51 APTT 32.9 SECONDS (21-34) 08/20/18 07:51 ECG: Interpreted By Me, Viewed By Me Interpretation Of ECG: AV dual-paced rhythm. Rate From EC O2 Sat by Pulse Oximetry: 99 (RA) Pulse Ox Interpretation: Normal Medical Decision Making Medical Decision Making: Labs ordered. 08:[address] Benavides, will admit to his service. 08:[address] Thibodeaux. Disposition Discussed With : Alejandro Benavides Doctor Will See Patient In The: Hospital - Disposition Disposition: HOSPITALIZED Disposition Time: 08:20 Condition: GOOD - Clinical Impression Clinical Impression: Symptomatic anemia - PA / [employer] ADMINISTRATOR / Resident Statement MD/DO has reviewed & agrees with the documentation as recorded. - Scribe Statement The provider has reviewed the documentation as recorded by the Scribe Jessie Butler All medical record entries made by the Abilioibbandar were at my direction and personally dictated by me. I have reviewed the chart and agree that the record accurately reflects my personal performance of the history, physical exam, medical decision making, and the department course for this patient. I have also personally directed, reviewed, and agree with the discharge instructions and disposition.
[2018-08-20 08:12] LABS: ALB/GLOB RATIO 1.7 (1.0-2.1); ALBUMIN 3.6 g/dL (3.5-5.0); ALT/SGPT 18 U/L (9-52); AST/SGOT 23 U/L (14-36); BLOOD UREA NITROGEN 48 mg/dL (7-17); CALCIUM 8.9 mg/dl (8.6-10.4); GFR NON-AFRICAN AMERICAN 28
[2018-08-20 08:20] LABS: B-TYPE NATRIURETIC PEPTIDE 2490 pg/mL (0-900); CK-MB 0.84 ng/mL (0.0-3.38)
[2018-08-20 08:55] LABS: IRON 59 ug/dL (37-170)
--- NOTE | 2018-08-20 08:59 | RAD ---
Date of service: 08/20/2018 PROCEDURE: CHEST RADIOGRAPH, 1 VIEW HISTORY: sob with exertion. elevated bnp COMPARISON: 10/04/2017. FINDINGS: LUNGS: The lungs are well inflated and clear. PLEURA: No pneumothorax or pleural effusion. CARDIOVASCULAR: There is persistent mild cardiomegaly. There is stable position left-sided dual lead permanent pacing device. There are aortic atherosclerotic calcifications present. OSSEOUS STRUCTURES: Within normal limits for the patient's age. VISUALIZED UPPER ABDOMEN: Normal. OTHER FINDINGS: None. IMPRESSION: No active pulmonary disease.
[2018-08-20 09:04] LABS: % IRON SATURATION 24 (20-55); TOTAL IRON BINDING CAPACITY 242 ug/dL (250-450)
[2018-08-20] MEDS: Pantoprazole 40 mg EC Tab PO SCH (17:13)
[2018-08-20] MEDS: Piperacill/Tazo 2.25gm in Dex 2.25 GM/50 ML BAG IVPB SCH (17:59)
--- NOTE | 2018-08-20 19:05 | CP.PCM.CON ---
History of Present Illness - History of Present Illness History of Present Illness: 87 y/o female comes to ED for severe anemia requiring transfusions referred for ID eval of left leg ulcer s/p I and D with IV antibiotics last month - Medical History PMH: Anemia, CAD, HTN, Hypercholesterolemia, Peripheral Edema, Chronic Kidney Disease Surgical History: Coronary Stent, Pacemaker (September 2017) - [facility] Procedures ANGIOPLASTY OF OTHER NON-CORONARY VESSEL(S) (09/27/13) CONTRAST AORTOGRAM (09/27/13) CONTRAST ARTERIOGRAM-LEG (09/27/13) CONTRAST RENAL ARTERIOGR (05/28/06) EXCISION OF SIGMOID COLON, ENDO, DIAGN (09/30/17) EXCISION OF STOMACH, ENDO, DIAGN (09/30/17) EXCISION OF TRANSVERSE COLON, ENDO, DIAGN (09/30/17) INSEJ [id number] PERIPHERAL NON-CORONARY VES STENT(S) (09/27/13) INSEJ OF DRUG-ELUTING STENT(S) OF OTH PERIPHERAL VESSEL(S) (09/27/13) INSERT PACE. DUAL BECKIE IN CHEST SUBCU/FASCIA, OPEN (09/30/17) INSERTION OF [id number] PERIPHERAL VESSEL STENT(S) (10/23/05) INSERTION OF ONE VASCULAR STENT (10/23/05) INSERTION OF PACEMAKER LEAD INTO R VENTRICLE, PERC APPROACH (09/30/17) INSERTION OF PACEMAKER LEAD INTO RIGHT ATRIUM, PERC APPROACH (09/30/17) INSERTION OF TWO VASCULAR STENTS (09/27/13) PROCEDURE ON SINGLE VESSEL (10/23/05) PROCEDURE ON TWO VESSELS (09/27/13) Review of Systems - Review of Systems All systems: reviewed and no additional remarkable complaints except - Constitutional Constitutional: As Per HPI - EENT Eyes: absent: As Per HPI, Blind Spots, Blurred Vision, Change in Vision, Decreased Night Vision, Diplopia, Discharge, Dry Eye, Exophthalmos, Floaters, Irritation, Itchy Eyes, Loss of Peripheral Vision, Pain, Photophobia, Requires Corrective Lenses, Sees Flashes, Spots in Vision, Tunnel Vision, Other Visual Disturbances, Loss of Vision, Other Ears: absent: As Per HPI, Decreased Hearing, Ear Discharge, Ear Pain, Tinnitus, Abnormal Hearing, Disequilibrium, Dizziness, Other Nose/Mouth/Throat: absent: As Per HPI, Epistaxis, Nasal Congestion, Nasal Discharge, Nasal Obstruction, Nasal Trauma, Nose Pain, Post Nasal Drip, Sinus Pain, Sinus Pressure, Bleeding Gums, Change in Voice, Dental Pain, Dry Mouth, Dysphagia, Halitosis, Hoarsness, Lip Swelling, Mouth Lesions, Mouth Pain, Odynophagia, Sore Throat, Throat Swelling, Tongue Swelling, Facial Pain, Neck Pain, Neck Mass, Other - Breasts Breasts: absent: As Per HPI, Change in Shape, Mass, Pain, Nipple Discharge, Nipple Inversion, Skin Changes, Swelling, Other - Cardiovascular Cardiovascular: absent: As Per HPI, Acrocyanosis, Chest Pain, Chest Pain at Rest, Chest Pain with Activity, Claudication, Diaphoresis, Dyspnea, Dyspnea on Exertion, Edema, Irregular Heart Rhythm, Pain Radiating to Arm/Neck/Jaw, Leg Edema, Leg Ulcers, Lightheadedness, Orthopnea, Palpitations, Paroxysmal Nocturnal Dyspnea, Pedal Edema, Radiating Pain, Rapid Heart Rate, Slow Heart Rate, Syncope, Other - Respiratory Respiratory: absent: As Per HPI, Cough, Dyspnea, Hemoptysis, Dyspnea on Exertion, Wheezing, Snoring, Stridor, Pain on Inspiration, Chest Congestion, Excessive Mucous Production, Change in Mucous Color, Pain with Coughing, Other - Gastrointestinal Gastrointestinal: absent: As Per HPI, Abdominal Pain, Belching, Bloating, Change in Bowel Habits, Change in Stool Character, Coffee Ground Emesis, Constipation, Cramping, Diarrhea, Dyspepsia, Dysphagia, Early Satiety, Excessive Flatus, Fecal Incontinence, Heartburn, Hematemesis, Hematochezia, Loose Stools, Melena, N ausea, Odynophagia, Temesmus, Vomiting, Other - Genitourinary Genitourinary: absent: As Per HPI, Change in Urinary Stream, Difficulty Urinating, Dysuria, Flank Pain, Hematuria, Pyuria, Nocturia, Urinary Incontinence, Urinary Frequency, Urinary Hesitance, Urinary Urgency, Voiding Freq/Small Amts, Freq UTI, Hx Renal/Bladder Calculi, Hx /Renal Surgery, Bladder Distension, Other - Reproductive: Female Reproductive:Female: absent: As Per HPI, Amenorrhea, Amenorrhea/ Control, Currently Menstual, Cycle <21 Days, Cycle >35 Days, Cycle Variable, Menses 1-7 Days, Menses >/= 8 Days, Menses Variable, Cycle > 4 Weeks Between, No Menses for 6 Months, Heavy Menses, Light Menses, Normal Menses, Spotting Between Cycles, S/ P Hysterectomy, Menopausal, Post Menopausal, Premenarche, Abnormal Vaginal Bleeding, Dysmenorrhea, Dyspareunia, Genital Lesions, Genital Pruritis, Pelvic Pain, Prolapse Symptoms, Sexual Dysfunction, Vaginal Discharge, Vaginal Dryness, Vaginal Odor, Vaginal Pruritis, Other - Menstruation Menstruation: absent: As Per HPI, Amenorrhea, Amenorrhea/ Control, C urrently Menstual, Cycle <21 Days, Cycle >35 Days, Cycle Variable, Menses 1-7 Days, Menses >/= 8 Days, Menses Variable, Cycle > 4 Weeks Between, No Menses for 6 Months, Heavy Menses, Light Menses, Normal Menses, Spotting Between Cycles, S/P Hysterectomy, Menopausal, Post Menopausal, Premenarche, Abnormal Vaginal Bleeding, Dysmenorrhea, Other - Musculoskeletal Musculoskeletal: As Per HPI - Integumentary Integumentary: As Per HPI, Skin Pain, Wounds - Neurological Neurological: absent: As Per HPI, Abnormal Gait, Abnormal Hearing, Abnormal Movements, Abnormal Speech, Behavioral Changes, Burning Sensations, Confusion, Convulsions, Disequilibrium, Dizziness, Numbness, Focal Weakness, Frequent Falls, Headaches, Lack of Coordination, Loss of Vision, Memory Loss, Paresthesias, Radicular Pain, Restless Legs, Sensory Deficit, Syncope, Tingling, Tremor, Vertigo, Weakness, Other Visual Disturbances, Other - Psychiatric Psychiatric: absent: As Per HPI, Abnormal Sleep Pattern, Anhedonia, Anxiety, Auditory Hallucinations, Behavioral Changes, Change in Appetite, Change in Libido, Confusion, Depression, Difficulty Concentrating, Hallucinations, Homicidal Ideation, Hopelessness, Irritability, Memory Loss, Mood Swings, Panic Attacks, Paranoia, Suicidal Ideation, Visual Hallucinations, Tactile Hallucinations, Other - Endocrine Endocrine: absent: As Per HPI, Change in Body Appearance, Change in Libido, Cold Intolorance, Deepening of Voice, Excessive Sweating, Fatigue, Flushing, Heat Intolorance, Increase in Ring/Shoe/Hat Size, Palpitations, Polydipsia, Polyphagia, Polyuria, Other - Hematologic/Lymphatic Hematologic: absent: As Per HPI, Easy Bleeding, Easy Bruising, Lymphadenopathy, Other Past Patient History - Infectious Disease Hx of Infectious Diseases: None - Tetanus Immunizations Tetanus Immunization: Unknown - Past Medical History & Family History Past Medical History?: Yes - Past Social History Smoking Status: Former Smoker - CARDIAC Hx Hypercholesterolemia: Yes Hx Hypertension: Yes Hx Pacemaker: Yes (September 2017) Hx Peripheral Edema: Yes - PULMONARY Hx Respiratory Disorders: No - NEUROLOGICAL Hx Neurological Disorder: No - HEENT Hx HEENT Problems: Yes Hx Cataracts: Yes - RENAL Hx Chronic Kidney Disease: Yes Hx Dialysis: No Hx Renal Failure: Yes - ENDOCRINE/METABOLIC Hx Endocrine Disorders: No - HEMATOLOGICAL/ONCOLOGICAL Hx Anemia: Yes Hx Blood Transfusions: Yes Hx Blood Transfusion Reaction: No - INTEGUMENTARY Hx Dermatological Problems: No - MUSCULOSKELETAL/RHEUMATOLOGICAL Hx Falls: No - GASTROINTESTINAL Hx Gastrointestinal Disorders: Yes Hx Gastroesophageal Reflux: Yes - GENITOURINARY/GYNECOLOGICAL Hx Genitourinary Disorders: Yes Hx Urinary Tract Infection: Yes - PSYCHIATRIC Hx Substance Use: No - SURGICAL HISTORY Hx Coronary Stent: Yes - ANESTHESIA Hx Anesthesia: Yes Hx Anesthesia Reactions: No Hx Malignant Hyperthermia: No Has any member of the family had a problem w/ anesthesia?: No Meds Allergies/Adverse Reactions: Allergies Allergy/AdvReac Type Severity Reaction Status Date / Time strawberry Allergy Verified 08/04/18 10:05 - Medications Medications: Current Medications Clonidine HCl (Catapres) 0.2 mg PO BID [facility] Last Admin: 08/20/18 17:13 Dose: 0.2 mg Ferrous Sulfate (Feosol) 325 mg PO DAILY [facility] Furosemide (Lasix) 40 mg PO DAILY [facility] Last Admin: 08/20/18 17:12 Dose: 40 mg Hydralazine HCl (Apresoline) 50 mg PO BID [facility] Last Admin: 08/20/18 18:03 Dose: 50 mg Piperacillin Sod/Tazobactam Sod (Zosyn 2.25 Gm Iv Premix) 2.25 gm in 50 mls @ 100 mls/hr IVPB Q8H [facility]; Protocol Last Admin: 08/20/18 17:59 Dose: 100 mls/hr Labetalol HCl (Trandate) 200 mg PO BID [facility] Last Admin: 08/20/18 18:04 Dose: 200 mg Pantoprazole Sodium (Protonix Ec Tab) 40 mg PO DAILY [facility] Last Admin: 08/20/18 17:13 Dose: 40 mg Physical Exam - Constitutional Appears: Well, Non-toxic, No Acute Distress, Chronically Ill - Head Exam Head Exam: ATRAUMATIC, NORMAL INSPECTION, NORMOCEPHALIC - Eye Exam Eye Exam: EOMI, Normal appearance, PERRL Pupil Exam: NORMAL ACCOMODATION, PERRL - ENT Exam ENT Exam: Mucous Membranes Moist, Normal Exam - Neck Exam Neck exam: Positive for: Normal Inspection - Respiratory Exam Respiratory Exam: Clear to Auscultation Bilateral, NORMAL BREATHING PATTERN - Cardiovascular Exam Cardiovascular Exam: REGULAR RHYTHM - GI/Abdominal Exam GI & Abdominal Exam: Normal Bowel Sounds, Soft. absent: Tenderness - Rectal Exam Rectal Exam: Deferred - Extremities Exam Extremities exam: Positive for: tenderness, pedal pulses present. Negative for: normal inspection Additional comments: wound left leg still open min erythema no pus - Back Exam Back exam: NORMAL INSPECTION - Neurological Exam Neurological exam: Alert, CN II-XII Intact, Normal Gait, Oriented x3, Reflexes Normal - Psychiatric Exam Psychiatric exam: Normal Affect, Normal Mood - Skin Skin Exam: Dry, Erythema, Pallor, Warm Results - Vital Signs Recent Vital Signs: Last Vital Signs Temp 98.8 F 08/20/18 17:50 Pulse 75 08/20/18 17:50 Resp 20 08/20/18 17:50 BP 167/60 H 08/20/18 17:50 Pulse Ox 95 08/20/18 17:04 - Labs Result Diagrams: 08/20/18 07:51 08/20/18 07:51 Labs: Laboratory Results - last 24 hr 08/20/18 08/20/18 08/20/18 07:51 07:51 07:51 WBC 8.7 RBC 2.00 L Hgb 6.2 L* D Hct 18.9 L MCV 94.3 MCH 31.1 H MCHC 32.9 L RDW 16.0 H Plt Count 248 D MPV 7.5 Neut % (Auto) 73.9 Lymph % (Auto) 11.2 L [place] % (Auto) 10.2 H Eos % (Auto) 3.4 Baso % (Auto) 1.3 Neut # (Auto) 6.5 Lymph # (Auto) 1.0 [place] # (Auto) 0.9 H Eos # (Auto) 0.3 Baso # (Auto) 0.1 PT 13.8 H INR 1.3 APTT 32.9 Sodium 140 Potassium 4.0 Chloride 103 Carbon Dioxide 26 Anion Gap 16 BUN 48 H Creatinine 1.7 H Est GFR ( Amer) 34 Est GFR (Non-Af Amer) 28 Random Glucose 103 Calcium 8.9 Iron TIBC % Saturation Ferritin 104.0 Total Bilirubin 0.3 AST 23 ALT 18 Alkaline Phosphatase 48 Total Creatine Kinase 49 CK-MB (Mass) 0.84 Troponin I < 0.0120 NT-Pro-B Natriuret Pep 2490 H Total Protein 5.8 L Albumin 3.6 Globulin 2.2 Albumin/Globulin Ratio 1.7 Stool Occult Blood Blood Type Antibody Screen 08/20/18 08/20/18 08/20/18 07:51 08:28 08:35 WBC RBC Hgb Hct MCV MCH MCHC RDW Plt Count MPV Neut % (Auto) Lymph % (Auto) [place] % (Auto) Eos % (Auto) Baso % (Auto) Neut # (Auto) Lymph # (Auto) [place] # (Auto) Eos # (Auto) Baso # (Auto) PT INR APTT Sodium Potassium Chloride Carbon Dioxide Anion Gap BUN Creatinine Est GFR ( Amer) Est GFR (Non-Af Amer) Random Glucose Calcium Iron 59 TIBC 242 L % Saturation 24 Ferritin Total Bilirubin AST ALT Alkaline Phosphatase Total Creatine Kinase CK-MB (Mass) Troponin I NT-Pro-B Natriuret Pep Total Protein Albumin Globulin Albumin/Globulin Ratio Stool Occult Blood Positive H Blood Type A POSITIVE Antibody Screen Negative Assessment & Plan (1) Symptomatic anemia Status: Acute (2) Abscess of left leg excluding foot Status: Acute (3) Abscess of left lower extremity Status: Acute (4) Bradycardia Status: Acute (5) CHF exacerbation Status: Acute (6) CKD stage 3 due to type 2 diabetes mellitus Status: Acute (7) Cellulitis of left lower extremity Status: Acute (8) Chronic kidney disease, stage III (moderate) Status: Acute (9) Diastolic CHF Status: Acute (10) GI bleed Status: Acute (11) Iron deficiency anemia Status: Acute (12) Occult blood positive stool Status: Acute (13) Renal failure Status: Acute (14) Severe anemia Status: Acute - Assessment and Plan (Free Text) Assessment: will hold IV antibiotics cont wound care heme and renal eval prognosis guarded
--- NOTE | 2018-08-20 22:42 | CP.PCM.CON ---
History of Present Illness - History of Present Illness History of Present Illness: 87 y/o female comes in to ED stating she received a call from Dr. Benavides at 5am today stating her hemoglobin was low and to go to the hospital. Patient was recently admitted for cellulites of the left leg, and states she missed a procri t shot. She also complains of SOB with exertion with waking yesterday and had an episode of heartburn last night that resolved with pamela kylie. Patient denies any fever, chills, nausea, vomiting, or other complaints. The patient was first seen by me in 05/2017, when she presented with similar ane tej, and work up then showed low iron stores, she recieved PRBCs and iron infusions with improvement in her Hgb. A GI work up done in 09/2017, showed some esophagitis and gastritis, essentially normal colonoscopy, except for some polyps. She is s/p PRBC transfusion today. She's getting procrit injections in the office every 4-6 weeks, with HGB between 9-10 grams. She missed her procrit shot last week, but it is unlikely that it is the caused for her new, recent drop in her HGB. This is most likely coming from a recurrent upper GI bleed, likely related to her previous admission for cellulitis and medication associated with it. Past Patient History - Infectious Disease Hx of Infectious Diseases: None - Tetanus Immunizations Tetanus Immunization: Unknown - Past Medical History & Family History Past Medical History?: Yes - Past Social History Smoking Status: Former Smoker - CARDIAC Hx Hypercholesterolemia: Yes Hx Hypertension: Yes Hx Pacemaker: Yes (September 2017) Hx Peripheral Edema: Yes - PULMONARY Hx Respiratory Disorders: No - NEUROLOGICAL Hx Neurological Disorder: No - HEENT Hx HEENT Problems: Yes Hx Cataracts: Yes - RENAL Hx Chronic Kidney Disease: Yes Hx Dialysis: No Hx Renal Failure: Yes - ENDOCRINE/METABOLIC Hx Endocrine Disorders: No - HEMATOLOGICAL/ONCOLOGICAL Hx Anemia: Yes Hx Blood Transfusions: Yes Hx Blood Transfusion Reaction: No - INTEGUMENTARY Hx Dermatological Problems: No - MUSCULOSKELETAL/RHEUMATOLOGICAL Hx Falls: No - GASTROINTESTINAL Hx Gastrointestinal Disorders: Yes Hx Gastroesophageal Reflux: Yes - GENITOURINARY/GYNECOLOGICAL Hx Genitourinary Disorders: Yes Hx Urinary Tract Infection: Yes - PSYCHIATRIC Hx Substance Use: No - SURGICAL HISTORY Hx Coronary Stent: Yes - ANESTHESIA Hx Anesthesia: Yes Hx Anesthesia Reactions: No Hx Malignant Hyperthermia: No Has any member of the family had a problem w/ anesthesia?: No Meds Allergies/Adverse Reactions: Allergies Allergy/AdvReac Type Severity Reaction Status Date / Time strawberry Allergy Verified 08/04/18 10:05 - Medications Medications: Current Medications Clonidine HCl (Catapres) 0.2 mg PO BID [facility] Last Admin: 08/20/18 17:13 Dose: 0.2 mg Ferrous Sulfate (Feosol) 325 mg PO DAILY [facility] Furosemide (Lasix) 40 mg PO DAILY [facility] Last Admin: 08/20/18 17:12 Dose: 40 mg Hydralazine HCl (Apresoline) 50 mg PO BID [facility] Last Admin: 08/20/18 18:03 Dose: 50 mg Piperacillin Sod/Tazobactam Sod (Zosyn 2.25 Gm Iv Premix) 2.25 gm in 50 mls @ 100 mls/hr IVPB Q8H [facility]; Protocol Last Admin: 08/20/18 17:59 Dose: 100 mls/hr Labetalol HCl (Trandate) 200 mg PO BID [facility] Last Admin: 08/20/18 18:04 Dose: 200 mg Pantoprazole Sodium (Protonix Ec Tab) 40 mg PO DAILY [facility] Last Admin: 08/20/18 17:13 Dose: 40 mg Results - Vital Signs Recent Vital Signs: Last Vital Signs Temp 98.9 F 08/20/18 19:43 Pulse 70 08/20/18 22:28 Resp 20 08/20/18 19:43 BP 157/55 H 08/20/18 19:43 Pulse Ox 97 08/20/18 19:43 - Labs Result Diagrams: 08/20/18 07:51 08/20/18 07:51 Labs: Laboratory Results - last 24 hr 08/20/18 08/20/18 08/20/18 07:51 07:51 07:51 WBC 8.7 RBC 2.00 L Hgb 6.2 L* D Hct 18.9 L MCV 94.3 MCH 31.1 H MCHC 32.9 L RDW 16.0 H Plt Count 248 D MPV 7.5 Neut % (Auto) 73.9 Lymph % (Auto) 11.2 L [place] % (Auto) 10.2 H Eos % (Auto) 3.4 Baso % (Auto) 1.3 Neut # (Auto) 6.5 Lymph # (Auto) 1.0 [place] # (Auto) 0.9 H Eos # (Auto) 0.3 Baso # (Auto) 0.1 PT 13.8 H INR 1.3 APTT 32.9 Sodium 140 Potassium 4.0 Chloride 103 Carbon Dioxide 26 Anion Gap 16 BUN 48 H Creatinine 1.7 H Est GFR ( Amer) 34 Est GFR (Non-Af Amer) 28 Random Glucose 103 Calcium 8.9 Iron TIBC % Saturation Ferritin 104.0 Total Bilirubin 0.3 AST 23 ALT 18 Alkaline Phosphatase 48 Total Creatine Kinase 49 CK-MB (Mass) 0.84 Troponin I < 0.0120 NT-Pro-B Natriuret Pep 2490 H Total Protein 5.8 L Albumin 3.6 Globulin 2.2 Albumin/Globulin Ratio 1.7 Stool Occult Blood Blood Type Antibody Screen 08/20/18 08/20/18 08/20/18 07:51 08:28 08:35 WBC RBC Hgb Hct MCV MCH MCHC RDW Plt Count MPV Neut % (Auto) Lymph % (Auto) [place] % (Auto) Eos % (Auto) Baso % (Auto) Neut # (Auto) Lymph # (Auto) [place] # (Auto) Eos # (Auto) Baso # (Auto) PT INR APTT Sodium Potassium Chloride Carbon Dioxide Anion Gap BUN Creatinine Est GFR ( Amer) Est GFR (Non-Af Amer) Random Glucose Calcium Iron 59 TIBC 242 L % Saturation 24 Ferritin Total Bilirubin AST ALT Alkaline Phosphatase Total Creatine Kinase CK-MB (Mass) Troponin I NT-Pro-B Natriuret Pep Total Protein Albumin Globulin Albumin/Globulin Ratio Stool Occult Blood Positive H Blood Type A POSITIVE Antibody Screen Negative
[2018-08-21] MEDS: Piperacill/Tazo 2.25gm in Dex 2.25 GM/50 ML BAG IVPB SCH ×3 (01:41→17:59)
[2018-08-21 06:52] LABS: BASO # 0.1 K/uL (0.0-0.2); BASO % 0.9 % (0.0-2.0); EOS # 0.3 K/uL (0.0-0.7); EOS % 3.6 % (0.0-4.0); HEMOGLOBIN 9.7 g/dL (11.0-16.0); LYMPH # 1.3 K/uL (1.0-4.3); LYMPH % 14.5 % (20.0-40.0); MEAN CELL VOLUME 89.9 fL (81.0-99.0); MEAN CORPUSCULAR HGB CONC 33.4 g/dL (33.0-37.0); MEAN PLATELET VOLUME 7.6 fL (7.2-11.7); MONO % 10.8 % (0.0-10.0); NEUT # 6.3 K/uL (1.8-7.0); NEUT % 70.2 % (50.0-75.0); NRBC % 0.1 % (0.0-2.0); RBC 3.22 Mil/uL (3.80-5.20); RED CELL DISTRIBUTION WIDTH 17.7 % (11.5-14.5)
[2018-08-21 06:53] LABS: CALCIUM 9.3 mg/dl (8.6-10.4)
--- NOTE | 2018-08-21 08:02 | CP.PCM.HP ---
History of Present Illness - History of Present Illness History of Present Illness: CC severe anemia HPI Pt c/o on and off sob associated with generalized weakness. Hgb 6.2 Pt recently DC after treated for cellulitis and Abscess of left LE s/p I&D. ROS weak, sob PMH Recurrent anemia, Iron deficiency T2dm CAD, stable CKD stage 3 HTN Present on Admission - Present on Admission Any Indicators Present on Admission: Yes History of Uncontrolled Diabetes: Yes Review of Systems - Constitutional Constitutional: Fatigue - Cardiovascular Cardiovascular: Dyspnea - Respiratory Respiratory: Dyspnea on Exertion Past Patient History - Infectious Disease Hx of Infectious Diseases: None - Tetanus Immunizations Tetanus Immunization: Unknown - Past Medical History & Family History Past Medical History?: Yes - Past Social History Smoking Status: Former Smoker - CARDIAC Hx Hypercholesterolemia: Yes Hx Hypertension: Yes Hx Pacemaker: Yes (September 2017) Hx Peripheral Edema: Yes - PULMONARY Hx Respiratory Disorders: No - NEUROLOGICAL Hx Neurological Disorder: No - HEENT Hx HEENT Problems: Yes Hx Cataracts: Yes - RENAL Hx Chronic Kidney Disease: Yes Hx Dialysis: No Hx Renal Failure: Yes - ENDOCRINE/METABOLIC Hx Endocrine Disorders: No - HEMATOLOGICAL/ONCOLOGICAL Hx Anemia: Yes Hx Blood Transfusions: Yes Hx Blood Transfusion Reaction: No - INTEGUMENTARY Hx Dermatological Problems: No - MUSCULOSKELETAL/RHEUMATOLOGICAL Hx Falls: No - GASTROINTESTINAL Hx Gastrointestinal Disorders: Yes Hx Gastroesophageal Reflux: Yes - GENITOURINARY/GYNECOLOGICAL Hx Genitourinary Disorders: Yes Hx Urinary Tract Infection: Yes - PSYCHIATRIC Hx Substance Use: No - SURGICAL HISTORY Hx Coronary Stent: Yes - ANESTHESIA Hx Anesthesia: Yes Hx Anesthesia Reactions: No Hx Malignant Hyperthermia: No Has any member of the family had a problem w/ anesthesia?: No Meds Allergies/Adverse Reactions: Allergies Allergy/AdvReac Type Severity Reaction Status Date / Time strawberry Allergy Verified 08/04/18 10:05 Physical Exam - Constitutional Appears: Non-toxic - Head Exam Head Exam: NORMAL INSPECTION - Eye Exam Eye Exam: Scleral icterus - Neck Exam Neck exam: Positive for: Full Rom - Respiratory Exam Respiratory Exam: Clear to Auscultation Bilateral - Cardiovascular Exam Cardiovascular Exam: REGULAR RHYTHM, Systolic Murmur - GI/Abdominal Exam GI & Abdominal Exam: Normal Bowel Sounds, Soft - Neurological Exam Neurological exam: Alert, Oriented x3 Results - Vital Signs Recent Vital Signs: Last Vital Signs Temp 98.7 F 08/20/18 23:40 Pulse 73 08/21/18 00:16 Resp 20 08/20/18 23:40 BP 168/53 H 08/20/18 23:40 Pulse Ox 95 08/20/18 23:40 - Labs Result Diagrams: 08/21/18 06:35 08/21/18 06:35 Labs: Laboratory Results - last 24 hr 08/20/18 08/20/18 08/20/18 07:51 07:51 07:51 WBC 8.7 RBC 2.00 L Hgb 6.2 L* D Hct 18.9 L MCV 94.3 MCH 31.1 H MCHC 32.9 L RDW 16.0 H Plt Count 248 D MPV 7.5 Neut % (Auto) 73.9 Lymph % (Auto) 11.2 L [place] % (Auto) 10.2 H Eos % (Auto) 3.4 Baso % (Auto) 1.3 Neut # (Auto) 6.5 Lymph # (Auto) 1.0 [place] # (Auto) 0.9 H Eos # (Auto) 0.3 Baso # (Auto) 0.1 Retic Count PT 13.8 H INR 1.3 APTT 32.9 Sodium 140 Potassium 4.0 Chloride 103 Carbon Dioxide 26 Anion Gap 16 BUN 48 H Creatinine 1.7 H Est GFR ( Amer) 34 Est GFR (Non-Af Amer) 28 Random Glucose 103 Calcium 8.9 Iron TIBC % Saturation Ferritin 104.0 Total Bilirubin 0.3 AST 23 ALT 18 Alkaline Phosphatase 48 Total Creatine Kinase 49 CK-MB (Mass) 0.84 Troponin I < 0.0120 NT-Pro-B Natriuret Pep 2490 H Total Protein 5.8 L Albumin 3.6 Globulin 2.2 Albumin/Globulin Ratio 1.7 Vitamin B12 Stool Occult Blood Blood Type Antibody Screen 08/20/18 08/20/18 08/20/18 07:51 08:28 08:35 WBC RBC Hgb Hct MCV MCH MCHC RDW Plt Count MPV Neut % (Auto) Lymph % (Auto) [place] % (Auto) Eos % (Auto) Baso % (Auto) Neut # (Auto) Lymph # (Auto) [place] # (Auto) Eos # (Auto) Baso # (Auto) Retic Count PT INR APTT Sodium Potassium Chloride Carbon Dioxide Anion Gap BUN Creatinine Est GFR ( Amer) Est GFR (Non-Af Amer) Random Glucose Calcium Iron 59 TIBC 242 L % Saturation 24 Ferritin Total Bilirubin AST ALT Alkaline Phosphatase Total Creatine Kinase CK-MB (Mass) Troponin I NT-Pro-B Natriuret Pep Total Protein Albumin Globulin Albumin/Globulin Ratio Vitamin B12 Stool Occult Blood Positive H Blood Type A POSITIVE Antibody Screen Negative 08/21/18 08/21/18 08/21/18 06:35 06:35 06:35 WBC 9.0 RBC 3.22 L Hgb 9.7 L D Hct 29.0 L MCV 89.9 D MCH 30.0 MCHC 33.4 RDW 17.7 H Plt Count 246 MPV 7.6 Neut % (Auto) 70.2 Lymph % (Auto) 14.5 L [place] % (Auto) 10.8 H Eos % (Auto) 3.6 Baso % (Auto) 0.9 Neut # (Auto) 6.3 Lymph # (Auto) 1.3 [place] # (Auto) 1.0 H Eos # (Auto) 0.3 Baso # (Auto) 0.1 Retic Count 1.7 H D PT INR APTT Sodium 142 Potassium 3.6 Chloride 103 Carbon Dioxide 29 Anion Gap 14 BUN 37 H Creatinine 1.7 H Est GFR ( Amer) 34 Est GFR (Non-Af Amer) 28 Random Glucose 98 Calcium 9.3 Iron TIBC % Saturation Ferritin Total Bilirubin AST ALT Alkaline Phosphatase Total Creatine Kinase CK-MB (Mass) Troponin I NT-Pro-B Natriuret Pep Total Protein Albumin Globulin Albumin/Globulin Ratio Vitamin B12 406 Stool Occult Blood Blood Type Antibody Screen Assessment & Plan - Assessment and Plan (Free Text) Assessment: Severe Anemia r/o GI bleed CKD stage 3 HTN CAD Cellulitis Abscess, LLE s/p I&D Plan: Transfusion Consult with Dr Thibodeaxu ID consult with Dr Ya - Date & Time Date: 08/20/18 Time: 08:35
[2018-08-21] MEDS: Pantoprazole 40 mg EC Tab PO SCH (09:33)
[2018-08-22] MEDS: Piperacill/Tazo 2.25gm in Dex 2.25 GM/50 ML BAG IVPB SCH ×3 (02:30→17:49)
[2018-08-22 08:36] LABS: BASO # 0.1 K/uL (0.0-0.2); EOS # 0.4 K/uL (0.0-0.7); EOS % 5.6 % (0.0-4.0); LYMPH # 1.1 K/uL (1.0-4.3); LYMPH % 13.8 % (20.0-40.0); MEAN CELL VOLUME 90.3 fL (81.0-99.0); MEAN CORPUSCULAR HGB CONC 33.2 g/dL (33.0-37.0); MEAN PLATELET VOLUME 7.5 fL (7.2-11.7); MONO % 13.5 % (0.0-10.0); NEUT # 5.1 K/uL (1.8-7.0); NEUT % 66.1 % (50.0-75.0); RED CELL DISTRIBUTION WIDTH 17.2 % (11.5-14.5); WHITE BLOOD COUNT 7.7 K/uL (4.8-10.8)
[2018-08-22 08:44] LABS: ALB/GLOB RATIO 1.5 (1.0-2.1); ALBUMIN 3.2 g/dL (3.5-5.0); CALCIUM 8.9 mg/dl (8.6-10.4)
[2018-08-22] MEDS: Pantoprazole 40 mg EC Tab PO SCH (09:43)
--- NOTE | 2018-08-22 11:11 | CP.PCM.CON ---
History of Present Illness - History of Present Illness History of Present Illness: Covering Dr Choen CC: anemia HPI: Asked to see this 87 yo woman admitted on 08/20 because she was found on outpatient labwork to have Hgb 6. Patient was transfused PRBCs with appropriate rise in Hgb to 9, and stool was OB positive. Patient has a long history of similar episodes of intermittent anemia due to Iron deficiency is followed by Dr Thibodeaux, receiving Procrit chronically along with intermittent needs for PRBC transfusions. The patient had EGD and Colonoscopy [address] Cohen, performed for Anemia, and was found to have Grade D esophagitis, and adenomatous colon polyps. She denies having capsule endoscopy. Patient has significant cardiovascular disease and has a pacemaker and vascular stents in her coronary arteries as well as in her legs. She is on chronic anticoagulation therapy with NOAC and is also on gastroprotective therapy with Pantoprazole. Patient sees dark discolored stools, attributed to chronic oral Iron therapy. Review of Systems - Review of Systems All systems: reviewed and no additional remarkable complaints except - Cardiovascular Cardiovascular: Dyspnea on Exertion - Integumentary Integumentary: Skin Ulcer Past Patient History - Infectious Disease Hx of Infectious Diseases: None - Tetanus Immunizations Tetanus Immunization: Unknown - Past Medical History & Family History Past Medical History?: Yes - Past Social History Smoking Status: Former Smoker Drugs: Denies - CARDIAC Hx Hypercholesterolemia: Yes Hx Hypertension: Yes Hx Pacemaker: Yes (September 2017) Hx Peripheral Edema: Yes - PULMONARY Hx Respiratory Disorders: No - NEUROLOGICAL Hx Neurological Disorder: No - HEENT Hx HEENT Problems: Yes Hx Cataracts: Yes - RENAL Hx Chronic Kidney Disease: Yes Hx Dialysis: No Hx Renal Failure: Yes - ENDOCRINE/METABOLIC Hx Endocrine Disorders: No - HEMATOLOGICAL/ONCOLOGICAL Hx Anemia: Yes Hx Blood Transfusions: Yes Hx Blood Transfusion Reaction: No - INTEGUMENTARY Hx Dermatological Problems: No - MUSCULOSKELETAL/RHEUMATOLOGICAL Hx Falls: No - GASTROINTESTINAL Hx Gastrointestinal Disorders: Yes Hx Gastroesophageal Reflux: Yes - GENITOURINARY/GYNECOLOGICAL Hx Genitourinary Disorders: Yes Hx Urinary Tract Infection: Yes - PSYCHIATRIC Hx Substance Use: No - SURGICAL HISTORY Hx Coronary Stent: Yes - ANESTHESIA Hx Anesthesia: Yes Hx Anesthesia Reactions: No Hx Malignant Hyperthermia: No Has any member of the family had a problem w/ anesthesia?: No Meds Allergies/Adverse Reactions: Allergies Allergy/AdvReac Type Severity Reaction Status Date / Time strawberry Allergy Verified 08/04/18 10:05 - Medications Medications: Current Medications Clonidine HCl (Catapres) 0.2 mg PO BID [facility] Last Admin: 08/22/18 09:43 Dose: 0.2 mg Ferrous Sulfate (Feosol) 325 mg PO DAILY [facility] Last Admin: 08/22/18 09:42 Dose: 325 mg Furosemide (Lasix) 40 mg PO DAILY [facility] Last Admin: 08/22/18 09:42 Dose: 40 mg Hydralazine HCl (Apresoline) 50 mg PO BID [facility] Last Admin: 08/22/18 09:42 Dose: 50 mg Piperacillin Sod/Tazobactam Sod (Zosyn 2.25 Gm Iv Premix) 2.25 gm in 50 mls @ 100 mls/hr IVPB Q8H [facility]; Protocol Last Admin: 08/22/18 09:44 Dose: 100 mls/hr Labetalol HCl (Trandate) 200 mg PO BID [facility] Last Admin: 08/22/18 09:44 Dose: 200 mg Pantoprazole Sodium (Protonix Ec Tab) 40 mg PO DAILY [facility] Last Admin: 08/22/18 09:43 Dose: 40 mg Physical Exam - Constitutional Appears: Well, No Acute Distress, Younger Than Stated Age - Head Exam Head Exam: ATRAUMATIC, NORMOCEPHALIC - Eye Exam Eye Exam: Normal appearance. absent: Scleral icterus - Neck Exam Neck exam: Positive for: Normal Inspection - Respiratory Exam Respiratory Exam: NORMAL BREATHING PATTERN - Cardiovascular Exam Cardiovascular Exam: REGULAR RHYTHM - GI/Abdominal Exam GI & Abdominal Exam: Soft. absent: Tenderness - Rectal Exam Rectal Exam: Deferred (Left tibial bandaged ulcer) - Neurological Exam Neurological exam: Alert, Oriented x3 - Psychiatric Exam Psychiatric exam: Normal Affect, Normal Mood Results - Vital Signs Recent Vital Signs: Last Vital Signs Temp 98.6 F 08/21/18 23:00 Pulse 71 08/22/18 08:16 Resp 20 08/21/18 23:00 BP 148/64 08/22/18 09:42 Pulse Ox 96 08/21/18 23:00 - Labs Result Diagrams: 08/22/18 08:17 08/22/18 08:17 Labs: Laboratory Results - last 24 hr 08/22/18 08/22/18 08:17 08:17 WBC 7.7 RBC 3.00 L Hgb 9.0 L Hct 27.1 L MCV 90.3 MCH 30.0 MCHC 33.2 RDW 17.2 H Plt Count 231 MPV 7.5 Neut % (Auto) 66.1 Lymph % (Auto) 13.8 L [place] % (Auto) 13.5 H Eos % (Auto) 5.6 H Baso % (Auto) 1.0 Neut # (Auto) 5.1 Lymph # (Auto) 1.1 [place] # (Auto) 1.0 H Eos # (Auto) 0.4 Baso # (Auto) 0.1 Sodium 143 Potassium 3.5 L Chloride 104 Carbon Dioxide 30 Anion Gap 12 BUN 29 H Creatinine 1.6 H Est GFR ( Amer) 37 Est GFR (Non-Af Amer) 30 Random Glucose 93 Calcium 8.9 Total Bilirubin 0.8 AST 24 ALT 19 Alkaline Phosphatase 43 Total Protein 5.3 L Albumin 3.2 L Globulin 2.1 L Albumin/Globulin Ratio 1.5 Assessment & Plan (1) Severe anemia Assessment and Plan: Occult blood in stool. On chronic Eliquis. Acute on chronic anemia. Recommend: PPI, EGD. Will hold Eliquis and oral Iron until GI workup completed. If EGD negative consider capsule endoscopy. Pt will be followed by Dr Cohen. Status: Acute
--- NOTE | 2018-08-22 14:36 | CP.PCM.PN ---
Subjective - Date & Time of Evaluation Date of Evaluation: 08/22/18 Time of Evaluation: 08:00 - Subjective Subjective: seen on rounds patient examined chart reviewed cultures noted IV rx reordered Objective - Vital Signs/Intake and Output Vital Signs (last 24 hours): Temp Pulse Resp BP Pulse Ox 98.6 F 71 20 148/64 96 08/21/18 23:00 08/22/18 08:16 08/21/18 23:00 08/22/18 09:42 08/21/18 23:00 Intake and Output: 08/22/18 08/22/18 06:59 18:59 Intake Total 370 Balance 370 - Medications Medications: Current Medications Clonidine HCl (Catapres) 0.2 mg PO BID [facility] Last Admin: 08/22/18 09:43 Dose: 0.2 mg Furosemide (Lasix) 40 mg PO DAILY [facility] Last Admin: 08/22/18 09:42 Dose: 40 mg Hydralazine HCl (Apresoline) 50 mg PO BID [facility] Last Admin: 08/22/18 09:42 Dose: 50 mg Piperacillin Sod/Tazobactam Sod (Zosyn 2.25 Gm Iv Premix) 2.25 gm in 50 mls @ 100 mls/hr IVPB Q8H [facility]; Protocol Last Admin: 08/22/18 09:44 Dose: 100 mls/hr Labetalol HCl (Trandate) 200 mg PO BID [facility] Last Admin: 08/22/18 09:44 Dose: 200 mg Pantoprazole Sodium (Protonix Ec Tab) 40 mg PO DAILY [facility] Last Admin: 08/22/18 09:43 Dose: 40 mg - Labs Labs: 08/22/18 08:17 08/22/18 08:17 PT 13.8 SECONDS (9.7-12.2) H 08/20/18 07:51 INR 1.3 08/20/18 07:51 APTT 32.9 SECONDS (21-34) 08/20/18 07:51 - Constitutional Appears: Non-toxic, No Acute Distress, Chronically Ill - Head Exam Head Exam: ATRAUMATIC, NORMAL INSPECTION, NORMOCEPHALIC - Eye Exam Eye Exam: EOMI, Normal appearance, PERRL Pupil Exam: NORMAL ACCOMODATION, PERRL - ENT Exam ENT Exam: Mucous Membranes Moist, Normal Exam - Neck Exam Neck Exam: Full ROM, Normal Inspection. absent: Lymphadenopathy - Respiratory Exam Respiratory Exam: Clear to Ausculation Bilateral, NORMAL BREATHING PATTERN - Cardiovascular Exam Cardiovascular Exam: REGULAR RHYTHM, +S1, +S2. absent: Murmur - GI/Abdominal Exam GI & Abdominal Exam: Soft, Normal Bowel Sounds. absent: Tenderness - Rectal Exam Rectal Exam: Deferred - Exam Exam: NORMAL INSPECTION - Extremities Exam Extremities Exam: Full ROM, Normal Capillary Refill, Normal Inspection. absent: Joint Swelling, Pedal Edema - Back Exam Back Exam: NORMAL INSPECTION - Neurological Exam Neurological Exam: Alert, Awake, CN II-XII Intact, Normal Gait, Oriented x3 - Psychiatric Exam Psychiatric exam: Normal Affect, Normal Mood - Skin Skin Exam: Dry, Erythema, Intact, Warm Assessment and Plan (1) Symptomatic anemia Status: Acute (2) Abscess of left leg excluding foot Status: Acute (3) Abscess of left lower extremity Status: Acute (4) Bradycardia Status: Acute (5) CHF exacerbation Status: Acute (6) CKD stage 3 due to type 2 diabetes mellitus Status: Acute (7) Cellulitis of left lower extremity Status: Acute (8) Chronic kidney disease, stage III (moderate) Status: Acute (9) Diastolic CHF Status: Acute (10) GI bleed Status: Acute (11) Iron deficiency anemia Status: Acute (12) Occult blood positive stool Status: Acute (13) Renal failure Status: Acute (14) Severe anemia Status: Acute - Assessment and Plan (Free Text) Assessment: cont wound care await culktures
--- NOTE | 2018-08-22 20:29 | CP.PCM.PN ---
Subjective - Date & Time of Evaluation Date of Evaluation: 08/22/18 Time of Evaluation: 20:25 - Subjective Subjective: The patient is without complaints, says she is feeling better, denies any obvious bleeding. Hgb slightly lower today. Plan- For EGD in AM. The patient may need additional unit of blood, prior to discharge Objective - Vital Signs/Intake and Output Vital Signs (last 24 hours): Temp Pulse Resp BP Pulse Ox 98.1 F 78 20 124/60 96 08/22/18 15:20 08/22/18 17:51 08/22/18 15:20 08/22/18 17:51 08/22/18 15:20 - Medications Medications: Current Medications Clonidine HCl (Catapres) 0.2 mg PO BID [facility] Last Admin: 08/22/18 17:50 Dose: 0.2 mg Furosemide (Lasix) 40 mg PO DAILY [facility] Last Admin: 08/22/18 09:42 Dose: 40 mg Hydralazine HCl (Apresoline) 50 mg PO BID [facility] Last Admin: 08/22/18 17:50 Dose: 50 mg Piperacillin Sod/Tazobactam Sod (Zosyn 2.25 Gm Iv Premix) 2.25 gm in 50 mls @ 100 mls/hr IVPB Q8H [facility]; Protocol Last Admin: 08/22/18 17:49 Dose: 100 mls/hr Labetalol HCl (Trandate) 200 mg PO BID [facility] Last Admin: 08/22/18 17:50 Dose: 200 mg Pantoprazole Sodium (Protonix Ec Tab) 40 mg PO DAILY [facility] Last Admin: 08/22/18 09:43 Dose: 40 mg - Labs Labs: 08/22/18 08:17 08/22/18 08:17 PT 13.8 SECONDS (9.7-12.2) H 08/20/18 07:51 INR 1.3 08/20/18 07:51 APTT 32.9 SECONDS (21-34) 08/20/18 07:51
[2018-08-23] MEDS: Piperacill/Tazo 2.25gm in Dex 2.25 GM/50 ML BAG IVPB SCH (01:40)
[2018-08-23] MEDS ORDERED: Lactated Ringer's 1,000 ML IV ONE (09:00)
[2018-08-23] MEDS ORDERED: Propofol 10 mg/ml Inj (20 ML) ONE (09:11)
[2018-08-23] MEDS ORDERED: Etomidate 20 mg/10ml Inj IV ONE (09:11)
[2018-08-23] MEDS: Cefepime IV 1 gm in Dextrose 1 GM/50 ML BAG IVPB SCH (12:40)
--- NOTE | 2018-08-23 13:43 | CARD ---
APPROVED REPORT Date of service: 08/20/2018 EKG Measurement Heart [id number] <Conclusion> AV dual-paced rhythm Abnormal ECG
--- NOTE | 2018-08-23 13:50 | CT ---
Date of service: 08/23/2018 CT chest without IV contrast Indication: CERVICAL WEB Technique: Contiguous axial images were obtained through the chest without intravenous contrast enhancement. Sagittal and coronal reconstructions were generated and reviewed. This CT exam was performed using 1 or more of the following dose reduction techniques: Automated exposure control, adjustment of the MAA and/or kV according to patient size, and/or use of iterative reconstruction technique. Radiation dose (DLP): 286.99 MGy-cm. Comparison: Chest x-ray performed 08/20/18 Findings: Visualized portions of the inferior thyroid gland appear unremarkable. The mediastinal and hilar vascular structures appear within normal limits. Dual lead left-sided pacemaker. Borderline cardiomegaly. Dense coronary artery and valvular calcifications. Dense atherosclerotic calcifications of the aorta and branches. Mild bibasilar atelectasis. No focal consolidation. No pleural effusion. No pneumothorax. Extensive esophageal wall thickening. Moderate hiatal hernia. Limited visualization of the noncontrast upper abdomen: Cholelithiasis. Bilateral adrenal gland hypertrophy. 10 mm probable splenule. Degenerative changes. Impression: Extensive esophageal wall thickening. Moderate hiatal hernia. Suggest further evaluation with endoscopy if indicated. Dual lead left-sided pacemaker. Borderline cardiomegaly. Dense coronary artery and valvular calcifications. Dense atherosclerotic calcifications of the aorta and branches. Mild bibasilar atelectasis. Cholelithiasis. Bilateral adrenal gland hypertrophy.
[2018-08-23] MEDS: Linezolid 600 mg in D5W 300 ml 600 MG/300 ML BAG IVPB SCH (14:10)
[2018-08-23] MEDS: Pantoprazole 40 mg EC Tab PO SCH (15:22)
--- NOTE | 2018-08-23 17:13 | CT ---
Date of service: 08/23/2018 PROCEDURE: CT NECK WITHOUT CONTRAST HISTORY: Cervical web COMPARISON: None TECHNIQUE: CT of the neck without intravenous contrast. Coronal and sagittal reformats generated. Radiation dose: Total exam DLP = 416.5 mGy-cm. This CT exam was performed using one or more of the following dose reduction techniques: Automated exposure control, adjustment of the mA and/or kV according to patient size, and/or use of iterative reconstruction technique. FINDINGS: NASOPHARYNX: Grossly normal in appearance. SUPRAHYOID NECK: No gross abnormality in the oropharynx, oral cavity, parapharyngeal space and retropharyngeal space. INFRAHYOID NECK: No gross abnormality in the larynx, hypopharynx, and supraglottic space. Vocal cords intact. MASS: No bulky mass. GLANDS: Parotid and submandibular glands unremarkable. Normal size thyroid gland, without nodule. LYMPH NODES: Normal. No lymphadenopathy. CERVICAL SPINE: No fracture or focal lesion. OTHER FINDINGS: There is a retention cyst/polyp in the left maxillary sinus. The left IJV line terminates in the SVC.. IMPRESSION: Unremarkable non-contrast enhanced CT of the neck.
--- NOTE | 2018-08-23 22:57 | CP.PCM.PN ---
Subjective - Date & Time of Evaluation Date of Evaluation: 08/21/18 Time of Evaluation: 10:00 - Subjective Subjective: Pt received 2 units of packed cells Pt was seen by Dr Thibodeaux and Dr Ya Pt is comfortable Objective - Vital Signs/Intake and Output Vital Signs (last 24 hours): Temp Pulse Resp BP Pulse Ox 97.4 F L 64 20 112/61 97 08/23/18 15:00 08/23/18 18:32 08/23/18 15:00 08/23/18 18:32 08/23/18 15:00 - Medications Medications: Current Medications Clonidine HCl (Catapres) 0.2 mg PO BID [facility] Last Admin: 08/23/18 17:38 Dose: 0.2 mg Furosemide (Lasix) 40 mg PO DAILY [facility] Last Admin: 08/23/18 15:23 Dose: 40 mg Hydralazine HCl (Apresoline) 50 mg PO BID [facility] Last Admin: 08/23/18 17:38 Dose: 50 mg Linezolid (Zyvox 600mg/300ml D5w) 600 mg in 300 mls @ 200 mls/hr IVPB Q12H [facility]; Protocol Last Admin: 08/23/18 14:10 Dose: 200 mls/hr Cefepime HCl (Maxipime Iv 1 Gm Premix) 1 gm in 50 mls @ 100 mls/hr IVPB Q24H [facility]; Protocol Last Admin: 08/23/18 12:40 Dose: 100 mls/hr Labetalol HCl (Trandate) 200 mg PO BID [facility] Last Admin: 08/23/18 17:38 Dose: 200 mg Pantoprazole Sodium (Protonix Ec Tab) 40 mg PO DAILY [facility] Last Admin: 08/23/18 15:22 Dose: 40 mg - Labs Labs: 08/22/18 08:17 08/22/18 08:17 PT 13.8 SECONDS (9.7-12.2) H 08/20/18 07:51 INR 1.3 08/20/18 07:51 APTT 32.9 SECONDS (21-34) 08/20/18 07:51 - Constitutional Appears: Non-toxic - Head Exam Head Exam: NORMAL INSPECTION - Eye Exam Eye Exam: absent: Scleral icterus - Neck Exam Neck Exam: Full ROM - Respiratory Exam Respiratory Exam: Clear to Ausculation Bilateral - Cardiovascular Exam Cardiovascular Exam: REGULAR RHYTHM - GI/Abdominal Exam GI & Abdominal Exam: Soft - Extremities Exam Extremities Exam: absent: Pedal Edema - Neurological Exam Neurological Exam: Alert, Oriented x3 Assessment and Plan - Assessment and Plan (Free Text) Assessment: Severe anemia - r/o GI bleed HTN CAD-stable Plan: COnt meds GI consult with Dr Cohen
--- NOTE | 2018-08-23 23:04 | CP.PCM.PN ---
Subjective - Date & Time of Evaluation Date of Evaluation: 08/22/18 Time of Evaluation: 12:00 - Subjective Subjective: seen by GI- input well appreciated hemodynamically stable for possible upper endoscopy Objective - Vital Signs/Intake and Output Vital Signs (last 24 hours): Temp Pulse Resp BP Pulse Ox 97.4 F L 64 20 112/61 97 08/23/18 15:00 08/23/18 18:32 08/23/18 15:00 08/23/18 18:32 08/23/18 15:00 - Medications Medications: Current Medications Clonidine HCl (Catapres) 0.2 mg PO BID [facility] Last Admin: 08/23/18 17:38 Dose: 0.2 mg Furosemide (Lasix) 40 mg PO DAILY [facility] Last Admin: 08/23/18 15:23 Dose: 40 mg Hydralazine HCl (Apresoline) 50 mg PO BID [facility] Last Admin: 08/23/18 17:38 Dose: 50 mg Linezolid (Zyvox 600mg/300ml D5w) 600 mg in 300 mls @ 200 mls/hr IVPB Q12H [facility]; Protocol Last Admin: 08/23/18 14:10 Dose: 200 mls/hr Cefepime HCl (Maxipime Iv 1 Gm Premix) 1 gm in 50 mls @ 100 mls/hr IVPB Q24H [facility] ; Protocol Last Admin: 08/23/18 12:40 Dose: 100 mls/hr Labetalol HCl (Trandate) 200 mg PO BID [facility] Last Admin: 08/23/18 17:38 Dose: 200 mg Pantoprazole Sodium (Protonix Ec Tab) 40 mg PO DAILY [facility] Last Admin: 08/23/18 15:22 Dose: 40 mg - Labs Labs: 08/22/18 08:17 08/22/18 08:17 PT 13.8 SECONDS (9.7-12.2) H 08/20/18 07:51 INR 1.3 08/20/18 07:51 APTT 32.9 SECONDS (21-34) 08/20/18 07:51 - Constitutional Appears: Non-toxic - Eye Exam Eye Exam: absent: Scleral icterus - ENT Exam ENT Exam: Mucous Membranes Moist - Neck Exam Neck Exam: Full ROM - Respiratory Exam Respiratory Exam: NORMAL BREATHING PATTERN - Cardiovascular Exam Cardiovascular Exam: REGULAR RHYTHM - GI/Abdominal Exam GI & Abdominal Exam: Soft - Extremities Exam Extremities Exam: Pedal Edema - Neurological Exam Neurological Exam: Alert, Oriented x3 Assessment and Plan - Assessment and Plan (Free Text) Assessment: Recurrent Anemia - r/o GI bleed CAD Sick sinus syndrome Plan: For possible upper endoscopy ASA Eliquis on hold Cont meds
--- NOTE | 2018-08-23 23:42 | CP.PCM.PN ---
Subjective - Date & Time of Evaluation Date of Evaluation: 08/23/18 Time of Evaluation: 08:00 - Subjective Subjective: wound + MRSA and pseudomonas Objective - Vital Signs/Intake and Output Vital Signs (last 24 hours): Temp Pulse Resp BP Pulse Ox 97.4 F L 64 20 112/61 97 08/23/18 15:00 08/23/18 18:32 08/23/18 15:00 08/23/18 18:32 08/23/18 15:00 - Medications Medications: Current Medications Clonidine HCl (Catapres) 0.2 mg PO BID [facility] Last Admin: 08/23/18 17:38 Dose: 0.2 mg Furosemide (Lasix) 40 mg PO DAILY [facility] Last Admin: 08/23/18 15:23 Dose: 40 mg Hydralazine HCl (Apresoline) 50 mg PO BID [facility] Last Admin: 08/23/18 17:38 Dose: 50 mg Linezolid (Zyvox 600mg/300ml D5w) 600 mg in 300 mls @ 200 mls/hr IVPB Q12H [facility]; Protocol Last Admin: 08/23/18 14:10 Dose: 200 mls/hr Cefepime HCl (Maxipime Iv 1 Gm Premix) 1 gm in 50 mls @ 100 mls/hr IVPB Q24H [facility]; Protocol Last Admin: 08/23/18 12:40 Dose: 100 mls/hr Labetalol HCl (Trandate) 200 mg PO BID [facility] Last Admin: 08/23/18 17:38 Dose: 200 mg Pantoprazole Sodium (Protonix Ec Tab) 40 mg PO DAILY [facility] Last Admin: 08/23/18 15:22 Dose: 40 mg - Labs Labs: 08/22/18 08:17 08/22/18 08:17 PT 13.8 SECONDS (9.7-12.2) H 08/20/18 07:51 INR 1.3 08/20/18 07:51 APTT 32.9 SECONDS (21-34) 08/20/18 07:51 - Constitutional Appears: Non-toxic, No Acute Distress, Chronically Ill - Head Exam Head Exam: ATRAUMATIC, NORMAL INSPECTION, NORMOCEPHALIC - Eye Exam Eye Exam: EOMI, Normal appearance, PERRL Pupil Exam: NORMAL ACCOMODATION, PERRL - ENT Exam ENT Exam: Mucous Membranes Moist, Normal Exam - Neck Exam Neck Exam: Full ROM, Normal Inspection. absent: Lymphadenopathy - Respiratory Exam Respiratory Exam: Clear to Ausculation Bilateral, NORMAL BREATHING PATTERN - Cardiovascular Exam Cardiovascular Exam: REGULAR RHYTHM, +S1, +S2. absent: Murmur - GI/Abdominal Exam GI & Abdominal Exam: Soft, Normal Bowel Sounds. absent: Tenderness - Rectal Exam Rectal Exam: Deferred - Extremities Exam Extremities Exam: Full ROM, Normal Capillary Refill, Normal Inspection. absent: Joint Swelling, Pedal Edema - Back Exam Back Exam: NORMAL INSPECTION - Neurological Exam Neurological Exam: Alert, Awake, CN II-XII Intact, Normal Gait, Oriented x3 - Psychiatric Exam Psychiatric exam: Normal Affect, Normal Mood - Skin Skin Exam: Dry, Erythema, Warm Additional comments: ound lef]t leg with cellulitis Assessment and Plan (1) Symptomatic anemia Status: Acute (2) Abscess of left leg excluding foot Status: Acute (3) Abscess of left lower extremity Status: Acute (4) Bradycardia Status: Acute (5) CHF exacerbation Status: Acute (6) CKD stage 3 due to type 2 diabetes mellitus Status: Acute (7) Cellulitis of left lower extremity Status: Acute (8) Chronic kidney disease, stage III (moderate) Status: Acute (9) Diastolic CHF Status: Acute (10) GI bleed Status: Acute (11) Iron deficiency anemia Status: Acute (12) Occult blood positive stool Status: Acute (13) Renal failure Status: Acute (14) Severe anemia Status: Acute - Assessment and Plan (Free Text) Assessment: add zyvox/cefepime
[2018-08-24] MEDS: Linezolid 600 mg in D5W 300 ml 600 MG/300 ML BAG IVPB SCH ×2 (00:52→11:33)
[2018-08-24] MEDS: Pantoprazole 40 mg EC Tab PO SCH ×2 (09:05→18:36)
--- NOTE | 2018-08-24 10:48 | CP.PCM.PN ---
Subjective - Date & Time of Evaluation Date of Evaluation: 08/24/18 Time of Evaluation: 10:45 - Subjective Subjective: Patient denies having abdominal pain, nausea, vomiting, difficulty swallowing. She has not had any heartburn today. She had a formed bowel movement yesterday but has not moved her bowels so far today. Objective - Vital Signs/Intake and Output Vital Signs (last 24 hours): Temp Pulse Resp BP Pulse Ox 97.9 F 78 20 153/67 H 97 08/24/18 07:00 08/24/18 07:00 08/24/18 07:00 08/24/18 09:05 08/24/18 07:00 - Medications Medications: Current Medications Clonidine HCl (Catapres) 0.2 mg PO BID [facility] Last Admin: 08/24/18 09:05 Dose: 0.2 mg Furosemide (Lasix) 40 mg PO DAILY [facility] Last Admin: 08/24/18 09:05 Dose: 40 mg Hydralazine HCl (Apresoline) 50 mg PO BID [facility] Last Admin: 08/24/18 09:05 Dose: 50 mg Linezolid (Zyvox 600mg/300ml D5w) 600 mg in 300 mls @ 200 mls/hr IVPB Q12H [facility]; Protocol Last Admin: 08/24/18 00:52 Dose: 200 mls/hr Cefepime HCl (Maxipime Iv 1 Gm Premix) 1 gm in 50 mls @ 100 mls/hr IVPB Q24H [facility]; Protocol Last Admin: 08/23/18 12:40 Dose: 100 mls/hr Labetalol HCl (Trandate) 200 mg PO BID [facility] Last Admin: 08/24/18 09:05 Dose: 200 mg Pantoprazole Sodium (Protonix Ec Tab) 40 mg PO DAILY [facility] Last Admin: 08/24/18 09:05 Dose: 40 mg - Labs Labs: 08/22/18 08:17 08/22/18 08:17 PT 13.8 SECONDS (9.7-12.2) H 08/20/18 07:51 INR 1.3 08/20/18 07:51 APTT 32.9 SECONDS (21-34) 08/20/18 07:51 - Constitutional Appears: No Acute Distress - Head Exam Head Exam: ATRAUMATIC, NORMOCEPHALIC - Eye Exam Eye Exam: EOMI, PERRL - Neck Exam Neck Exam: absent: Lymphadenopathy, Thyromegaly - Respiratory Exam Respiratory Exam: NORMAL BREATHING PATTERN. absent: Rales, Rhonchi, Wheezes - Cardiovascular Exam Cardiovascular Exam: REGULAR RHYTHM, +S1, +S2. absent: Rubs, Murmur - GI/Abdominal Exam GI & Abdominal Exam: Soft, Normal Bowel Sounds. absent: Tenderness, Mass, Organ omegaly - Rectal Exam Rectal Exam: Deferred Assessment and Plan (1) Iron deficiency anemia Assessment & Plan: EGD showed persistent reflux esophagitis, hiatal hernia, gastric polyp, non- erosive gastritis. HGB from today is 9.0. Will increase pantoprazole to twice daily. Status: Acute
[2018-08-24] MEDS: Cefepime IV 1 gm in Dextrose 1 GM/50 ML BAG IVPB SCH (11:23)
[2018-08-25] MEDS: Linezolid 600 mg in D5W 300 ml 600 MG/300 ML BAG IVPB SCH ×2 (00:54→11:46)
--- NOTE | 2018-08-25 07:59 | CP.PCM.PN ---
Subjective - Date & Time of Evaluation Date of Evaluation: 08/25/18 Time of Evaluation: 07:57 - Subjective Subjective: Patient feels well. She denies having nausea, vomiting, heartburn, difficulty swallowing, and abdominal pain. She has not had a bowel movement since Thursday. Objective - Vital Signs/Intake and Output Vital Signs (last 24 hours): Temp Pulse Resp BP Pulse Ox 98.3 F 70 20 127/61 98 08/24/18 23:00 08/25/18 07:14 08/24/18 23:00 08/24/18 23:00 08/24/18 23:00 - Medications Medications: Current Medications Clonidine HCl (Catapres) 0.2 mg PO BID [facility] Last Admin: 08/24/18 18:03 Dose: 0.2 mg Furosemide (Lasix) 40 mg PO DAILY [facility] Last Admin: 08/24/18 09:05 Dose: 40 mg Hydralazine HCl (Apresoline) 50 mg PO BID [facility] Last Admin: 08/24/18 18:03 Dose: 50 mg Linezolid (Zyvox 600mg/300ml D5w) 600 mg in 300 mls @ 200 mls/hr IVPB Q12H [facility]; Protocol Last Admin: 08/25/18 00:54 Dose: 200 mls/hr Cefepime HCl (Maxipime Iv 1 Gm Premix) 1 gm in 50 mls @ 100 mls/hr IVPB Q24H [facility]; Protocol Last Admin: 08/24/18 11:23 Dose: 100 mls/hr Labetalol HCl (Trandate) 200 mg PO BID [facility] Last Admin: 08/24/18 18:36 Dose: 200 mg Pantoprazole Sodium (Protonix Ec Tab) 40 mg PO BID [facility] Last Admin: 08/24/18 18:36 Dose: 40 mg - Labs Labs: 08/22/18 08:17 08/22/18 08:17 PT 13.8 SECONDS (9.7-12.2) H 08/20/18 07:51 INR 1.3 08/20/18 07:51 APTT 32.9 SECONDS (21-34) 08/20/18 07:51 - Constitutional Appears: No Acute Distress - Head Exam Head Exam: ATRAUMATIC, NORMOCEPHALIC - Eye Exam Eye Exam: EOMI, PERRL - Neck Exam Neck Exam: absent: Lymphadenopathy, Thyromegaly - Respiratory Exam Respiratory Exam: NORMAL BREATHING PATTERN. absent: Rales, Rhonchi, Wheezes - Cardiovascular Exam Cardiovascular Exam: REGULAR RHYTHM, +S1, +S2. absent: Gallop, Rubs, Murmur - GI/Abdominal Exam GI & Abdominal Exam: Soft, Normal Bowel Sounds. absent: Tenderness, Mass, Organomegaly - Rectal Exam Rectal Exam: Deferred Assessment and Plan (1) Iron deficiency anemia Assessment & Plan: Patient is now on twice-daily pantoprazole for reflux esophagitis which was not well-controlled with once daily therapy. The work up from this point usually includes colonoscopy and possibly small bowel capsule endoscopy. However, pat ient is refusing colonoscopy at present. Status: Acute
[2018-08-25] MEDS: Pantoprazole 40 mg EC Tab PO SCH ×2 (09:10→17:52)
[2018-08-25 10:54] LABS: BASO # 0.1 K/uL (0.0-0.2); BASO % 1.4 % (0.0-2.0); EOS # 0.3 K/uL (0.0-0.7); EOS % 5.6 % (0.0-4.0); HEMOGLOBIN 9.2 g/dL (11.0-16.0); LYMPH # 0.7 K/uL (1.0-4.3); LYMPH % 14.4 % (20.0-40.0); MEAN CORPUSCULAR HEMOGLOBIN 31.3 pg (27.0-31.0); MEAN CORPUSCULAR HGB CONC 33.7 g/dL (33.0-37.0); MEAN PLATELET VOLUME 7.5 fL (7.2-11.7); MONO # 0.5 K/uL (0.0-0.8); MONO % 10.1 % (0.0-10.0); NEUT # 3.4 K/uL (1.8-7.0); NEUT % 68.5 % (50.0-75.0); NRBC % 0.1 % (0.0-2.0); RBC 2.95 Mil/uL (3.80-5.20); RED CELL DISTRIBUTION WIDTH 17.5 % (11.5-14.5); WHITE BLOOD COUNT 4.9 K/uL (4.8-10.8)
[2018-08-25 11:05] LABS: CALCIUM 8.6 mg/dl (8.6-10.4); MEAN CELL VOLUME 92.8 fL (81.0-99.0)
[2018-08-25] MEDS: Cefepime IV 1 gm in Dextrose 1 GM/50 ML BAG IVPB SCH (11:42)
[2018-08-25] MEDS ORDERED: Potassium Chloride 20 mEq ER Tab PO ONE ×2 (15:30→17:00)
[2018-08-25 16:46] VITALS: BP 167/68; PULSE 73; RESP 18; TEMP 98.3; O2SAT 98
--- NOTE | 2018-08-25 17:04 | CP.PCM.PN ---
Subjective - Date & Time of Evaluation Date of Evaluation: 08/25/18 Time of Evaluation: 11:20 - Subjective Subjective: patient seen today , denies any complaints no acute overnight events reported by RN labs repeated today hgb stable 9.2- K-3.4 - replaced Objective - Vital Signs/Intake and Output Vital Signs (last 24 hours): Temp Pulse Resp BP Pulse Ox 98.3 F 73 18 167/68 H 98 08/25/18 16:44 08/25/18 16:44 08/25/18 16:44 08/25/18 16:44 08/25/18 16:44 - Medications Medications: Current Medications Clonidine HCl (Catapres) 0.2 mg PO BID [facility] Last Admin: 08/25/18 09:10 Dose: 0.2 mg Furosemide (Lasix) 40 mg PO DAILY [facility] Last Admin: 08/25/18 09:10 Dose: 40 mg Hydralazine HCl (Apresoline) 50 mg PO BID [facility] Last Admin: 08/25/18 09:10 Dose: 50 mg Linezolid (Zyvox 600mg/300ml D5w) 600 mg in 300 mls @ 200 mls/hr IVPB Q12H [facility]; Protocol Last Admin: 08/25/18 11:46 Dose: 200 mls/hr Cefepime HCl (Maxipime Iv 1 Gm Premix) 1 gm in 50 mls @ 100 mls/hr IVPB Q24H [facility]; Protocol Last Admin: 08/25/18 11:42 Dose: 100 mls/hr Labetalol HCl (Trandate) 200 mg PO BID [facility] Last Admin: 08/25/18 09:11 Dose: 200 mg Pantoprazole Sodium (Protonix Ec Tab) 40 mg PO BID [facility] Last Admin: 08/25/18 09:10 Dose: 40 mg - Labs Labs: 08/25/18 10:50 08/25/18 10:50 PT 13.8 SECONDS (9.7-12.2) H 08/20/18 07:51 INR 1.3 08/20/18 07:51 APTT 32.9 SECONDS (21-34) 08/20/18 07:51 Assessment and Plan - Assessment and Plan (Free Text) Assessment: A/P 87 yr old fema ewith pmhx of CAD, HTN, Hypercholesterolemia, Peripheral Edema, Chronic Kidney Disease admitted with anemia ( hgb 6.2) Patient received blood transfusion and hgb improved s/p endoscopy- ( see full report) seen by Dr. orellana today recommends colonoscopy and possibly small bowel capsule endoscopy. However, patient is refusing colonoscopy at present. Patient stated she had colonoscopy in september wound culture- MRSA and psuedomonus and on cefepime an dzyvox patien t accepted at [facility] today D/w Dr. Ya continue antibiotics for TOTAL OF [address] Benavides , cleared for discharge to [facility] under Dr. Zabala service will repeat cbc, bmp q 3 days - at [facility] Discharge plan discussed with patient who understands and agrees with plan
--- NOTE | 2018-08-25 22:09 | CP.PCM.PN ---
Subjective - Date & Time of Evaluation Date of Evaluation: 08/25/18 Time of Evaluation: 09:00 - Subjective Subjective: seen on rounds'leg healing well Objective - Vital Signs/Intake and Output Vital Signs (last 24 hours): Temp Pulse Resp BP Pulse Ox 98.3 F 73 18 167/68 H 98 08/25/18 16:44 08/25/18 16:44 08/25/18 16:44 08/25/18 16:44 08/25/18 16:44 - Medications Medications: Current Medications Clonidine HCl (Catapres) 0.2 mg PO BID [facility] Last Admin: 08/25/18 09:10 Dose: 0.2 mg Furosemide (Lasix) 40 mg PO DAILY [facility] Last Admin: 08/25/18 09:10 Dose: 40 mg Hydralazine HCl (Apresoline) 50 mg PO BID [facility] Last Admin: 08/25/18 09:10 Dose: 50 mg Linezolid (Zyvox 600mg/300ml D5w) 600 mg in 300 mls @ 200 mls/hr IVPB Q12H [facility]; Protocol Last Admin: 08/25/18 11:46 Dose: 200 mls/hr Cefepime HCl (Maxipime Iv 1 Gm Premix) 1 gm in 50 mls @ 100 mls/hr IVPB Q24H [facility]; Protocol Last Admin: 08/25/18 11:42 Dose: 100 mls/hr Labetalol HCl (Trandate) 200 mg PO BID [facility] Last Admin: 08/25/18 09:11 Dose: 200 mg Pantoprazole Sodium (Protonix Ec Tab) 40 mg PO BID [facility] Last Admin: 08/25/18 09:10 Dose: 40 mg - Labs Labs: 08/25/18 10:50 08/25/18 10:50 PT 13.8 SECONDS (9.7-12.2) H 08/20/18 07:51 INR 1.3 08/20/18 07:51 APTT 32.9 SECONDS (21-34) 08/20/18 07:51 - Constitutional Appears: Non-toxic, Chronically Ill - Head Exam Head Exam: NORMOCEPHALIC - Eye Exam Eye Exam: absent: Scleral icterus Pupil Exam: NORMAL ACCOMODATION, PERRL - ENT Exam ENT Exam: Mucous Membranes Moist, Normal Exam - Neck Exam Neck Exam: Full ROM, Normal Inspection. absent: Lymphadenopathy - Respiratory Exam Respiratory Exam: Decreased Breath Sounds, Clear to Ausculation Bilateral, Rhonchi - Cardiovascular Exam Cardiovascular Exam: REGULAR RHYTHM, +S1, +S2. absent: Murmur - GI/Abdominal Exam GI & Abdominal Exam: Soft, Normal Bowel Sounds. absent: Tenderness - Rectal Exam Rectal Exam: Deferred - Exam Exam: NORMAL INSPECTION - Extremities Exam Extremities Exam: Full ROM, Normal Capillary Refill, Normal Inspection. absent: Joint Swelling, Pedal Edema - Back Exam Back Exam: NORMAL INSPECTION - Neurological Exam Neurological Exam: Alert, Awake, CN II-XII Intact, Normal Gait, Oriented x3 - Psychiatric Exam Psychiatric exam: Depressed - Skin Skin Exam: Dry, Erythema, Intact Assessment and Plan (1) Symptomatic anemia Status: Acute (2) Abscess of left leg excluding foot Status: Acute (3) Abscess of left lower extremity Status: Acute (4) Bradycardia Status: Acute (5) CHF exacerbation Status: Acute (6) CKD stage 3 due to type 2 diabetes mellitus Status: Acute (7) Cellulitis of left lower extremity Status: Acute (8) Chronic kidney disease, stage III (moderate) Status: Acute (9) Diastolic CHF Status: Acute (10) GI bleed Status: Acute (11) Iron deficiency anemia Status: Acute (12) Occult blood positive stool Status: Acute (13) Renal failure Status: Acute (14) Severe anemia Status: Acute - Assessment and Plan (Free Text) Assessment: cont IV rx wound care
--- NOTE | 2018-08-26 06:35 | CP.PCM.PN ---
Subjective - Date & Time of Evaluation Date of Evaluation: 08/24/18 Time of Evaluation: 07:45 - Subjective Subjective: wound healing well no abdominal pain Hgb steady at 9.0 EGD showed persistent reflux esophagitis, hiatal hernia, gastric polyp, non-ero sive gastritis Objective - Vital Signs/Intake and Output Vital Signs (last 24 hours): Temp Pulse Resp BP Pulse Ox 98.3 F 73 18 167/68 H 98 08/25/18 16:44 08/25/18 16:44 08/25/18 16:44 08/25/18 16:44 08/25/18 16:44 - Labs Labs: 08/25/18 10:50 08/25/18 10:50 PT 13.8 SECONDS (9.7-12.2) H 08/20/18 07:51 INR 1.3 08/20/18 07:51 APTT 32.9 SECONDS (21-34) 08/20/18 07:51 - Constitutional Appears: Non-toxic - Head Exam Head Exam: NORMAL INSPECTION - Eye Exam Eye Exam: absent: Scleral icterus - Neck Exam Neck Exam: Full ROM - Respiratory Exam Respiratory Exam: NORMAL BREATHING PATTERN - Cardiovascular Exam Cardiovascular Exam: REGULAR RHYTHM - Extremities Exam Additional comments: +wound healing well - Neurological Exam Neurological Exam: Alert, Oriented x3 Assessment and Plan - Assessment and Plan (Free Text) Assessment: Iron deficiency anemia Healing Wound HTN Hiatus hernia Gastritis Plan: Increase Pantoprazole 40mg po BID
--- NOTE | 2018-08-26 06:42 | CP.PCM.PN ---
Subjective - Date & Time of Evaluation Date of Evaluation: 08/23/18 Time of Evaluation: 08:00 - Subjective Subjective: no abdominal pain wound still swollen but improving Heme note well appreciated Objective - Vital Signs/Intake and Output Vital Signs (last 24 hours): Temp Pulse Resp BP Pulse Ox 98.3 F 73 18 167/68 H 98 08/25/18 16:44 08/25/18 16:44 08/25/18 16:44 08/25/18 16:44 08/25/18 16:44 - Labs Labs: 08/25/18 10:50 08/25/18 10:50 PT 13.8 SECONDS (9.7-12.2) H 08/20/18 07:51 INR 1.3 08/20/18 07:51 APTT 32.9 SECONDS (21-34) 08/20/18 07:51 - Constitutional Appears: Non-toxic - Eye Exam Eye Exam: absent: Scleral icterus - ENT Exam ENT Exam: Mucous Membranes Moist - Neck Exam Neck Exam: Full ROM - Respiratory Exam Respiratory Exam: Decreased Breath Sounds - GI/Abdominal Exam GI & Abdominal Exam: Soft - Extremities Exam Extremities Exam: Full ROM - Neurological Exam Neurological Exam: Alert, Oriented x3 Assessment and Plan - Assessment and Plan (Free Text) Assessment: Anemia, Iron deficiency HTN CAD Plan: Cont meds transfusion prn EGD in am
--- NOTE | 2018-08-26 06:48 | CP.PCM.PN ---
Subjective - Date & Time of Evaluation Date of Evaluation: 08/25/18 Time of Evaluation: 08:30 - Subjective Subjective: On BID pantoprazole BID Case discussed with GI- will need Colonoscopy and capsule enteroscopy no diarrhea To complete 5-7days of Abtx therapy Objective - Vital Signs/Intake and Output Vital Signs (last 24 hours): Temp Pulse Resp BP Pulse Ox 98.3 F 73 18 167/68 H 98 08/25/18 16:44 08/25/18 16:44 08/25/18 16:44 08/25/18 16:44 08/25/18 16:44 - Labs Labs: 08/25/18 10:50 08/25/18 10:50 PT 13.8 SECONDS (9.7-12.2) H 08/20/18 07:51 INR 1.3 08/20/18 07:51 APTT 32.9 SECONDS (21-34) 08/20/18 07:51 - Constitutional Appears: Non-toxic, Chronically Ill - Head Exam Head Exam: NORMAL INSPECTION - Eye Exam Eye Exam: absent: Scleral icterus - Neck Exam Neck Exam: Full ROM - Respiratory Exam Respiratory Exam: Clear to Ausculation Bilateral - Cardiovascular Exam Cardiovascular Exam: REGULAR RHYTHM - GI/Abdominal Exam GI & Abdominal Exam: Soft - Extremities Exam Extremities Exam: absent: Pedal Edema - Neurological Exam Neurological Exam: Alert, Oriented x3 Assessment and Plan - Assessment and Plan (Free Text) Assessment: Anemia, Iron deficiency Leg wound with +MRSA HTN Esophagitis Hiatus hernia Gastritis Plan: Cont Abtx Transfusion prn Pantoprazole 40mg po bid
== END 2018-08-25 18:26 | DRG 811 ==
LOC: C.ER 07:12 → C.9E 08:18 → C.6T 13:06 → OBSVTOIN 08-22 09:50 → C.6T 08-23 12:38
PROVIDERS: ADMIT Internal Medicine; ATTEND Internal Medicine
PROC: 0DB78ZX Excision of Stomach, Pylorus, Via Natural or Artificial Opening Endoscopic, Diagnostic (ICD-10-PCS; 2018-08-23)
PROC: 0DB58ZX Excision of Esophagus, Via Natural or Artificial Opening Endoscopic, Diagnostic (ICD-10-PCS; principal; 2018-08-23 09:10)
DX: D50.9 Iron deficiency anemia, unspecified (principal); K29.71 Gastritis, unspecified, with bleeding; I13.0 Hypertensive heart and chronic kidney disease with heart failure and stage 1 through stage 4 chronic kidney disease, or unspecified chronic kidney disease; L02.416 Cutaneous abscess of left lower limb; L03.116 Cellulitis of left lower limb; I50.30 Unspecified diastolic (congestive) heart failure; L97.929 Non-pressure chronic ulcer of unspecified part of left lower leg with unspecified severity; E11.22 Type 2 diabetes mellitus with diabetic chronic kidney disease; I25.10 Atherosclerotic heart disease of native coronary artery without angina pectoris; K29.70 Gastritis, unspecified, without bleeding; K31.7 Polyp of stomach and duodenum; K44.9 Diaphragmatic hernia without obstruction or gangrene; N18.3 Chronic kidney disease, stage 3 (moderate); Z87.891 Personal history of nicotine dependence; Z95.0 Presence of cardiac pacemaker; Z95.5 Presence of coronary angioplasty implant and graft; I49.5 Sick sinus syndrome; K21.0 Gastro-esophageal reflux disease with esophagitis